=== PATIENT | female | born 1965 | race African-American/Black ===

== ENCOUNTER 2020-04-29 12:34 | Inpatient (IN) | payer MEDICAID, SELFPAY ==
[2020-04-29] VITALS (19 sets, daily range): BP systolic 97–169; BP diastolic 78–114; PULSE 106–111; RESP 16–40; TEMP 34.9–37; O2SAT 100; BMI 40.1; BMI 36.5
--- NOTE | 2020-04-29 12:49 | EKG12_ITS ---
Test Reason : DYSRHYTHMIA Blood Pressure : / mmHG Vent. Rate : 108 BPM Atrial Rate : 108 BPM P-R Int : 132 ms QRS Dur : 102 ms QT Int : 360 ms P-R-T Axes : 057 037 065 degrees QTc Int : 482 ms Sinus tachycardia Nonspecific ST and T wave abnormality Abnormal ECG Confirmed by ABISAI WRAY, MARK ([id number]), editor producer DIAMOND CUENCA ([id number] on 04/30/2020 1:20:20 PM Referred By: MAGDIEL Confirmed By:MARK BARONE MD
--- NOTE | 2020-04-29 12:50 | ED.DCSUM_ITS ---
History of Present Illness Chief Complaint: Nausea/Vomiting Informant: Patient Onset: Days Context: Gradual Onset Narrative: Patient is a poor historian. From what we are able to gather she has had nausea and vomiting for the past 2 or 3 days with shortness of breath. Minimal cough. No fever. She initially denies being diabetic but she does have metformin with her in her medication bag. She tells me she does not check her blood sugars re gularly. Past Medical History - Allergies and Home Meds Allergies/Adverse Reactions: Allergies No Known Allergies Allergy (Verified 04/29/20 12:42) Primary Care Physician: Amor Weir MD [Primary Care Provider] - Past Medical History: - - Based on patient's medications I presume patient has reflux disease, diabetes, depression, neuropathy. Smoking Status: Never smoker Review of Systems General: Denies: Chills, Fever Eyes: Denies: Visual changes - bilaterally Cardiovascular: Denies: Chest pain Respiratory: Reports: Dyspnea. Denies: Cough Gastrointestinal: Reports: Nausea, Vomiting, Diarrhea Musculoskeletal: Denies: Extremity Pain Hematologic: Denies: Easy bruising, Easy bleeding Allergy: Denies: Uticaria Physical Exam Vital Signs/Narrative: Vital Signs Temp Pulse Resp BP Pulse Ox 04/29/20 12:36 97.5 F L 109 H 29 H 151/99 H 100 Inital Vital Signs reviewed: Yes General: Well nourished, Well developed ENT: Dry mucous membranes Cardiovascular: Tachycardia Respiratory: No distress, CTA bilaterally, - - Tachypnea Abdomen: Soft, Nontender Extremities: Nontender Skin: Normal color Neurological: Alert, Oriented x3 Psychological: - - Anxious Diagnostic/Tx/Re-eval 04/29/20 14:10 Chest 1 View (Portable) [RAD] Stat Laboratory Results 04/29/20 04/29/20 04/29/20 12:35 12:35 12:35 WBC 17.7 H RBC 5.26 Hgb 13.9 Hct 45.7 MCV 86.9 MCH 26.4 L MCHC 30.4 L RDW Std Deviation 50.4 H RDW Coeff of Jevon 16.1 H Plt Count 248 MPV 13.7 H Immature Gran % (Auto) 1.400 H Neut % (Auto) 86.4 H Lymph % (Auto) 5.8 L [place] % (Auto) 6.1 Eos % (Auto) 0.1 Baso % (Auto) 0.2 Absolute Neuts (auto) 15.3 H Absolute Lymphs (auto) 1.03 Nucleated RBC % 0 Sodium Cancelled Potassium Cancelled Chloride Cancelled Carbon Dioxide Cancelled Anion Gap Cancelled BUN Cancelled Creatinine Cancelled Estim Creat Clear Calc Cancelled Est GFR (MDRD) Af Amer Cancelled Est GFR (MDRD) Non-Af Cancelled BUN/Creatinine Ratio Cancelled Glucose Cancelled Hemoglobin A1c 12.1 H Calcium Cancelled Total Bilirubin Cancelled Direct Bilirubin Cancelled AST Cancelled ALT Cancelled Alkaline Phosphatase Cancelled Troponin I Cancelled Total Protein Cancelled Albumin Cancelled Globulin Cancelled Urine Color Urine Clarity Urine pH Ur Specific [place] Urine Protein Urine Glucose (UA) Urine Ketones Urine Occult Blood Urine Nitrite Urine Bilirubin Urine Urobilinogen Ur Leukocyte Esterase Urine RBC Urine WBC Ur Squamous Epith Cells Amorphous Sediment Urine Bacteria Fine Granular Casts Urine Mucus Acetone Level COVID-19 (KAUSHAL) POC Glucose 04/29/20 04/29/20 04/29/20 12:47 13:00 13:50 WBC RBC Hgb Hct MCV MCH MCHC RDW Std Deviation RDW Coeff of Jevon Plt Count MPV Immature Gran % (Auto) Neut % (Auto) Lymph % (Auto) [place] % (Auto) Eos % (Auto) Baso % (Auto) Absolute Neuts (auto) Absolute Lymphs (auto) Nucleated RBC % Sodium Potassium Chloride Carbon Dioxide Anion Gap BUN Creatinine Estim Creat Clear Calc Est GFR (MDRD) Af Amer Est GFR (MDRD) Non-Af BUN/Creatinine Ratio Glucose Hemoglobin A1c Calcium Total Bilirubin Direct Bilirubin AST ALT Alkaline Phosphatase Troponin I Total Protein Albumin Globulin Urine Color Urine Clarity Urine pH Ur Specific [place] Urine Protein Urine Glucose (UA) Urine Ketones Urine Occult Blood Urine Nitrite Urine Bilirubin Urine Urobilinogen Ur Leukocyte Esterase Urine RBC Urine WBC Ur Squamous Epith Cells Amorphous Sediment Urine Bacteria Fine Granular Casts Urine Mucus Acetone Level MODERATE H COVID-19 (KAUSHAL) Negative POC Glucose > 500 H* 04/29/20 04/29/20 13:50 14:10 WBC RBC Hgb Hct MCV MCH MCHC RDW Std Deviation RDW Coeff of Jevon Plt Count MPV Immature Gran % (Auto) Neut % (Auto) Lymph % (Auto) [place] % (Auto) Eos % (Auto) Baso % (Auto) Absolute Neuts (auto) Absolute Lymphs (auto) Nucleated RBC % Sodium 126 L Potassium 4.0 Chloride 97 L Carbon Dioxide 5.0 L* Anion Gap 24 H BUN 31 H Creatinine 1.37 H Estim Creat Clear Calc 46.18 Est GFR (MDRD) Af Amer 52 L Est GFR (MDRD) Non-Af 43 L BUN/Creatinine Ratio 22.6 H Glucose 706 H* Hemoglobin A1c Calcium 9.4 Total Bilirubin 0.40 Direct Bilirubin 0.11 AST 15 ALT 23 Alkaline Phosphatase 204 H Troponin I < 0.015 Total Protein 7.4 Albumin 3.3 Globulin 4.1 Urine Color Yellow Urine Clarity Sl. Cloudy Urine pH 5.0 Ur Specific [place] 1.020 Urine Protein 30 H Urine Glucose (UA) 1000 H Urine Ketones 150 H Urine Occult Blood 250 H Urine Nitrite Negative Urine Bilirubin Negative Urine Urobilinogen Normal Ur Leukocyte Esterase Negative Urine RBC 0-5 SEEN Urine WBC 0 SEEN Ur Squamous Epith Cells 0-5 SEEN Amorphous Sediment 1+ Urine Bacteria RARE Fine Granular Casts 0-5 SEEN Urine Mucus RARE Acetone Level COVID-19 (KAUSHAL) POC Glucose - EKG Initial EKG Interpretation: Sinus Tachycardia - Sinus tach at 108. Nonspecific ST change. No acute ischemia. - Medical Decision Making Patient's initial fingerstick blood sugar was greater than 500. 2 IV lines are established. Patient's blood sugars over 700 with a bicarb of 5. Patient is given 2 L of IV fluid and insulin drip was ordered. Patient was discussed with hospitalist and we admitted to the ICU. - Critical Care Time Critical care time (excluding procedures): 30-74 minutes ED Disposition - Plan for ED Patient: Disposition: Acute Care Hospital [facility] Diagnosis: DKA (diabetic ketoacidoses) Referrals: Amor Weir MD [Primary Care Provider] -
[2020-04-29 12:51] LABS: Bedside Glucose > 500 mg/dL (70-110)
[2020-04-29 13:01] LABS: Absolute Lymphocyte Count 1.03 X10^3/uL (0.83-4.51); Absolute Neutrophil Count 15.3 X10^3/uL (2.0-7.7); Basophil# 0.04 X10^3/uL; Basophil% 0.2 % (0-1); Eosinophil# 0.02 X10^3/uL; Eosinophils% 0.1 % (0-5); Hematocrit 45.7 % (37-47); Hemoglobin 13.9 g/dL (12.0-15.0); Lymphocyte # 1.03 X10^3/ul (4.0); Lymphocyte % 5.8 % (19-41); Mean Corp Hgb Conc 30.4 g/dL (32-36); Mean Corpuscular Hgb 26.4 pg (27.0-32.0); Mean Corpuscular Volume 86.9 fL (81-99); Mean Platelet Vol. 13.7 fl (6.2-12.0); Monocyte# 1.09 X10^3/uL; Monocyte% 6.1 % (0-10); NRBC Flagged by Analyzer 0 % (0-5); Neutrophil # 15.32 X10^3/uL (2.7-7.7); Neutrophil % 86.4 % (47-70); Platelet Count 248 K/mm3 (150-450); RBC Distribution Width CV 16.1 % (11.6-14.6); RBC Distribution Width SD 50.4 fl (35.1-43.9); Red Blood Count 5.26 M/mm3 (4.2-5.4); White Blood Count 17.7 K/mm3 (4.4-11.0)
--- NOTE | 2020-04-29 13:18 | NURSING ---
NO OLD EKGS
[2020-04-29] MEDS: 0.9% Normal Saline 1,000 ML 999 ML IV (13:21)
[2020-04-29] MEDS: Ondansetron 4 MG/2 ML Vial IV (13:26)
[2020-04-29 13:27] LABS: Hemoglobin A1c 12.1 % (3.8-5.6)
--- NOTE | 2020-04-29 14:10 | RAD_ITS ---
STUDY: X-RAY CHEST REASON FOR EXAM: Female, 55 years old. sob, nausea and vomiting x 2 days TECHNIQUE: Frontal view of the chest COMPARISON: None. FINDINGS: The lungs are clear and expanded. There is no demonstrated pleural abnormality. Normal size heart. Normal mediastinum and martin. Normal visualized pulmonary arteries. Normal visualized aortic arch and descending thoracic aorta. Normal visualized thoracic spine. Normal visualized ribs, clavicles, and shoulders. There is no demonstrated abnormality of the visualized soft tissue structures of the upper abdomen. RAD/Chest 1 View (Portable) IMPRESSION: Normal x-ray examination of the chest. Electronically Signed: Andrei Mejias, at 15:37 EDT Tel , Service support ,
[2020-04-29 14:15] LABS: White Blood Cells 0 SEEN /hpf (0-5)
[2020-04-29 14:16] LABS: Color, Urine Yellow (Yellow); Glucose, Dipstick 1000 mg/dl (Normal); Leukocyte Esterase-Dipstick Negative /ul (Negative); Nitrite-Dipstick Negative (Negative); Occult Blood-Urine 250 /ul (Negative); Protein-Dipstick 30 mg/dl (Negative); Urine Bilirubin Dipstick Negative (Negative); Urine Clarity Sl. Cloudy (Clear); Urine Urobilinogen Normal (Normal)
[2020-04-29 14:17] LABS: Ketone-Dipstick 150 mg/dl (Negative)
[2020-04-29 14:25] LABS: Amorphous Sediment 1+; Bacteria RARE /hpf (None Seen); Fine Granular Cast- Urine 0-5 SEEN /lpf (0-5); Mucous, Urine RARE /hpf (<or=2+); Red Blood Cells-Urine 0-5 SEEN /hpf (0-5); Squamous Epithelial Cells - UA 0-5 SEEN /hpf (5-10)
[2020-04-29 14:26] LABS: Probe Check PASS; Specimen Processing Control PASS
[2020-04-29 14:33] LABS: AST(SGOT) 15 U/L (15-37); Alanine Aminotransfer ALT/SGPT 23 U/L (13-56); Albumin, Serum 3.3 g/dL (3.2-5.0); Alkaline Phosphatase 204 U/L (45-117); Anion Gap 24 (5-15); BUN 31 mg/dL (7-18); BUN/Creat Ratio 22.6 RATIO (10-20); Bilirubin, Direct 0.11 mg/dL (0.00-0.30); Calcium,Total 9.4 mg/dL (8.5-10.1); Chloride 97 mmol/L (98-107); Creatinine, Serum 1.37 mg/dL (0.55-1.02); EST Glomerular Filtration Rate 43 mL/min (>60); Est Glom Filt Rate - Afr Amer 52 mL/min (>60); Estimated Creatinine Clearance 46.18 ml/min; Globulin 4.1 g/dL (2.2-4.2); Glucose 706 mg/dL (74-106); Protein, Total 7.4 g/dL (6.4-8.2); Sodium Level 126 mmol/L (136-145)
--- NOTE | 2020-04-29 14:55 | NURSING ---
ICU PAINTSIL DKA
[2020-04-29 15:15] LABS: Bedside Glucose > 500 mg/dL (70-110)
--- NOTE | 2020-04-29 15:18 | NURSING ---
ICU 6
--- NOTE | 2020-04-29 15:57 | HP.PCM_ITS ---
<Rafiq Lino - Last Filed: 04/29/20 15:57> Problem List (1) DKA (diabetic ketoacidoses) Status: Acute (2) Depression Status: Chronic History of Present Illness Date of Admission: 04/29/20 Chief Complaint: DKA The patient is a 55 year old F with pmhx of DMt2, who presented to the ER with c/o nausea/vomiting, and shortness of breath. At this time she is confused and unable to provide significant history, so the hx that was obtained from the records and from family. She has not been feeling well for about 4 days. Per family she has been eating fast food. She appears to have DKA with glucose 706 and an A1C of 12, elevated acetones, Gap of 24, and she is tachypneic up to 40 in the ER but denies SOB. Family states she does not drink or use drugs. She is supposed to be on metformin at home. [] Past Medical History Past Medical History (Chronic Problems): Chronic Problems Depression (Chronic) Allergies No Known Allergies Allergy (Verified 04/29/20 12:42) Home Medications: Ambulatory Orders Medication Instructions Recorded Escitalopram Oxalate [Lexapro] 10 mg PO DAILY 04/29/20 Gabapentin 800 mg PO QHS 04/29/20 Metformin HCl [Metformin HCl ER] 500 mg PO DAILY 04/29/20 Montelukast [Singulair] 10 mg PO QHS 04/29/20 Oxybutynin Chloride [Oxybutynin 10 mg PO DAILY 04/29/20 Chloride ER] Promethazine HCl 25 mg PO Q6H PRN PRN 04/29/20 Propranolol HCl [Inderal] 10 mg PO DAILY 04/29/20 Surgical History: - - pt unable to provide Psychiatric History: No pertinent psych hx 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 Lives: With Family Smoking Status: Never smoker Tobacco Use: Non-smoker Alcohol: None Drugs: None - *Family History Maternal History Items: - - unable to provide Paternal History Items: No pertinent history - unable to provide Review of Systems Unable to obtain accurate/complete ROS d/t: Pt confused and unable to provide VTE Information - Inpt Only VTE Present on Admission: No VTE Mechan Device Prophylaxis: None VTE Pharm Prophylaxis ordered?: Yes Patient Problems: Active and Suspected Problems DKA (diabetic ketoacidoses) (Acute) - Physical Exam Vitals/I&O's: Vital Signs Temp Pulse Resp BP Pulse Ox 95.3 F L 108 H 32 H 143/89 H 100 04/29/20 15:00 04/29/20 15:00 04/29/20 15:00 04/29/20 15:00 04/29/20 15:00 Oxygen Delivery Method Room Air Weight: 255 lb 15.307 oz Body Mass Index (BMI) 40.1 Finger Stick Blood Glucose 600 Intake and Output for Last 24 Hours 04/27/20 04/28/20 04/29/20 23:59 23:59 23:59 Intake Total 1000.0 / 1000.0 Balance 1000.0 / 1000.0 General: Alert, Cooperative, Confused HEENT: Atraumatic, PERRLA, EOMI, Normocephalic Neck: Supple, No JVD, Negative Carotid Bruits Lungs: Clear to auscultation, Short of Breath, Tachypneic Cardiovascular: No murmurs, Tachycardic Abdomen: Bowel Sounds Present, Soft, Non Tender Extremities: No edema, Capillary Refill Less than 3 Seconds Skin: No rashes, No breakdown Musculoskeletal: No Tenderness to Palpation of Joints or Extremities Neurological: Cranial nerves II-XII grossly intact Psych/Mental Status: Anxious Laboratory Results 04/29/20 12:35: Sodium Cancelled, Potassium Cancelled, Chloride Cancelled, Carbon Dioxide Cancelled, Anion Gap Cancelled, BUN Cancelled, Creatinine Cancelled, Estim Creat Clear Calc Cancelled, Est GFR (MDRD) Af Amer Cancelled, Est GFR (MDRD) Non-Af Cancelled, BUN/Creatinine Ratio Cancelled, Glucose Cancelled, Calcium Cancelled, Total Bilirubin Cancelled, Direct Bilirubin Cancelled, AST Cancelled, ALT Cancelled, Alkaline Phosphatase Cancelled, Troponin I Cancelled, Total Protein Cancelled, Albumin Cancelled, Globulin Cancelled 04/29/20 12:35: Hemoglobin A1c 12.1 H 04/29/20 12:35: WBC 17.7 H, RBC 5.26, Hgb 13.9, Hct 45.7, MCV 86.9, MCH 26.4 L, MCHC 30.4 L, RDW Std Deviation 50.4 H, RDW Coeff of Jevon 16.1 H, Plt Count 248, MPV 13.7 H, Immature Gran % (Auto) 1.400 H, Neut % (Auto) 86.4 H, Lymph % (Auto) 5.8 L, [place] % (Auto) 6.1, Eos % (Auto) 0.1, Baso % (Auto) 0.2, Absolute Neuts (auto) 15.3 H, Absolute Lymphs (auto) 1.03, Nucleated RBC % 0 04/29/20 12:47: POC Glucose > 500 H* 04/29/20 13:00: COVID-19 (KAUSHAL) Negative 04/29/20 13:50: Acetone Level MODERATE H 04/29/20 13:50: Sodium 126 L, Potassium 4.0, Chloride 97 L, Carbon Dioxide 5.0 L*, Anion Gap 24 H, BUN 31 H, Creatinine 1.37 H, Estim Creat Clear Calc 46.18, Est GFR (MDRD) Af Amer 52 L, Est GFR (MDRD) Non-Af 43 L, BUN/Creatinine Ratio 2 2.6 H, Glucose 706 H*, Calcium 9.4, Total Bilirubin 0.40, Direct Bilirubin 0.11, AST 15, ALT 23, Alkaline Phosphatase 204 H, Troponin I < 0.015, Total Protein 7.4, Albumin 3.3, Globulin 4.1 04/29/20 14:10: Urine Color Yellow, Urine Clarity Sl. Cloudy, Urine pH 5.0, Ur Specific [place] 1.020, Urine Protein 30 H, Urine Glucose (UA) 1000 H, Urine Ketones 150 H, Urine Occult Blood 250 H, Urine Nitrite Negative, Urine Bilirubin Negative, Urine Urobilinogen Normal, Ur Leukocyte Esterase Negative, Urine RBC 0-5 SEEN, Urine WBC 0 SEEN, Ur Squamous Epith Cells 0-5 SEEN, Amorphous Sediment 1+, Urine Bacteria RARE, Fine Granular Casts 0-5 SEEN, Urine Mucus RARE 04/29/20 15:09: POC Glucose > 500 H* Current Medications Sodium Chloride () 1,000 mls @ 999 mls/hr IV .Q1H1M ONE Last Infusion: 04/29/20 15:05 Dose: Infused Documented by: Insulin Human Lispro 100 unit/ (Sodium Chloride) 100 mls @ 11.61 mls/hr IV .Q8H37M [facility]; Protocol Last Admin: 04/29/20 15:10 Dose: 0.1 units/kg/hr, 11.6 mls/hr Documented by: Assessment/Plan All Active Problems DKA (diabetic ketoacidoses) (Acute) 1. DKA - initiate DKA protocol., pt to ICU. Aggressive fluid hydration and electrolyte repletion, insulin drip. A1C 12. Gap 24, CO2 5.0, sodium 126, gluc 706. 2. Leukocytosis - hypothermic, however negative CXR, neg UA, no obvious source of infection. Trend 3. Abnormal renal function - baseline unclear - elevated BUN/Cr, will trend DVT ppx: heparin This patient was seen by Rafiq Lino PA-C under the supervision of Dr. rUiarte. <Latoya Uriarte - Last Filed: 04/29/20 16:25> History of Present Illness The patient is a 55 year old F [] Past Medical History Allergies No Known Allergies Allergy (Verified 04/29/20 12:42) - Physical Exam Vitals/I&O's: Vital Signs Temp Pulse Resp BP Pulse Ox 95.3 F L 108 H 32 H 143/89 H 100 04/29/20 15:00 04/29/20 15:00 04/29/20 15:00 04/29/20 15:00 04/29/20 15:00 Oxygen Delivery Method Room Air Weight: 116.1 kg Body Mass Index (BMI) 40.1 Finger Stick Blood Glucose 600 Intake and Output for Last 24 Hours 04/27/20 04/28/20 04/29/20 23:59 23:59 23:59 Intake Total 1000.0 / 1000.0 Balance 1000.0 / 1000.0 Laboratory Results 04/29/20 12:35: Sodium Cancelled, Potassium Cancelled, Chloride Cancelled, Carbon Dioxide Cancelled, Anion Gap Cancelled, BUN Cancelled, Creatinine Cancelled, Estim Creat Clear Calc Cancelled, Est GFR (MDRD) Af Amer Cancelled, Est GFR (MDRD) Non-Af Cancelled, BUN/Creatinine Ratio Cancelled, Glucose Cancelled, Calcium Cancelled, Total Bilirubin Cancelled, Direct Bilirubin Cancelled, AST Cancelled, ALT Cancelled, Alkaline Phosphatase Cancelled, Troponin I Cancelled, Total Protein Cancelled, Albumin Cancelled, Globulin Ca ncelled 04/29/20 12:35: Hemoglobin A1c 12.1 H 04/29/20 12:35: WBC 17.7 H, RBC 5.26, Hgb 13.9, Hct 45.7, MCV 86.9, MCH 26.4 L, MCHC 30.4 L, RDW Std Deviation 50.4 H, RDW Coeff of Jevon 16.1 H, Plt Count 248, MPV 13.7 H, Immature Gran % (Auto) 1.400 H, Neut % (Auto) 86.4 H, Lymph % (Auto) 5.8 L, [place] % (Auto) 6.1, Eos % (Auto) 0.1, Baso % (Auto) 0.2, Absolute Neuts (auto) 15.3 H, Absolute Lymphs (auto) 1.03, Nucleated RBC % 0 04/29/20 12:47: POC Glucose > 500 H* 04/29/20 13:00: COVID-19 (KAUSHAL) Negative 04/29/20 13:50: Acetone Level MODERATE H 04/29/20 13:50: Sodium 126 L, Potassium 4.0, Chloride 97 L, Carbon Dioxide 5.0 L*, Anion Gap 24 H, BUN 31 H, Creatinine 1.37 H, Estim Creat Clear Calc 46.18, Est GFR (MDRD) Af Amer 52 L, Est GFR (MDRD) Non-Af 43 L, BUN/Creatinine Ratio 22.6 H, Glucose 706 H*, Calcium 9.4, Total Bilirubin 0.40, Direct Bilirubin 0.11, AST 15, ALT 23, Alkaline Phosphatase 204 H, Troponin I < 0.015, Total Protein 7.4, Albumin 3.3, Globulin 4.1 04/29/20 14:10: Urine Color Yellow, Urine Clarity Sl. Cloudy, Urine pH 5.0, Ur Specific [place] 1.020, Urine Protein 30 H, Urine Glucose (UA) 1000 H, Urine Ketones 150 H, Urine Occult Blood 250 H, Urine Nitrite Negative, Urine Bilirubin Negative, Urine Urobilinogen Normal, Ur Leukocyte Esterase Negative, Urine RBC 0-5 SEEN, Urine WBC 0 SEEN, Ur Squamous Epith Cells 0-5 SEEN, Amorphous Sediment 1+, Urine Bacteria RARE, Fine Granular Casts 0-5 SEEN, Urine Mucus RARE 04/29/20 15:09: POC Glucose > 500 H* 04/29/20 15:56: POC Glucose > 500 H* Current Medications Acetaminophen (Tylenol) 650 mg PO Q6H PRN PRN PRN Reason: Pain Score 1-10/Temp > 100.7 F Dextrose (D50w Syringe) 0 gm IV X1 PRN; Protocol PRN Reason: HYPOGLYCEMIA Heparin Sodium (Porcine) (Heparin Na) 5,000 unit SC Q8 CHEKO Sodium Chloride () 1,000 mls @ 999 mls/hr IV .Q1H1M ONE Last Infusion: 04/29/20 15:05 Dose: Infused Documented by: Insulin Human Lispro 100 unit/ (Sodium Chloride) 100 mls @ 11.61 mls/hr IV .Q8H37M CHEKO; Protocol Last Admin: 04/29/20 15:10 Dose: 0.1 units/kg/hr, 11.6 mls/hr Documented by: Sodium Chloride () 1,000 mls @ 999 mls/hr IV .Q1H1M ONE Stop: 04/29/20 17:07 Sodium Chloride () 1,000 mls @ 500 mls/hr IV .Q2H CHEKO Stop: 04/29/20 18:06 Potassium Chloride/Sodium Chloride (Kcl 20meq In 0.45% Ns 1000ml) 1,000 mls @ 125 mls/hr IV .Q8H CHEKO Stop: 04/29/20 19:08 Sodium Chloride () 250 mls @ 15 mls/hr IV .[id number] PRN PRN Reason: Saline Flush Sodium Chloride () 250 mls @ 15 mls/hr IV .[id number] PRN PRN Reason: Additional IVPB Infusion Ondansetron HCl (Zofran) 4 mg IV Q8H PRN PRN PRN Reason: NAUSEA/VOMITING Sodium Chloride () 10 - 40 ml IV UD PRN PRN Reason: SALINE FLUSH Assessment/Plan This patient was seen in conjunction with IRIS Luciano. I have independently interviewed and examined the patient and reviewed pertinent historical, laboratory, and other data. Please refer to IRIS Luciano note for his patient's presentation, findings, and recommendations. I have reviewed and his note and concur with his documentation History was taken from the patient's children and review of medical chart: 55-year-old female past medical history of depression/diabetes, on metformin who comes in with altered mental status. The EMS were called for patient who was having difficulty breathing. When she was seen, she was alert oriented x3 bowel movements after every breath. She appeared weak and tired. They were told that the patient has not been eating much but has been drinking water. She has vomited several times in the last few days. Her vitals for the EMS crew appear to be stable except for tachycardia. Vitals in the ED showed temperature 97.5 F, heart rate 109, blood pressure 151/99, respiratory rate was 29, SPO2 was 100% on room air. Her admitting labs showed WBC count of 17.7, hemoglobin 13.9, platelet count 248, sodium 126, potassium 4.0, bicarbonate 5, chloride 7, BUN 31, creatinine 1.37, HbA1c was 12.1, glucose 706, UA showed moderate acetones, negative nitrite, negative leukocyte esterase, urine glucose was more than 1000, COVID-19 testing was negative Admitting Chest x-ray was negative. Physical Exam: Gen: Looks in some discomfort, confused, not pale, not jaundiced CVS:HS I +II, regular, no murmurs RESP: Diminished at lung bases GI: BS present and normal, soft, nontender, no palpable organs EXT:No edema ASSESSMENT: 1. Acute metabolic encephalopathy 2. Acute DKA 3. Leukocytosis, no signs of sepsis 4. JOSEPH 5. Depression Plan: Admit to ICU, monitor per DKA protocol Monitor BMP every 4h Urine tox screen Inpatient E&M: 13366 Init Hosp L3
[2020-04-29 16:01] LABS: Bedside Glucose > 500 mg/dL (70-110)
[2020-04-29] MEDS: 0.9% Normal Saline 1,000 ML 500 ML IV (16:15)
[2020-04-29 17:05] LABS: Bedside Glucose 450 mg/dL (70-110)
[2020-04-29 17:27] LABS: Amphetamine Urine VISTA NEGATIVE (<1000 ng/mL); Barbiturate Urine VISTA NEGATIVE (< 200 ng/mL); Benzodiazepine Urine VISTA NEGATIVE (< 200 ng/mL); Cocaine Urine VISTA NEGATIVE (< 300 ng/mL); Ecstacy Urine VISTA NEGATIVE (< 500 ng/mL); Methadone Urine VISTA NEGATIVE (< 300 ng/mL); PCP Urine VISTA NEGATIVE (< 25 ng/mL); THC Urine VISTA NEGATIVE (< 50 ng/mL); Vista UDS pH Range 5
[2020-04-29 17:58] LABS: Magnesium 2.5 mg/dL (1.6-2.6)
[2020-04-29 18:01] LABS: Anion Gap 24 (5-15); BUN 27 mg/dL (7-18); BUN/Creat Ratio 26.5 RATIO (10-20); Calcium,Total 9.2 mg/dL (8.5-10.1); Chloride 109 mmol/L (98-107); Creatinine, Serum 1.02 mg/dL (0.55-1.02); EST Glomerular Filtration Rate 60 mL/min (>60); Est Glom Filt Rate - Afr Amer 73 mL/min (>60); Estimated Creatinine Clearance 62.03 ml/min; Glucose 385 mg/dL (74-106); Potassium 3.3 mmol/L (3.5-5.1); Sodium Level 137 mmol/L (136-145)
[2020-04-29 18:21] LABS: Bedside Glucose 359 mg/dL (70-110)
[2020-04-29 18:27] LABS: Osmolality, Serum 317 mOsm/KG (275-295)
[2020-04-29] MEDS: Potassium Chloride 10mEq/100mL 10 MEQ/100 ML IV.SOLN. 100 MEQ IV BOLUS ×4 (19:02→22:55)
[2020-04-29 19:21] LABS: Bedside Glucose 326 mg/dL (70-110)
[2020-04-29 20:31] LABS: Bedside Glucose 307 mg/dL (70-110)
[2020-04-29 20:47] LABS: Salicylate 4.3 mg/dL (2.8-20.0)
[2020-04-29 21:22] LABS: Anion Gap 21 (5-15); BUN 24 mg/dL (7-18); BUN/Creat Ratio 26.7 RATIO (10-20); Calcium,Total 8.9 mg/dL (8.5-10.1); Chloride 110 mmol/L (98-107); EST Glomerular Filtration Rate 70 mL/min (>60); Est Glom Filt Rate - Afr Amer 84 mL/min (>60); Glucose 279 mg/dL (74-106); Sodium Level 136 mmol/L (136-145)
[2020-04-29 21:25] LABS: Acetaminophen (Tylenol) Level < 2.0 ug/mL (10.0-30.0)
[2020-04-29] MEDS: Montelukast 10 MG Tablet PO (21:55)
[2020-04-29] MEDS: Heparin Injection (Vial) 5,000 UNIT/ML VIAL 5000 UNIT SC (21:55)
[2020-04-29 22:06] LABS: Bedside Glucose 271 mg/dL (70-110)
[2020-04-29 23:01] LABS: Bedside Glucose 241 mg/dL (70-110)
[2020-04-30] VITALS (21 sets, daily range): BP systolic 127–181; BP diastolic 75–136; PULSE 77–108; RESP 16–29; TEMP 36.9–37.7; O2SAT 97–100
[2020-04-30 00:16] LABS: Bedside Glucose 232 mg/dL (70-110)
[2020-04-30 01:26] LABS: Bedside Glucose 210 mg/dL (70-110)
[2020-04-30 02:46] LABS: Bedside Glucose 228 mg/dL (70-110)
[2020-04-30 03:32] LABS: ALB/GLOB Ratio 0.7 RATIO (0.9-2.4); AST(SGOT) 30 U/L (15-37); Alanine Aminotransfer ALT/SGPT 27 U/L (13-56); Albumin, Serum 3.1 g/dL (3.2-5.0); Alkaline Phosphatase 189 U/L (45-117); Anion Gap 16 (5-15); BUN 21 mg/dL (7-18); Calcium,Total 9.2 mg/dL (8.5-10.1); Chloride 111 mmol/L (98-107); Creatinine, Serum 1.05 mg/dL (0.55-1.02); EST Glomerular Filtration Rate 58 mL/min (>60); Est Glom Filt Rate - Afr Amer 70 mL/min (>60); Estimated Creatinine Clearance 60.26 ml/min; Globulin 4.3 g/dL (2.2-4.2); Glucose 227 mg/dL (74-106); Magnesium 2.5 mg/dL (1.6-2.6); Phosphorus 0.7 mg/dL (2.5-4.9); Potassium 4.7 mmol/L (3.5-5.1); Protein, Total 7.4 g/dL (6.4-8.2); Sodium Level 135 mmol/L (136-145)
[2020-04-30] MEDS: 0.9% Saline Lock 10 ML Syringe IV ×2 (03:57→14:59)
[2020-04-30 04:06] LABS: Bedside Glucose 243 mg/dL (70-110)
[2020-04-30 05:00] LABS: Absolute Lymphocyte Count 1.02 X10^3/uL (0.83-4.51); Absolute Neutrophil Count 13.1 X10^3/uL (2.0-7.7); Basophil# 0.03 X10^3/uL; Basophil% 0.2 % (0-1); Hematocrit 43.4 % (37-47); Hemoglobin 13.8 g/dL (12.0-15.0); Lymphocyte # 1.02 X10^3/ul (4.0); Lymphocyte % 6.6 % (19-41); Mean Corp Hgb Conc 31.8 g/dL (32-36); Mean Corpuscular Hgb 25.9 pg (27.0-32.0); Mean Corpuscular Volume 81.6 fL (81-99); Mean Platelet Vol. 13.2 fl (6.2-12.0); Monocyte% 6.5 % (0-10); NRBC Flagged by Analyzer 0 % (0-5); Neutrophil # 13.13 X10^3/uL (2.7-7.7); Neutrophil % 84.8 % (47-70); POSITIVE COUNT YES; POSITIVE MORPHOLOGY YES; Platelet Count 204 K/mm3 (150-450); RBC Distribution Width CV 15.5 % (11.6-14.6); RBC Distribution Width SD 45.8 fl (35.1-43.9); Red Blood Count 5.32 M/mm3 (4.2-5.4); White Blood Count 15.5 K/mm3 (4.4-11.0)
[2020-04-30 05:23] LABS: Lactic Acid 2.3 mmol/L (0.4-1.9)
[2020-04-30 05:28] LABS: Differential Comment SCANNED; Differential Indicated SCAN CRITERIA MET
[2020-04-30 05:46] LABS: Bedside Glucose 287 mg/dL (70-110)
[2020-04-30] MEDS: Heparin Injection (Vial) 5,000 UNIT/ML VIAL 5000 UNIT SC ×3 (06:04→21:57)
[2020-04-30 06:06] LABS: Bedside Glucose 234 mg/dL (70-110)
[2020-04-30 07:25] LABS: Bedside Glucose 268 mg/dL (70-110)
[2020-04-30 08:06] LABS: Bedside Glucose 248 mg/dL (70-110)
[2020-04-30 09:27] LABS: Anion Gap 12 (5-15); BUN 18 mg/dL (7-18); BUN/Creat Ratio 19.1 RATIO (10-20); Calcium,Total 8.7 mg/dL (8.5-10.1); Chloride 111 mmol/L (98-107); Creatinine, Serum 0.94 mg/dL (0.55-1.02); EST Glomerular Filtration Rate 66 mL/min (>60); Est Glom Filt Rate - Afr Amer 80 mL/min (>60); Estimated Creatinine Clearance 67.31 ml/min; Glucose 243 mg/dL (74-106); Potassium 3.5 mmol/L (3.5-5.1); Sodium Level 136 mmol/L (136-145)
[2020-04-30 09:30] LABS: Bedside Glucose 226 mg/dL (70-110)
[2020-04-30] MEDS: Escitalopram Oxalate 10 MG Tablet PO (09:47)
[2020-04-30] MEDS: Propranolol 10 MG Tablet PO (09:47)
--- NOTE | 2020-04-30 10:04 | CON.PCM_ITS ---
Reason for Consult Date of Consultation: 04/30/20 Reason for Consultation: Diabetic ketoacidosis History of Present Illness: The patient is a 55-year-old female, with a history as outlined below, who presented to the emergency department on April 29 with complaints of nausea and vomiting. The patient is a relative poor historian. She did report not having been diagnosed with diabetes before, despite having metformin on her outpatient medication list. On presentation to the emergency department, the patient was noted to be afebrile but was tachycardic and tachypneic. Laboratory evaluation revealed an elevated white blood cell count to 17,000. Chemistry profile was notable for a sodium of 126, chloride of 97, bicarbonate of 5.0 and creatinine of 1.37. Glucose was elevated to 706. Hemoglobin A1c was noted to be 12.1. Troponin was negative. Toxicology screen was negative. Moderate serum acetone level was noted. Coronavirus PCR was negative. Plain film chest x-ray revealed no acute cardiopulmonary process. The patient received supplemental IV fluid hydration and was started on a continuous insulin infusion. She was subsequently admitted to the medical intensive care unit for further management of her diabetic ketoacidosis. Past Medical History Past Medical History (Chronic Problems): Chronic Problems Depression (Chronic) Allergies No Known Allergies Allergy (Verified 04/29/20 12:42) Home Medications: Ambulatory Orders Medication Instructions Recorded Escitalopram Oxalate [Lexapro] 10 mg PO DAILY 04/29/20 Gabapentin 800 mg PO QHS 04/29/20 Metformin HCl [Metformin HCl ER] 500 mg PO DAILY 04/29/20 Montelukast [Singulair] 10 mg PO QHS 04/29/20 Oxybutynin Chloride [Oxybutynin 10 mg PO DAILY 04/29/20 Chloride ER] Promethazine HCl 25 mg PO Q6H PRN PRN 04/29/20 Propranolol HCl [Inderal] 10 mg PO DAILY 04/29/20 Surgical History: - - pt unable to provide Psychiatric History: No pertinent psych hx PERINATOLOGY PHYSICIAN History: No pertinent PERINATOLOGY PHYSICIAN history Lives: With Family Smoking Status: Never smoker Tobacco Use: Non-smoker Alcohol: None Drugs: None - *Family History Maternal History Items: - - unable to provide Paternal History Items: No pertinent history - unable to provide Review of Systems Constitutional: Reports: Malaise, Weakness, Fatigue Eyes: Denies: Blurred vision, Double vision HEENT: Denies: Head Aches, Sinus Congestion, Sinus Drainage Cardiovascular: Denies: Chest Pain, Palpitations Respiratory: Denies: Cough, Shortness of breath at rest, Sputum production Gastrointestinal: Reports: Nausea, Vomiting Genitourinary: Denies: Dysuria Musculoskeletal: Denies: Joint Pain, Joint Tenderness Skin: Denies: Rash, Wounds Neurological: Denies: Numbness, Tingling, Focal weakness Psychiatric: Reports: Depression Hematologic/ Lymphatic: Denies: Easy Bruising, Easy Bleeding Patient Problems: Active and Suspected Problems DKA (diabetic ketoacidoses) (Acute) Objective: The patient's most recent lab work, culture data and imaging studies have all been personally reviewed. - Physical Exam Vitals/I&O's: Vital Signs Temp Pulse Resp BP Pulse Ox 99.5 F H 102 H 24 H 178/91 H 100 04/30/20 08:00 04/30/20 08:00 04/30/20 08:00 04/30/20 08:00 04/30/20 08:00 Oxygen Delivery Method Room Air Weight: 234 lb 12.677 oz Body Mass Index (BMI) 36.5 Finger Stick Blood Glucose 226 Intake and Output for Last 24 Hours 04/28/20 04/29/20 04/30/20 23:59 23:59 23:59 Intake Total 2422.36 / 2472.36 2183.24 / 2183.24 Output Total 1599 / 1975 1200 / 1200 Balance 822.36 / 497.36 983.24 / 983.24 General: Alert, Cooperative HEENT: Atraumatic, Normocephalic Oral: No Gingival or Mucosal Lesions/ Ulcerations Neck: Supple, No Nodes, Trachea Midline Lungs: No rhonchi, No wheeze, No rales, Diminished, - - Poor inspiratory effort Cardiovascular: Regular rate, Regular Rhythm Abdomen: Bowel Sounds Present, Soft, Non Tender Extremities: No clubbing, No cyanosis, No edema Skin: No breakdown Lymphatic: No Cervical, Supraclavicular, or Inguinal Adenopathy Neurological: Neuro grossly intact Psych/Mental Status: Flat Affect Labs (Last 48 Hours) 04/29/20 04/29/20 04/29/20 12:35 12:35 12:35 WBC 17.7 H Corrected WBC RBC 5.26 Hgb 13.9 Hct 45.7 MCV 86.9 MCH 26.4 L MCHC 30.4 L RDW Std Deviation 50.4 H RDW Coeff of Jevon 16.1 H Plt Count 248 MPV 13.7 H Immature Gran % (Auto) 1.400 H Neut % (Auto) 86.4 H Lymph % (Auto) 5.8 L [place] % (Auto) 6.1 Eos % (Auto) 0.1 Baso % (Auto) 0.2 Absolute Neuts (auto) 15.3 H Absolute Lymphs (auto) 1.03 Total Counted Neutrophils % (Manual) Band Neutrophils % Lymphocytes % (Manual) Monocytes % (Manual) Eosinophils % (Manual) Basophils % (Manual) Metamyelocytes % Myelocytes % Promyelocytes % Blast Cells % Plasma Cell % (Manual) Other Cells % Nucleated RBC % 0 Nucleated RBCs/100 WBC Differential Comment Diff Path Review Hypersegmented Neuts Atypical Lymphocytes Reactive Lymphocytes Smudge Cells Toxic Granulation Toxic Vacuolation Dohle Bodies Leo Rods Platelet Estimate Plt Morphology Comment RBC Morphology Polychromasia Hypochromasia Poikilocytosis Basophilic Stippling Anisocytosis Microcytosis Macrocytosis Spherocytes Sickle Cells Target Cells Tear Drop Cells Ovalocytes Stomatocytes [place]eral[place] Bodies Alycia Cells Bite Cells Crenated Cell Acanthocytes (Spur) Rouleaux Schistocytes Sodium Cancelled Potassium Cancelled Chloride Cancelled Carbon Dioxide Cancelled Anion Gap Cancelled BUN Cancelled Creatinine Cancelled Estim Creat Clear Calc Cancelled Est GFR (MDRD) Af Amer Cancelled Est GFR (MDRD) Non-Af Cancelled BUN/Creatinine Ratio Cancelled Glucose Cancelled Hemoglobin A1c 12.1 H Serum Osmolality Lactic Acid Calcium Cancelled Phosphorus Magnesium Total Bilirubin Cancelled Direct Bilirubin Cancelled AST Cancelled ALT Cancelled Alkaline Phosphatase Cancelled Troponin I Cancelled Total Protein Cancelled Albumin Cancelled Globulin Cancelled Albumin/Globulin Ratio Urine Color Urine Clarity Urine pH Ur Specific [place] Urine Protein Urine Glucose (UA) Urine Ketones Urine Occult Blood Urine Nitrite Urine Bilirubin Urine Urobilinogen Ur Leukocyte Esterase Urine RBC Urine WBC Ur Squamous Epith Cells Amorphous Sediment Urine Bacteria Fine Granular Casts Urine Mucus Salicylates Urine Opiates Screen Urine Methadone Screen Acetaminophen Ur Barbiturates Screen Ur Phencyclidine Scrn Ur Amphetamines Screen U Methamphetamin-MDMA U Benzodiazepines Scrn Urine Cocaine Screen U Cannabinoids Screen Ur Drug Screen Comment Acetone Level COVID-19 (KAUSHAL) POC Glucose 04/29/20 04/29/20 04/29/20 12:47 13:00 13:50 WBC Corrected WBC RBC Hgb Hct MCV MCH MCHC RDW Std Deviation RDW Coeff of Jevon Plt Count MPV Immature Gran % (Auto) Neut % (Auto) Lymph % (Auto) [place] % (Auto) Eos % (Auto) Baso % (Auto) Absolute Neuts (auto) Absolute Lymphs (auto) Total Counted Neutrophils % (Manual) Band Neutrophils % Lymphocytes % (Manual) Monocytes % (Manual) Eosinophils % (Manual) Basophils % (Manual) Metamyelocytes % Myelocytes % Promyelocytes % Blast Cells % Plasma Cell % (Manual) Other Cells % Nucleated RBC % Nucleated RBCs/100 WBC Differential Comment Diff Path Review Hypersegmented Neuts Atypical Lymphocytes Reactive Lymphocytes Smudge Cells Toxic Granulation Toxic Vacuolation Dohle Bodies Leo Rods Platelet Estimate Plt Morphology Comment RBC Morphology Polychromasia Hypochromasia Poikilocytosis Basophilic Stippling Anisocytosis Microcytosis Macrocytosis Spherocytes Sickle Cells Target Cells Tear Drop Cells Ovalocytes Stomatocytes [place] Bodies Walnut Cells Bite Cells Crenated Cell Acanthocytes (Spur) Rouleaux Schistocytes Sodium Potassium Chloride Carbon Dioxide Anion Gap BUN Creatinine Estim Creat Clear Calc Est GFR (MDRD) Af Amer Est GFR (MDRD) Non-Af BUN/Creatinine Ratio Glucose Hemoglobin A1c Serum Osmolality Lactic Acid Calcium Phosphorus Magnesium Total Bilirubin Direct Bilirubin AST ALT Alkaline Phosphatase Troponin I Total Protein Albumin Globulin Albumin/Globulin Ratio Urine Color Urine Clarity Urine pH Ur Specific [place] Urine Protein Urine Glucose (UA) Urine Ketones Urine Occult Blood Urine Nitrite Urine Bilirubin Urine Urobilinogen Ur Leukocyte Esterase Urine RBC Urine WBC Ur Squamous Epith Cells Amorphous Sediment Urine Bacteria Fine Granular Casts Urine Mucus Salicylates Urine Opiates Screen Urine Methadone Screen Acetaminophen Ur Barbiturates Screen Ur Phencyclidine Scrn Ur Amphetamines Screen U Methamphetamin-MDMA U Benzodiazepines Scrn Urine Cocaine Screen U Cannabinoids Screen Ur Drug Screen Comment Acetone Level MODERATE H COVID-19 (KAUSHAL) Negative POC Glucose > 500 H* 04/29/20 04/29/20 04/29/20 13:50 14:10 14:10 WBC Corrected WBC RBC Hgb Hct MCV MCH MCHC RDW Std Deviation RDW Coeff of Jevon Plt Count MPV Immature Gran % (Auto) Neut % (Auto) Lymph % (Auto) [place] % (Auto) Eos % (Auto) Baso % (Auto) Absolute Neuts (auto) Absolute Lymphs (auto) Total Counted Neutrophils % (Manual) Band Neutrophils % Lymphocytes % (Manual) Monocytes % (Manual) Eosinophils % (Manual) Basophils % (Manual) Metamyelocytes % Myelocytes % Promyelocytes % Blast Cells % Plasma Cell % (Manual) Other Cells % Nucleated RBC % Nucleated RBCs/100 WBC Differential Comment Diff Path Review Hypersegmented Neuts Atypical Lymphocytes Reactive Lymphocytes Smudge Cells Toxic Granulation Toxic Vacuolation Dohle Bodies Leo Rods Platelet Estimate Plt Morphology Comment RBC Morphology Polychromasia Hypochromasia Poikilocytosis Basophilic Stippling Anisocytosis Microcytosis Macrocytosis Spherocytes Sickle Cells Target Cells Tear Drop Cells Ovalocytes Stomatocytes [place] Bodies Alycia Cells Bite Cells Crenated Cell Acanthocytes (Spur) Rouleaux Schistocytes Sodium 126 L Potassium 4.0 Chloride 97 L Carbon Dioxide 5.0 L* Anion Gap 24 H BUN 31 H Creatinine 1.37 H Estim Creat Clear Calc 46.18 Est GFR (MDRD) Af Amer 52 L Est GFR (MDRD) Non-Af 43 L BUN/Creatinine Ratio 22.6 H Glucose 706 H* Hemoglobin A1c Serum Osmolality Lactic Acid Calcium 9.4 Phosphorus Magnesium Total Bilirubin 0.40 Direct Bilirubin 0.11 AST 15 ALT 23 Alkaline Phosphatase 204 H Troponin I < 0.015 Total Protein 7.4 Albumin 3.3 Globulin 4.1 Albumin/Globulin Ratio Urine Color Yellow Urine Clarity Sl. Cloudy Urine pH 5.0 Ur Specific [place] 1.020 Urine Protein 30 H Urine Glucose (UA) 1000 H Urine Ketones 150 H Urine Occult Blood 250 H Urine Nitrite Negative Urine Bilirubin Negative Urine Urobilinogen Normal Ur Leukocyte Esterase Negative Urine RBC 0-5 SEEN Urine WBC 0 SEEN Ur Squamous Epith Cells 0-5 SEEN Amorphous Sediment 1+ Urine Bacteria RARE Fine Granular Casts 0-5 SEEN Urine Mucus RARE Salicylates Urine Opiates Screen NEGATIVE Urine Methadone Screen NEGATIVE Acetaminophen Ur Barbiturates Screen NEGATIVE Ur Phencyclidine Scrn NEGATIVE Ur Amphetamines Screen NEGATIVE U Methamphetamin-MDMA NEGATIVE U Benzodiazepines Scrn NEGATIVE Urine Cocaine Screen NEGATIVE U Cannabinoids Screen NEGATIVE Ur Drug Screen Comment Acetone Level COVID-19 (KAUSHAL) POC Glucose 04/29/20 04/29/20 04/29/20 15:09 15:56 16:54 WBC Corrected WBC RBC Hgb Hct MCV MCH MCHC RDW Std Deviation RDW Coeff of Jevon Plt Count MPV Immature Gran % (Auto) Neut % (Auto) Lymph % (Auto) [place] % (Auto) Eos % (Auto) Baso % (Auto) Absolute Neuts (auto) Absolute Lymphs (auto) Total Counted Neutrophils % (Manual) Band Neutrophils % Lymphocytes % (Manual) Monocytes % (Manual) Eosinophils % (Manual) Basophils % (Manual) Metamyelocytes % Myelocytes % Promyelocytes % Blast Cells % Plasma Cell % (Manual) Other Cells % Nucleated RBC % Nucleated RBCs/100 WBC Differential Comment Diff Path Review Hypersegmented Neuts Atypical Lymphocytes Reactive Lymphocytes Smudge Cells Toxic Granulation Toxic Vacuolation Dohle Bodies Leo Rods Platelet Estimate Plt Morphology Comment RBC Morphology Polychromasia Hypochromasia Poikilocytosis Basophilic Stippling Anisocytosis Microcytosis Macrocytosis Spherocytes Sickle Cells Target Cells Tear Drop Cells Ovalocytes Stomatocytes [place] Bodies Walnut Cells Bite Cells Crenated Cell Acanthocytes (Spur) Rouleaux Schistocytes Sodium Potassium Chloride Carbon Dioxide Anion Gap BUN Creatinine Estim Creat Clear Calc Est GFR (MDRD) Af Amer Est GFR (MDRD) Non-Af BUN/Creatinine Ratio Glucose Hemoglobin A1c Serum Osmolality Lactic Acid Calcium Phosphorus Magnesium Total Bilirubin Direct Bilirubin AST ALT Alkaline Phosphatase Troponin I Total Protein Albumin Globulin Albumin/Globulin Ratio Urine Color Urine Clarity Urine pH Ur Specific [place] Urine Protein Urine Glucose (UA) Urine Ketones Urine Occult Blood Urine Nitrite Urine Bilirubin Urine Urobilinogen Ur Leukocyte Esterase Urine RBC Urine WBC Ur Squamous Epith Cells Amorphous Sediment Urine Bacteria Fine Granular Casts Urine Mucus Salicylates Urine Opiates Screen Urine Methadone Screen Acetaminophen Ur Barbiturates Screen Ur Phencyclidine Scrn Ur Amphetamines Screen U Methamphetamin-MDMA U Benzodiazepines Scrn Urine Cocaine Screen U Cannabinoids Screen Ur Drug Screen Comment Acetone Level COVID-19 (KAUSHAL) POC Glucose > 500 H* > 500 H* 450 H 04/29/20 04/29/20 04/29/20 17:18 17:18 17:18 WBC Corrected WBC RBC Hgb Hct MCV MCH MCHC RDW Std Deviation RDW Coeff of Jevon Plt Count MPV Immature Gran % (Auto) Neut % (Auto) Lymph % (Auto) [place] % (Auto) Eos % (Auto) Baso % (Auto) Absolute Neuts (auto) Absolute Lymphs (auto) Total Counted Neutrophils % (Manual) Band Neutrophils % Lymphocytes % (Manual) Monocytes % (Manual) Eosinophils % (Manual) Basophils % (Manual) Metamyelocytes % Myelocytes % Promyelocytes % Blast Cells % Plasma Cell % (Manual) Other Cells % Nucleated RBC % Nucleated RBCs/100 WBC Differential Comment Diff Path Review Hypersegmented Neuts Atypical Lymphocytes Reactive Lymphocytes Smudge Cells Toxic Granulation Toxic Vacuolation Dohle Bodies Leo Rods Platelet Estimate Plt Morphology Comment RBC Morphology Polychromasia Hypochromasia Poikilocytosis Basophilic Stippling Anisocytosis Microcytosis Macrocytosis Spherocytes Sickle Cells Target Cells Tear Drop Cells Ovalocytes Stomatocytes [place] Bodies Alycia Cells Bite Cells Crenated Cell Acanthocytes (Spur) Rouleaux Schistocytes Sodium 137 Potassium 3.3 L Chloride 109 H Carbon Dioxide 4.0 L* Anion Gap 24 H BUN 27 H Creatinine 1.02 Estim Creat Clear Calc 62.03 Est GFR (MDRD) Af Amer 73 Est GFR (MDRD) Non-Af 60 BUN/Creatinine Ratio 26.5 H Glucose 385 H Hemoglobin A1c Serum Osmolality 317 H Lactic Acid Calcium 9.2 Phosphorus Magnesium 2.5 Total Bilirubin Direct Bilirubin AST ALT Alkaline Phosphatase Troponin I Total Protein Albumin Globulin Albumin/Globulin Ratio Urine Color Urine Clarity Urine pH Ur Specific [place] Urine Protein Urine Glucose (UA) Urine Ketones Urine Occult Blood Urine Nitrite Urine Bilirubin Urine Urobilinogen Ur Leukocyte Esterase Urine RBC Urine WBC Ur Squamous Epith Cells Amorphous Sediment Urine Bacteria Fine Granular Casts Urine Mucus Salicylates Urine Opiates Screen Urine Methadone Screen Acetaminophen Ur Barbiturates Screen Ur Phencyclidine Scrn Ur Amphetamines Screen U Methamphetamin-MDMA U Benzodiazepines Scrn Urine Cocaine Screen U Cannabinoids Screen Ur Drug Screen Comment Acetone Level COVID-19 (KA[facility]AL) POC Glucose 04/29/20 04/29/20 04/29/20 18:10 19:10 20:06 WBC Corrected WBC RBC Hgb Hct MCV MCH MCHC RDW Std Deviation RDW Coeff of Jevon Plt Count MPV Immature Gran % (Auto) Neut % (Auto) Lymph % (Auto) [place] % (Auto) Eos % (Auto) Baso % (Auto) Absolute Neuts (auto) Absolute Lymphs (auto) Total Counted Neutrophils % (Manual) Band Neutrophils % Lymphocytes % (Manual) Monocytes % (Manual) Eosinophils % (Manual) Basophils % (Manual) Metamyelocytes % Myelocytes % Promyelocytes % Blast Cells % Plasma Cell % (Manual) Other Cells % Nucleated RBC % Nucleated RBCs/100 WBC Differential Comment Diff Path Review Hypersegmented Neuts Atypical Lymphocytes Reactive Lymphocytes Smudge Cells Toxic Granulation Toxic Vacuolation Dohle Bodies Leo Rods Platelet Estimate Plt Morphology Comment RBC Morphology Polychromasia Hypochromasia Poikilocytosis Basophilic Stippling Anisocytosis Microcytosis Macrocytosis Spherocytes Sickle Cells Target Cells Tear Drop Cells Ovalocytes Stomatocytes [place] Bodies Alycia Cells Bite Cells Crenated Cell Acanthocytes (Spur) Rouleaux Schistocytes Sodium 136 Potassium 4.0 Chloride 110 H Carbon Dioxide 5.0 L* Anion Gap 21 H BUN 24 H Creatinine 0.90 Estim Creat Clear Calc 70.30 Est GFR (MDRD) Af Amer 84 Est GFR (MDRD) Non-Af 70 BUN/Creatinine Ratio 26.7 H Glucose 279 H Hemoglobin A1c Serum Osmolality Lactic Acid Calcium 8.9 Phosphorus Magnesium Total Bilirubin Direct Bilirubin AST ALT Alkaline Phosphatase Troponin I Total Protein Albumin Globulin Albumin/Globulin Ratio Urine Color Urine Clarity Urine pH Ur Specific [place] Urine Protein Urine Glucose (UA) Urine Ketones Urine Occult Blood Urine Nitrite Urine Bilirubin Urine Urobilinogen Ur Leukocyte Esterase Urine RBC Urine WBC Ur Squamous Epith Cells Amorphous Sediment Urine Bacteria Fine Granular Casts Urine Mucus Salicylates Urine Opiates Screen Urine Methadone Screen Acetaminophen Ur Barbiturates Screen Ur Phencyclidine Scrn Ur Amphetamines Screen U Methamphetamin-MDMA U Benzodiazepines Scrn Urine Cocaine Screen U Cannabinoids Screen Ur Drug Screen Comment Acetone Level COVID-19 (KAUSHAL) POC Glucose 359 H 326 H 04/29/20 04/29/20 04/29/20 20:06 20:06 20:06 WBC Corrected WBC RBC Hgb Hct MCV MCH MCHC RDW Std Deviation RDW Coeff of Jevon Plt Count MPV Immature Gran % (Auto) Neut % (Auto) Lymph % (Auto) [place] % (Auto) Eos % (Auto) Baso % (Auto) Absolute Neuts (auto) Absolute Lymphs (auto) Total Counted Neutrophils % (Manual) Band Neutrophils % Lymphocytes % (Manual) Monocytes % (Manual) Eosinophils % (Manual) Basophils % (Manual) Metamyelocytes % Myelocytes % Promyelocytes % Blast Cells % Plasma Cell % (Manual) Other Cells % Nucleated RBC % Nucleated RBCs/100 WBC Differential Comment Diff Path Review Hypersegmented Neuts Atypical Lymphocytes Reactive Lymphocytes Smudge Cells Toxic Granulation Toxic Vacuolation Dohle Bodies Leo Rods Platelet Estimate Plt Morphology Comment RBC Morphology Polychromasia Hypochromasia Poikilocytosis Basophilic Stippling Anisocytosis Microcytosis Macrocytosis Spherocytes Sickle Cells Target Cells Tear Drop Cells Ovalocytes Stomatocytes [place] Bodies Walnut Cells Bite Cells Crenated Cell Acanthocytes (Spur) Rouleaux Schistocytes Sodium Potassium Chloride Carbon Dioxide Anion Gap BUN Creatinine Estim Creat Clear Calc Est GFR (MDRD) Af Amer Est GFR (MDRD) Non-Af BUN/Creatinine Ratio Glucose Hemoglobin A1c Serum Osmolality Lactic Acid Cancelled Calcium Phosphorus Magnesium Total Bilirubin Direct Bilirubin AST ALT Alkaline Phosphatase Troponin I Total Protein Albumin Globulin Albumin/Globulin Ratio Urine Color Urine Clarity Urine pH Ur Specific [place] Urine Protein Urine Glucose (UA) Urine Ketones Urine Occult Blood Urine Nitrite Urine Bilirubin Urine Urobilinogen Ur Leukocyte Esterase Urine RBC Urine WBC Ur Squamous Epith Cells Amorphous Sediment Urine Bacteria Fine Granular Casts Urine Mucus Salicylates 4.3 Urine Opiates Screen Urine Methadone Screen Acetaminophen < 2.0 L Ur Barbiturates Screen Ur Phencyclidine Scrn Ur Amphetamines Screen U Methamphetamin-MDMA U Benzodiazepines Scrn Urine Cocaine Screen U Cannabinoids Screen Ur Drug Screen Comment Acetone Level COVID-19 (KAUSHAL) POC Glucose 04/29/20 04/29/20 04/29/20 20:20 21:51 22:54 WBC Corrected WBC RBC Hgb Hct MCV MCH MCHC RDW Std Deviation RDW Coeff of Jevon Plt Count MPV Immature Gran % (Auto) Neut % (Auto) Lymph % (Auto) [place] % (Auto) Eos % (Auto) Baso % (Auto) Absolute Neuts (auto) Absolute Lymphs (auto) Total Counted Neutrophils % (Manual) Band Neutrophils % Lymphocytes % (Manual) Monocytes % (Manual) Eosinophils % (Manual) Basophils % (Manual) Metamyelocytes % Myelocytes % Promyelocytes % Blast Cells % Plasma Cell % (Manual) Other Cells % Nucleated RBC % Nucleated RBCs/100 WBC Differential Comment Diff Path Review Hypersegmented Neuts Atypical Lymphocytes Reactive Lymphocytes Smudge Cells Toxic Granulation Toxic Vacuolation Dohle Bodies Leo Rods Platelet Estimate Plt Morphology Comment RBC Morphology Polychromasia Hypochromasia Poikilocytosis Basophilic Stippling Anisocytosis Microcytosis Macrocytosis Spherocytes Sickle Cells Target Cells Tear Drop Cells Ovalocytes Stomatocytes [place] Bodies Alycia Cells Bite Cells Crenated Cell Acanthocytes (Spur) Rouleaux Schistocytes Sodium Potassium Chloride Carbon Dioxide Anion Gap BUN Creatinine Estim Creat Clear Calc Est GFR (MDRD) Af Amer Est GFR (MDRD) Non-Af BUN/Creatinine Ratio Glucose Hemoglobin A1c Serum Osmolality Lactic Acid Calcium Phosphorus Magnesium Total Bilirubin Direct Bilirubin AST ALT Alkaline Phosphatase Troponin I Total Protein Albumin Globulin Albumin/Globulin Ratio Urine Color Urine Clarity Urine pH Ur Specific [place] Urine Protein Urine Glucose (UA) Urine Ketones Urine Occult Blood Urine Nitrite Urine Bilirubin Urine Urobilinogen Ur Leukocyte Esterase Urine RBC Urine WBC Ur Squamous Epith Cells Amorphous Sediment Urine Bacteria Fine Granular Casts Urine Mucus Salicylates Urine Opiates Screen Urine Methadone Screen Acetaminophen Ur Barbiturates Screen Ur Phencyclidine Scrn Ur Amphetamines Screen U Methamphetamin-MDMA U Benzodiazepines Scrn Urine Cocaine Screen U Cannabinoids Screen Ur Drug Screen Comment Acetone Level COVID-19 (KAUSHAL) POC Glucose 307 H 271 H 241 H 04/30/20 04/30/20 04/30/20 00:09 01:17 02:40 WBC Cancelled Corrected WBC Cancelled RBC Cancelled Hgb Cancelled Hct Cancelled MCV Cancelled MCH Cancelled MCHC Cancelled RDW Std Deviation Cancelled RDW Coeff of Jevon Cancelled Plt Count Cancelled MPV Cancelled Immature Gran % (Auto) Cancelled Neut % (Auto) Cancelled Lymph % (Auto) Cancelled [place] % (Auto) Cancelled Eos % (Auto) Cancelled Baso % (Auto) Cancelled Absolute Neuts (auto) Cancelled Absolute Lymphs (auto) Cancelled Total Counted Cancelled Neutrophils % (Manual) Cancelled Band Neutrophils % Cancelled Lymphocytes % (Manual) Cancelled Monocytes % (Manual) Cancelled Eosinophils % (Manual) Cancelled Basophils % (Manual) Cancelled Metamyelocytes % Cancelled Myelocytes % Cancelled Promyelocytes % Cancelled Blast Cells % Cancelled Plasma Cell % (Manual) Cancelled Other Cells % Cancelled Nucleated RBC % Cancelled Nucleated RBCs/100 WBC Cancelled Differential Comment Cancelled Diff Path Review Cancelled Hypersegmented Neuts Cancelled Atypical Lymphocytes Cancelled Reactive Lymphocytes Cancelled Smudge Cells Cancelled Toxic Granulation Cancelled Toxic Vacuolation Cancelled Dohle Bodies Cancelled Leo Rods Cancelled Platelet Estimate Cancelled Plt Morphology Comment Cancelled RBC Morphology Cancelled Polychromasia Cancelled Hypochromasia Cancelled Poikilocytosis Cancelled Basophilic Stippling Cancelled Anisocytosis Cancelled Microcytosis Cancelled Macrocytosis Cancelled Spherocytes Cancelled Sickle Cells Cancelled Target Cells Cancelled Tear Drop Cells Cancelled Ovalocytes Cancelled Stomatocytes Cancelled [place] Bodies Cancelled [place] Cells Cancelled Bite Cells Cancelled Crenated Cell Cancelled Acanthocytes (Spur) Cancelled Rouleaux Cancelled Schistocytes Cancelled Sodium Potassium Chloride Carbon Dioxide Anion Gap BUN Creatinine Estim Creat Clear Calc Est GFR (MDRD) Af Amer Est GFR (MDRD) Non-Af BUN/Creatinine Ratio Glucose Hemoglobin A1c Serum Osmolality Lactic Acid Calcium Phosphorus Magnesium Total Bilirubin Direct Bilirubin AST ALT Alkaline Phosphatase Troponin I Total Protein Albumin Globulin Albumin/Globulin Ratio Urine Color Urine Clarity Urine pH Ur Specific [place] Urine Protein Urine Glucose (UA) Urine Ketones Urine Occult Blood Urine Nitrite Urine Bilirubin Urine Urobilinogen Ur Leukocyte Esterase Urine RBC Urine WBC Ur Squamous Epith Cells Amorphous Sediment Urine Bacteria Fine Granular Casts Urine Mucus Salicylates Urine Opiates Screen Urine Methadone Screen Acetaminophen Ur Barbiturates Screen Ur Phencyclidine Scrn Ur Amphetamines Screen U Methamphetamin-MDMA U Benzodiazepines Scrn Urine Cocaine Screen U Cannabinoids Screen Ur Drug Screen Comment Acetone Level COVID-19 (KA[facility]AL) POC Glucose 232 H 210 H 04/30/20 04/30/20 04/30/20 02:40 02:40 02:43 WBC Corrected WBC RBC Hgb Hct MCV MCH MCHC RDW Std Deviation RDW Coeff of Jevon Plt Count MPV Immature Gran % (Auto) Neut % (Auto) Lymph % (Auto) [place] % (Auto) Eos % (Auto) Baso % (Auto) Absolute Neuts (auto) Absolute Lymphs (auto) Total Counted Neutrophils % (Manual) Band Neutrophils % Lymphocytes % (Manual) Monocytes % (Manual) Eosinophils % (Manual) Basophils % (Manual) Metamyelocytes % Myelocytes % Promyelocytes % Blast Cells % Plasma Cell % (Manual) Other Cells % Nucleated RBC % Nucleated RBCs/100 WBC Differential Comment Diff Path Review Hypersegmented Neuts Atypical Lymphocytes Reactive Lymphocytes Smudge Cells Toxic Granulation Toxic Vacuolation Dohle Bodies Leo Rods Platelet Estimate Plt Morphology Comment RBC Morphology Polychromasia Hypochromasia Poikilocytosis Basophilic Stippling Anisocytosis Microcytosis Macrocytosis Spherocytes Sickle Cells Target Cells Tear Drop Cells Ovalocytes Stomatocytes Perales-Wathena Bodies Walnut Cells Bite Cells Crenated Cell Acanthocytes (Spur) Rouleaux Schistocytes Sodium 135 L Cancelled Potassium 4.7 Cancelled Chloride 111 H Cancelled Carbon Dioxide 8.0 L* Cancelled Anion Gap 16 H Cancelled BUN 21 H Cancelled Creatinine 1.05 H Cancelled Estim Creat Clear Calc 60.26 Cancelled Est GFR (MDRD) Af Amer 70 Cancelled Est GFR (MDRD) Non-Af 58 L Cancelled BUN/Creatinine Ratio 20.0 Cancelled Glucose 227 H Cancelled Hemoglobin A1c Serum Osmolality Lactic Acid Calcium 9.2 Cancelled Phosphorus 0.7 L* Magnesium 2.5 Total Bilirubin 0.40 Direct Bilirubin AST 30 ALT 27 Alkaline Phosphatase 189 H Troponin I Total Protein 7.4 Albumin 3.1 L Globulin 4.3 H Albumin/Globulin Ratio 0.7 L Urine Color Urine Clarity Urine pH Ur Specific [place] Urine Protein Urine Glucose (UA) Urine Ketones Urine Occult Blood Urine Nitrite Urine Bilirubin Urine Urobilinogen Ur Leukocyte Esterase Urine RBC Urine WBC Ur Squamous Epith Cells Amorphous Sediment Urine Bacteria Fine Granular Casts Urine Mucus Salicylates Urine Opiates Screen Urine Methadone Screen Acetaminophen Ur Barbiturates Screen Ur Phencyclidine Scrn Ur Amphetamines Screen U Methamphetamin-MDMA U Benzodiazepines Scrn Urine Cocaine Screen U Cannabinoids Screen Ur Drug Screen Comment Acetone Level COVID-19 ([facility]) POC Glucose 228 H 04/30/20 04/30/20 04/30/20 03:56 04:48 04:48 WBC 15.5 H Corrected WBC RBC 5.32 Hgb 13.8 Hct 43.4 MCV 81.6 D MCH 25.9 L MCHC 31.8 L RDW Std Deviation 45.8 H RDW Coeff of Jevon 15.5 H Plt Count 204 MPV 13.2 H Immature Gran % (Auto) 1.900 H Neut % (Auto) 84.8 H Lymph % (Auto) 6.6 L Crockett % (Auto) 6.5 Eos % (Auto) 0.0 Baso % (Auto) 0.2 Absolute Neuts (auto) 13.1 H Absolute Lymphs (auto) 1.02 Total Counted Neutrophils % (Manual) Band Neutrophils % Lymphocytes % (Manual) Monocytes % (Manual) Eosinophils % (Manual) Basophils % (Manual) Metamyelocytes % Myelocytes % Promyelocytes % Blast Cells % Plasma Cell % (Manual) Other Cells % Nucleated RBC % 0 Nucleated RBCs/100 WBC Differential Comment SCANNED Diff Path Review Hypersegmented Neuts Atypical Lymphocytes Reactive Lymphocytes Smudge Cells Toxic Granulation Toxic Vacuolation Dohle Bodies Leo Rods Platelet Estimate Plt Morphology Comment RBC Morphology Polychromasia Hypochromasia Poikilocytosis Basophilic Stippling Anisocytosis Microcytosis Macrocytosis Spherocytes Sickle Cells Target Cells Tear Drop Cells Ovalocytes Stomatocytes Perales-Wathena Bodies Walnut Cells Bite Cells Crenated Cell Acanthocytes (Spur) Rouleaux Schistocytes Sodium Potassium Chloride Carbon Dioxide Anion Gap BUN Creatinine Estim Creat Clear Calc Est GFR (MDRD) Af Amer Est GFR (MDRD) Non-Af BUN/Creatinine Ratio Glucose Hemoglobin A1c Serum Osmolality Lactic Acid 2.3 H* Calcium Phosphorus Magnesium Total Bilirubin Direct Bilirubin AST ALT Alkaline Phosphatase Troponin I Total Protein Albumin Globulin Albumin/Globulin Ratio Urine Color Urine Clarity Urine pH Ur Specific [place] Urine Protein Urine Glucose (UA) Urine Ketones Urine Occult Blood Urine Nitrite Urine Bilirubin Urine Urobilinogen Ur Leukocyte Esterase Urine RBC Urine WBC Ur Squamous Epith Cells Amorphous Sediment Urine Bacteria Fine Granular Casts Urine Mucus Salicylates Urine Opiates Screen Urine Methadone Screen Acetaminophen Ur Barbiturates Screen Ur Phencyclidine Scrn Ur Amphetamines Screen U Methamphetamin-MDMA U Benzodiazepines Scrn Urine Cocaine Screen U Cannabinoids Screen Ur Drug Screen Comment Acetone Level COVID-19 (KA[facility]AL) POC Glucose 243 H 04/30/20 04/30/20 04/30/20 05:10 06:00 07:00 WBC Corrected WBC RBC Hgb Hct MCV MCH MCHC RDW Std Deviation RDW Coeff of Jevon Plt Count MPV Immature Gran % (Auto) Neut % (Auto) Lymph % (Auto) [place] % (Auto) Eos % (Auto) Baso % (Auto) Absolute Neuts (auto) Absolute Lymphs (auto) Total Counted Neutrophils % (Manual) Band Neutrophils % Lymphocytes % (Manual) Monocytes % (Manual) Eosinophils % (Manual) Basophils % (Manual) Metamyelocytes % Myelocytes % Promyelocytes % Blast Cells % Plasma Cell % (Manual) Other Cells % Nucleated RBC % Nucleated RBCs/100 WBC Differential Comment Diff Path Review Hypersegmented Neuts Atypical Lymphocytes Reactive Lymphocytes Smudge Cells Toxic Granulation Toxic Vacuolation Dohle Bodies Leo Rods Platelet Estimate Plt Morphology Comment RBC Morphology Polychromasia Hypochromasia Poikilocytosis Basophilic Stippling Anisocytosis Microcytosis Macrocytosis Spherocytes Sickle Cells Target Cells Tear Drop Cells Ovalocytes Stomatocytes Perales-[place] Bodies Alycia Cells Bite Cells Crenated Cell Acanthocytes (Spur) Rouleaux Schistocytes Sodium Potassium Chloride Carbon Dioxide Anion Gap BUN Creatinine Estim Creat Clear Calc Est GFR (MDRD) Af Amer Est GFR (MDRD) Non-Af BUN/Creatinine Ratio Glucose Hemoglobin A1c Serum Osmolality Lactic Acid Calcium Phosphorus Magnesium Total Bilirubin Direct Bilirubin AST ALT Alkaline Phosphatase Troponin I Total Protein Albumin Globulin Albumin/Globulin Ratio Urine Color Urine Clarity Urine pH Ur Specific [place] Urine Protein Urine Glucose (UA) Urine Ketones Urine Occult Blood Urine Nitrite Urine Bilirubin Urine Urobilinogen Ur Leukocyte Esterase Urine RBC Urine WBC Ur Squamous Epith Cells Amorphous Sediment Urine Bacteria Fine Granular Casts Urine Mucus Salicylates Urine Opiates Screen Urine Methadone Screen Acetaminophen Ur Barbiturates Screen Ur Phencyclidine Scrn Ur Amphetamines Screen U Methamphetamin-MDMA U Benzodiazepines Scrn Urine Cocaine Screen U Cannabinoids Screen Ur Drug Screen Comment Acetone Level COVID-19 ([facility]AL) POC Glucose 287 H 234 H 268 H 04/30/20 04/30/20 04/30/20 07:58 09:04 09:25 WBC Corrected WBC RBC Hgb Hct MCV MCH MCHC RDW Std Deviation RDW Coeff of Jevon Plt Count MPV Immature Gran % (Auto) Neut % (Auto) Lymph % (Auto) [place] % (Auto) Eos % (Auto) Baso % (Auto) Absolute Neuts (auto) Absolute Lymphs (auto) Total Counted Neutrophils % (Manual) Band Neutrophils % Lymphocytes % (Manual) Monocytes % (Manual) Eosinophils % (Manual) Basophils % (Manual) Metamyelocytes % Myelocytes % Promyelocytes % Blast Cells % Plasma Cell % (Manual) Other Cells % Nucleated RBC % Nucleated RBCs/100 WBC Differential Comment Diff Path Review Hypersegmented Neuts Atypical Lymphocytes Reactive Lymphocytes Smudge Cells Toxic Granulation Toxic Vacuolation Dohle Bodies Leo Rods Platelet Estimate Plt Morphology Comment RBC Morphology Polychromasia Hypochromasia Poikilocytosis Basophilic Stippling Anisocytosis Microcytosis Macrocytosis Spherocytes Sickle Cells Target Cells Tear Drop Cells Ovalocytes Stomatocytes Perales-Wathen[place] Bodies Alycia Cells Bite Cells Crenated Cell Acanthocytes (Spur) Rouleaux Schistocytes Sodium 136 Potassium 3.5 Chloride 111 H Carbon Dioxide 13.0 L Anion Gap 12 BUN 18 Creatinine 0.94 Estim Creat Clear Calc 67.31 Est GFR (MDRD) Af Amer 80 Est GFR (MDRD) Non-Af 66 BUN/Creatinine Ratio 19.1 Glucose 243 H Hemoglobin A1c Serum Osmolality Lactic Acid Calcium 8.7 Phosphorus Magnesium Total Bilirubin Direct Bilirubin AST ALT Alkaline Phosphatase Troponin I Total Protein Albumin Globulin Albumin/Globulin Ratio Urine Color Urine Clarity Urine pH Ur Specific [place] Urine Protein Urine Glucose (UA) Urine Ketones Urine Occult Blood Urine Nitrite Urine Bilirubin Urine Urobilinogen Ur Leukocyte Esterase Urine RBC Urine WBC Ur Squamous Epith Cells Amorphous Sediment Urine Bacteria Fine Granular Casts Urine Mucus Salicylates Urine Opiates Screen Urine Methadone Screen Acetaminophen Ur Barbiturates Screen Ur Phencyclidine Scrn Ur Amphetamines Screen U Methamphetamin-MDMA U Benzodiazepines Scrn Urine Cocaine Screen U Cannabinoids Screen Ur Drug Screen Comment Acetone Level COVID-19 (KA[facility]AL) POC Glucose 248 H 226 H Clinical Impression(s) from Imaging Studies Chest X-Ray 04/29/20 14:10 IMPRESSION: Normal x-ray examination of the chest. Electronically Signed: Hodaluis m Randell, at 15:37 EDT Tel , Service support , Current Medications Acetaminophen (Tylenol) 650 mg PO Q6H PRN PRN PRN Reason: Pain Score 1-10/Temp > 100.7 F Dextrose (D50w Syringe) 0 gm IV X1 PRN; Protocol PRN Reason: HYPOGLYCEMIA Escitalopram Oxalate (Lexapro) 10 mg PO DAILY [facility] Last Admin: 04/30/20 09:47 Dose: 10 mg Documented by: Heparin Sodium (Porcine) (Heparin Na) 5,000 unit SC Q8 [facility] Last Admin: 04/30/20 06:04 Dose: 5,000 unit Documented by: Sodium Chloride () 1,000 mls @ 999 mls/hr IV .Q1H1M ONE Last Infusion: 04/29/20 15:05 Dose: Infused Documented by: Insulin Human Lispro 100 unit/ (Sodium Chloride) 100 mls @ 11.61 mls/hr IV .Q8H37M CHEKO; Protocol Last Titration: 04/30/20 09:27 Dose: 0.06 units/kg/hr, 6.6 mls/hr Documented by: Sodium Chloride () 250 mls @ 15 mls/hr IV .[id number] PRN PRN Reason: Saline Flush Sodium Chloride () 250 mls @ 15 mls/hr IV .[id number] PRN PRN Reason: Additional IVPB Infusion Potassium Chloride/Dextrose/Sod Cl (Kcl 20meq In D5.45ns 1000ml) 1,000 mls @ 150 mls/hr IV .Q6H40M [facility] Last Admin: 04/30/20 08:00 Dose: 150 mls/hr Documented by: Montelukast Sodium (Singulair) 10 mg PO QHS [facility] Last Admin: 04/29/20 21:55 Dose: 10 mg Documented by: Ondansetron HCl (Zofran) 4 mg IV Q8H PRN PRN PRN Reason: NAUSEA/VOMITING Propranolol HCl (Inderal) 10 mg PO DAILY [facility] Last Admin: 04/30/20 09:47 Dose: 10 mg Documented by: Sodium Chloride () 10 - 40 ml IV UD PRN PRN Reason: SALINE FLUSH Last Admin: 04/30/20 03:57 Dose: 20 ml Documented by: Assessment/Plan Active and Suspected Problems DKA (diabetic ketoacidoses) (Acute) RECOMMENDATIONS: 1. Continue management per DKA protocol with supplemental IV fluid hydration and continuous insulin infusion. 2. Once anion gap has been closed x2, basal insulin and sliding scale coverage can be initiated. 3. Patient to remain n.p.o. for now until anion gap is closed. 4. Diabetic education to be provided. 5. Aggressive electrolyte repletion as indicated. IMPRESSIONS: 1. Diabetic ketoacidosis Patient appears to have poorly controlled diabetes mellitus with a hemoglobin A1c greater than 12. Continue management per protocol with supplemental IV fluid hydration and continuous insulin infusion, until anion gap has been closed x2. Following this, the patient can be started on basal insulin and sliding scale coverage. She will require intensive diabetic education and close outpatient follow-up. 2. Hypokalemia Aggressive electrolyte repletion as indicated. Continue to monitor with serial BMP. 3. Depression Complicates care, management, recovery and prognosis. Continue home medications as indicated. This note was generated with [employer] dictation software. It may contain incorrect words, spelling, and punctuation that were not noted in checking the note before signing. Inpatient E&M: [id number] Init Hosp L3
[2020-04-30 10:36] LABS: Bedside Glucose 236 mg/dL (70-110)
[2020-04-30 11:26] LABS: Bedside Glucose 199 mg/dL (70-110)
--- NOTE | 2020-04-30 12:23 | CASEMGMT ---
RN CM Assessment Note Intro role of CM to patient in room. Pt is still lethargic and unable to participate in assessment. Call to Daughter Ju who states her mother is normally independent, able to care for self. Daughter has a younger sister, Maria Luisa who is 17 and lives with her patient. Daughter Ju states she is checking on her sister for any needs while home alone. Noted in chart patient is not compliant with her diet. Diagnosis: DKA PCP: [facility]. Pt's doctor Amor Weir retired. She can see another doctor in practice on discharge.ATtempted call to office, they are not open currently. Insurance: Revl Preferred Pharmacy: [facility] Prescription Benefit: yes LNOK: Daughter Ju Gibson, Son Alexis Gibson Living Arrangements: Lives independently with her 17 year old daughter. No prior care needs Tranportation: family can drive DME: BG monitoring equipment. No other DME Patient DC Goals: Home DC Plan: anticipate home on discharge. Online Tutor will follow up with patient prior to dc. Mario CALVIN RN ACM
[2020-04-30 12:35] LABS: Bedside Glucose 177 mg/dL (70-110)
[2020-04-30 13:35] LABS: Bedside Glucose 113 mg/dL (70-110)
[2020-04-30 14:04] LABS: Anion Gap 7 (5-15); BUN 16 mg/dL (7-18); BUN/Creat Ratio 16.5 RATIO (10-20); Calcium,Total 8.6 mg/dL (8.5-10.1); Chloride 113 mmol/L (98-107); Creatinine, Serum 0.97 mg/dL (0.55-1.02); EST Glomerular Filtration Rate 64 mL/min (>60); Est Glom Filt Rate - Afr Amer 77 mL/min (>60); Estimated Creatinine Clearance 65.23 ml/min; Glucose 104 mg/dL (74-106); Potassium 3.3 mmol/L (3.5-5.1); Sodium Level 137 mmol/L (136-145)
[2020-04-30 14:36] LABS: Bedside Glucose 139 mg/dL (70-110)
[2020-04-30] MEDS: Insulin Lispro 100 UNIT/ML INSULN.PEN SC ×2 (16:15→22:06)
[2020-04-30 16:46] LABS: Bedside Glucose 254 mg/dL (70-110)
[2020-04-30] MEDS: Ondansetron 4 MG/2 ML Vial IV (16:59)
--- NOTE | 2020-04-30 17:43 | PN_ITS ---
Patient Problems: Active and Suspected Problems DKA (diabetic ketoacidoses) (Acute) Subjective: Patient was seen and examined today, she appears alert but the time of my examination, she was having emesis. I checked with her pharmacy concerning her outpatient medications, she had not been filling her gabapentin and Remeron-last refill was in February 2020 and it was for 1 months medication. She sees Dr. Manzo at [facility] in [place], I have elected to stop her propranolol her Singulair and her oxybutynin for now she is also on metformin ER 500 mg 1 daily- she will not be on this medication presently either. Patient gets Lexapro from Dr. Villalta. Patient's blood sugars seem to be under control at this time after her insulin drip has been stopped, I am reluctant to place her on basilar insulin due to the fact that she is vomiting. - Physical Exam Vitals/I&O's: Vital Signs Temp Pulse Resp BP Pulse Ox 98.8 F 88 16 154/87 H 100 04/30/20 16:21 04/30/20 16:21 04/30/20 16:21 04/30/20 16:21 04/30/20 16:21 Oxygen Delivery Method Room Air Weight: 106.5 kg Body Mass Index (BMI) 36.5 Finger Stick Blood Glucose 139 Intake and Output for Last 24 Hours 04/28/20 04/29/20 04/30/20 23:59 23:59 23:59 Intake Total 2422.36 / 2472.36 3431.33 / 3431.33 Output Total 1599 1400 / 1400 Balance 822.36 / 497.36 2031.33 / 203.33 General: Alert, Oriented x3, Cooperative, No apparent distress, Well developed HEENT: Atraumatic, PERRLA, EOMI, Normocephalic Oral: Moist Mucosa Neck: Supple, No JVD, Trachea Midline, Thyroid Normal Size and Texture Lungs: Clear to auscultation, Normal air movement Cardiovascular: Regular rate, No murmurs Abdomen: Bowel Sounds Present, Soft, Non Tender Extremities: No clubbing, No cyanosis, No edema, Capillary Refill Less than 3 Seconds Skin: No rashes, No breakdown Musculoskeletal: No Tenderness to Palpation of Joints or Extremities Neurological: Cranial nerves II-XII grossly intact, Neuro grossly intact, Sensory exam intact to light touch and pain, Coordination normal Psych/Mental Status: Appropriate, Flat Affect Laboratory Results 04/29/20 17:18: Magnesium 2.5 04/29/20 17:18: Serum Osmolality 317 H 04/29/20 17:18: Sodium 137, Potassium 3.3 L, Chloride 109 H, Carbon Dioxide 4.0 L*, Anion Gap 24 H, BUN 27 H, Creatinine 1.02, Estim Creat Clear Calc 62.03, Est GFR (MDRD) Af Amer 73, Est GFR (MDRD) Non-Af 60, BUN/Creatinine Ratio 26.5 H, Glucose 385 H, Calcium 9.2 04/29/20 18:10: POC Glucose 359 H 04/29/20 19:10: POC Glucose 326 H 04/29/20 20:06: Sodium 136, Potassium 4.0, Chloride 110 H, Carbon Dioxide 5.0 L* , Anion Gap 21 H, BUN 24 H, Creatinine 0.90, Estim Creat Clear Calc 70.30, Est GFR (MDRD) Af Amer 84, Est GFR (MDRD) Non-Af 70, BUN/Creatinine Ratio 26.7 H, Glucose 279 H, Calcium 8.9 04/29/20 20:06: Acetaminophen < 2.0 L 04/29/20 20:06: Salicylates 4.3 04/29/20 20:06: Lactic Acid Cancelled 04/29/20 20:20: POC Glucose 307 H 04/29/20 21:51: POC Glucose 271 H 04/29/20 22:54: POC Glucose 241 H 04/30/20 00:09: POC Glucose 232 H 04/30/20 01:17: POC Glucose 210 H 04/30/20 02:40: WBC Cancelled, Corrected WBC Cancelled, RBC Cancelled, Hgb Cancelled, Hct Cancelled, MCV Cancelled, MCH Cancelled, MCHC Cancelled, RDW Std Deviation Cancelled, RDW Coeff of Jevon Cancelled, Plt Count Cancelled, MPV Can celled, Immature Gran % (Auto) Cancelled, Neut % (Auto) Cancelled, Lymph % (Auto) Cancelled, [place]oard % (Auto) Cancelled, Eos % (Auto) Cancelled, Baso % (Auto) Cancelled, Absolute Neuts (auto) Cancelled, Absolute Lymphs (auto) Cancelled, Total Counted Cancelled, Neutrophils % (Manual) Cancelled, Band Neutrophils % Cancelled, Lymphocytes % (Manual) Cancelled, Monocytes % (Manual) Cancelled, Eosinophils % (Manual) Cancelled, Basophils % (Manual) Cancelled, Metamyelocytes % Cancelled, Myelocytes % Cancelled, Promyelocytes % Cancelled, Blast Cells % Cancelled, Plasma Cell % (Manual) Cancelled, Other Cells % Cancelled, Nucleated RBC % Cancelled, Nucleated RBCs/100 WBC Cancelled, Differential Comment Cancelled, Diff Path Review Cancelled, Hypersegmented Neuts Cancelled, Atypical Lymphocytes Cancelled, Reactive Lymphocytes Cancelled, Smudge Cells Cancelled, Toxic Granulation Cancelled, Toxic Vacuolation Cancelled, Dohle Bodies Cancelled, Leo Rods Cancelled, Platelet Estimate Cancelled, Plt Morphology Comment Cancelled, RBC Morphology Cancelled, Polychromasia Cancelled, Hypochromasia Cancelled, Poikilocytosis Cancelled, Basophilic Stippling Cancelled, Anisocytosis Cancelled, Microcytosis Cancelled, Macrocytosis Cancelled, Spherocytes Cancelled, Sickle Cells Cancelled, Target Cells Cancelled, Tear Drop Cells Cancelled, Ovalocytes Cancelled, Stomatocytes Cancelled, Perales-Tracy[place] Bodies Cancelled, Alycia Cells Cancelled, Bite Cells Cancelled, Crenated Cell Cancelled, Acanthocytes (Spur) Cancelled, Rouleaux Cancelled, Schistocytes Cancelled 04/30/20 02:40: Sodium 135 L, Potassium 4.7, Chloride 111 H, Carbon Dioxide 8.0 L*, Anion Gap 16 H, BUN 21 H, Creatinine 1.05 H, Estim Creat Clear Calc 60.26, Est GFR (MDRD) Af Amer 70, Est GFR (MDRD) Non-Af 58 L, BUN/Creatinine Ratio 20.0, Glucose 227 H, Calcium 9.2, Phosphorus 0.7 L*, Magnesium 2.5, Total Bilirubin 0.40, AST 30, ALT 27, Alkaline Phosphatase 189 H, Total Protein 7.4, Albumin 3.1 L, Globulin 4.3 H, Albumin/Globulin Ratio 0.7 L 04/30/20 02:40: Sodium Cancelled, Potassium Cancelled, Chloride Cancelled, Car bon Dioxide Cancelled, Anion Gap Cancelled, BUN Cancelled, Creatinine Cancelled, Estim Creat Clear Calc Cancelled, Est GFR (MDRD) Af Amer Cancelled, Est GFR (MDRD) Non-Af Cancelled, BUN/Creatinine Ratio Cancelled, Glucose Cancelled, Calcium Cancelled 04/30/20 02:43: POC Glucose 228 H 04/30/20 03:56: POC Glucose 243 H 04/30/20 04:48: Lactic Acid 2.3 H* 04/30/20 04:48: WBC 15.5 H, RBC 5.32, Hgb 13.8, Hct 43.4, MCV 81.6 D, MCH 25.9 L, MCHC 31.8 L, RDW Std Deviation 45.8 H, RDW Coeff of Jevon 15.5 H, Plt Count 204, MPV 13.2 H, Immature Gran % (Auto) 1.900 H, Neut % (Auto) 84.8 H, Lymph % (Auto) 6.6 L, [place] % (Auto) 6.5, Eos % (Auto) 0.0, Baso % (Auto) 0.2, Absolute Neuts (auto) 13.1 H, Absolute Lymphs (auto) 1.02, Nucleated RBC % 0, Differential Comment SCANNED 04/30/20 05:10: POC Glucose 287 H 04/30/20 06:00: POC Glucose 234 H 04/30/20 07:00: POC Glucose 268 H 04/30/20 07:58: POC Glucose 248 H 04/30/20 09:04: Sodium 136, Potassium 3.5, Chloride 111 H, Carbon Dioxide 13.0 L , Anion Gap 12, BUN 18, Creatinine 0.94, Estim Creat Clear Calc 67.31, Est GFR (MDRD) Af Amer 80, Est GFR (MDRD) Non-Af 66, BUN/Creatinine Ratio 19.1, Glucose 243 H, Calcium 8.7 04/30/20 09:25: POC Glucose 226 H 04/30/20 10:29: POC Glucose 236 H 04/30/20 11:23: POC Glucose 199 H 04/30/20 12:31: POC Glucose 177 H 04/30/20 13:27: POC Glucose 113 H 04/30/20 13:28: Sodium 137, Potassium 3.3 L, Chloride 113 H, Carbon Dioxide 17.0 L, Anion Gap 7, BUN 16, Creatinine 0.97, Estim Creat Clear Calc 65.23, Est GFR (MDRD) Af Amer 77, Est GFR (MDRD) Non-Af 64, BUN/Creatinine Ratio 16.5, Glucose 104, Calcium 8.6 04/30/20 14:30: POC Glucose 139 H 04/30/20 16:12: POC Glucose 254 H Current Medications Acetaminophen (Tylenol) 650 mg PO Q6H PRN PRN PRN Reason: Pain Score 1-10/Temp > 100.7 F Escitalopram Oxalate (Lexapro) 10 mg PO DAILY [facility] Last Admin: 04/30/20 09:47 Dose: 10 mg Documented by: Heparin Sodium (Porcine) (Heparin Na) 5,000 unit SC Q8 [facility] Last Admin: 04/30/20 14:59 Dose: 5,000 unit Documented by: Sodium Chloride () 1,000 mls @ 999 mls/hr IV .Q1H1M ONE Last Infusion: 04/29/20 15:05 Dose: Infused Documented by: Sodium Chloride () 250 mls @ 15 mls/hr IV .[id number] PRN PRN Reason: Saline Flush Sodium Chloride () 250 mls @ 15 mls/hr IV .[id number] PRN PRN Reason: Additional IVPB Infusion Potassium Chloride/Dextrose/Sod Cl (Kcl 20meq In D5.45ns 1000ml) 1,000 mls @ 150 mls/hr IV .Q6H40M [facility] Last Admin: 04/30/20 14:58 Dose: 150 mls/hr Documented by: Insulin Human Lispro (Humalog Kwikpen (Bkc)) 0 unit SC ACHS [facility]; Protocol Last Admin: 04/30/20 16:15 Dose: 4 u Documented by: Ondansetron HCl (Zofran) 4 mg IV Q8H PRN PRN PRN Reason: NAUSEA/VOMITING Last Admin: 04/30/20 16:59 Dose: 4 mg Documented by: Sodium Chloride () 10 - 40 ml IV UD PRN PRN Reason: SALINE FLUSH Last Admin: 04/30/20 14:59 Dose: 20 ml Documented by: Medical Necessity - Tobacco Use Smoking Status: Never smoker Tobacco Use: Non-smoker Assessment/Plan All Active Problems DKA (diabetic ketoacidoses) (Acute) #1 diabetic ketoacidosis-again patient's blood sugars are under better control at this time but I do not feel safe placing the patient on basal insulin at this time, I have raised up her sliding scale insulin to high dosage and will continue to monitor blood sugars. #2 major depression-by history-patient is currently getting Lexapro 10 mg daily #3 leukocytosis-probably secondary to DKA #4 hypokalemia-labs will be rechecked tomorrow, patient is on IV fluid containing potassium at this time #5 hypophosphatemia-phosphorus will be rechecked tomorrow #6 noncompliance with medical regimen-it appears that the patient is not refilling her medications in a timely manner #7 metabolic encephalopathy secondary to #1-this appears to be clearing at this time, patient was able to give me the name of her physician this afternoon. Patient's Inderal, oxybutynin, Singulair, Remeron, and metformin will be held at this time-I am not sure why the patient is taking such a small dose of propranolol, I talked briefly with the patient's daughter but she is unfamiliar with the patient's entire medical history. Inpatient E&M: 16617 Subs Hosp L2
[2020-04-30 23:21] LABS: Bedside Glucose 458 mg/dL (70-110)
[2020-04-30] MEDS: Insulin Lispro 100 UNIT/ML INSULN.PEN 8 UNIT SC (23:40)
[2020-05-01 02:11] LABS: Bedside Glucose 349 mg/dL (70-110)
[2020-05-01] MEDS: Ondansetron 4 MG/2 ML Vial IV (02:12)
[2020-05-01 03:00] VITALS: BP 124/86; PULSE 105; RESP 18; TEMP 36.6; O2SAT 100
[2020-05-01 04:00] VITALS: PULSE 105
[2020-05-01] MEDS: Heparin Injection (Vial) 5,000 UNIT/ML VIAL 5000 UNIT SC ×3 (05:33→21:39)
[2020-05-01] MEDS: Insulin Lispro 100 UNIT/ML INSULN.PEN SC ×4 (06:23→21:36)
[2020-05-01] MEDS: Insulin Lispro 100 UNIT/ML INSULN.PEN 8 UNIT SC ×4 (06:29→21:36)
[2020-05-01 06:35] LABS: Bedside Glucose 408 mg/dL (70-110)
[2020-05-01 06:40] LABS: Absolute Lymphocyte Count 1.25 X10^3/uL (0.83-4.51); Basophil# 0.01 X10^3/uL; Basophil% 0.1 % (0-1); Eosinophil# 0.02 X10^3/uL; Eosinophils% 0.2 % (0-5); Hematocrit 40.3 % (37-47); Hemoglobin 13.9 g/dL (12.0-15.0); Lymphocyte # 1.25 X10^3/ul (4.0); Lymphocyte % 10.9 % (19-41); Mean Corp Hgb Conc 34.5 g/dL (32-36); Mean Corpuscular Hgb 26.6 pg (27.0-32.0); Mean Corpuscular Volume 77.2 fL (81-99); Mean Platelet Vol. 12.2 fl (6.2-12.0); Monocyte# 1.16 X10^3/uL; Monocyte% 10.1 % (0-10); NRBC Flagged by Analyzer 0 % (0-5); Neutrophil # 9.03 X10^3/uL (2.7-7.7); Neutrophil % 78.3 % (47-70); Platelet Count 210 K/mm3 (150-450); RBC Distribution Width CV 15.2 % (11.6-14.6); RBC Distribution Width SD 41.8 fl (35.1-43.9); Red Blood Count 5.22 M/mm3 (4.2-5.4); White Blood Count 11.5 K/mm3 (4.4-11.0)
[2020-05-01 07:21] LABS: Bedside Glucose 466 mg/dL (70-110)
[2020-05-01 07:21] LABS: Bedside Glucose 466 mg/dL (70-110)
[2020-05-01 07:28] LABS: ALB/GLOB Ratio 0.8 RATIO (0.9-2.4); AST(SGOT) 18 U/L (15-37); Alanine Aminotransfer ALT/SGPT 25 U/L (13-56); Alkaline Phosphatase 178 U/L (45-117); Anion Gap 13 (5-15); BUN 16 mg/dL (7-18); BUN/Creat Ratio 17.9 RATIO (10-20); Calcium,Total 8.5 mg/dL (8.5-10.1); Chloride 105 mmol/L (98-107); Cholesterol 143 mg/dL (200); EST Glomerular Filtration Rate 70 mL/min (>60); Est Glom Filt Rate - Afr Amer 85 mL/min (>60); Glucose 401 mg/dL (74-106); High Density Lipoprotein 45 mg/dL; Potassium 3.5 mmol/L (3.5-5.1); Sodium Level 131 mmol/L (136-145); Triglycerides 181 mg/dL; Very Low Density Lipoprotein 36 mg/dL (5-40)
[2020-05-01 09:02] VITALS: BP 142/84; PULSE 107; RESP 18; TEMP 36.8; O2SAT 98
[2020-05-01] MEDS: metFORMIN HCl 500 MG Tablet PO ×2 (12:05→17:27)
[2020-05-01 12:16] LABS: Bedside Glucose 370 mg/dL (70-110)
[2020-05-01 15:53] VITALS: BP 151/96; PULSE 95; RESP 16; TEMP 36.8; O2SAT 95
[2020-05-01 17:40] LABS: Bedside Glucose 376 mg/dL (70-110)
--- NOTE | 2020-05-01 18:34 | PN_ITS ---
Patient Problems: Active and Suspected Problems DKA (diabetic ketoacidoses) (Acute) Subjective: Patient was seen and examined today, we lost IV access today and I do not believe the patient needs administration of fluids. Patient's blood sugars have trended higher today and I have increased her basal insulin dose. I asked the patient if she was comfortable with giving herself insulin shots and she stated she does not believe she will be able to give her self shots, I encouraged her to work with nursing to see if there is any way that she could administer her own shots. I have decided to place the patient on metformin for now, it may be possible to release her home on 1 shot of long-acting insulin per day along with metformin. I do not know how compliant the patient will be checking her blood sugars-she states to me today that she is not checking her blood sugars at home. Objective: General: Alert, Oriented x3, Cooperative, No apparent distress, Well developed, patient has flat affect HEENT: Atraumatic, PERRLA, EOMI, Normocephalic Oral: Moist Mucosa Neck: Supple, No JVD, Trachea Midline, Thyroid Normal Size and Texture Lungs: Clear to auscultation, Normal air movement Cardiovascular: Regular rate, No murmurs Abdomen: Bowel Sounds Present, Soft, Non Tender Extremities: No clubbing, No cyanosis, No edema, Capillary Refill Less than 3 Seconds Skin: No rashes, No breakdown Musculoskeletal: No Tenderness to Palpation of Joints or Extremities Neurological: Cranial nerves II-XII grossly intact, Neuro grossly intact, Sensory exam intact to light touch and pain, Coordination normal Psych/Mental Status: Appropriate, Flat Affect - Physical Exam Vitals/I&O's: Vital Signs Temp Pulse Resp BP Pulse Ox 98.3 F 95 16 151/96 H 95 05/01/20 15:53 05/01/20 15:53 05/01/20 15:53 05/01/20 15:53 05/01/20 15:53 Oxygen Delivery Method Room Air Weight: 106.7 kg Body Mass Index (BMI) 36.5 Finger Stick Blood Glucose 139 Intake and Output for Last 24 Hours 04/29/20 04/30/20 05/01/20 23:59 23:59 23:59 Intake Total 2422.36 / 2472.36 4781.33 / 4781.33 2940 / 2940 Output Total 1599 / 3049 475 / 475 Balance 822.36 / 497.36 1731.33 / 1731.33 2465 / 2465 Laboratory Results 04/30/20 21:54: POC Glucose 466 H* 04/30/20 21:56: POC Glucose 466 H* 04/30/20 23:16: POC Glucose 458 H* 05/01/20 02:03: POC Glucose 349 H 05/01/20 06:15: WBC 11.5 H, RBC 5.22, Hgb 13.9, Hct 40.3, MCV 77.2 L D, MCH 26.6 L, MCHC 34.5 D, RDW Std Deviation 41.8, RDW Coeff of Jevon 15.2 H, Plt Count 210, MPV 12.2 H, Immature Gran % (Auto) 0.400, Neut % (Auto) 78.3 H, Lymph % (Auto) 10.9 L, [place] % (Auto) 10.1 H, Eos % (Auto) 0.2, Baso % (Auto) 0.1, Absolute Neuts (auto) 9.0 H, Absolute Lymphs (auto) 1.25, Nucleated RBC % 0 05/01/20 06:15: Sodium 131 L, Potassium 3.5, Chloride 105, Carbon Dioxide 13.0 L , Anion Gap 13, BUN 16, Creatinine 0.90, Estim Creat Clear Calc 70.30, Est GFR (MDRD) Af Amer 85, Est GFR (MDRD) Non-Af 70, BUN/Creatinine Ratio 17.9, Glucose 401 H, Calcium 8.5, Total Bilirubin 0.50, AST 18, ALT 25, Alkaline Phosphatase 178 H, Total Protein 7.0, Albumin 3.0 L, Globulin 4.0, Albumin/Globulin Ratio 0.8 L, Triglycerides 181, Cholesterol 143, LDL Cholesterol 62, VLDL Cholesterol 36, HDL Cholesterol 45 05/01/20 06:22: POC Glucose 408 H 05/01/20 11:57: POC Glucose 370 H 05/01/20 17:23: POC Glucose 376 H Current Medications Acetaminophen (Tylenol) 650 mg PO Q6H PRN PRN PRN Reason: Pain Score 1-10/Temp > 100.7 F Escitalopram Oxalate (Lexapro) 10 mg PO DAILY [facility] Last Admin: 05/01/20 09:04 Dose: Not Given Documented by: Heparin Sodium (Porcine) (Heparin Na) 5,000 unit SC Q8 [facility] Last Admin: 05/01/20 15:56 Dose: 5,000 unit Documented by: Sodium Chloride () 1,000 mls @ 999 mls/hr IV .Q1H1M ONE Last Infusion: 04/29/20 15:05 Dose: Infused Documented by: Sodium Chloride () 250 mls @ 15 mls/hr IV .[id number] PRN PRN Reason: Saline Flush Sodium Chloride () 250 mls @ 15 mls/hr IV .[id number] PRN PRN Reason: Additional IVPB Infusion Insulin Glargine (Lantus (Bk)) 35 units SC 1100,2200 [facility] Insulin Human Lispro (Humalog Kwikpen ([facility])) 0 unit SC ACHS [facility]; Protocol Last Admin: 05/01/20 17:26 Dose: 14 u Documented by: Insulin Human Lispro (Humalog Kwikpen ([facility])) 8 [facility] Last Admin: 05/01/20 17:27 Dose: 8 u Documented by: Metformin HCl (Glucophage) 500 mg PO BIDCM [facility] Last Admin: 05/01/20 17:27 Dose: 500 mg Documented by: Ondansetron HCl (Zofran) 4 mg IV Q6H PRN PRN PRN Reason: NAUSEA/VOMITING Last Admin: 05/01/20 02:12 Dose: 4 mg Documented by: Medical Necessity - Tobacco Use Smoking Status: Never smoker Tobacco Use: Non-smoker Assessment/Plan All Active Problems DKA (diabetic ketoacidoses) (Acute) #1 diabetic ketoacidosis-again patient's blood sugars are still high, again I increased the patient's basal insulin today. Again, metformin was added to patient's medications. Nursing will have to work with the patient concerning administration of her own insulin. #2 major depression-by history-patient is currently getting Lexapro 10 mg daily #3 leukocytosis-probably secondary to DKA #4 hypokalemia-resolved at this time #5 hypophosphatemia-phosphorus will be rechecked tomorrow #6 noncompliance with medical regimen-it appears that the patient is not refilling her medications in a timely manner #7 metabolic encephalopathy secondary to #1-this appears to be cleared at this time Inpatient E&M: 53767 Subs Hosp L2
[2020-05-01 21:00] VITALS: BP 139/91; PULSE 102; RESP 18; TEMP 36.7; O2SAT 96
[2020-05-01 21:24] LABS: Phosphorus 0.6 mg/dL (2.5-4.9)
[2020-05-01 21:46] LABS: Bedside Glucose 288 mg/dL (70-110)
[2020-05-01] MEDS: Na Biphos/Potassium Phosphate PACKET 1 PACKET PO (22:16)
[2020-05-02 03:00] VITALS: BP 167/87; PULSE 88; RESP 16; TEMP 36.6; O2SAT 100
[2020-05-02] MEDS: Insulin Lispro 100 UNIT/ML INSULN.PEN 8 UNIT SC ×2 (06:22→12:10)
[2020-05-02] MEDS: Insulin Lispro 100 UNIT/ML INSULN.PEN SC ×4 (06:22→22:23)
[2020-05-02] MEDS: Heparin Injection (Vial) 5,000 UNIT/ML VIAL 5000 UNIT SC ×3 (06:23→22:16)
[2020-05-02] MEDS: Na Biphos/Potassium Phosphate PACKET 1 PACKET PO ×3 (06:29→18:10)
[2020-05-02 06:36] LABS: Bedside Glucose 196 mg/dL (70-110)
[2020-05-02] MEDS: metFORMIN HCl 1,000 MG Tablet 1000 MG PO ×2 (09:15→17:11)
[2020-05-02] MEDS: Escitalopram Oxalate 20 MG Tablet PO (09:16)
[2020-05-02 09:20] VITALS: BP 118/81; PULSE 110; RESP 18; TEMP 36.8; O2SAT 98
[2020-05-02] MEDS: Mag Hydrox/Al Hydrox/Simeth 30 ML UDC PO ×2 (09:24→14:58)
[2020-05-02 12:21] LABS: Bedside Glucose 311 mg/dL (70-110)
--- NOTE | 2020-05-02 14:23 | CASEMGMT ---
PETE JENKINS in to discuss discharge planning with patient. RN ALICE recommending [facility] at discharge for shelter and therapy. Patient is agreeable to [facility] and list of in-network agencies provided. Patient would like [facility]. Patient has daughters who are will to assist with care. PETE JENKINS sent referral to Critical access hospital and awaiting response.
[2020-05-02 15:09] VITALS: BP 118/88; PULSE 100; RESP 18; TEMP 36.8; O2SAT 100
[2020-05-02 15:34] LABS: Phosphorus 0.6 mg/dL (2.5-4.9)
[2020-05-02 17:15] LABS: Bedside Glucose 223 mg/dL (70-110)
[2020-05-02] MEDS: Pantoprazole Sodium 40 MG Tablet PO (18:09)
--- NOTE | 2020-05-02 18:15 | PCM.PROGNOTE ---
Patient Problems: Active and Suspected Problems DKA (diabetic ketoacidoses) (Acute) Subjective: Patient was seen and examined today, I talked with her daughter last night and again today by phone. Patient's mental status is much improved today, her phosphorus is still very low and I ordered additional Neutra-Phos today for the patient orally. Nursing tells me that they do not believe the patient is able to give herself insulin but will attempt to train the patient to do that. I talked to the daughter about this and I feel one daughter that lives with her may be able to administer the insulin or the daughter that does not live with her may be able to come over and give her insulin if I limited it to once a day. Patient does not complain of any fatigue today but she is in bed when I examined her, he does complain of some dyspepsia and I have placed her on Protonix in addition to Mylanta 2. - Physical Exam Vitals/I&O's: Vital Signs Temp Pulse Resp BP Pulse Ox 98.3 F 100 18 118/88 H 100 05/02/20 15:09 05/02/20 15:09 05/02/20 15:09 05/02/20 15:09 05/02/20 15:09 Oxygen Delivery Method Room Air Weight: 105 kg Body Mass Index (BMI) 36.5 Finger Stick Blood Glucose 139 Intake and Output for Last 24 Hours 04/30/20 05/01/20 05/02/20 23:59 23:59 23:59 Intake Total 4781.33 / 4781.33 2940 / 3340 1999 Output Total 3050 / 3050 475 / 475 Balance 1731.33 / 1731.33 2465 / 2865 1999 General: Alert, Oriented x3, Cooperative, No apparent distress, Well developed HEENT: Atraumatic, PERRLA, EOMI, Normocephalic Oral: Moist Mucosa Neck: Supple, No JVD, Trachea Midline, Thyroid Normal Size and Texture Lungs: Clear to auscultation, Normal air movement, No rhonchi, No wheeze, No rales Cardiovascular: Regular rate, Regular Rhythm, Normal S1, Normal S2, No murmurs Abdomen: Bowel Sounds Present, Soft, Non Tender, Non-Distended Extremities: No clubbing, No cyanosis, No edema, Capillary Refill Less than 3 Seconds Skin: No rashes, No breakdown Musculoskeletal: No Tenderness to Palpation of Joints or Extremities Neurological: Cranial nerves II-XII grossly intact, Neuro grossly intact, Sensory exam intact to light touch and pain, Coordination normal Psych/Mental Status: Normal Affect, Appropriate, Alert and oriented to time, place, person, mood and affect Laboratory Results 05/01/20 06:15: Phosphorus 0.6 L* 05/01/20 21:34: POC Glucose 288 H 05/02/20 06:16: POC Glucose 196 H 05/02/20 12:07: POC Glucose 311 H 05/02/20 14:40: Phosphorus 0.6 L* 05/02/20 17:09: POC Glucose 223 H Current Medications Acetaminophen (Tylenol) 650 mg PO Q6H PRN PRN PRN Reason: Pain Score 1-10/Temp > 100.7 F Al Hydroxide/Mg Hydroxide (Mylanta Ii) 30 ml PO Q4H PRN PRN PRN Reason: DYSPEPSIA Last Admin: 05/02/20 14:58 Dose: 30 ml Documented by: Escitalopram Oxalate (Lexapro) 20 mg PO DAILY [facility] Last Admin: 05/02/20 09:16 Dose: 20 mg Documented by: Heparin Sodium (Porcine) (Heparin Na) 5,000 unit SC Q8 [facility] Last Admin: 05/02/20 14:58 Dose: 5,000 unit Documented by: Sodium Chloride () 1,000 mls @ 999 mls/hr IV .Q1H1M ONE Last Infusion: 04/29/20 15:05 Dose: Infused Documented by: Sodium Chloride () 250 mls @ 15 mls/hr IV .[id number] PRN PRN Reason: Saline Flush Sodium Chloride () 250 mls @ 15 mls/hr IV .[id number] PRN PRN Reason: Additional IVPB Infusion Insulin Glargine (Lantus (Bk)) 45 units SC 1100,2200 [facility] Insulin Human Lispro (Humalog Kwikpen ([facility])) 0 unit SC ACHS [facility]; Protocol Last Admin: 05/02/20 17:10 Dose: 6 u Documented by: Metformin HCl (Glucophage) 1,000 mg PO BIDCM [facility] Last Admin: 05/02/20 17:11 Dose: 1,000 mg Documented by: Ondansetron HCl (Zofran) 4 mg IV Q6H PRN PRN PRN Reason: NAUSEA/VOMITING Last Admin: 05/01/20 02:12 Dose: 4 mg Documented by: Pantoprazole Sodium (Protonix) 40 mg PO DAILY [facility] Last Admin: 05/02/20 18:09 Dose: 40 mg Documented by: Potassium Phos/Sodium Phos (Neutra-Phos Packet) 2 packet PO BIDCM [facility] Medical Necessity - Tobacco Use Smoking Status: Never smoker Tobacco Use: Non-smoker Assessment/Plan All Active Problems DKA (diabetic ketoacidoses) (Acute) #1 diabetic ketoacidosis-again patient's blood sugars are still high, again I increased the patient's basal insulin today. In addition she is now on maximal dose metformin, I have stopped her programmed Humalog because I am concerned when she goes home she is not going to be able to give her self 3-4 shots of Humalog per day. #2 major depression-by history-patient is currently getting Lexapro 20 mg daily #3 leukocytosis-probably secondary to DKA #4 hypokalemia-resolved at this time #5 hypophosphatemia-phosphorus will be rechecked tomorrow, additional K-Phos was given today #6 noncompliance with medical regimen-it appears that the patient is not refilling her medications in a timely manner #7 metabolic encephalopathy secondary to #1-this appears to be cleared at this time In[facility] E[facility]M: [id number]
[2020-05-02 20:50] VITALS: BP 132/75; PULSE 102; RESP 16; TEMP 37; O2SAT 97
[2020-05-02] MEDS: Na Biphos/Potassium Phosphate PACKET 2 PACKET PO (22:15)
[2020-05-02 22:30] LABS: Bedside Glucose 152 mg/dL (70-110)
[2020-05-03 02:33] VITALS: BP 126/67; PULSE 94; RESP 18; TEMP 36.9; O2SAT 99
[2020-05-03] MEDS: Insulin Lispro 100 UNIT/ML INSULN.PEN SC ×4 (06:55→22:09)
[2020-05-03 06:56] LABS: Bedside Glucose 171 mg/dL (70-110)
[2020-05-03 07:34] LABS: Phosphorus 0.6 mg/dL (2.5-4.9)
[2020-05-03] MEDS: metFORMIN HCl 1,000 MG Tablet 1000 MG PO ×2 (08:10→16:53)
[2020-05-03] MEDS: Na Biphos/Potassium Phosphate PACKET 2 PACKET PO ×2 (08:10→16:53)
[2020-05-03 08:12] VITALS: BP 123/73; PULSE 81; RESP 18; TEMP 36.9; O2SAT 99
[2020-05-03] MEDS: Pantoprazole Sodium 40 MG Tablet PO (08:45)
[2020-05-03] MEDS: Heparin Injection (Vial) 5,000 UNIT/ML VIAL 5000 UNIT SC ×2 (10:52→22:10)
[2020-05-03] MEDS: Escitalopram Oxalate 20 MG Tablet PO (10:53)
--- NOTE | 2020-05-03 11:35 | PCM.CONS.R ---
Problem List (1) Hypophosphatemia Status: Acute Consultation - Renal 05/03/20 PCP/ Referring MD: Requesting physician: [] Primary care physician: Dr. Amor Weir MD Reason for Consultation:: hypophosphatemia - History of Present Illness History of Present Illness: 55-year-old female patient was admitted to the hospital about 4 days ago with diabetic ketoacidosis. Nephrology being consulted for hypophosphatemia. She presented blood sugars more than 500 and anion gap acidosis. She was on an insulin drip and is now on insulin subcu. Phosphate has been consistently low and today at 0.6. This is after repletion with oral phosphate. Currently denies any complaints. - Allergies Allergies: Allergies No Known Allergies Allergy (Verified 04/29/20 12:42) - Current Medications Current Medications: Current Medications Acetaminophen (Tylenol) 650 mg PO Q6H PRN PRN PRN Reason: Pain Score 1-10/Temp > 100.7 F Al Hydroxide/Mg Hydroxide (Mylanta Ii) 30 ml PO Q4H PRN PRN PRN Reason: DYSPEPSIA Last Admin: 05/02/20 14:58 Dose: 30 ml Documented by: Escitalopram Oxalate (Lexapro) 20 mg PO DAILY [facility] Last Admin: 05/03/20 10:53 Dose: 20 mg Documented by: Heparin Sodium (Porcine) (Heparin Na) 5,000 unit SC Q12 [facility] Last Admin: 05/03/20 10:52 Dose: 5,000 unit Documented by: Sodium Chloride () 1,000 mls @ 999 mls/hr IV .Q1H1M ONE Last Infusion: 04/29/20 15:05 Dose: Infused Documented by: Sodium Chloride () 250 mls @ 15 mls/hr IV .[id number] PRN PRN Reason: Saline Flush Sodium Chloride () 250 mls @ 15 mls/hr IV .[id number] PRN PRN Reason: Additional IVPB Infusion Potassium Phosphate 40 mm/ (Sodium Chloride) 513.3333 mls @ 62.5 mls/hr IV X1 ONE Stop: 05/03/20 18:12 Last Admin: 05/03/20 10:52 Dose: 62.5 mls/hr Documented by: Insulin Glargine (Lantus ([facility])) 45 units SC 1100,2200 [facility] Last Admin: 05/02/20 22:22 Dose: 45 units Documented by: Insulin Human Lispro (Humalog Kwikpen ([facility])) 0 unit SC ACHS [facility]; Protocol Last Admin: 05/03/20 06:55 Dose: 3 u Documented by: Metformin HCl (Glucophage) 1,000 mg PO BIDCM [facility] Last Admin: 05/03/20 08:10 Dose: 1,000 mg Documented by: Ondansetron HCl (Zofran) 4 mg IV Q6H PRN PRN PRN Reason: NAUSEA/VOMITING Last Admin: 05/01/20 02:12 Dose: 4 mg Documented by: Pantoprazole Sodium (Protonix) 40 mg PO DAILY [facility] Last Admin: 05/03/20 08:45 Dose: 40 mg Documented by: Potassium Phos/Sodium [facility] Last Admin: 05/03/20 08:10 Dose: 2 packet Documented by: - Past Medical History Past Medical History (Chronic Problems): Chronic Problems Depression (Chronic) - Past Surgical History Surgical History: - - pt unable to provide - Social History Smoking Status: Never smoker Alcohol: None Drugs: None - Family History Maternal History Items: - - unable to provide Paternal History Items: No pertinent history - unable to provide Review of Systems Constitutional: Denies: Chills, Fever, Weight Change HEENT: Denies: Head Aches, Sinus Congestion, Sinus Drainage Cardiovascular: Denies: Chest Pain, Palpitations Respiratory: Denies: Cough, Shortness of breath at rest, Sputum production Gastrointestinal: Denies: Abdominal Pain, Nausea, Vomiting Genitourinary: Denies: Dysuria Musculoskeletal: Denies: Joint Pain, Joint Tenderness Skin: Denies: Rash, Wounds Neurological: Denies: Numbness, Tingling, Focal weakness Psychiatric: Denies: Anxiety, Depression, Homicidal Ideations, Suicidal Ideations Hematologic/ Lymphatic: Denies: Easy Bruising, Easy Bleeding Patient Problems: Active and Suspected Problems DKA (diabetic ketoacidoses) (Acute) Hypophosphatemia (Acute) - Physical Exam Vitals/I&O's: Vital Signs Temp Pulse Resp BP Pulse Ox 98.4 F 81 18 123/73 H 99 05/03/20 08:12 05/03/20 08:12 05/03/20 08:12 05/03/20 08:12 05/03/20 08:12 Oxygen Delivery Method Room Air Weight: 105.1 kg Body Mass Index (BMI) 36.5 Finger Stick Blood Glucose 139 Intake and Output for Last 24 Hours 05/01/20 05/02/20 05/03/20 23:59 23:59 23:59 Intake Total 2940 / 3340 1999 / 2500 600 / 600 Output Total 475 / 475 Balance 2465 / 2865 1999 / 2500 600 / 600 General: Alert, Oriented x3, Cooperative HEENT: Atraumatic, PERRLA, EOMI, Normocephalic Neck: Supple, No JVD, Negative Carotid Bruits Lungs: Clear to auscultation, Normal air movement Cardiovascular: Regular rate, No murmurs Abdomen: Bowel Sounds Present, Soft, Non Tender Extremities: No edema, Capillary Refill Less than 3 Seconds Skin: No rashes, No breakdown Musculoskeletal: No Tenderness to Palpation of Joints or Extremities Neurological: Cranial nerves II-XII grossly intact Psych/Mental Status: Normal Affect, Appropriate Laboratory Results 05/02/20 12:07: POC Glucose 311 H 05/02/20 14:40: Phosphorus 0.6 L* 05/02/20 17:09: POC Glucose 223 H 05/02/20 22:21: POC Glucose 152 H 05/03/20 06:53: POC Glucose 171 H 05/03/20 06:58: Phosphorus 0.6 L* Current Medications Acetaminophen (Tylenol) 650 mg PO Q6H PRN PRN PRN Reason: Pain Score 1-10/Temp > 100.7 F Al Hydroxide/Mg Hydroxide (Mylanta Ii) 30 ml PO Q4H PRN PRN PRN Reason: DYSPEPSIA Last Admin: 05/02/20 14:58 Dose: 30 ml Documented by: Escitalopram Oxalate (Lexapro) 20 mg PO DAILY [facility] Last Admin: 05/03/20 10:53 Dose: 20 mg Documented by: Heparin Sodium (Porcine) (Heparin Na) 5,000 unit SC Q12 [facility] Last Admin: 05/03/20 10:52 Dose: 5,000 unit Documented by: Sodium Chloride () 1,000 mls @ 999 mls/hr IV .Q1H1M ONE Last Infusion: 04/29/20 15:05 Dose: Infused Documented by: Sodium Chloride () 250 mls @ 15 mls/hr IV .[id number] PRN PRN Reason: Saline Flush Sodium Chloride () 250 mls @ 15 mls/hr IV .[id number] PRN PRN Reason: Additional IVPB Infusion Potassium Phosphate 40 mm/ (Sodium Chloride) 513.3333 mls @ 62.5 mls/hr IV X1 ONE Stop: 05/03/20 18:12 Last Admin: 05/03/20 10:52 Dose: 62.5 mls/hr Documented by: Insulin Glargine (Lantus ([facility])) 45 units SC 1100,2200 [facility] Last Admin: 05/02/20 22:22 Dose: 45 units Documented by: Insulin Human Lispro (Humalog Kwikpen ([facility])) 0 unit SC ACHS [facility]; Protocol Last Admin: 05/03/20 06:55 Dose: 3 u Documented by: Metformin HCl (Glucophage) 1,000 mg PO BIDCM [facility] Last Admin: 05/03/20 08:10 Dose: 1,000 mg Documented by: Ondansetron HCl (Zofran) 4 mg IV Q6H PRN PRN PRN Reason: NAUSEA/VOMITING Last Admin: 05/01/20 02:12 Dose: 4 mg Documented by: Pantoprazole Sodium (Protonix) 40 mg PO DAILY [facility] Last Admin: 05/03/20 08:45 Dose: 40 mg Documented by: Potassium Phos/Sodium Phos (Neutra-Phos Packet) 2 packet PO BIDCM [facility] Last Admin: 05/03/20 08:10 Dose: 2 packet Documented by: Assessment/Plan All Active Problems DKA (diabetic ketoacidoses) (Acute) Hypophosphatemia (Acute) HypoPhosphatemia. Reviewed her old records from [facility] [employer] system. I do not see any prior phosphate levels. Serum calcium levels are acceptable. I will check a vitamin D, PTH level. She has received IV phosphate today. There is no history of exposure to chemotherapy, autoimmune conditions in the past. Diabetic ketoacidosis. Currently on insulin drip.
[2020-05-03 12:01] LABS: Bedside Glucose 340 mg/dL (70-110)
[2020-05-03 13:06] LABS: Anion Gap 3 (5-15); BUN 11 mg/dL (7-18); BUN/Creat Ratio 14.2 RATIO (10-20); Calcium,Total 8.7 mg/dL (8.5-10.1); Chloride 104 mmol/L (98-107); Creatinine, Serum 0.78 mg/dL (0.55-1.02); EST Glomerular Filtration Rate 83 mL/min (>60); Est Glom Filt Rate - Afr Amer 100 mL/min (>60); Estimated Creatinine Clearance 81.11 ml/min; Glucose 291 mg/dL (74-106); Potassium 3.1 mmol/L (3.5-5.1); Sodium Level 135 mmol/L (136-145); Vitamin D,25 Hydroxy 17.2 ng/mL
[2020-05-03 13:13] LABS: PTHIN 27.2 pg/mL (18.4-80.1)
--- NOTE | 2020-05-03 14:05 | CASEMGMT ---
PETE JENKINS received call from [facility] that they are able to accept the patient. PETE JENKINS updated the patient regarding acceptance by [facility].
[2020-05-03 16:51] VITALS: BP 125/65; PULSE 85; RESP 18; TEMP 36.9; O2SAT 99
[2020-05-03 17:00] LABS: Bedside Glucose 279 mg/dL (70-110)
--- NOTE | 2020-05-03 17:09 | PCM.PROGNOTE ---
Patient Problems: Active and Suspected Problems DKA (diabetic ketoacidoses) (Acute) Hypophosphatemia (Acute) Subjective: Patient was seen and examined today, her phosphorus level was low again this morning and I decided to place her on IV phosphate supplementation, I also had nephrology see the patient today and they are following her for monitoring of the phosphorus level. Patient is alert today and appears to understand her medical plan, her sugars are still not under complete control, I bumped up her basal insulin slightly again, I am worried that she might require regular insulin and it does not appear that she is able to give herself her own insulin which would cause a hardship for the family. Also it would risk that she could go hypoglycemic at home and quite possibly no one would be there. Objective: General: Alert, Oriented x3, Cooperative, No apparent distress, Well developed HEENT: Atraumatic, PERRLA, EOMI, Normocephalic Oral: Moist Mucosa Neck: Supple, No JVD, Trachea Midline, Thyroid Normal Size and Texture Lungs: Clear to auscultation, Normal air movement, No rhonchi, No wheeze, No rales Cardiovascular: Regular rate, Regular Rhythm, Normal S1, Normal S2, No murmurs Abdomen: Bowel Sounds Present, Soft, Non Tender, Non-Distended Extremities: No clubbing, No cyanosis, No edema, Capillary Refill Less than 3 Seconds Skin: No rashes, No breakdown Musculoskeletal: No Tenderness to Palpation of Joints or Extremities Neurological: Cranial nerves II-XII grossly intact, Neuro grossly intact, Sensory exam intact to light touch and pain, Coordination normal Psych/Mental Status: Normal Affect, Appropriate, Alert and oriented to time, place, person, mood and affect - Physical Exam Vitals/I&O's: Vital Signs Temp Pulse Resp BP Pulse Ox 98.5 F 85 18 125/65 H 99 05/03/20 16:51 05/03/20 16:51 05/03/20 16:51 05/03/20 16:51 05/03/20 16:51 Oxygen Delivery Method Room Air Weight: 105.1 kg Body Mass Index (BMI) 36.5 Finger Stick Blood Glucose 139 Intake and Output for Last 24 Hours 05/01/20 05/02/20 05/03/20 23:59 23:59 23:59 Intake Total 2940 / 3340 2000 / 2500 1450 / 1450 Output Total 475 / 475 Balance 2465 / 2865 1999 1450 / 1450 Laboratory Results 05/02/20 17:09: POC Glucose 223 H 05/02/20 22:21: POC Glucose 152 H 05/03/20 06:53: POC Glucose 171 H 05/03/20 06:58: Phosphorus 0.6 L* 05/03/20 11:57: POC Glucose 340 H 05/03/20 12:20: Sodium 135 L, Potassium 3.1 L, Chloride 104, Carbon Dioxide 28.0, Anion Gap 3 L, BUN 11, Creatinine 0.78, Estim Creat Clear Calc 81.11, Est GFR (MDRD) Af Amer 100, Est GFR (MDRD) Non-Af 83, BUN/Creatinine Ratio 14.2, Glucose 291 H, Calcium 8.7 05/03/20 12:20: Vitamin D 25-Hydroxy 17.2 05/03/20 12:20: PTH Intact 27.2 05/03/20 12:20: Vit D 1,25-Dihydroxy Pending 05/03/20 16:49: POC Glucose 279 H Current Medications Acetaminophen (Tylenol) 650 mg PO Q6H PRN PRN PRN Reason: Pain Score 1-10/Temp > 100.7 F Escitalopram Oxalate (Lexapro) 20 mg PO DAILY [facility] Last Admin: 05/03/20 10:53 Dose: 20 mg Documented by: Heparin Sodium (Porcine) (Heparin Na) 5,000 unit SC Q12 [facility] Last Admin: 05/03/20 10:52 Dose: 5,000 unit Documented by: Sodium Chloride () 1,000 mls @ 999 mls/hr IV .Q1H1M ONE Last Infusion: 04/29/20 15:05 Dose: Infused Documented by: Sodium Chloride () 250 mls @ 15 mls/hr IV .[id number] PRN PRN Reason: Saline Flush Sodium Chloride () 250 mls @ 15 mls/hr IV .[id number] PRN PRN Reason: Additional IVPB Infusion Potassium Phosphate 40 mm/ (Sodium Chloride) 513.3333 mls @ 62.5 mls/hr IV X1 ONE Stop: 05/03/20 18:12 Last Admin: 05/03/20 10:52 Dose: 62.5 mls/hr Documented by: Insulin Glargine (Lantus ([facility])) 50 units SC 1100,2200 [facility] Insulin Human Lispro (Humalog Kwikpen (Bk)) 0 unit SC ACHS [facility]; Protocol Last Admin: 05/03/20 16:52 Dose: 9 u Documented by: Metformin HCl (Glucophage) 1,000 mg PO BIDCM [facility] Last Admin: 05/03/20 16:53 Dose: 1,000 mg Documented by: Ondansetron HCl (Zofran) 4 mg IV Q6H PRN PRN PRN Reason: NAUSEA/VOMITING Last Admin: 05/01/20 02:12 Dose: 4 mg Documented by: Pantoprazole Sodium (Protonix) 40 mg PO DAILY [facility] Last Admin: 05/03/20 08:45 Dose: 40 mg Documented by: Potassium Phos/Sodium Phos (Neutra-Phos Packet) 2 packet PO BIDCM [facility] Last Admin: 05/03/20 16:53 Dose: 2 packet Documented by: Medical Necessity - Tobacco Use Smoking Status: Never smoker Tobacco Use: Non-smoker Assessment/Plan All Active Problems DKA (diabetic ketoacidoses) (Acute) Hypophosphatemia (Acute) #1 diabetic ketoacidosis-again patient's blood sugars are still high, again I increased the patient's basal insulin today. #2 major depression-by history-patient is currently getting Lexapro 20 mg daily #3 leukocytosis-probably secondary to DKA #4 hypokalemia-resolved at this time #5 hypophosphatemia-phosphorus will be rechecked tomorrow, additional IV potassium phosphate was given to her today #6 noncompliance with medical regimen-it appears that the patient is not refilling her medications in a timely manner #7 metabolic encephalopathy secondary to #1-this appears to be cleared at this time Inpatient E&M: [id number] Subs Hosp L2
[2020-05-03 18:58] LABS: Urine Chloride 108 mmol/L (Not Establ.); Urine Sodium 19 mmol/L (Not Establ.)
[2020-05-03 21:59] VITALS: BP 117/65; PULSE 89; RESP 16; TEMP 36.7; O2SAT 97
[2020-05-03 22:31] LABS: Bedside Glucose 205 mg/dL (70-110)
[2020-05-04 03:20] VITALS: BP 117/68; PULSE 89; RESP 16; TEMP 36.4; O2SAT 98
[2020-05-04 06:45] LABS: Bedside Glucose 66 mg/dL (70-110)
[2020-05-04 07:10] LABS: Bedside Glucose 88 mg/dL (70-110)
[2020-05-04 07:41] LABS: Albumin, Serum 2.6 g/dL (3.2-5.0); BUN 11 mg/dL (7-18); BUN/Creat Ratio 17.2 RATIO (10-20); Calcium,Total 8.2 mg/dL (8.5-10.1); Chloride 104 mmol/L (98-107); Creatinine, Serum 0.64 mg/dL (0.55-1.02); EST Glomerular Filtration Rate 103 mL/min (>60); Est Glom Filt Rate - Afr Amer 125 mL/min (>60); Estimated Creatinine Clearance 98.86 ml/min; Glucose 80 mg/dL (74-106); Phosphorus 2.3 mg/dL (2.5-4.9); Potassium 2.6 mmol/L (3.5-5.1); Sodium Level 138 mmol/L (136-145)
[2020-05-04] MEDS: metFORMIN HCl 1,000 MG Tablet 1000 MG PO ×2 (08:33→16:18)
[2020-05-04] MEDS: Na Biphos/Potassium Phosphate PACKET 2 PACKET PO ×2 (08:33→16:19)
[2020-05-04] MEDS: Pantoprazole Sodium 40 MG Tablet PO (08:34)
[2020-05-04] MEDS: Escitalopram Oxalate 20 MG Tablet PO (08:34)
[2020-05-04] MEDS: 0.9% Saline Lock 10 ML Syringe IV (08:34)
[2020-05-04] MEDS: Heparin Injection (Vial) 5,000 UNIT/ML VIAL 5000 UNIT SC ×2 (09:01→22:24)
[2020-05-04 09:20] VITALS: BP 134/79; PULSE 88; RESP 18; TEMP 36.9; O2SAT 100
[2020-05-04] MEDS: Insulin Lispro 100 UNIT/ML INSULN.PEN SC ×2 (12:25→16:18)
--- NOTE | 2020-05-04 12:33 | PCM.PN.REN ---
Patient Problems: Active and Suspected Problems DKA (diabetic ketoacidoses) (Acute) Hypophosphatemia (Acute) Subjective: no new complaints - Physical Exam Vitals/I&O's: Vital Signs Temp Pulse Resp BP Pulse Ox 98.4 F 88 18 134/79 H 100 05/04/20 09:20 05/04/20 09:20 05/04/20 09:20 05/04/20 09:20 05/04/20 09:20 Oxygen Delivery Method Room Air Weight: 106.3 kg Body Mass Index (BMI) 36.5 Finger Stick Blood Glucose 139 Intake and Output for Last 24 Hours 05/02/20 05/03/20 05/04/20 23:59 23:59 23:59 Intake Total 1999 2663.3333 / 3013.3333 847 / 847 Balance 1999 2663.3333 / 3013.3333 847 / 847 General: Alert, Oriented x3, Cooperative HEENT: Atraumatic, PERRLA, EOMI, Normocephalic Neck: Supple, No JVD, Negative Carotid Bruits Lungs: Clear to auscultation, Normal air movement Cardiovascular: Regular rate, No murmurs Abdomen: Bowel Sounds Present, Soft, Non Tender Extremities: No edema, Capillary Refill Less than 3 Seconds Skin: No rashes, No breakdown Musculoskeletal: No Tenderness to Palpation of Joints or Extremities Neurological: Cranial nerves II-XII grossly intact Psych/Mental Status: Normal Affect, Appropriate Laboratory Results 05/03/20 12:20: Sodium 135 L, Potassium 3.1 L, Chloride 104, Carbon Dioxide 28.0, Anion Gap 3 L, BUN 11, Creatinine 0.78, Estim Creat Clear Calc 81.11, Est GFR (MDRD) Af Amer 100, Est GFR (MDRD) Non-Af 83, BUN/Creatinine Ratio 14.2, Glucose 291 H, Calcium 8.7 05/03/20 12:20: Vitamin D 25-Hydroxy 17.2 05/03/20 12:20: PTH Intact 27.2 05/03/20 16:49: POC Glucose 279 H 05/03/20 18:22: Ur Random Sodium 19, Urine Potassium 24.0, Urine Chloride 108 05/03/20 22:07: POC Glucose 205 H 05/04/20 06:41: POC Glucose 66 L 05/04/20 07:01: Sodium 138, Potassium 2.6 L*, Chloride 104, Carbon Dioxide 30.0, BUN 11, Creatinine 0.64, Estim Creat Clear Calc 98.86, Est GFR (MDRD) Af Amer 125, Est GFR (MDRD) Non-Af 103, BUN/Creatinine Ratio 17.2, Glucose 80, Calcium 8.2 L, Phosphorus 2.3 L, Albumin 2.6 L 05/04/20 07:01: Total Protein (PEP) Pending, IgG Pending, IgA Pending, IgM Pending, Albumin (BOYD) Pending, Albumin/Globulin (BOYD) Pending, [id number]-[id number] BOYD Pending, Nwkyk-0-Dgyowpjan BOYD Pending, Beta-Globulins (BOYD) Pending, Gamma Globulins (BOYD) Pending, BOYD M-Toby Pending 05/04/20 07:03: POC Glucose 88 Current Medications Acetaminophen (Tylenol) 650 mg PO Q6H PRN PRN PRN Reason: Pain Score 1-10/Temp > 100.7 F Escitalopram Oxalate (Lexapro) 20 mg PO DAILY [facility] Last Admin: 05/04/20 08:34 Dose: 20 mg Documented by: Heparin Sodium (Porcine) (Heparin Na) 5,000 unit SC Q12 [facility] Last Admin: 05/04/20 09:01 Dose: 5,000 unit Documented by: Sodium Chloride () 1,000 mls @ 999 mls/hr IV .Q1H1M ONE Last Infusion: 04/29/20 15:05 Dose: Infused Documented by: Sodium Chloride () 250 mls @ 15 mls/hr IV .[id number] PRN PRN Reason: Saline Flush Sodium Chloride () 250 mls @ 15 mls/hr IV .[id number] PRN PRN Reason: Additional IVPB Infusion Insulin Glargine (Lantus (Bkc)) 50 units SC 1100,2200 [facility] Last Admin: 05/04/20 12:26 Dose: 50 u Documented by: Insulin Human Lispro (Humalog Kwikpen (Bkc)) 0 unit SC ACHS [facility]; Protocol Last Admin: 05/04/20 12:25 Dose: 3 u Documented by: Metformin HCl (Glucophage) 1,000 mg PO BIDCM [facility] Last Admin: 05/04/20 08:33 Dose: 1,000 mg Documented by: Ondansetron HCl (Zofran) 4 mg IV Q6H PRN PRN PRN Reason: NAUSEA/VOMITING Last Admin: 05/01/20 02:12 Dose: 4 mg Documented by: Pantoprazole Sodium (Protonix) 40 mg PO DAILY [facility] Last Admin: 05/04/20 08:34 Dose: 40 mg Documented by: Potassium Phos/Sodium Phos (Neutra-Phos Packet) 2 packet PO BIDCM [facility] Last Admin: 05/04/20 08:33 Dose: 2 packet Documented by: Medical Necessity - Tobacco Use Smoking Status: Never smoker Tobacco Use: Non-smoker Assessment/Plan All Active Problems DKA (diabetic ketoacidoses) (Acute) Hypophosphatemia (Acute) HypoPhosphatemia. Reviewed her old records from [facility] [employer] system. I do not see any prior phosphate levels. Serum calcium levels are acceptable. Vitamin D is low start supplements. PTH is ok. SPEP pending and can follow up as outpatient. levels are better Diabetic ketoacidosis. resolved hypokalemia. repleted this am plan add Vit D and continue neutraphos at the time of dc will arrange follow up after dc
[2020-05-04 12:55] LABS: Bedside Glucose 161 mg/dL (70-110)
[2020-05-04 15:20] VITALS: BP 115/66; PULSE 95; RESP 18; TEMP 37.2; O2SAT 95
--- NOTE | 2020-05-04 16:22 | PN_ITS ---
Patient Problems: Active and Suspected Problems DKA (diabetic ketoacidoses) (Acute) Hypophosphatemia (Acute) Subjective: Patient was seen and examined today, her phosphorus was much better but her potassium was low. Patient had potassium and phosphorus supplementation today. She complains of fatigue but otherwise has no complaints today. Objective: General: Alert, Oriented x3, Cooperative, No apparent distress, Well developed HEENT: Atraumatic, PERRLA, EOMI, Normocephalic Oral: Moist Mucosa Neck: Supple, No JVD, Trachea Midline, Thyroid Normal Size and Texture Lungs: Clear to auscultation, Normal air movement, No rhonchi, No wheeze, No rales Cardiovascular: Regular rate, Regular Rhythm, Normal S1, Normal S2, No murmurs Abdomen: Bowel Sounds Present, Soft, Non Tender, Non-Distended Extremities: No clubbing, No cyanosis, No edema, Capillary Refill Less than 3 Seconds Skin: No rashes, No breakdown Musculoskeletal: No Tenderness to Palpation of Joints or Extremities Neurological: Cranial nerves II-XII grossly intact, Neuro grossly intact, Se nsory exam intact to light touch and pain, Coordination normal Psych/Mental Status: Normal Affect, Appropriate, Alert and oriented to time, place, person, mood and affect - Physical Exam Vitals/I&O's: Vital Signs Temp Pulse Resp BP Pulse Ox 98.9 F 95 18 115/66 95 05/04/20 15:20 05/04/20 15:20 05/04/20 15:20 05/04/20 15:20 05/04/20 15:20 Oxygen Delivery Method Room Air Weight: 106.3 kg Body Mass Index (BMI) 36.5 Finger Stick Blood Glucose 139 Intake and Output for Last 24 Hours 05/02/20 05/03/20 05/04/20 23:59 23:59 23:59 Intake Total 1999 2663.3333 / 3013.3333 847 / 847 Balance 1999 2663.3333 / 3013.3333 847 / 847 Laboratory Results 05/03/20 16:49: POC Glucose 279 H 05/03/20 18:22: Ur Random Sodium 19, Urine Potassium 24.0, Urine Chloride 108 05/03/20 22:07: POC Glucose 205 H 05/04/20 06:41: POC Glucose 66 L 05/04/20 07:01: Sodium 138, Potassium 2.6 L*, Chloride 104, Carbon Dioxide 30.0, BUN 11, Creatinine 0.64, Estim Creat Clear Calc 98.86, Est GFR (MDRD) Af Amer 125, Est GFR (MDRD) Non-Af 103, BUN/Creatinine Ratio 17.2, Glucose 80, Calcium 8.2 L, Phosphorus 2.3 L, Albumin 2.6 L 05/04/20 07:01: Total Protein (PEP) Pending, IgG Pending, IgA Pending, IgM Pending, Albumin (BOYD) Pending, Albumin/Globulin (BOYD) Pending, Ugapk-2-Lffvjoovr BOYD Pending, Yqqve-2-Tsiicghps BOYD Pending, Beta-Globulins (BOYD) Pending, Gamma Globulins (BOYD) Pending, BOYD M-Toby Pending 05/04/20 07:03: POC Glucose 88 05/04/20 12:24: POC Glucose 161 H Current Medications Acetaminophen (Tylenol) 650 mg PO Q6H PRN PRN PRN Reason: Pain Score 1-10/Temp > 100.7 F Ergocalciferol (Vitamin D) 50,000 unit PO Fr@1000 [facility] Escitalopram Oxalate (Lexapro) 20 mg PO DAILY [facility] Last Admin: 05/04/20 08:34 Dose: 20 mg Documented by: Heparin Sodium (Porcine) (Heparin Na) 5,000 unit SC Q12 [facility] Last Admin: 05/04/20 09:01 Dose: 5,000 unit Documented by: Sodium Chloride () 1,000 mls @ 999 mls/hr IV .Q1H1M ONE Last Infusion: 04/29/20 15:05 Dose: Infused Documented by: Sodium Chloride () 250 mls @ 15 mls/hr IV .[id number] PRN PRN Reason: Saline Flush Sodium Chloride () 250 mls @ 15 mls/hr IV .[id number] PRN PRN Reason: Additional IVPB Infusion Insulin Glargine (Lantus (Bk)) 50 units SC 1100,2200 [facility] Last Admin: 05/04/20 12:26 Dose: 50 u Documented by: Insulin Human Lispro (Humalog Kwikpen (Bk)) 0 unit SC ACHS [facility]; Protocol Last Admin: 05/04/20 16:18 Dose: 3 u Documented by: Metformin HCl (Glucophage) 1,000 mg PO BIDCM [facility] Last Admin: 05/04/20 16:18 Dose: 1,000 mg Documented by: Ondansetron HCl (Zofran) 4 mg IV Q6H PRN PRN PRN Reason: NAUSEA/VOMITING Last Admin: 05/01/20 02:12 Dose: 4 mg Documented by: Pantoprazole Sodium (Protonix) 40 mg PO DAILY [facility] Last Admin: 05/04/20 08:34 Dose: 40 mg Documented by: Potassium Phos/Sodium Phos (Neutra-Phos Packet) 2 packet PO BIDCM [facility] Last Admin: 05/04/20 16:19 Dose: 2 packet Documented by: Medical Necessity - Tobacco Use Smoking Status: Never smoker Tobacco Use: Non-smoker Assessment/Plan All Active Problems DKA (diabetic ketoacidoses) (Acute) Hypophosphatemia (Acute) #1 diabetic ketoacidosis-again patient's blood sugars are improved, family will have to be instructed on giving the patient insulin because I do not believe she is able to administer her own insulin. #2 major depression-by history-patient is currently getting Lexapro 20 mg daily #3 leukocytosis-probably secondary to DKA #4 hypokalemia-patient was given potassium today #5 hypophosphatemia-phosphorus will be rechecked tomorrow, additional IV potassium phosphate was given to her today #6 noncompliance with medical regimen-it appears that the patient is not refilling her medications in a timely manner #7 metabolic encephalopathy secondary to #1-this appears to be cleared at this time Inpatient E&M: [id number] [facility] Hosp L2
[2020-05-04 16:35] LABS: Bedside Glucose 164 mg/dL (70-110)
[2020-05-04 22:17] VITALS: BP 111/52; PULSE 63; RESP 16; TEMP 36.7; O2SAT 98
[2020-05-04 22:31] LABS: Bedside Glucose 119 mg/dL (70-110)
[2020-05-05 00:41] LABS: Bedside Glucose 169 mg/dL (70-110)
[2020-05-05 03:18] VITALS: BP 137/72; PULSE 93; RESP 18; TEMP 36.7; O2SAT 95
[2020-05-05 03:21] LABS: Bedside Glucose 57 mg/dL (70-110)
[2020-05-05 03:46] LABS: Bedside Glucose 94 mg/dL (70-110)
[2020-05-05 06:31] LABS: Bedside Glucose 95 mg/dL (70-110)
[2020-05-05 07:48] LABS: Albumin, Serum 2.5 g/dL (3.2-5.0); BUN 7 mg/dL (7-18); BUN/Creat Ratio 12.7 RATIO (10-20); Calcium,Total 8.4 mg/dL (8.5-10.1); Chloride 103 mmol/L (98-107); Creatinine, Serum 0.55 mg/dL (0.55-1.02); EST Glomerular Filtration Rate 122 mL/min (>60); Est Glom Filt Rate - Afr Amer 148 mL/min (>60); Estimated Creatinine Clearance 115.03 ml/min; Glucose 96 mg/dL (74-106); Phosphorus 3.1 mg/dL (2.5-4.9); Potassium 2.9 mmol/L (3.5-5.1); Sodium Level 140 mmol/L (136-145)
[2020-05-05 09:40] VITALS: BP 132/74; PULSE 107; RESP 18; TEMP 36.8; O2SAT 96
[2020-05-05] MEDS: metFORMIN HCl 1,000 MG Tablet 1000 MG PO ×2 (09:42→16:53)
[2020-05-05] MEDS: Pantoprazole Sodium 40 MG Tablet PO (09:42)
[2020-05-05] MEDS: Na Biphos/Potassium Phosphate PACKET 2 PACKET PO (09:43)
[2020-05-05] MEDS: Escitalopram Oxalate 20 MG Tablet PO (09:43)
[2020-05-05] MEDS: Heparin Injection (Vial) 5,000 UNIT/ML VIAL 5000 UNIT SC ×2 (09:48→21:06)
[2020-05-05 12:06] LABS: Bedside Glucose 190 mg/dL (70-110)
[2020-05-05] MEDS: Insulin Lispro 100 UNIT/ML INSULN.PEN SC ×3 (12:30→21:14)
--- NOTE | 2020-05-05 13:36 | PN_ITS ---
Patient Problems: Active and Suspected Problems DKA (diabetic ketoacidoses) (Acute) Hypophosphatemia (Acute) Subjective: Patient was seen and examined today, I talked with her daughters who are in the room today about checking her sugars at home and administering insulin, they both believe they can do this. Patient's potassium was low this morning, I will recheck it tomorrow I talked briefly with nephrology about her care, nephrology feels the patient needs to be on daily potassium supplementation. - Physical Exam Vitals/I&O's: Vital Signs Temp Pulse Resp BP Pulse Ox 98.3 F 107 H 18 132/74 H 96 05/05/20 09:40 05/05/20 09:40 05/05/20 09:40 05/05/20 09:40 05/05/20 09:40 Oxygen Delivery Method Room Air Weight: 106.3 kg Body Mass Index (BMI) 36.5 Finger Stick Blood Glucose 139 Intake and Output for Last 24 Hours 05/03/20 05/04/20 05/05/20 23:59 23:59 23:59 Intake Total 2663.3333 / 3013.3333 847 / 1387 900 / 900 Balance 2663.3333 / 3013.3333 847 / 1387 900 / 900 General: Alert, Oriented x3, Cooperative, No apparent distress, Well developed, Well nourished HEENT: Atraumatic, PERRLA, EOMI, Normocephalic Oral: Moist Mucosa Neck: Supple, Trachea Midline, Thyroid Normal Size and Texture Lungs: Clear to auscultation, Normal air movement, No rhonchi, No wheeze, No rales Cardiovascular: Regular rate, Regular Rhythm, Normal S1, Normal S2, No murmurs, PMI Normal, No rub noted Abdomen: Bowel Sounds Present, Soft, Non Tender, Non-Distended Extremities: No clubbing, No cyanosis, No edema, Capillary Refill Less than 3 Seconds Skin: No rashes, No breakdown Musculoskeletal: No Tenderness to Palpation of Joints or Extremities Neurological: Cranial nerves II-XII grossly intact, Neuro grossly intact, Sensory exam intact to light touch and pain Psych/Mental Status: Normal Affect, Appropriate, Alert and oriented to time, place, person, mood and affect Laboratory Results 05/04/20 16:16: POC Glucose 164 H 05/04/20 22:19: POC Glucose 119 H 05/05/20 00:35: POC Glucose 169 H 05/05/20 03:13: POC Glucose 57 L 05/05/20 03:37: POC Glucose 94 05/05/20 06:27: POC Glucose 95 05/05/20 07:15: Sodium 140, Potassium 2.9 L, Chloride 103, Carbon Dioxide 34.0 H , BUN 7, Creatinine 0.55, Estim Creat Clear Calc 115.03, Est GFR (MDRD) Af Amer 148, Est GFR (MDRD) Non-Af 122, BUN/Creatinine Ratio 12.7, Glucose 96, Calcium 8.4 L, Phosphorus 3.1, Albumin 2.5 L 05/05/20 12:00: POC Glucose 190 H Current Medications Acetaminophen (Tylenol) 650 mg PO Q6H PRN PRN PRN Reason: Pain Score 1-10/Temp > 100.7 F Ergocalciferol (Vitamin D) 50,000 unit PO Fr@1000 [facility] Escitalopram Oxalate (Lexapro) 20 mg PO DAILY [facility] Last Admin: 05/05/20 09:43 Dose: 20 mg Documented by: Heparin Sodium (Porcine) (Heparin Na) 5,000 unit SC Q12 [facility] Last Admin: 05/05/20 09:48 Dose: 5,000 unit Documented by: Sodium Chloride () 1,000 mls @ 999 mls/hr IV .Q1H1M ONE Last Infusion: 04/29/20 15:05 Dose: Infused Documented by: Sodium Chloride () 250 mls @ 15 mls/hr IV .[id number] PRN PRN Reason: Saline Flush Sodium Chloride () 250 mls @ 15 mls/hr IV .[id number] PRN PRN Reason: Additional IVPB Infusion Insulin Glargine (Lantus (Bk)) 75 units SC BREAKFAST [facility] Last Admin: 05/05/20 12:26 Dose: 75 units Documented by: Insulin Human Lispro (Humalog Kwikpen (Bk)) 0 unit SC ACHS [facility]; Protocol Last Admin: 05/05/20 12:30 Dose: 3 u Documented by: Metformin HCl (Glucophage) 1,000 mg PO BIDCM [facility] Last Admin: 05/05/20 09:42 Dose: 1,000 mg Documented by: Ondansetron HCl (Zofran) 4 mg IV Q6H PRN PRN PRN Reason: NAUSEA/VOMITING Last Admin: 05/01/20 02:12 Dose: 4 mg Documented by: Pantoprazole Sodium (Protonix) 40 mg PO DAILY [facility] Last Admin: 05/05/20 09:42 Dose: 40 mg Documented by: Potassium Phos/Sodium Phos (Neutra-Phos Packet) 2 packet PO BIDCM [facility] Last Admin: 05/05/20 09:43 Dose: 2 packet Documented by: Medical Necessity - Tobacco Use Smoking Status: Never smoker Tobacco Use: Non-smoker Assessment/Plan All Active Problems DKA (diabetic ketoacidoses) (Acute) Hypophosphatemia (Acute) #1 diabetic ketoacidosis-again patient's blood sugars are improved, again I do not believe the patient is capable at this time of giving her on insulin and checking her own blood sugars, family members will have to provide this for her. It is possible with time she may be able to give her some of her own insulin. #2 major depression-by history-patient is currently getting Lexapro 20 mg daily #3 leukocytosis-probably secondary to DKA #4 hypokalemia-patient was given potassium today, I will place the patient on 40 mEq of potassium twice a day. #5 hypophosphatemia-corrected at this time, patient is continuing to get potassium phosphate, I will stop it #6 noncompliance with medical regimen-it appears that the patient is not refilling her medications in a timely manner #7 metabolic encephalopathy secondary to #1-this appears to be cleared at this time Inpatient E&M: [id number] [facility] Hosp L2
[2020-05-05 15:51] VITALS: BP 137/83; PULSE 95; RESP 18; TEMP 37; O2SAT 100
[2020-05-05 17:00] LABS: Bedside Glucose 173 mg/dL (70-110)
[2020-05-05 21:00] VITALS: BP 122/74; PULSE 99; RESP 16; TEMP 36.8; O2SAT 97
--- NOTE | 2020-05-05 22:37 | NURSING ---
Patient participated in dispensing own insulin tonight.
[2020-05-06 01:41] LABS: Bedside Glucose 200 mg/dL (70-110)
[2020-05-06 02:55] VITALS: BP 138/83; PULSE 95; RESP 18; TEMP 37.1; O2SAT 100
[2020-05-06 02:56] LABS: Bedside Glucose 154 mg/dL (70-110)
[2020-05-06 07:05] LABS: Bedside Glucose 120 mg/dL (70-110)
[2020-05-06 07:06] LABS: Albumin, Serum 2.4 g/dL (3.2-5.0); BUN 8 mg/dL (7-18); BUN/Creat Ratio 14.3 RATIO (10-20); Calcium,Total 8.4 mg/dL (8.5-10.1); Chloride 102 mmol/L (98-107); Creatinine, Serum 0.56 mg/dL (0.55-1.02); EST Glomerular Filtration Rate 120 mL/min (>60); Est Glom Filt Rate - Afr Amer 145 mL/min (>60); Estimated Creatinine Clearance 112.98 ml/min; Glucose 120 mg/dL (74-106); Potassium 3.9 mmol/L (3.5-5.1); Sodium Level 139 mmol/L (136-145)
--- NOTE | 2020-05-06 09:51 | NURSING ---
This nurse was told in report that daughters would be coming in today to get educated on inuslin teaching, how to give. Ju, patients one daughter called and spoke to this nurse at 0900 this morning and stated that she could not come in this morning b/c she had children. Her sister is only 17 and is not even awake yet. Ju asking when she needed to come in for teaching and if she could just look it up on the internet how to do it. Ju asked if pt would only be getting insulin once a day. Education given to the daughter. This nurse will print out instructions so Ju has written instructions. Ju is aware that Dr. Astorga is planning on discharging pt and will come up for teaching then.
[2020-05-06] MEDS: Pantoprazole Sodium 40 MG Tablet PO (10:21)
[2020-05-06] MEDS: metFORMIN HCl 1,000 MG Tablet 1000 MG PO ×2 (10:22→17:52)
[2020-05-06] MEDS: Escitalopram Oxalate 20 MG Tablet PO (10:22)
[2020-05-06] MEDS: Heparin Injection (Vial) 5,000 UNIT/ML VIAL 5000 UNIT SC (10:23)
[2020-05-06 10:30] VITALS: BP 125/81; PULSE 95; RESP 18; TEMP 36.9; O2SAT 98
--- NOTE | 2020-05-06 11:06 | DCINST_ITS ---
- Discharge Diagnoses Current Active Problems: Current Active and Chronic Problems DKA (diabetic ketoacidoses) (Acute) Depression (Chronic) Hypophosphatemia (Acute) You will use the following diet at home:: Calorie/Carbohydrate Controlled (specify 1200, 1400, etc) - 1800 [place] Your food should be the consistency of: Regular Your liquids should be the consistency of: Regular/Thin Discharge Activity: Return to Normal Activity Weight Bearing Status: Full weight bearing Allergies/Adverse Reactions: Allergies No Known Allergies Allergy (Verified 04/29/20 12:42) Medications to take at Discharge Escitalopram Oxalate [Lexapro] 20 mg PO DAILY #30 tab 05/06/20 Insulin Glargine [Lantus SoloStar Pen] 80 units SUBCUT BREAKFAST #5 pen 05/06/20 Lancets [Accu-Chek] 1 ea MC UD #1 box 05/06/20 Pantoprazole Sodium [Protonix] 40 mg PO DAILY #30 tab 05/06/20 Pen Needle, Diabetic [Pen Box Elder] 1 ea MC BID #1 box 05/06/20 Potassium Chloride [K-Dur] 40 meq PO BIDCM #120 tab 05/06/20 metFORMIN HCl [Glucophage] 1,000 mg PO BIDCM #60 tab 05/06/20 The following prescriptions were given: Lancets [Accu-Chek] 1 ea MC UD #1 box Prescription Printed metFORMIN HCl [Glucophage] 1,000 mg PO BIDCM #60 tab Transmission Status: Pending to [facility] Potassium Chloride [K-Dur] 40 meq PO BIDCM #120 tab Transmission Status: Pending to [facility] Insulin Glargine [Lantus SoloStar Pen] 80 units SUBCUT BREAKFAST #5 pen Transmission Status: Pending to [facility] Escitalopram Oxalate [Lexapro] 20 mg PO DAILY #30 tab Transmission Status: Pending to [facility] Pen Needle, Diabetic [Pen Box Elder] 1 ea MC BID #1 box Prescription Printed Pantoprazole Sodium [Protonix] 40 mg PO DAILY #30 tab Transmission Status: Pending to [facility] Orders to be completed after discharge: Glucometer Location: None Selected Primary Care Physician: Amor Weir MD [Primary Care Provider] - Test Results: Test results from this visit will be discussed in further detail at your follow- up appointment, if applicable. Please Follow Up With: Freddie Manzo MD When: IN 1-2 WEEKS, CALL FOR APPOINTMENT
[2020-05-06 12:05] LABS: Bedside Glucose 196 mg/dL (70-110)
[2020-05-06] MEDS: Insulin Lispro 100 UNIT/ML INSULN.PEN SC ×2 (12:19→17:52)
--- NOTE | 2020-05-06 14:53 | DS.PCM_ITS ---
Discharge Date and Diagnosis - Problem List Patient Problems: Active and Suspected Problems DKA (diabetic ketoacidoses) (Acute) Hypophosphatemia (Acute) Date of Admission: 04/29/20 Date of Discharge: 05/06/20 - Primary Discharge Diagnosis Acute Problems: Active Problems #1 diabetic ketoacidosis secondary to uncontrolled type 2 diabetes #2 major depression-chronic #3 leukocytosis- secondary to DKA #4 hypokalemia #5 hypophosphatemia #6 noncompliance with medical regimen #7 metabolic encephalopathy secondary to #1 - Secondary Discharge Diagnosis Chronic Problems: Chronic Problems Depression (Chronic) Hospital Course and Treatment Operations: None Procedures: None Summary of Care Provided: The patient is a 55 year old F emergency room at [facility] with a chief complaint of nausea and vomiting for 2 to 3 days. Patient denied being diabetic but her list of meds included metformin. Patient denied checking her blood sugars on a regular basis. Labs obtained revealed her white count to be 17.7, her sodium was 126, bicarb was 5, creatinine was 1.37, glucose was 706, her anion gap was elevated at 24. She had moderate acetone in her urine, UA was unremarkable. Patient was admitted to ICU for diabetic ketoacidosis and placed on insulin drip and given IV fluids. Her blood sugars stabilized and she was moved to [place] [id number] but had persistent problems with electrolytes including hypokalemia and hypophosphatemia, she was seen in consultation by nephrology. It became apparent that the patient was not taking her home medications as directed and so most of her home medications were stopped. It became evident that the patient was unable to administer her own insulin or check her own blood sugars-it was unknown whether the patient was simply depressed or was unable to comprehend due to a lack of education how to give the insulin and check her sugars. Her daughters were asked to come to the hospital to help her with insulin administration and to learn how to give insulin and check blood sugars, the daughters did not show up in a timely fashion to get instruction from nursing. On 05/06/2020, patient was seen and examined: On examination she appeared her stated age, she does not appear to be in any distress. Vital signs as documented. Skin warm and dry and without overt rashes. Neck without JVD, thyroid appears normal, trachea is midline, neck is supple. Lungs clear, normal air movement was noted. Heart exam notable for regular rhythm, normal sounds and absence of murmurs, rubs or gallops. Abdomen unremarkable and without evidence of organomegaly, masses, or abdominal aortic enlargement, bowel sounds are present in all 4 quadrants, no abdominal tenderness was noted. Extremities nonedematous, no cyanosis was noted, no clubbing was noted. Neuro: Cranial nerves II through XII are grossly intact, no focal motor deficits were noted, sensation to light touch and pinprick is intact, motor exam 5/5 throughout. Psych: Patient is alert and oriented x3, he has a flat affect On 05/06/2020, patient was discharged home in stable condition, prognosis remained guarded due to the patient's lack of understanding her disease process. Patient Problems: Active and Suspected Problems DKA (diabetic ketoacidoses) (Acute) Hypophosphatemia (Acute) - Physical Exam Vitals/I&O's: Vital Signs Temp Pulse Resp BP Pulse Ox 98.4 F 95 18 125/81 H 98 05/06/20 10:30 05/06/20 10:30 05/06/20 10:30 05/06/20 10:30 05/06/20 10:30 Oxygen Delivery Method Room Air Weight: 108.4 kg Body Mass Index (BMI) 36.5 Finger Stick Blood Glucose 139 Intake and Output for Last 24 Hours 05/04/20 05/05/20 05/06/20 23:59 23:59 23:59 Intake Total 847 / 1387 900 / 900 500 / 500 Balance 847 / 1387 900 / 900 500 / 500 Laboratory Results 05/05/20 16:52: POC Glucose 173 H 05/05/20 21:13: POC Glucose 200 H 05/06/20 02:47: POC Glucose 154 H 05/06/20 05:20: Sodium 139, Potassium 3.9, Chloride 102, Carbon Dioxide 33.0 H, BUN 8, Creatinine 0.56, Estim Creat Clear Calc 112.98, Est GFR (MDRD) Af Amer 145, Est GFR (MDRD) Non-Af 120, BUN/Creatinine Ratio 14.3, Glucose 120 H, Calcium 8.4 L, Phosphorus 3.0, Albumin 2.4 L 05/06/20 06:55: POC Glucose 120 H 05/06/20 11:59: POC Glucose 196 H Current Medications Acetaminophen (Tylenol) 650 mg PO Q6H PRN PRN PRN Reason: Pain Score 1-10/Temp > 100.7 F Ergocalciferol (Vitamin D) 50,000 unit PO Fr@1000 [facility] Escitalopram Oxalate (Lexapro) 20 mg PO DAILY [facility] Last Admin: 05/06/20 10:22 Dose: 20 mg Documented by: Heparin Sodium (Porcine) (Heparin Na) 5,000 unit SC Q12 [facility] Last Admin: 05/06/20 10:23 Dose: 5,000 unit Documented by: Sodium Chloride () 1,000 mls @ 999 mls/hr IV .Q1H1M ONE Last Infusion: 04/29/20 15:05 Dose: Infused Documented by: Sodium Chloride () 250 mls @ 15 mls/hr IV .[id number] PRN PRN Reason: Saline Flush Sodium Chloride () 250 mls @ 15 mls/hr IV .[id number] PRN PRN Reason: Additional IVPB Infusion Insulin Glargine (Lantus (Bkc)) 80 units SC BREAKFAST [facility] Last Admin: 05/06/20 10:20 Dose: 80 units Documented by: Insulin Human Lispro (Humalog Kwikpen (Bkc)) 0 unit SC ACHS [facility]; Protocol Last Admin: 05/06/20 12:19 Dose: 3 u Documented by: Metformin [facility] (Glucophage) [facility] Last Admin: 05/06/20 10:22 Dose: 1,000 mg Documented by: Ondansetron HCl (Zofran) 4 mg IV Q6H PRN PRN PRN Reason: NAUSEA/VOMITING Last Admin: 05/01/20 02:12 Dose: 4 mg Documented by: Pantoprazole Sodium (Protonix) 40 mg PO DAILY [facility] Last Admin: 05/06/20 10:21 Dose: 40 mg Documented by: Potassium Chloride (K-Dur) 40 meq PO BIDCM [facility] Last Admin: 05/06/20 10:26 Dose: 40 meq Documented by: Discharge Activity: Return to Normal Activity Weight Bearing Status: Full weight bearing Home Medications: Medications to take at Discharge Escitalopram Oxalate [Lexapro] 20 mg PO DAILY #30 tab 05/06/20 Insulin Glargine [Lantus SoloStar Pen] 80 units SUBCUT BREAKFAST #5 pen 05/06/20 Lancets [Accu-Chek] 1 ea MC UD #1 box 05/06/20 Pantoprazole Sodium [Protonix] 40 mg PO DAILY #30 tab 05/06/20 Pen Needle, Diabetic [Pen [place]] 1 ea MC BID #1 box 05/06/20 Potassium Chloride [K-Dur] 40 meq PO BIDCM #120 tab 05/06/20 metFORMIN HCl [Glucophage] 1,000 mg PO BIDCM #60 tab 05/06/20 Following Prescriptions Were Given to Patient: Lancets [Accu-Chek] 1 ea MC UD #1 box Prescription Printed metFORMIN HCl [Glucophage] 1,000 mg PO BIDCM #60 tab Transmission Status: Received by [facility] Potassium Chloride [K-Dur] 40 meq PO BIDCM #120 tab Transmission Status: Received by [facility] Insulin Glargine [Lantus SoloStar Pen] 80 units SUBCUT BREAKFAST #5 pen Transmission Status: Received by [facility] Escitalopram Oxalate [Lexapro] 20 mg PO DAILY #30 tab Transmission Status: Received by [facility] Pen Needle, Diabetic [Pen [place]] 1 ea MC BID #1 box Prescription Printed Pantoprazole Sodium [Protonix] 40 mg PO DAILY #30 tab Transmission Status: Received by [facility] Other Amb Orders: Glucometer Location: None Selected Primary Care Physician: Amor Weir MD [Primary Care Provider] - Please Follow Up With: Freddie Manzo MD When: IN 1-2 WEEKS, CALL FOR APPOINTMENT Disposition: Home Minutes spent on discharge:: 32 Patient Condition:: Stable Medical Necessity - Tobacco Use Smoking Status: Never smoker Tobacco Use: Non-smoker Meaningful Use Info Meaningful Use Diagnoses (Choose all that apply): None applicable Inpatient E&M: [id number] [facility]
--- NOTE | 2020-05-06 16:39 | PCM.PN.REN ---
Patient Problems: Active and Suspected Problems DKA (diabetic ketoacidoses) (Acute) Hypophosphatemia (Acute) Subjective: no new events - Physical Exam Vitals/I&O's: Vital Signs Temp Pulse Resp BP Pulse Ox 98.4 F 95 18 125/81 H 98 05/06/20 10:30 05/06/20 10:30 05/06/20 10:30 05/06/20 10:30 05/06/20 10:30 Oxygen Delivery Method Room Air Weight: 108.4 kg Body Mass Index (BMI) 36.5 Finger Stick Blood Glucose 139 Intake and Output for Last 24 Hours 05/04/20 05/05/20 05/06/20 23:59 23:59 23:59 Intake Total 847 / 1387 900 / 900 500 / 500 Balance 847 / 1387 900 / 900 500 / 500 General: Alert, Oriented x3, Cooperative HEENT: Atraumatic, PERRLA, EOMI, Normocephalic Neck: Supple, No JVD, Negative Carotid Bruits Lungs: Clear to auscultation, Normal air movement Cardiovascular: Regular rate, No murmurs Abdomen: Bowel Sounds Present, Soft, Non Tender Extremities: No edema, Capillary Refill Less than 3 Seconds Skin: No rashes, No breakdown Musculoskeletal: No Tenderness to Palpation of Joints or Extremities Neurological: Cranial nerves II-XII grossly intact Psych/Mental Status: Normal Affect, Appropriate Laboratory Results 05/05/20 16:52: POC Glucose 173 H 05/05/20 21:13: POC Glucose 200 H 05/06/20 02:47: POC Glucose 154 H 05/06/20 05:20: Sodium 139, Potassium 3.9, Chloride 102, Carbon Dioxide 33.0 H, BUN 8, Creatinine 0.56, Estim Creat Clear Calc 112.98, Est GFR (MDRD) Af Amer 145, Est GFR (MDRD) Non-Af 120, BUN/Creatinine Ratio 14.3, Glucose 120 H, Calcium 8.4 L, Phosphorus 3.0, Albumin 2.4 L 05/06/20 06:55: POC Glucose 120 H 05/06/20 11:59: POC Glucose 196 H Current Medications Acetaminophen (Tylenol) 650 mg PO Q6H PRN PRN PRN Reason: Pain Score 1-10/Temp > 100.7 F Ergocalciferol (Vitamin D) 50,000 unit PO Fr@1000 [facility] Escitalopram Oxalate (Lexapro) 20 mg PO DAILY [facility] Last Admin: 05/06/20 10:22 Dose: 20 mg Documented by: Heparin Sodium (Porcine) (Heparin Na) 5,000 unit SC Q12 [facility] Last Admin: 05/06/20 10:23 Dose: 5,000 unit Documented by: Sodium Chloride () 1,000 mls @ 999 mls/hr IV .Q1H1M ONE Last Infusion: 04/29/20 15:05 Dose: Infused Documented by: Sodium Chloride () 250 mls @ 15 mls/hr IV .[id number] PRN PRN Reason: Saline Flush Sodium Chloride () 250 mls @ 15 mls/hr IV .[id number] PRN PRN Reason: Additional IVPB Infusion Insulin Glargine (Lantus ([facility])) 80 units SC BREAKFAST [facility] Last Admin: 05/06/20 10:20 Dose: 80 units Documented by: Insulin Human Lispro (Humalog Kwikpen ([facility])) 0 unit SC ACHS [facility]; Protocol Last Admin: 05/06/20 12:19 Dose: 3 u Documented by: Metformin HCl (Glucophage) 1,000 mg PO BIDCM [facility] Last Admin: 05/06/20 10:22 Dose: 1,000 mg Documented by: Ondansetron HCl (Zofran) 4 mg IV Q6H PRN PRN PRN Reason: NAUSEA/VOMITING Last Admin: 05/01/20 02:12 Dose: 4 mg Documented by: Pantoprazole Sodium (Protonix) 40 mg PO DAILY [facility] Last Admin: 05/06/20 10:21 Dose: 40 mg Documented by: Potassium Chloride (K-Dur) 40 meq PO BIDCM [facility] Last Admin: 05/06/20 10:26 Dose: 40 meq Documented by: Medical Necessity - Tobacco Use Smoking Status: Never smoker Tobacco Use: Non-smoker Assessment/Plan All Active Problems DKA (diabetic ketoacidoses) (Acute) Hypophosphatemia (Acute) HypoPhosphatemia. Reviewed her old records from [facility] [employer] system. I do not see any prior phosphate levels. Serum calcium levels are acceptable. Vitamin D is low start supplements. PTH is ok. SPEP pending and can follow up as outpatient. levels are better Diabetic ketoacidosis. resolved hypokalemia. repleted
[2020-05-06 17:17] VITALS: BP 142/89; PULSE 100; RESP 18; TEMP 37; O2SAT 100
[2020-05-06 18:06] LABS: Bedside Glucose 181 mg/dL (70-110)
[2020-05-07 16:08] LABS: Albumin 2.9 g/dL (2.9-4.4); Alpha-1-Globulins 0.2 g/dL (0.0-0.4); Alpha-2-Globulins 0.9 g/dL (0.4-1.0); Gamma Globulin 0.8 g/dL (0.4-1.8); Immunoglobulin A 238 mg/dL (87-352); Immunoglobulin G 847 mg/dL (586-1602); Immunoglobulin M 81 mg/dL (26-217); PROEL- TOTAL PROTEIN 5.8 g/dL (6.0-8.5)
[2020-05-07 17:35] LABS: Vitamin D 1,25-Dihydroxy 36.4 pg/mL (19.9-79.3)
== END 2020-05-06 18:11 | disposition home health service (06) | DRG 420 ==
LOC: ED 14:58 → ICU 15:21 → MS3 04-30 15:43
PROVIDERS: Internal Medicine Nephrology; Admitting Provider Internal Medicine; Emergency Provider Emergency Medicine; PCP Family Medicine; Visit Provider Internal Medicine
DX: E11.10 Type 2 diabetes mellitus with ketoacidosis without coma (principal); N17.9 Acute kidney failure, unspecified; E87.6 Hypokalemia; E83.39 Other disorders of phosphorus metabolism; E11.40 Type 2 diabetes mellitus with diabetic neuropathy, unspecified; Z91.14 Patient's other noncompliance with medication regimen; F32.9 Major depressive disorder, single episode, unspecified; Z79.4 Long term (current) use of insulin; Z79.899 Other long term (current) drug therapy
CPT/HCPCS: 36415; 71045; 80048; 80053; 80061; 80069; 80076; 80307; 80329; 81001; 82009; 82306; 82436; 82652; 82784; 82962; 83036; 83605; 83735; 83930; 83970; 84100; 84133; 84165; 84300; 84484; 85025; 86334; 87635; 93005; 94799; 97110; 97116; 97162; 97166; 97530; 97802; 97803; 99285; J7030; J7040; J7050; A4216; G0480; J2405; U0003

== ENCOUNTER → 2020-06-18 10:14 | Outpatient (CLI) | payer MEDICAID, SELFPAY ==
[2020-04-29 16:01] VITALS: BMI 36.5
[2020-06-18 11:49] LABS: Anion Gap 7 (5-15); BUN 16 mg/dL (7-18); BUN/Creat Ratio 24.3 RATIO (10-20); Calcium,Total 8.6 mg/dL (8.5-10.1); Chloride 107 mmol/L (98-107); Creatinine, Serum 0.66 mg/dL (0.55-1.02); EST Glomerular Filtration Rate 100 mL/min (>60); Est Glom Filt Rate - Afr Amer 121 mL/min (>60); Glucose 54 mg/dL (74-106); Potassium 4.4 mmol/L (3.5-5.1); Sodium Level 140 mmol/L (136-145)
== END ==
PROVIDERS: PCP Family Medicine; Referring Provider Family Medicine; Visit Provider Family Medicine
DX: E87.6 Hypokalemia (principal)
CPT/HCPCS: 36415; 80048

== ENCOUNTER 2020-07-12 18:42 | Emergency (ER) | payer MEDICAID, SELFPAY ==
[2020-04-29 16:01] VITALS: BMI 36.5
[2020-07-12 18:43] VITALS: BP 159/98; PULSE 105; RESP 17; TEMP 36.2; O2SAT 100; BMI 36.2
--- NOTE | 2020-07-12 19:11 | ED.VIS.GEN ---
History of Present Illness Chief Complaint: Diarrhea Informant: Patient Narrative: 55-year-old female with past medical history of diabetes and depression presents with concern for diarrhea. States that she was admitted to hospital approximately 2 months ago hydration. States that she feels that she is not recovered fully from that admission. Has had persistent diarrhea. Primary care has been trying to wean her off of her diabetic medication thinking this is the issue. Does not admit to significant abdominal pain. States that she will have multiple episodes per day. Denies any hematochezia or melena. Denies any chest pain or shortness of breath. Denies any fever chills. Denies any urinary symptoms. Past Medical History - Allergies and Home Meds Allergies/Adverse Reactions: Allergies No Known Allergies Allergy (Verified 07/12/20 18:43) Primary Care Physician: Freddie Manzo MD [Primary Care Provider] - Past Medical History: - - DMII, Depression Surgical History: - - pt unable to provide Lives: With Family Smoking Status: Never smoker Alcohol: None Drugs: None - Family History Maternal Family History: Reports: - - unable to provide Paternal Family History: Reports: No pertinent history - unable to provide Review of Systems General: Denies: Chills, Fever, Sweats Eyes: Denies: Visual changes - bilaterally, Diplopia ENT: Denies: Rhinorrhea, Sore throat Cardiovascular: Denies: Chest pain, Palpitations Respiratory: Denies: Dyspnea, Cough, Dyspnea on exertion Gastrointestinal: Reports: Diarrhea. Denies: Abdominal pain, Nausea, Vomiting, Melena, Hematochezia Genitourinary: Denies: Dysuria, Hematuria, Frequency Musculoskeletal: Denies: Back pain, Extremity Pain Skin: Denies: Rash, Wounds Neurological: Denies: Headache, Weakness, Numbness Physical Exam Vital Signs/Narrative: Vital Signs Temp Pulse Resp BP Pulse Ox 07/12/20 18:43 97.1 F L 105 H 17 159/98 H 100 Inital Vital Signs reviewed: Yes General: Well nourished, Well developed, No Acute Distress Head: Normocephalic, Atraumatic Eyes: Perrl, EOMI ENT: Moist mucous membranes, No rhinorrhea Neck: Supple, Nontender Cardiovascular: Regular rate, Regular rhythm, No murmurs Respiratory: No distress, CTA bilaterally, Chest nontender Abdomen: Soft, Nontender, Nondistended, Normal bowel sounds Back: Nontender, Normal Inspection Extremities: Nontender, No edema Skin: Normal color, No rash Neurological: Alert, Oriented x3, Cranial nerves II-XII grossly intact, Normal Strength, Normal Sensation Psychological: Normal affect, Normal Mood Diagnostic/Tx/Re-eval Laboratory Data 07/12/20 07/12/20 07/12/20 19:24 19:32 19:32 WBC 10.1 RBC 4.42 Hgb 11.5 L Hct 38.3 MCV 86.7 MCH 26.0 L MCHC 30.0 L RDW Std Deviation 47.3 H RDW Coeff of Jevon 14.7 H Plt Count 320 MPV 11.1 Immature Gran % (Auto) 0.300 Neut % (Auto) 68.1 Lymph % (Auto) 25.2 [place] % (Auto) 5.0 Eos % (Auto) 1.1 Baso % (Auto) 0.3 Absolute Neuts (auto) 6.9 Absolute Lymphs (auto) 2.55 Nucleated RBC % 0 Sodium 141 Potassium 3.9 Chloride 107 Carbon Dioxide 28.0 Anion Gap 6 BUN 21 H Creatinine 0.75 Estim Creat Clear Calc 90.66 Est GFR (MDRD) Af Amer 104 Est GFR (MDRD) Non-Af 86 BUN/Creatinine Ratio 28.0 H Glucose 83 Calcium 8.8 Total Bilirubin 0.20 AST 15 ALT 23 Alkaline Phosphatase 120 H Total Protein 7.4 Albumin 3.3 Globulin 4.1 Albumin/Globulin Ratio 0.8 L Urine Color Yellow Urine Clarity Sl. Cloudy Urine pH 6.0 Ur Specific Edwards 1.025 Urine Protein 30 H Urine Glucose (UA) Normal Urine Ketones 5 H Urine Occult Blood 10 H Urine Nitrite Negative Urine Bilirubin Negative Urine Urobilinogen 1 H Ur Leukocyte Esterase 500 H Urine RBC 0-5 SEEN Urine WBC 10-25 SEEN Ur Squamous Epith Cells 0-5 SEEN Calcium Oxalate Crystal 1+ Amorphous Sediment 1+ URATE Urine Bacteria 0 SEEN Urine Mucus 2+ - Medical Decision Making Appears well nontoxic. Benign abdominal exam. Lab work shows no significant abnormalities. Patient was given 1 L of normal saline. Patient stated that she was having some urinary frequency. Urine concerning for possible UTI. Will be treated with Keflex. Patient will be placed on Imodium. Advised on continued p.o. hydration. Asked to follow-up with primary care. Discharged home in stable condition. ED Disposition - Plan for ED Patient: Disposition: Home or Assisted Living Instructions: Treating Diarrhea, Understanding Urinary Tract Infections (UTIs) Prescriptions: Loperamide [Imodium] 2 mg PO Q4H PRN PRN #20 cap PRN Reason: Diarrhea Prescription Printed Cephalexin [Keflex] 500 mg PO Q12 #14 cap Prescription Printed Referrals: Freddie Manzo MD [Primary Care Provider] - 2 Days
[2020-07-12] MEDS: 0.9% Normal Saline 1,000 ML 1000 ML IV (19:31)
[2020-07-12 19:45] LABS: Bacteria 0 SEEN /hpf (None Seen)
[2020-07-12 19:48] LABS: Absolute Lymphocyte Count 2.55 X10^3/uL (0.83-4.51); Absolute Neutrophil Count 6.9 X10^3/uL (2.0-7.7); Basophil# 0.03 X10^3/uL; Basophil% 0.3 % (0-1); Eosinophil# 0.11 X10^3/uL; Eosinophils% 1.1 % (0-5); Hematocrit 38.3 % (37-47); Hemoglobin 11.5 g/dL (12.0-15.0); Lymphocyte # 2.55 X10^3/ul (4.0); Lymphocyte % 25.2 % (19-41); Mean Corpuscular Volume 86.7 fL (81-99); Mean Platelet Vol. 11.1 fl (6.2-12.0); Monocyte# 0.51 X10^3/uL; NRBC Flagged by Analyzer 0 % (0-5); Neutrophil # 6.89 X10^3/uL (2.7-7.7); Neutrophil % 68.1 % (47-70); Platelet Count 320 K/mm3 (150-450); RBC Distribution Width CV 14.7 % (11.6-14.6); RBC Distribution Width SD 47.3 fl (35.1-43.9); Red Blood Count 4.42 M/mm3 (4.2-5.4); White Blood Count 10.1 K/mm3 (4.4-11.0)
[2020-07-12 20:01] LABS: Color, Urine Yellow (Yellow); Glucose, Dipstick Normal (Normal); Ketone-Dipstick 5 mg/dl (Negative); Leukocyte Esterase-Dipstick 500 /ul (Negative); Nitrite-Dipstick Negative (Negative); Occult Blood-Urine 10 /ul (Negative); Protein-Dipstick 30 mg/dl (Negative); Specific Gravity, Urine 1.025 (1.002-1.030); Urine Bilirubin Dipstick Negative (Negative); Urine Clarity Sl. Cloudy (Clear); Urine Urobilinogen 1 mg/dl (Normal)
[2020-07-12 20:07] LABS: ALB/GLOB Ratio 0.8 RATIO (0.9-2.4); AST(SGOT) 15 U/L (15-37); Alanine Aminotransfer ALT/SGPT 23 U/L (13-56); Albumin, Serum 3.3 g/dL (3.2-5.0); Alkaline Phosphatase 120 U/L (45-117); Anion Gap 6 (5-15); BUN 21 mg/dL (7-18); Calcium,Total 8.8 mg/dL (8.5-10.1); Chloride 107 mmol/L (98-107); Creatinine, Serum 0.75 mg/dL (0.55-1.02); EST Glomerular Filtration Rate 86 mL/min (>60); Est Glom Filt Rate - Afr Amer 104 mL/min (>60); Estimated Creatinine Clearance 90.66 ml/min; Globulin 4.1 g/dL (2.2-4.2); Glucose 83 mg/dL (74-106); Potassium 3.9 mmol/L (3.5-5.1); Protein, Total 7.4 g/dL (6.4-8.2); Sodium Level 141 mmol/L (136-145)
[2020-07-12 20:19] LABS: Mucous, Urine 2+ /hpf (<or=2+); Red Blood Cells-Urine 0-5 SEEN /hpf (0-5); Squamous Epithelial Cells - UA 0-5 SEEN /hpf (5-10); White Blood Cells 10-25 SEEN /hpf (0-5)
[2020-07-12 20:20] LABS: Amorphous Sediment 1+ URATE; Calcium Oxalate Crystals Ur 1+ /hpf (<or=2+)
[2020-07-12] MEDS: Cephalexin 250 MG Capsule 500 MG PO (21:14)
[2020-07-12 21:48] VITALS: BP 149/92; PULSE 76; RESP 14; O2SAT 100
== END 2020-07-12 21:48 | disposition home or self-care (01) ==
PROVIDERS: Emergency Provider Emergency Medicine; PCP Family Medicine
DX: R19.7 Diarrhea, unspecified (principal); E11.9 Type 2 diabetes mellitus without complications; F32.9 Major depressive disorder, single episode, unspecified; Z79.4 Long term (current) use of insulin; Z79.899 Other long term (current) drug therapy
CPT/HCPCS: 80053; 81001; 85025; 96360; 96361; 99283; J7030; A4216

== ENCOUNTER 2020-07-29 18:04 | Emergency (ER) | payer MEDICAID, SELFPAY ==
[2020-07-24 08:42] VITALS: BMI 36.4
[2020-07-29 18:04] VITALS: BP 150/93; PULSE 83; RESP 16; TEMP 35.5; O2SAT 99; BMI 35.1
[2020-07-29 18:50] VITALS: BP 150/98; PULSE 87; RESP 16; TEMP 36.8; O2SAT 98
--- NOTE | 2020-07-29 19:10 | RAD_ITS ---
STUDY: X-RAY - UNILATERAL RIBS ( RIGHT ) WITH CHEST REASON FOR EXAM: Female, 55 years old. posterior back pain, rib pain TECHNIQUE - RIBS: 4 view(s) of the ribs. TECHNIQUE - CHEST: Single frontal view of the chest. COMPARISON: 04/29/2020 FINDINGS - RIBS: Normal visualized ribs without a demonstrated fracture. FINDINGS - CHEST: The lungs are clear and expanded. There is no demonstrated pleural abnormality. Normal size heart. Normal mediastinum and martin. Normal visualized pulmonary arteries. Normal visualized aortic arch and descending thoracic aorta. Normal visualized thoracic spine. Normal visualized ribs, clavicles, and shoulders. There is no demonstrated abnormality of the visualized soft tissue structures of the upper abdomen. RAD/Ribs Uni Min 3V w/PA Chest IMPRESSION: RIBS: Normal x-ray examination of the ribs. CHEST: Normal x-ray examination of the chest. Electronically Signed: Kobi Atkinson MD at 20:11 EDT , Service support ,
--- NOTE | 2020-07-29 19:10 | ED.DCSUM_ITS ---
History of Present Illness Chief Complaint: Nausea/Vomiting/Diarrhea Informant: Patient Narrative: 55-year-old female presenting with right upper shoulder pain. She states that she had this pain when she was previously hospitalized and it has not improved. She states that she tried to call her primary doctor for follow-up but he could not get her in the office over the last 3 months due to the COVID-19 pandemic. Patient states that at that point she was a new onset diabetic in DKA when she was hospitalized. She was on Metformin however this was giving her chronic diarrhea so she was changed to insulin. She states that her blood sugars have been anywhere from 80-120 at home. She had some episodes of nausea, vomiting, diarrhea earlier this week. These have resolved for the last 2 days. Patient states that she was able to eat a sandwich and drink fluids earlier. She then had vegetables. She states that she is only here for the shoulder pain which she has had for months. - Past Medical History (1) Depression Status: Chronic (2) Diabetes Status: Chronic Past Medical History - Allergies and Home Meds Allergies/Adverse Reactions: Allergies No Known Allergies Allergy (Verified 07/24/20 08:44) Primary Care Physician: Freddie Manzo MD [Primary Care Provider] - Prior records reviewed: Yes Past Medical History: - - Reviewed in problem list Surgical History: noncontributory, - - pt unable to provide Lives: Alone Smoking Status: Never smoker Alcohol: None - Family History Maternal Family History: Family History (Last Reviewed 07/24/20 @ 09:[address] Marlon Roth MD) Other Diabetes Family History: Reports: - - unable to provide Paternal Family History: Family History (Last Reviewed 07/24/20 @ 09:[address] Marlon Roth MD) Other Diabetes Family History: Reports: No pertinent history - unable to provide Review of Systems General: Denies: Chills, Fever, Sweats Eyes: Denies: Visual changes - bilaterally, Diplopia ENT: Denies: Rhinorrhea, Sore throat Cardiovascular: Denies: Chest pain, Palpitations Respiratory: Denies: Dyspnea, Cough, Dyspnea on exertion Gastrointestinal: Reports: Nausea, Vomiting, Diarrhea Genitourinary: Denies: Dysuria, Hematuria, Frequency Musculoskeletal: Reports: - - Right upper rib pain posteriorly Skin: Denies: Rash, Abscess Neurological: Denies: Headache, Weakness Physical Exam Vital Signs/Narrative: Vital Signs Temp Pulse Resp BP Pulse Ox 07/29/20 18:50 98.2 F 87 16 150/98 H 98 07/29/20 18:04 95.9 F L 83 16 150/93 H 99 Inital Vital Signs reviewed: Yes General: Obese, No Acute Distress Head: Normocephalic, Atraumatic Eyes: Perrl, EOMI. Negative for: Scleral icterus ENT: Moist mucous membranes, No rhinorrhea Cardiovascular: Regular rate, Regular rhythm Respiratory: No distress, CTA bilaterally, - - Tenderness to palpation right posterior ribs. There is no ecchymosis, deformity, crepitance. Symmetric breath sounds and chest wall rise. Abdomen: Soft, Nontender, Nondistended Diagnostic/Tx/Re-eval Clinical Impression(s) from Imaging Studies Ribs w/Chest X-Ray 07/29/20 19:10 IMPRESSION: RIBS: Normal x-ray examination of the ribs. CHEST: Normal x-ray examination of the chest. Electronically Signed: Kobi Atkinson MD at 20:11 EDT , Service support , Laboratory Data 07/29/20 07/29/20 19:30 19:30 WBC 9.8 RBC 4.55 Hgb 11.6 L Hct 38.7 MCV 85.1 MCH 25.5 L MCHC 30.0 L RDW Std Deviation 45.6 H RDW Coeff of Jevon 14.6 Plt Count 308 MPV 10.8 Immature Gran % (Auto) 0.300 Neut % (Auto) 67.3 Lymph % (Auto) 26.2 [place] % (Auto) 4.4 Eos % (Auto) 1.5 Baso % (Auto) 0.3 Absolute Neuts (auto) 6.6 Absolute Lymphs (auto) 2.57 Nucleated RBC % 0 Sodium 139 Potassium 3.9 Chloride 106 Carbon Dioxide 27.0 Anion Gap 6 BUN 10 Creatinine 0.75 Estim Creat Clear Calc 90.66 Est GFR (MDRD) Af Amer 103 Est GFR (MDRD) Non-Af 85 BUN/Creatinine Ratio 13.3 Glucose 102 Calcium 8.8 - Medical Decision Making 5-year-old female presenting with right posterior rib pain. She states this has been ongoing for months. She does state that she try to get into her PCP but could not. On exam she is tender over the right posterior ribs. I did get a rib series which was negative. Patient also had concern that she might be dehydrated from her nausea and vomiting episodes earlier this week however her lab work is normal. She has no hyperglycemia. She has no anion gap. She has no leukocytosis. All findings were discussed with the patient. I discussed with her that I would send her home with some Flexeril for the muscle spasm. She is to follow-up with her PCP outpatient. Impression: 1. Thoracic strain ED Disposition - Plan for ED Patient: Disposition: Home or Assisted Living Instructions: Muscle Spasm, ED Diet for Vomiting or Diarrhea Adult Prescriptions: Cyclobenzaprine HCl 10 mg PO Q8H PRN PRN #20 tab PRN Reason: pain Transmission Status: Received by [facility] Ondansetron [Zofran Odt] 4 mg PO Q8H PRN PRN #10 tab PRN Reason: Nausea Transmission Status: Received by [facility] Referrals: Freddie Manzo MD [Primary Care Provider] -
--- NOTE | 2020-07-29 19:17 | ED.RN ---
per dr arredondo,p is not septic.
[2020-07-29 19:43] LABS: Absolute Lymphocyte Count 2.57 X10^3/uL (0.83-4.51); Absolute Neutrophil Count 6.6 X10^3/uL (2.0-7.7); Basophil# 0.03 X10^3/uL; Basophil% 0.3 % (0-1); Eosinophil# 0.15 X10^3/uL; Eosinophils% 1.5 % (0-5); Hematocrit 38.7 % (37-47); Hemoglobin 11.6 g/dL (12.0-15.0); Lymphocyte # 2.57 X10^3/ul (4.0); Lymphocyte % 26.2 % (19-41); Mean Corpuscular Hgb 25.5 pg (27.0-32.0); Mean Corpuscular Volume 85.1 fL (81-99); Mean Platelet Vol. 10.8 fl (6.2-12.0); Monocyte# 0.43 X10^3/uL; Monocyte% 4.4 % (0-10); NRBC Flagged by Analyzer 0 % (0-5); Neutrophil # 6.61 X10^3/uL (2.7-7.7); Neutrophil % 67.3 % (47-70); Platelet Count 308 K/mm3 (150-450); RBC Distribution Width CV 14.6 % (11.6-14.6); RBC Distribution Width SD 45.6 fl (35.1-43.9); Red Blood Count 4.55 M/mm3 (4.2-5.4); White Blood Count 9.8 K/mm3 (4.4-11.0)
[2020-07-29 19:57] LABS: Anion Gap 6 (5-15); BUN 10 mg/dL (7-18); BUN/Creat Ratio 13.3 RATIO (10-20); Calcium,Total 8.8 mg/dL (8.5-10.1); Chloride 106 mmol/L (98-107); Creatinine, Serum 0.75 mg/dL (0.55-1.02); EST Glomerular Filtration Rate 85 mL/min (>60); Est Glom Filt Rate - Afr Amer 103 mL/min (>60); Estimated Creatinine Clearance 90.66 ml/min; Glucose 102 mg/dL (74-106); Potassium 3.9 mmol/L (3.5-5.1); Sodium Level 139 mmol/L (136-145)
[2020-07-29] MEDS: Orphenadrine 100 MG Tablet PO (20:49)
[2020-07-29 20:55] VITALS: BP 146/80; PULSE 78; RESP 18; O2SAT 97
== END 2020-07-29 20:55 | disposition home or self-care (01) ==
PROVIDERS: Emergency Provider Student in an Organized Health Care Education/Training Program; PCP Family Medicine
DX: S29.012A Strain of muscle and tendon of back wall of thorax, initial encounter (principal); X58.XXXA Exposure to other specified factors, initial encounter; Y93.9 Activity, unspecified; Y92.9 Unspecified place or not applicable; Y99.9 Unspecified external cause status; R07.81 Pleurodynia; F32.9 Major depressive disorder, single episode, unspecified; E66.9 Obesity, unspecified; Z79.4 Long term (current) use of insulin; Z79.899 Other long term (current) drug therapy
CPT/HCPCS: 71101; 80048; 85025; 99281; J7030; A4216

== ENCOUNTER → 2020-08-13 13:34 | Outpatient (CLI) | payer MEDICAID, SELFPAY ==
[2020-07-29 18:04] VITALS: BMI 35.1
[2020-08-13 15:34] LABS: Anion Gap 6 (5-15); BUN 15 mg/dL (7-18); BUN/Creat Ratio 16.6 RATIO (10-20); Chloride 106 mmol/L (98-107); EST Glomerular Filtration Rate 69 mL/min (>60); Est Glom Filt Rate - Afr Amer 84 mL/min (>60); Glucose 107 mg/dL (74-106); Phosphorus 3.3 mg/dL (2.5-4.9); Potassium 3.6 mmol/L (3.5-5.1); Sodium Level 139 mmol/L (136-145)
== END ==
PROVIDERS: PCP Family Medicine; Referring Provider Internal Medicine; Visit Provider Internal Medicine
DX: E87.6 Hypokalemia (principal); E83.39 Other disorders of phosphorus metabolism
CPT/HCPCS: 36415; 80048; 84100

== ENCOUNTER → 2020-08-27 07:31 | Outpatient (CLI) | payer MEDICAID, SELFPAY ==
[2020-07-24 08:42] VITALS: BMI 36.4
[2020-07-29 18:04] VITALS: BMI 35.1
--- NOTE | 2020-08-27 09:43 | NEURO_ITS ---
NCS and/or EMG Patient Report Ordering Doctor: Freddie Manzo DATE OF SERVICE: 08/27/20 Indication: Patient reports tingling, pain, itching in both lower extremities. She also reports gait imbalance and occasional buckling of her right leg. This is in the setting of chronic low back pain. Findings: Nerve conduction studies were performed in the right lower, left lower and to a limited extent left upper extremities. The left radial sensory response recording over the extensor snuff box showed a normal amplitude, latency and conduction velocity. The right peroneal motor study recording the extensor digitorum brevis showed a markedly reduced amplitude, normal distal latency and normal conduction velocity. No conduction block or focal slowing was present across the fibular neck. The right tibial motor study recording the abductor hallucis brevis showed a markedly reduced amplitude, normal distal latency and mildly slowed conduction velocity. Sensory examination in the right lower extremity was technically challenging due to patient discomfort, incomplete muscle relaxation and the presence of lotion on the patient's skin. Right sural sensory response showed an essentially absent response. Right superficial peroneal sensory response showed an essentially absent response. The left peroneal motor study recording the extensor digitorum brevis showed a normal amplitude, normal distal latency and normal conduction velocity. No conduction block or focal slowing was present across the fibular neck. The left tibial motor study recording the abductor hallucis brevis showed a normal amplitude, normal distal latency and normal conduction velocity. Sensory examination in the left lower extremity was technically challenging due to patient discomfort, incomplete muscle relaxation and the presence of lotion on the patient's skin. Left sural sensory response was absent. Left superficial peroneal sensory response was absent. Needle EMG of the right and right lower extremity muscles was performed. No denervation was present in any muscle, however, examination of distal muscles was poorly tolerated. Motor units in distal muscles were slightly large amplitude, long duration and polyphasic. Proximal muscles (vastus medialis, tensor fascia latae) demonstrated normal motor unit morphology, activation and recruitment patterns. Impression: This is an abnormal, but limited study. There is electrophysiologic evidence most consistent with a length dependent, axonal, sensorimotor peripheral po lyneuropathy. There was no definitive electrophysiologic evidence of a superimposed lumbar radiculopathy. Clinical and/or radiographic correlation is recommended. Ugo Downing D.O.
== END ==
PROVIDERS: PCP Family Medicine; Referring Provider Family Medicine; Visit Provider Family Medicine
DX: R20.0 Anesthesia of skin (principal); R20.2 Paresthesia of skin; M79.604 Pain in right leg; M79.605 Pain in left leg
CPT/HCPCS: 95885; 95886; 95911

== ENCOUNTER → 2020-10-25 08:51 | Outpatient (CLI) | payer MEDICAID, SELFPAY ==
[2020-10-25 08:25] VITALS: BMI 37.3
[2020-11-04 07:18] LABS: Aldosterone, Serum 6.8 ng/dL (0.0-30.0)
== END ==
PROVIDERS: PCP Family Medicine; Referring Provider Internal Medicine Endocrinology, Diabetes & Metabolism; Visit Provider Internal Medicine Endocrinology, Diabetes & Metabolism
DX: E87.6 Hypokalemia (principal); I10 Essential (primary) hypertension
CPT/HCPCS: 36415; 82088

== ENCOUNTER → 2020-11-07 15:21 | Outpatient (CLI) | payer MEDICAID, SELFPAY ==
[2020-10-25 08:25] VITALS: BMI 37.3
[2020-11-07 16:48] LABS: Albumin, Serum 3.2 g/dL (3.2-5.0); BUN 13 mg/dL (7-18); BUN/Creat Ratio 20.2 RATIO (10-20); Calcium,Total 8.6 mg/dL (8.5-10.1); Chloride 106 mmol/L (98-107); Creatinine, Serum 0.64 mg/dL (0.55-1.02); EST Glomerular Filtration Rate 103 mL/min (>60); Est Glom Filt Rate - Afr Amer 124 mL/min (>60); Glucose 77 mg/dL (74-106); Phosphorus 3.4 mg/dL (2.5-4.9); Potassium 3.5 mmol/L (3.5-5.1); Sodium Level 139 mmol/L (136-145)
[2020-11-07 17:02] LABS: Protein:Creat Ratio 117 mg/g CRE (0-200)
== END ==
PROVIDERS: PCP Family Medicine; Referring Provider Internal Medicine Nephrology; Visit Provider Internal Medicine Nephrology
DX: E87.6 Hypokalemia (principal); E83.39 Other disorders of phosphorus metabolism
CPT/HCPCS: 36415; 80069; 82570; 84156

== ENCOUNTER → 2021-02-11 15:28 | Outpatient (CLI) | payer MEDICAID, SELFPAY ==
[2020-10-25 08:25] VITALS: BMI 37.3
[2021-02-11 17:32] LABS: Albumin, Serum 3.4 g/dL (3.2-5.0); BUN 16 mg/dL (7-18); BUN/Creat Ratio 18.7 RATIO (10-20); Calcium,Total 8.7 mg/dL (8.5-10.1); Chloride 104 mmol/L (98-107); Creatinine, Serum 0.86 mg/dL (0.55-1.02); EST Glomerular Filtration Rate 73 mL/min (>60); Est Glom Filt Rate - Afr Amer 89 mL/min (>60); Glucose 154 mg/dL (74-106); Phosphorus 3.2 mg/dL (2.5-4.9); Protein, Urine (Random) 16.1 mg/dL (<11.9); Protein:Creat Ratio 91 mg/g CRE (0-200); Sodium Level 136 mmol/L (136-145)
== END ==
PROVIDERS: PCP Family Medicine; Visit Provider Internal Medicine Nephrology
DX: E83.39 Other disorders of phosphorus metabolism (principal); E87.6 Hypokalemia
CPT/HCPCS: 36415; 80069; 82570; 84156

== ENCOUNTER 2021-10-09 07:27 | Inpatient (IN) | payer MEDICAID, SELFPAY ==
[2021-10-09] VITALS (24 sets, daily range): BP systolic 137–172; BP diastolic 60–108; PULSE 103–125; RESP 22–37; TEMP 35.7–36.4; O2SAT 91–100; BMI 38.2; BMI 34.4
--- NOTE | 2021-10-09 07:34 | EKG12_ITS ---
Test Reason : Blood Pressure : / mmHG Vent. Rate : 104 BPM Atrial Rate : 104 BPM P-R Int : 128 ms QRS Dur : 108 ms QT Int : 370 ms P-R-T Axes : 067 037 068 degrees QTc Int : 486 ms Sinus tachycardia Otherwise normal ECG Confirmed by ABISAI WRAY, MARK ([id number]), editorial project manager RON MAHAN ([id number]) on 10/11/2021 9:59:35 AM Referred By: YARA Confirmed By:MARK BARONE MD
--- NOTE | 2021-10-09 07:40 | EX.ED.DYSGE1 ---
HPI History of Present Illness Chief Complaint: Weakness Detail of Chief Complaint: Generalized weakness and not feeling well since yesterday Informant: patient Narrative Narrative: Patient presents to the emergency department stating she not been feeling well since yesterday. Patient is a diabetic on Metformin. Patient states that she feels somewhat short of breath and has been vomiting since yesterday. She does not take insulin for her diabetes but takes Metformin. She denies recent illness otherwise. She has had the Covid vaccine. Patient denies chest pain. She denies abdominal pain. She denies dysuria. Per EMS her blood sugar just read high on glucometer. [facility] similar symptoms: [facility] Medical History (Updated 10/09/21 @ 08:[address] Madonna Gtz DO) GERD (gastroesophageal reflux disease) Tachycardia Type 2 diabetes mellitus Home Medications escitalopram oxalate 20 mg PO DAILY #30 tab 05/06/20 [Rx Last Taken Unknown] lancets #1 box 05/06/20 [Rx Last Taken Unknown] pantoprazole 40 mg PO DAILY #30 tab 05/06/20 [Rx Last Taken Unknown] pen needle, diabetic #1 box 05/06/20 [Rx Last Taken Unknown] potassium chloride 40 meq PO BIDCM #120 tab 05/06/20 [Rx Last Taken Unknown] loperamide 2 mg PO Q4H PRN PRN #20 cap 07/12/20 [Rx Last Taken Unknown] oxybutynin chloride 10 mg tablet,extended release 24 hr 10 mg PO DAILY 07/24/20 [History Last Taken Unknown] cyclobenzaprine 10 mg PO Q8H PRN PRN #20 tab 07/29/20 [Rx Last Taken Unknown] ondansetron 4 mg PO Q8H PRN PRN #10 tab 07/29/20 [Rx Last Taken Unknown] glimepiride 2 mg tablet 2 mg PO DAILY #60 tab 10/25/20 [Rx Last Taken Unknown] metformin 1,000 mg tablet 1,000 mg PO DAILY #90 tab 07/25/21 [Rx Last Taken Unknown] Allergy/AdvReac Type Severity Reaction Status Date / Time No Known Allergies Allergy Verified 10/09/21 07:34 Family History Other Diabetes Social History (Updated 10/25/20 @ 09:[address] Marlon Roth MD) Smoking Status: Never smoker alcohol intake: never substance use type: does not use ROS ROS ED Constitutional Constitutional ED: Reports systems reviewed and no addt'l complaints, except as documented; Denies body ache(s), change in weight or chills Eyes Eyes: Denies acute decrease in peripheral vision, change in vision, double vision or loss of vision ENT ENT ED: Reports none; Denies ear pain, lip swelling, loss taste/smell, neck pain, otalgia or sore throat Cardiovascular Cardiovascular: Reports none; Denies abdominal pain, chest pain with activity, leg edema, lightheadedness, palpitations, rapid heart rate or syncope Respiratory/Chest Respiratory/Chest: Reports none and dyspnea; Denies change in mental status, dry cough, hemoptysis, shortness of breath at rest or shortness of breath with exertion Gastrointestinal Gastrointestinal: Reports none, nausea and vomiting; Denies abdominal pain, change in stool character, diarrhea, hematemesis, hematochezia, melena or rectal bleeding Genitourinary Genitourinary ED: Reports none; Denies abdominal discomfort, anuria, dysuria, genital pain or polyuria Musculoskeletal Musculoskeletal: Reports none; Denies arthralgias, back pain, difficulty walking, extremity pain, muscle weakness or myalgias Integumentary Reports none; Denies abscess or rash Neurologic Neurologic: Reports none; Denies abnormal gait, confusion, focal weakness, frequent falls, headache(s), loss of vision, numbness, paresthesias, radicular pain, vertigo or weakness Psychiatric Psychiatric: Reports systems reviewed and no addt'l complaints, except as documented and none; Denies behavioral changes, confusion, difficulty concentrating, hallucinations, suicidal ideation, tactile hallucinations or visual hallucinations Endocrine Endocrinology: Denies none, cold intolerance, excessive sweating, fatigue or heat intolerance Hematologic/Lymphatic Hematologic/Lymphatic: Reports none; Denies anemia, easy bleeding or easy bruising Allergic/Immunologic Allergic/Immunologic ED: Denies as per HPI, none, lip swelling, mouth swelling, throat swelling, tongue swelling or hives EXAM Physical Exam Const Vital Signs: 10/09/21 07:31 10/09/21 07:53 10/09/21 08:04 Temperature 97.5 F L Temperature Source Oral Pulse Rate 106 H 104 H Respiratory Rate 35 H 30 H Respiratory Effort Labored Respiratory Pattern Kussmaul Blood Pressure 154/99 H 145/67 H Blood Pressure Mean 117 93 Pulse Ox 93 92 Oxygen Delivery Method Room Air Room Air Oxygen Flow Rate (L/min) 10/09/21 08:44 Temperature Temperature Source Pulse Rate 105 H Respiratory Rate 33 H Respiratory Effort Respiratory Pattern Blood Pressure 156/96 H Blood Pressure Mean 116 Pulse Ox 100 Oxygen Delivery Method Nasal Cannula Oxygen Flow Rate (L/min) 2 Positive well nourished and well developed General Appearance ED: well developed and NAD HEENT Reports TM's clear and moist mucous membranes normocephalic and atraumatic; Negative for trauma or tenderness Tympanic Membrane ED: Yes TM's clear Eyes PERRL and EOMs intact bilaterally General Eye ED: Negative for pale conjunctiva or scleral icterus Neck no lymphadenopathy, supple and no JVD General: Negative for tenderness Chest Wall inspection of chest normal and palpation of chest normal Chest: Negative for tenderness Resp normal respiratory effort and clear to auscultation bilaterally Resp Narrative: Patient tachypneic Effort and Inspection: Negative for respiratory distress or pain with movement Auscultation: Negative for rhonchi, wheezes or diminished lung sounds Cardio regular rate, regular rhythm, S1 normal heart sound, S2 normal heart sound and no murmurs Rate: tachycardic Peripheral Pulses: pulses 2+ throughout GI normal to inspection, nondistended, normoactive bowel sounds, soft to palpation, non-tender, non-distended and no masses Back/Spine no CVA tenderness and no thoracic nor lumbar tenderness Extremity normal to inspection General Extremety ED: Negative for edema General Extremity: Negative for edema Neuro oriented x3, CN's II-XII intact bilaterally, no sensory deficits noted and gait normal Sensorium / Orientation: awake, alert, oriented to person, oriented to place and oriented to time Motor Exam: strength 5/5 throughout and strength abnormal Psych mental status grossly normal Skin no rashes or lesions noted and no wounds MDM MDM MDM Narrative Medical decision making narrative: IV line established on arrival. Patient was ordered a liter of same fluid bolus and started on an insulin drip. Patient was ordered a second liter of fluid. ABG showed a pH of 6.9. Case will be discussed with hospitalist evaluate patient for admission for DKA. Patient also positive for COVID-19. Lab Data Attestation: I reviewed the patient's lab results. Labs: Laboratory Results - last 24 hr 10/09/21 10/09/21 10/09/21 07:45 07:45 07:45 WBC 18.1 H RBC 5.45 H Hgb 13.6 Hct 47.0 MCV 86.2 MCH 25.0 L MCHC 28.9 L RDW Std Deviation 50.9 H RDW Coeff of Jevon 16.2 H Plt Count 286 MPV 13.0 H Immature Gran % (Auto) 1.200 H Neut % (Auto) 66.0 Lymph % (Auto) 10.1 L Victoria % (Auto) 4.9 Eos % (Auto) 17.5 H Baso % (Auto) 0.3 Absolute Neuts (auto) 12.0 H Absolute Lymphs (auto) 1.83 Nucleated RBC % 0 Sodium 127 L Potassium 5.2 H Chloride 99 Carbon Dioxide 2.0 L* Anion Gap 26 H BUN 27 H Creatinine 1.31 H Estim Creat Clear Calc 47.74 Est GFR (MDRD) Af Amer 54 L Est GFR (MDRD) Non-Af 45 L BUN/Creatinine Ratio 20.6 H Glucose 706 H* Lactic Acid Calcium 9.1 Total Bilirubin 0.40 AST 14 L ALT 25 Alkaline Phosphatase 213 H Troponin I High Sens 5 Total Protein 7.9 Albumin 3.2 Globulin 4.7 H Albumin/Globulin Ratio 0.7 L Urine Color Urine Clarity Urine pH Ur Specific [place] Urine Protein Urine Glucose (UA) Urine Ketones Urine Occult Blood Urine Nitrite Urine Bilirubin Urine Urobilinogen Ur Leukocyte Esterase Urine RBC Urine WBC Ur Squamous Epith Cells Urine Bacteria Urine Mucus Acetone Level LARGE H 10/09/21 10/09/21 07:45 08:10 WBC RBC Hgb Hct MCV MCH MCHC RDW Std Deviation RDW Coeff of Jevon Plt Count MPV Immature Gran % (Auto) Neut % (Auto) Lymph % (Auto) Victoria % (Auto) Eos % (Auto) Baso % (Auto) Absolute Neuts (auto) Absolute Lymphs (auto) Nucleated RBC % Sodium Potassium Chloride Carbon Dioxide Anion Gap BUN Creatinine Estim Creat Clear Calc Est GFR (MDRD) Af Amer Est GFR (MDRD) Non-Af BUN/Creatinine Ratio Glucose Lactic Acid 1.4 Calcium Total Bilirubin AST ALT Alkaline Phosphatase Troponin I High Sens Total Protein Albumin Globulin Albumin/Globulin Ratio Urine Color Yellow Urine Clarity Clear Urine pH 5.0 Ur Specific [place] 1.025 Urine Protein 30 H Urine Glucose (UA) 1000 H Urine Ketones 150 A* Urine Occult Blood 150 H Urine Nitrite Negative Urine Bilirubin Negative Urine Urobilinogen Normal Ur Leukocyte Esterase Negative Urine RBC 0-5 SEEN Urine WBC 0-5 SEEN Ur Squamous Epith Cells 0 SEEN Urine Bacteria 1+ Urine Mucus 0 SEEN Acetone Level ABG Data ABG results: ABG 10/09/21 08:17 Specimen Type ART Sample Site R Brach pH 6.98 L* Bicarbonate Actual 2.4 L Total CO2 < 5 Base Excess -29 L O2 Saturation 96 ABG pCO2 10.4 L* ABG pO2 123 H O2 Delivery Device Room Air Crit Call To/Read Back Yes Radiography Chest X-Ray - ED: 1 View Diagnostic Testin view chest x-ray obtained interpreted by myself as questionable small infiltrate right lower lobe. Official report from radiology pending. EKG Initial EKG: Comments: Sinus rhythm with a rate of 104 bpm with no acute ST segment changes Critical Care Time Critical Care Time: Yes Critical care time (excluding procedures): 30-74 minutes, Discussing w/Patient &/or Family/Biological Lab Technician, Discussing w/Consultants, Arranging Admission or Transfer, Performing Direct Patient Care at Bedside and - (30 minutes) Discharge Plan Triage Chief Complaint: Weakness ED Provider: Madonna Gtz Dx/Rx/DC Orders Clinical Impression: COVID-19, DKA (diabetic ketoacidoses) Prescriptions: No Action oxybutynin chloride 10 mg tablet extended release 24hr 10 mg PO DAILY RF: 0 glimepiride 2 mg tablet 2 mg PO DAILY Qty: 60 RF: 5 potassium chloride 20 MEQ tablet 40 meq PO BIDCM Qty: 120 RF: 0 pantoprazole 40 MG tablet 40 mg PO DAILY Qty: 30 RF: 0 escitalopram oxalate 20 MG tablet 20 mg PO DAILY Qty: 30 RF: 0 (DME) pen needle, diabetic 1 EACH needle 1 ea MC BID Qty: 1 RF: 0 (DME) lancets 1 EACH misc 1 ea MC UD Qty: 1 RF: 0 loperamide 2 MG capsule 2 mg PO Q4H PRN PRN (Reason: Diarrhea) Qty: 20 RF: 0 cyclobenzaprine 10 MG tablet 10 mg PO Q8H PRN PRN (Reason: pain) Qty: 20 RF: 0 ondansetron 4 MG tablet 4 mg PO Q8H PRN PRN (Reason: Nausea) Qty: 10 RF: 0 metformin 1,000 mg tablet 1,000 mg PO DAILY Qty: 90 RF: 0 Primary Care Provider: Freddie Manzo Referrals: Freddie Manzo MD [Primary Care Provider] - Disposition Disposition: Acute Care [facility]
[2021-10-09] MEDS: 0.9% Normal Saline 1,000 ML 1000 ML IV (07:45)
[2021-10-09 08:03] LABS: Hemoglobin 13.6 g/dL (12.0-15.0); Mean Corp Hgb Conc 28.9 g/dL (32-36); Mean Corpuscular Volume 86.2 fL (81-99); POSITIVE DIFFERENTIAL YES; POSITIVE MORPHOLOGY YES; Platelet Count 286 K/mm3 (150-450); RBC Distribution Width CV 16.2 % (11.6-14.6); RBC Distribution Width SD 50.9 fl (35.1-43.9); Red Blood Count 5.45 M/mm3 (4.2-5.4); White Blood Count 18.1 K/mm3 (4.4-11.0)
[2021-10-09 08:16] LABS: Mucous, Urine 0 SEEN /hpf (<or=2+); Squamous Epithelial Cells - UA 0 SEEN /hpf (5-10)
[2021-10-09 08:19] LABS: Color, Urine Yellow (Yellow); Glucose, Dipstick 1000 mg/dl (Normal); Leukocyte Esterase-Dipstick Negative /ul (Negative); Nitrite-Dipstick Negative (Negative); Occult Blood-Urine 150 /ul (Negative); Protein-Dipstick 30 mg/dl (Negative); Specific Gravity, Urine 1.025 (1.002-1.030); Urine Bilirubin Dipstick Negative (Negative); Urine Clarity Clear (Clear); Urine Urobilinogen Normal (Normal)
--- NOTE | 2021-10-09 08:20 | CPS ---
Critical blood gas results called to Dr. Gtz.
[2021-10-09 08:21] LABS: Ketone-Dipstick 150 mg/dl (Negative)
[2021-10-09 08:22] LABS: Lactic Acid 1.4 mmol/L (0.4-1.9)
[2021-10-09 08:31] LABS: Red Blood Cells-Urine 0-5 SEEN /hpf (0-5); White Blood Cells 0-5 SEEN /hpf (0-5)
[2021-10-09 08:32] LABS: Bacteria 1+ /hpf (None Seen)
--- NOTE | 2021-10-09 08:33 | RAD_ITS ---
STUDY: X-RAY CHEST REASON FOR EXAM: Female, 56 years old. Dyspnea TECHNIQUE: Single AP portable view of the chest. COMPARISON: Comparison is made with prior study dated 07/29/2020. FINDINGS: EKG electrodes are seen. The lungs are clear and expanded. There is no demonstrated pleural abnormality. Normal size heart. Normal mediastinum and martin. Normal visualized pulmonary arteries. Normal visualized aortic arch and descending thoracic aorta. Mild dextroscoliosis. Normal visualized ribs, clavicles, and shoulders. There is no demonstrated abnormality of the visualized soft tissue structures of the upper abdomen. RAD/Chest 1 View (Portable) IMPRESSION: No acute abnormalities. Electronically Signed: Rosendo Zelaya MD at 8:51 EST , Service support ,
[2021-10-09 08:35] LABS: Base Excess -29 mmol/L (-2 to +2); Bicarbonate 2.4 mmol/L (22-26); Blood Gas Specimen Type ART; O2 Delivery Device Room Air; PO2 123 mmHG (75-100); SITE R Brach; SO2 96 % (95-99); Total Carbon Dioxide < 5 mmol/L; pCO2 10.4 mmHg (35-45); pH 6.98 (7.35-7.45)
[2021-10-09 08:43] LABS: ALB/GLOB Ratio 0.7 RATIO (0.9-2.4); AST(SGOT) 14 U/L (15-37); Alanine Aminotransfer ALT/SGPT 25 U/L (13-56); Albumin, Serum 3.2 g/dL (3.2-5.0); Alkaline Phosphatase 213 U/L (45-117); Anion Gap 26 (5-15); BUN 27 mg/dL (7-18); BUN/Creat Ratio 20.6 RATIO (10-20); Calcium,Total 9.1 mg/dL (8.5-10.1); Chloride 99 mmol/L (98-107); Creatinine, Serum 1.31 mg/dL (0.55-1.02); EST Glomerular Filtration Rate 45 mL/min (>60); Est Glom Filt Rate - Afr Amer 54 mL/min (>60); Estimated Creatinine Clearance 47.74 ml/min; Globulin 4.7 g/dL (2.2-4.2); Glucose 706 mg/dL (74-106); Potassium 5.2 mmol/L (3.5-5.1); Protein, Total 7.9 g/dL (6.4-8.2); Sodium Level 127 mmol/L (136-145); Troponin-I HS 5 pg/mL (3.0-54.0)
[2021-10-09] MEDS: 0.9% Normal Saline 1,000 ML 999 ML IV (08:44)
--- NOTE | 2021-10-09 08:53 | NURSING ---
HOSPITALIST FOR DR LIVINGSTON
--- NOTE | 2021-10-09 08:58 | HP.PCM.HOS_ITS ---
HPI - General General Date of Admission: 10/09/21 Date of Service: 10/09/21 Chief Complaint: Nausea and vomiting - 2-3 days HPI Narrative LUIS MANUEL AMADOR, is a 56 F who presents with the above ongoing for 2-3 days. The EMS was called for patient with slurred speech and altered mental status. She was also found to be breathing rapidly. Blood glucose was 393. Patient was also tachycardic. Blood pressure was elevated. Heart rate elevated. Patient initially was saturating well on room air but due to SPO2 92% requiring 2 L of oxygen. Ad mitting chest x-ray did not show any acute cardiopulmonary abnormality. Patient's admitting blood work was indicative of acute DKA. Her bicarbonate was 2. Creatinine is 1.31. Previous creatinine was normal Her HbA1c is 12.6 PFSH Medical History GERD (gastroesophageal reflux disease) Tachycardia Type 2 diabetes mellitus Home Medications escitalopram oxalate 20 mg PO DAILY #30 tab 05/06/20 [Rx Last Taken Unknown] lancets #1 box 05/06/20 [Rx Last Taken Unknown] pantoprazole 40 mg PO DAILY #30 tab 05/06/20 [Rx Last Taken Unknown] pen needle, diabetic #1 box 05/06/20 [Rx Last Taken Unknown] potassium chloride 40 meq PO BIDCM #120 tab 05/06/20 [Rx Last Taken Unknown] loperamide 2 mg PO Q4H PRN PRN #20 cap 07/12/20 [Rx Last Taken Unknown] oxybutynin chloride 10 mg tablet,extended release 24 hr 10 mg PO DAILY 07/24/20 [History Last Taken Unknown] cyclobenzaprine 10 mg PO Q8H PRN PRN #20 tab 07/29/20 [Rx Last Taken Unknown] ondansetron 4 mg PO Q8H PRN PRN #10 tab 07/29/20 [Rx Last Taken Unknown] glimepiride 2 mg tablet 2 mg PO DAILY #60 tab 10/25/20 [Rx Last Taken Unknown] metformin 1,000 mg tablet 1,000 mg PO DAILY #90 tab 07/25/21 [Rx Last Taken Unknown] Allergy/AdvReac Type Severity Reaction Status Date / Time No Known Allergies Allergy Verified 10/09/21 07:34 Family History Other Diabetes no significant family history no surgical history Social History Smoking Status: Never smoker alcohol intake: never substance use type: does not use ROS Review of Systems ROS Unobtainable: due to encephalopathy Vital Signs Vital Signs Vital Signs: 10/09/21 07:31 10/09/21 07:53 10/09/21 08:04 Temperature 97.5 F L Temperature Source Oral Pulse Rate 106 H 104 H Respiratory Rate 35 H 30 H Respiratory Effort Labored Respiratory Pattern Kussmaul Blood Pressure 154/99 H 145/67 H Blood Pressure Mean 117 93 Pulse Ox 93 92 Oxygen Delivery Method Room Air Room Air Oxygen Flow Rate (L/min) 10/09/21 08:44 Temperature Temperature Source Pulse Rate 105 H Respiratory Rate 33 H Respiratory Effort Respiratory Pattern Blood Pressure 156/96 H Blood Pressure Mean 116 Pulse Ox 100 Oxygen Delivery Method Nasal Cannula Oxygen Flow Rate (L/min) 2 Weight Weight: 110.7 kg Body Mass Index (BMI) 38.2 Results Lab / Micro Data Result Diagrams: 10/09/21 07:45 10/09/21 09:15 Labs: Laboratory Results - last 24 hr 10/09/21 07:45: WBC 18.1 H, RBC 5.45 H, Hgb 13.6, Hct 47.0, MCV 86.2, MCH 25.0 L , MCHC 28.9 L, RDW Std Deviation 50.9 H, RDW Coeff of Jevon 16.2 H, Plt Count 286, MPV 13.0 H, Immature Gran % (Auto) 1.200 H, Neut % (Auto) 66.0, Lymph % (Auto) 10.1 L, Real % (Auto) 4.9, Eos % (Auto) 17.5 H, Baso % (Auto) 0.3, Absolute Neuts (auto) 12.0 H, Absolute Lymphs (auto) 1.83, Nucleated RBC % 0 10/09/21 07:45: Sodium 127 L, Potassium 5.2 H, Chloride 99, Carbon Dioxide 2.0 L*, Anion Gap 26 H, BUN 27 H, Creatinine 1.31 H, Estim Creat Clear Calc 47.74, Est GFR (MDRD) Af Amer 54 L, Est GFR (MDRD) Non-Af 45 L, BUN/Creatinine Ratio 20.6 H, Glucose 706 H*, Calcium 9.1, Total Bilirubin 0.40, AST 14 L, ALT 25, Alk debra Phosphatase 213 H, Troponin I High Sens 5, Total Protein 7.9, Albumin 3.2, Globulin 4.7 H, Albumin/Globulin Ratio 0.7 L 10/09/21 07:45: Acetone Level LARGE H 10/09/21 07:45: Lactic Acid 1.4 10/09/21 08:10: Urine Color Yellow, Urine Clarity Clear, Urine pH 5.0, Ur Specific [place] 1.025, Urine Protein 30 H, Urine Glucose (UA) 1000 H, Urine Ketones 150 A*, Urine Occult Blood 150 H, Urine Nitrite Negative, Urine Bilirubin Negative, Urine Urobilinogen Normal, Ur Leukocyte Esterase Negative, Urine RBC 0-5 SEEN, Urine WBC 0-5 SEEN, Ur Squamous Epith Cells 0 SEEN, Urine Bacteria 1+, Urine Mucus 0 SEEN Micro: Microbiology 10/09/21 07:55 Nasal Secretion SARS-CoV-2 Antigen (Rapid) - Final SARS-CoV-2 (COVID 19) ABG Data ABG results: ABG 10/09/21 08:17 Specimen Type ART Sample Site R Brach pH 6.98 L* Bicarbonate Actual 2.4 L Total CO2 < 5 Base Excess -29 L O2 Saturation 96 ABG pCO2 10.4 L* ABG pO2 123 H O2 Delivery Device Room Air Crit Call To/Read Back Yes Radiology Impression Chest X-Ray 10/09/21 08:33 IMPRESSION: No acute abnormalities. Electronically Signed: Rosendo Zelaya MD at 8:51 EST , Service support , Assessment & Plan Assessment/Plan (1) COVID-19: (2) DKA (diabetic ketoacidoses): QUALIFIERS: Diabetes mellitus complication detail: without coma Diabetes mellitus type: type 2 Qualified Code(s): E11.10 - Type 2 diabetes mellitus with ketoacidosis without coma (3) JOSEPH (acute kidney injury): (4) Hypertension: QUALIFIERS: Hypertension type: unspecified Qualified Code(s): I10 - Essential (primary) hypertension PLAN: 1. Acute DKA in a known type II DM likely secondary to Acute COVID-19 infection Patient's presentation is severe with severe acidosis, bicarb is 2, pH is 6.98 Patient started on insulin drip, will continue same Admit to ICU, customer account specialist consult, follow up on DKA protocol We will hold home glimepiride and Metformin 2. Acute COVID-19 infection with hypoxia Admitting chest x-ray showed no acute infiltrate Patient dipped her oxygen sats into the low 90s; improved on 2 L of oxygen Check urine legionella and streptococcal antigen as well as sputum Will start IV dexamethasone 3. JOSEPH, likely prerenal secondary to #1 Admitting creatinine is 1.31, baseline creatinine is 0.7 Continue on IV fluids, repeat BMP 4. Leukocytosis, likely reactive, will trend 5. Hyponatremia, likely pseudohyponatremia from #1 Trend BMP 6. Hypertension, blood pressures uncontrolled Monitor with hydralazine as needed 7. DVT PPx- Lovenox SC Charges/Coding Visit Charges Inpatient E&M: 63853 Init Hosp L3
--- NOTE | 2021-10-09 09:02 | NURSING ---
ICU [facility] DKA, COVID 19
[2021-10-09 09:07] LABS: Differential Indicated MANUAL DIFF
[2021-10-09 09:11] LABS: Eosinophil 10 % (0-5); Lymphocyte 13 % (19-41); Monocyte 4 % (0-10); Myelocyte 2 % (0-0); Neutrophil-Band 2 % (0-5); Neutrophil-Segmented 69 % (47-70); Total Cells Counted 100 (MANUAL DIFF)
[2021-10-09 09:14] LABS: Platelet Estimate ADEQUATE (ADEQ); Red Cell Morphology NORM C+C NORMAL (NORM C&C)
[2021-10-09 09:15] LABS: Absolute Neutrophil Count 12.9 X10^3/uL (2.0-7.7); Scan Smear per Review Criteria MANUAL DIFF
--- NOTE | 2021-10-09 09:18 | NURSING ---
CV ICU 203
[2021-10-09 09:26] LABS: Magnesium 2.4 mg/dL (1.6-2.6)
--- NOTE | 2021-10-09 09:27 | ED.RN ---
glucometer reading >600. padmaja walker aware, repeat serum glucose ordered. insulin drip maintained. awaiting serum results.
[2021-10-09 10:05] LABS: Bedside Glucose > 500 mg/dL (70-110)
[2021-10-09 10:05] LABS: Bedside Glucose > 500 mg/dL (70-110)
[2021-10-09 10:08] LABS: Glucose 589 mg/dL (74-106)
[2021-10-09] MEDS: 0.9% Normal Saline 1,000 ML 150 ML IV ×2 (10:28→18:11)
--- NOTE | 2021-10-09 11:02 | ED.RN ---
pt ripped out jugular vein iv. pt insulin paused. dr. giang informed at bedside to place new iv. pt educated not to rip out iv.
[2021-10-09 11:45] LABS: Bedside Glucose > 500 mg/dL (70-110)
[2021-10-09 11:55] LABS: Bedside Glucose > 500 mg/dL (70-110)
[2021-10-09 12:14] LABS: Hemoglobin A1c 12.6 % (3.8-5.6)
[2021-10-09] MEDS: 0.9% Normal Saline 1,000 ML 250 ML IV (12:26)
[2021-10-09 13:00] LABS: Anion Gap 21 (5-15); BUN 25 mg/dL (7-18); BUN/Creat Ratio 20.8 RATIO (10-20); Calcium,Total 8.4 mg/dL (8.5-10.1); Chloride 109 mmol/L (98-107); EST Glomerular Filtration Rate 50 mL/min (>60); Est Glom Filt Rate - Afr Amer 60 mL/min (>60); Estimated Creatinine Clearance 56.01 ml/min; Glucose 400 mg/dL (74-106); Potassium 4.8 mmol/L (3.5-5.1); Sodium Level 134 mmol/L (136-145)
[2021-10-09 13:36] LABS: Bedside Glucose 426 mg/dL (70-110)
[2021-10-09] MEDS: dexAMETHasone 10 MG/ML Vial 6 MG IV (14:28)
[2021-10-09] MEDS: hydrALAZINE 20 MG/ML Vial 5 MG IV (14:29)
[2021-10-09 14:40] LABS: Bedside Glucose 391 mg/dL (70-110)
[2021-10-09 14:40] LABS: Bedside Glucose 444 mg/dL (70-110)
[2021-10-09 15:00] LABS: Bedside Glucose > 500 mg/dL (70-110)
[2021-10-09 15:41] LABS: Bedside Glucose 312 mg/dL (70-110)
[2021-10-09 16:20] LABS: Bedside Glucose 324 mg/dL (70-110)
[2021-10-09] MEDS: 0.9% Normal Saline 1,000 ML 75 ML IV (16:40)
[2021-10-09 16:47] LABS: Anion Gap 17 (5-15); BUN 26 mg/dL (7-18); BUN/Creat Ratio 25.5 RATIO (10-20); Calcium,Total 8.3 mg/dL (8.5-10.1); Chloride 113 mmol/L (98-107); Creatinine, Serum 1.02 mg/dL (0.55-1.02); EST Glomerular Filtration Rate 60 mL/min (>60); Est Glom Filt Rate - Afr Amer 72 mL/min (>60); Estimated Creatinine Clearance 65.89 ml/min; Glucose 312 mg/dL (74-106); Potassium 4.6 mmol/L (3.5-5.1); Sodium Level 136 mmol/L (136-145)
--- NOTE | 2021-10-09 17:23 | EX.PCM.CONCC ---
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 Increase IV fluids to 150 cc/h for now 2. Proceed with DKA protocol 3. Agree with IV dexamethasone (10/19/2021) 4. Wean oxygen as tolerated. Obtain sputum sample if available 5. Potential initiation of antihypertensive tomorrow IMPRESSIONS: 1. Acute DKA secondary to COVID-19 infection Patient reports she has been compliant with home medications. These will need to be held given her acute kidney injury. Patient is appropriately on an insulin drip. Would increase IV fluids. Transition to D5 half-normal saline per protocol. Continue to monitor BMPs. Patient will likely need to be trained on insulin therapy in the short-term. Patient's report of nausea and vomiting likely secondary to DKA. Unclear when patient started to have issues with COVID-19 as patient is surprised by the diagnosis. 2. Acute hypoxic respiratory insufficiency secondary to COVID-19 Patient with no previous pulmonary history, but requiring 2 L nasal cannula to maintain saturations. Obtaining a sputum culture would be appropriate to evaluate for secondary infection. Admitting chest x-ray was not very impressive. Likely okay to hold on any CTA of the chest for now. Tachycardia likely secondary to problem #1. If patient is able to go to room air, no further imaging would be indicated from my perspective. Patient is vaccinated per her report and this should help her prognosis. 3. Acute kidney injury Clinical suspicion for prerenal etiology. Admitting creatinine was 1.3, but baseline is 0.7. Patient may have an element of infection in the urine per the UA, but does not appear to have any post obstructive issues. Leukocytosis may be secondary to hemoconcentration. 4. Obesity/poor historian/uncontrolled hypertension Complicates care, management, recovery and prognosis. Will likely not tolerate p.o. medications right now during acute DKA. Potentially initiate antihypertensives tomorrow once patient is volume resuscitated. HPI Consult Data Date of Consult: 10/09/21 HPI Narrative HPI Narrative: LUIS MANUEL AMADOR is a 56 F, with past medical history listed below, who presents to [facility] on 10/09/2021 secondary to generalized weakness, nausea and vomiting for over 24 hours. Patient reportedly had felt increased shortness of breath and vomited yesterday. Patient does not take insulin for diabetes, but is on Metformin. Patient states that she has had no chest pain, cough or sinus congestion. Patient has had some sore throat. Patient does report that she took the COVID vaccine, but was not boosted. Patient had not reported any dysuria, but did note polyuria. On EMS arrival, patient was noted to have a reading of high on glucometer. On arrival to the ER, patient was afebrile, but tachycardic at 106 bpm. Patient was hypertensive and saturating well on room air. Patient's lab work-up showed a white blood cell count of 18.1, hemoglobin of 13.6, potassium of 5.2, bicarb of 2 and a creatinine of 1.3. Patient's glucose was elevated at 706 and alkaline phosphatase was 213. Lactate was within normal limits and a UA did show significant glucosuria with protein. ABG showed significant metabolic acidosis with partial respiratory compensation. Chest x-ray showed a possible right lower lobe infiltrate. The patient was initiated on insulin drip. Patient subsequently found to have COVID-19 and was admitted to the intensive care unit for further evaluation. Since being admitted to the intensive care unit, patient does report some improvement in nausea. Patient is reporting a sore throat and dry mouth. Patient is unclear on where she contracted COVID-19. Patient does not use insulin at baseline. Patient denies any history of respiratory complaints such as asthma. Patient does not use inhalers or supplemental oxygen at baseline. Patient does not report previous episodes of DKA. Patient states she has been compliant with her baseline medications. Review of systems otherwise negative from a constitutional, HEENT, respiratory, cardiovascular, GI, genitourinary, musculoskeletal, skin, neurologic, psychiatric and hematologic system unless stated above. [facility] Medical History GERD (gastroesophageal reflux disease) Tachycardia Type 2 diabetes mellitus Home Medications escitalopram oxalate 20 mg PO DAILY #30 tab 05/06/20 [Rx Last Taken Unknown] lancets #1 box 05/06/20 [Rx Last Taken Unknown] pantoprazole 40 mg PO DAILY #30 tab 05/06/20 [Rx Last Taken Unknown] pen needle, diabetic #1 box 05/06/20 [Rx Last Taken Unknown] potassium chloride 40 meq PO BIDCM #120 tab 05/06/20 [Rx Last Taken Unknown] loperamide 2 mg PO Q4H PRN PRN #20 cap 07/12/20 [Rx Last Taken Unknown] oxybutynin chloride 10 mg tablet,extended release 24 hr 10 mg PO DAILY 07/24/20 [History Last Taken Unknown] cyclobenzaprine 10 mg PO Q8H PRN PRN #20 tab 07/29/20 [Rx Last Taken Unknown] ondansetron 4 mg PO Q8H PRN PRN #10 tab 07/29/20 [Rx Last Taken Unknown] glimepiride 2 mg tablet 2 mg PO DAILY #60 tab 10/25/20 [Rx Last Taken Unknown] metformin 1,000 mg tablet 1,000 mg PO DAILY #90 tab 07/25/21 [Rx Last Taken Unknown] Allergy/AdvReac Type Severity Reaction Status Date / Time No Known Allergies Allergy Verified 10/09/21 07:34 Family History Other Diabetes Family History no significant family his Surgical History no surgical history Social History Smoking Status: Never smoker alcohol intake: never substance use type: does not use ROS ROS Narrative See HPI Physical Exam Const alert and oriented x3 General Appearance: cooperative and in distress Positive for mild HEENT normocephalic and head/scalp atraumatic HEENT Narrative: Dry mucous membranes Eyes PERRL Sclera: sclera abnormal Positive for bilateral Details: scleral injection Neck full ROM and no lymphadenopathy Chest inspection of chest normal Chest: symmetrical chest wall rise; Negative for crepitus Resp no use of accessory muscles Resp Narrative: 2 L nasal cannula in place Effort and Inspection: tachypneic Auscultation: clear to auscultation bilaterally; Negative for rales, rhonchi or wheezes Cardio regular rhythm, S1 normal heart sound, S2 normal heart sound, no murmurs, no rub and no gallops Rate: tachycardic GI normal to inspection, nondistended, normoactive bowel sounds Extremity no clubbing, cyanosis or edema Extremity Narrative: 2 cm swelling noted on the dorsal aspect of the left foot. Not painful to palpation Skin Skin Narrative: Dry skin noted Neuro oriented x3 and CN's II-XII intact bilaterally Psych cooperative Medical Records Data Medical Nutrition Assessment Dietitian: Malnutrition Criteria Met Start: 10/09/21 14:51 Freq: Status: Active Protocol: Document 10/09/21 14:51 AG (Rec: 10/09/21 14:51 AG [id number]) Nutrition Malnutrition Evidence of Malnutrition Exists Yes Malnutrition (severe): Acute Illness/Injury Evidenced By Suboptimal Energy Intake ( Severe),Weight Loss (Severe) Clinical Problem Acute Disease or Injury Related Malnutrition Etiology severe, acute malnutrition r/t acute illness, nausea, emesis Signs/Symptoms as evidenced unintentional wt loss of 6.5#/2.7% <1 week, estimated PO intake meeting < 50% of estimated energy needs ~1 week 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 Lab / Micro Data Result Diagrams: 10/09/21 07:45 10/09/21 16:05 Labs: Laboratory Results - last 24 hr 10/09/21 07:29: POC Glucose > 500 H* 10/09/21 07:45: WBC 18.1 H, RBC 5.45 H, Hgb 13.6, Hct 47.0, MCV 86.2, MCH 25.0 L, MCHC 28.9 L, RDW Std Deviation 50.9 H, RDW Coeff of Jevon 16.2 H, Plt Count 286, MPV 13.0 H, Immature Gran % (Auto) CLASSICS PROFESSOR, Neut % (Auto) CLASSICS PROFESSOR, Lymph % (Auto) CLASSICS PROFESSOR, Mckean % (Auto) CLASSICS PROFESSOR, Eos % (Auto) CLASSICS PROFESSOR, Baso % (Auto) CLASSICS PROFESSOR, Absolute Neuts (auto) 12.9 H, Absolute Lymphs (auto) 2.40, Total Counted 100, Neutrophils % (Manual) 69, Band Neutrophils % 2, Lymphocytes % (Manual) 13 L, Monocytes % (Manual) 4, Eosinophils % (Manual) 10 H, Myelocytes % 2 H, Nucleated RBC % CLASSICS PROFESSOR, Diff Path Review May foll, Platelet Estimate ADEQUATE, RBC Morphology NORM C+C 10/09/21 07:45: Sodium 127 L, Potassium 5.2 H, Chloride 99, Carbon Dioxide 2.0 L*, Anion Gap 26 H, BUN 27 H, Creatinine 1.31 H, Estim Creat Clear Calc 47.74, Est GFR (MDRD) Af Amer 54 L, Est GFR (MDRD) Non-Af 45 L, BUN/Creatinine Ratio 20.6 H, Glucose 706 H*, Calcium 9.1, Total Bilirubin 0.40, AST 14 L, ALT 25, Alkaline Phosphatase 213 H, Troponin I High Sens 5, Total Protein 7.9, Albumin 3.2, Globulin 4.7 H, Albumin/Globulin Ratio 0.7 L 10/09/21 07:45: Acetone Level LARGE H 10/09/21 07:45: Lactic Acid 1.4 10/09/21 07:45: Magnesium 2.4 10/09/21 07:45: Hemoglobin A1c 12.6 H 10/09/21 08:10: Urine Color Yellow, Urine Clarity Clear, Urine pH 5.0, Ur Specific [place] 1.025, Urine Protein 30 H, Urine Glucose (UA) 1000 H, Urine Ketones 150 A*, Urine Occult Blood 150 H, Urine Nitrite Negative, Urine Bilirubin Negative, Urine Urobilinogen Normal, Ur Leukocyte Esterase Negative, Urine RBC 0-5 SEEN, Urine WBC 0-5 SEEN, Ur Squamous Epith Cells 0 SEEN, Urine Bacteria 1+, Urine Mucus 0 SEEN 10/09/21 08:20: POC Glucose > 500 H* 10/09/21 09:15: Glucose 589 H* 10/09/21 09:16: POC Glucose > 500 H* 10/09/21 10:30: POC Glucose > 500 H* 10/09/21 11:06: POC Glucose > 500 H* 10/09/21 12:02: POC Glucose 426 H 10/09/21 12:15: Sodium 134 L, Potassium 4.8, Chloride 109 H, Carbon Dioxide 4.0 L*, Anion Gap 21 H, BUN 25 H, Creatinine 1.20 H, Estim Creat Clear Calc 56.01, Est GFR (MDRD) Af Amer 60, Est GFR (MDRD) Non-Af 50 L, BUN/Creatinine Ratio 20.8 H, Glucose 400 H, Calcium 8.4 L 10/09/21 13:32: POC Glucose 444 H 10/09/21 14:25: POC Glucose 391 H 10/09/21 15:29: POC Glucose 312 H 10/09/21 16:05: Sodium 136, Potassium 4.6, Chloride 113 H, Carbon Dioxide 6.0 L*, Anion Gap 17 H, BUN 26 H, Creatinine 1.02, Estim Creat Clear Calc 65.89, Est GFR (MDRD) Af Amer 72, Est GFR (MDRD) Non-Af 60, BUN/Creatinine Ratio 25.5 H, Glucose 312 H, Calcium 8.3 L 10/09/21 16:09: POC Glucose 324 H Micro: Microbiology 10/09/21 07:55 Nasal Secretion SARS-CoV-2 Antigen (Rapid) - Final SARS-CoV-2 (COVID 19) ABG Data ABG results: ABG 10/09/21 08:17 Specimen Type ART Sample Site R Brach pH 6.98 L* Bicarbonate Actual 2.4 L Total CO2 < 5 Base Excess -29 L O2 Saturation 96 ABG pCO2 10.4 L* ABG pO2 123 H O2 Delivery Device Room Air Crit Call To/Read Back Yes Radiology Impression Chest X-Ray 10/09/21 08:33 IMPRESSION: No acute abnormalities. Electronically Signed: Rosendo Zelaya MD at 8:51 EST , Service support , Charges/Coding Visit Charges Inpatient E&M: 66745 Init Hosp L3
[2021-10-09 18:40] LABS: Bedside Glucose 303 mg/dL (70-110)
[2021-10-09 18:40] LABS: Bedside Glucose 291 mg/dL (70-110)
--- NOTE | 2021-10-09 18:40 | RAD_ITS ---
STUDY: X-RAY - LEFT FOOT CLINICAL: Female, 56 years old. pain in left foot TECHNIQUE: 3 view(s) of the foot. COMPARISON: None. FINDINGS: Normal talus, calcaneus, and tarsal bones. Normal visualized subtalar, talonavicular, calcaneocuboid, tarsal and tarsometatarsal articulations. Normal metatarsi. There is moderate degenerative arthrosis of the metatarsophalangeal joint of the hallux with a hallux valgus deformity. Normal tibial and fibular sesamoid bones. Normal interphalangeal joint of the great toe. Normal phalanges of the great toe. Normal second through fifth metatarsophalangeal joints. Normal interphalangeal joints and phalanges of the lesser toes. Mild soft tissue swelling is present over the dorsum of the foot. Mild cortical spurring is seen at the second TMT articulation. There is no demonstrated fracture. RAD/Foot min 3 Views IMPRESSION: 1. Mild soft tissue swelling is present over the dorsum of the foot. Mild cortical spurring is seen at the second TMT articulation 2. Moderate hallux valgus deformity. Electronically Signed: Jb Jacob MD at 20:30 EST , Service support ,
[2021-10-09 19:36] LABS: Bedside Glucose 326 mg/dL (70-110)
[2021-10-09] MEDS: Enoxaparin 30 MG/0.3 ML Syringe SC (20:10)
[2021-10-09 20:30] LABS: Bedside Glucose 248 mg/dL (70-110)
[2021-10-09] MEDS: Dext 5%-0.45% NS 1,000 ML 150 ML IV (21:08)
[2021-10-09 21:10] LABS: Anion Gap 16 (5-15); BUN 24 mg/dL (7-18); BUN/Creat Ratio 21.8 RATIO (10-20); Calcium,Total 8.9 mg/dL (8.5-10.1); Chloride 112 mmol/L (98-107); EST Glomerular Filtration Rate 55 mL/min (>60); Est Glom Filt Rate - Afr Amer 66 mL/min (>60); Glucose 252 mg/dL (74-106); Potassium 5.5 mmol/L (3.5-5.1); Sodium Level 134 mmol/L (136-145)
[2021-10-09 21:21] LABS: Bedside Glucose 266 mg/dL (70-110)
[2021-10-09 22:15] LABS: Bedside Glucose 281 mg/dL (70-110)
[2021-10-09 23:30] LABS: Bedside Glucose 315 mg/dL (70-110)
[2021-10-10] VITALS (29 sets, daily range): BP systolic 123–191; BP diastolic 69–119; PULSE 101–129; RESP 18–36; TEMP 36–37.3; O2SAT 97–100
[2021-10-10 00:25] LABS: Bedside Glucose 304 mg/dL (70-110)
[2021-10-10 00:53] LABS: Anion Gap 14 (5-15); BUN 23 mg/dL (7-18); Calcium,Total 8.7 mg/dL (8.5-10.1); Chloride 112 mmol/L (98-107); Creatinine, Serum 1.15 mg/dL (0.55-1.02); EST Glomerular Filtration Rate 52 mL/min (>60); Est Glom Filt Rate - Afr Amer 63 mL/min (>60); Estimated Creatinine Clearance 58.44 ml/min; Glucose 335 mg/dL (74-106); Potassium 4.3 mmol/L (3.5-5.1); Sodium Level 135 mmol/L (136-145)
[2021-10-10] MEDS: hydrALAZINE 20 MG/ML Vial 5 MG IV ×4 (01:16→21:33)
[2021-10-10] MEDS: 0.9% Saline Lock 10 ML Syringe IV ×3 (01:17→21:29)
[2021-10-10 01:26] LABS: Bedside Glucose 314 mg/dL (70-110)
--- NOTE | 2021-10-10 01:41 | PCM.PN.BLA ---
Progress Note Nurse reports gram-positive bacteremia from aerobic bottle. Also review of records showing the patient has leukocytosis. Cannot rule out contaminants. However with patient being in the ICU, on DKA protocol and with leukocytosis will start vancomycin pharmacy to dose as we await final cultures.
[2021-10-10 02:36] LABS: Bedside Glucose 300 mg/dL (70-110)
[2021-10-10] MEDS: Dext 5%-0.45% NS 1,000 ML 150 ML IV (03:26)
--- NOTE | 2021-10-10 03:34 | PCM.RX.CS ---
Consult Pharmacy has been consulted to manage selected antiobiotic: Vancomycin Type of Consult: New start Suspected Infection: Bacteremia Prior Doses of Antibiotics Received/Current Regimen: Medications Vancomycin HCl (Vancomycin) 1,000 mg in 200 mls @ 200 mls/hr IV Q12H CHEKO Vancomycin HCl 2,000 mg/ (Sodium Chloride) 540 mls @ 250 mls/hr IV X1 ONE Stop: 10/10/21 04:09 Last Admin: 10/10/21 03:15 Dose: 250 mls/hr Documented by: Labs: Sodium 135 mmol/L (136-145) L 10/10/21 00:22 Potassium 4.3 mmol/L (3.5-5.1) 10/10/21 00:22 Chloride 112 mmol/L (98-107) H 10/10/21 00:22 Carbon Dioxide 9.0 mmol/L (21.0-32.0) L* 10/10/21 00:22 Anion Gap 14 (5-15) 10/10/21 00:22 BUN 23 mg/dL (7-18) H 10/10/21 00:22 Creatinine 1.15 mg/dL (0.55-1.02) H 10/10/21 00:22 Est GFR (MDRD) Af Amer 63 mL/min (>60) 10/10/21 00:22 Est GFR (MDRD) Non-Af 52 mL/min (>60) L 10/10/21 00:22 BUN/Creatinine Ratio 20.0 RATIO (10-20) 10/10/21 00:22 Glucose 335 mg/dL (74-106) H 10/10/21 00:22 Microbiology: Microbiology 10/09/21 07:45 Blood Culture (Wb) - Femoral Artery Blood Culture - Preliminary 10/09/21 07:55 Nasal Secretion SARS-CoV-2 Antigen (Rapid) - Final SARS-CoV-2 (COVID 19) Weight used for dosin.9 kg Estimated Creatinine Clearance: 58.4 Goal Trough: 15-20 mcg/mL Pharmacy Plan for Drug Dosing: Pharmacy Service will continue to monitor and adjust dosing as required. Follow-Up Labs: Trough Vancomycin Labs to be done on [date and time ordered]: 10/11/21 @1430
[2021-10-10 03:36] LABS: Bedside Glucose 294 mg/dL (70-110)
[2021-10-10 04:08] LABS: Hematocrit 42.9 % (37-47); Hemoglobin 13.5 g/dL (12.0-15.0); Mean Corp Hgb Conc 31.5 g/dL (32-36); Mean Corpuscular Hgb 24.8 pg (27.0-32.0); Mean Corpuscular Volume 78.9 fL (81-99); Mean Platelet Vol. 11.7 fl (6.2-12.0); POSITIVE DIFFERENTIAL YES; POSITIVE MORPHOLOGY YES; Platelet Count 204 K/mm3 (150-450); RBC Distribution Width SD 45.7 fl (35.1-43.9); Red Blood Count 5.44 M/mm3 (4.2-5.4); White Blood Count 17.6 K/mm3 (4.4-11.0)
[2021-10-10 04:28] LABS: Anion Gap 12 (5-15); BUN 23 mg/dL (7-18); BUN/Creat Ratio 19.8 RATIO (10-20); Calcium,Total 8.4 mg/dL (8.5-10.1); Chloride 111 mmol/L (98-107); Creatinine, Serum 1.16 mg/dL (0.55-1.02); EST Glomerular Filtration Rate 52 mL/min (>60); Est Glom Filt Rate - Afr Amer 62 mL/min (>60); Estimated Creatinine Clearance 57.94 ml/min; Glucose 293 mg/dL (74-106); Potassium 3.8 mmol/L (3.5-5.1); Sodium Level 135 mmol/L (136-145)
[2021-10-10 04:35] LABS: Differential Indicated MANUAL DIFF
[2021-10-10 04:39] LABS: Lymphocyte 5 % (19-41); Metamyelocyte 1 % (0-1); Monocyte 2 % (0-10); Neutrophil-Band 5 % (0-5); Neutrophil-Segmented 87 % (47-70); Total Cells Counted 100 (MANUAL DIFF)
[2021-10-10 04:40] LABS: Absolute Lymphocyte Count 0.88 X10^3/uL (0.83-4.51); Absolute Neutrophil Count 16.3 X10^3/uL (2.0-7.7); Lymphocyte # 0.88 X10^3/ul (0.83-4.51); Neutrophil # 16.34 X10^3/uL (2.7-7.7)
[2021-10-10 04:42] LABS: Platelet Estimate ADEQUATE (ADEQ); Red Cell Morphology NORM C+C NORMAL (NORM C&C)
[2021-10-10 05:35] LABS: Bedside Glucose 253 mg/dL (70-110)
[2021-10-10 06:10] LABS: Bedside Glucose 252 mg/dL (70-110)
--- NOTE | 2021-10-10 08:23 | PN.HOSP_ITS ---
Subjective Subjective Follow-up on acute DKA/acute hypoxic respiratory failure/acute COVID-19 pneumonia: Patient was seen and examined. She is more awake, still looks very tired. She admits to some nausea this morning. Denies any dizziness. Objective Data Objective Data Vital Signs: Vital Signs Temp Pulse Resp BP Pulse Ox 97.7 F L 115 H 29 H 186/104 H 99 10/10/21 05:00 10/10/21 07:07 10/10/21 07:00 10/10/21 07:00 10/10/21 07:00 Oxygen Flow Rate (L/min) 2 Oxygen Delivery Method Nasal Cannula Weight: 105.3 kg Body Mass Index (BMI) 34.4 Intake & Output: Intake and Output for Last 24 Hours 10/08/21 10/09/21 10/10/21 23:59 23:59 23:59 Intake Total 3911.77 / 3915.69 1522.42 / 1522.42 Output Total 3250 / 3250 900 / 900 Balance 661.77 / 665.69 622.42 / 622.42 Medical Nutrition Assessment Dietitian: Malnutrition Criteria Met Start: 10/09/21 14:51 Freq: Status: Active Protocol: Document 10/09/21 14:51 AG (Rec: 10/09/21 14:51 AG [id number]) Nutrition Malnutrition Evidence of Malnutrition Exists Yes Malnutrition (severe): Acute Illness/Injury Evidenced By Suboptimal Energy Intake ( Severe),Weight Loss (Severe) Clinical Problem Acute Disease or Injury Related Malnutrition Etiology severe, acute malnutrition r/t acute illness, nausea, emesis Signs/Symptoms as evidenced unintentional wt loss of 6.5#/2.7% <1 week, estimated PO intake meeting < 50% of estimated energy needs ~1 week 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 Lab / Micro Data Result Diagrams: 10/10/21 04:00 10/10/21 09:35 Labs: Laboratory Results - last 24 hr 10/09/21 07:29: POC Glucose > 500 H* 10/09/21 07:45: Immature Gran % (Auto) SUPERINTENDENT TRACK, Neut % (Auto) SUPERINTENDENT TRACK, Lymph % (Auto) SUPERINTENDENT TRACK, Harper % (Auto) SUPERINTENDENT TRACK, Eos % (Auto) SUPERINTENDENT TRACK, Baso % (Auto) SUPERINTENDENT TRACK, Absolute Neuts (auto) 12.9 H, Absolute Lymphs (auto) 2.40, Total Counted 100, Neutrophils % (Manual) 69, Band Neutrophils % 2, Lymphocytes % (Manual) 13 L, Monocytes % (Manual) 4, Eosinophils % (Manual) 10 H, Myelocytes % 2 H, Nucleated RBC % SUPERINTENDENT TRACK, Diff Path Review May foll, Platelet Estimate ADEQUATE, RBC Morphology NORM C+C 10/09/21 07:45: Sodium 127 L, Potassium 5.2 H, Chloride 99, Carbon Dioxide 2.0 L*, Anion Gap 26 H, BUN 27 H, Creatinine 1.31 H, Estim Creat Clear Calc 47.74, Est GFR (MDRD) Af Amer 54 L, Est GFR (MDRD) Non-Af 45 L, BUN/Creatinine Ratio 20.6 H, Glucose 706 H*, Calcium 9.1, Total Bilirubin 0.40, AST 14 L, ALT 25, Alkaline Phosphatase 213 H, Troponin I High Sens 5, Total Protein 7.9, Albumin 3.2, Globulin 4.7 H, Albumin/Globulin Ratio 0.7 L 10/09/21 07:45: Magnesium 2.4 10/09/21 07:45: Hemoglobin A1c 12.6 H 10/09/21 08:10: Urine RBC 0-5 SEEN, Urine WBC 0-5 SEEN, Ur Squamous Epith Cells 0 SEEN, Urine Bacteria 1+, Urine Mucus 0 SEEN 10/09/21 08:20: POC Glucose > 500 H* 10/09/21 09:15: Glucose 589 H* 10/09/21 09:16: POC Glucose > 500 H* 10/09/21 10:30: POC Glucose > 500 H* 10/09/21 11:06: POC Glucose > 500 H* 10/09/21 12:02: POC Glucose 426 H 10/09/21 12:15: Sodium 134 L, Potassium 4.8, Chloride 109 H, Carbon Dioxide 4.0 L*, Anion Gap 21 H, BUN 25 H, Creatinine 1.20 H, Estim Creat Clear Calc 56.01, Est GFR (MDRD) Af Amer 60, Est GFR (MDRD) Non-Af 50 L, BUN/Creatinine Ratio 20.8 H, Glucose 400 H, Calcium 8.4 L 10/09/21 13:32: POC Glucose 444 H 10/09/21 14:25: POC Glucose 391 H 10/09/21 15:29: POC Glucose 312 H 10/09/21 16:05: Sodium 136, Potassium 4.6, Chloride 113 H, Carbon Dioxide 6.0 L* , Anion Gap 17 H, BUN 26 H, Creatinine 1.02, Estim Creat Clear Calc 65.89, Est GFR (MDRD) Af Amer 72, Est GFR (MDRD) Non-Af 60, BUN/Creatinine Ratio 25.5 H, Glucose 312 H, Calcium 8.3 L 10/09/21 16:09: POC Glucose 324 H 10/09/21 17:17: POC Glucose 303 H 10/09/21 18:06: POC Glucose 291 H 10/09/21 19:05: POC Glucose 326 H 10/09/21 19:56: POC Glucose 248 H 10/09/21 20:25: Sodium 134 L, Potassium 5.5 H, Chloride 112 H, Carbon Dioxide 6.0 L*, Anion Gap 16 H, BUN 24 H, Creatinine 1.10 H, Estim Creat Clear Calc 61.10, Est GFR (MDRD) Af Amer 66, Est GFR (MDRD) Non-Af 55 L, BUN/Creatinine Ratio 21.8 H, Glucose 252 H, Calcium 8.9 10/09/21 21:03: POC Glucose 266 H 10/09/21 22:05: POC Glucose 281 H 10/09/21 23:17: POC Glucose 315 H 10/10/21 00:11: POC Glucose 304 H 10/10/21 00:22: Sodium 135 L, Potassium 4.3, Chloride 112 H, Carbon Dioxide 9.0 L*, Anion Gap 14, BUN 23 H, Creatinine 1.15 H, Estim Creat Clear Calc 58.44, Est GFR (MDRD) Af Amer 63, Est GFR (MDRD) Non-Af 52 L, BUN/Creatinine Ratio 20.0, Glucose 335 H, Calcium 8.7 10/10/21 01:13: POC Glucose 314 H 10/10/21 02:14: POC Glucose 300 H 10/10/21 03:13: POC Glucose 294 H 10/10/21 04:00: Sodium 135 L, Potassium 3.8, Chloride 111 H, Carbon Dioxide 12.0 L, Anion Gap 12, BUN 23 H, Creatinine 1.16 H, Estim Creat Clear Calc 57.94, Est GFR (MDRD) Af Amer 62, Est GFR (MDRD) Non-Af 52 L, BUN/Creatinine Ratio 19.8, Glucose 293 H, Calcium 8.4 L 10/10/21 04:00: WBC 17.6 H, RBC 5.44 H, Hgb 13.5, Hct 42.9, MCV 78.9 L D, MCH 24.8 L, MCHC 31.5 L D, RDW Std Deviation 45.7 H, RDW Coeff of Jevon 16.0 H, Plt Count 204, MPV 11.7, Neut % (Auto) Not Reportable, Absolute Neuts (auto) 16.3 H, Absolute Lymphs (auto) 0.88, Total Counted 100, Neutrophils % (Manual) 87 H, Band Neutrophils % 5, Lymphocytes % (Manual) 5 L, Monocytes % (Manual) 2, Metamyelocytes % 1, Diff Path Review February, Platelet Estimate ADEQUATE, RBC Morphology NORM C+C 10/10/21 05:27: POC Glucose 253 H 10/10/21 06:03: POC Glucose 252 H Micro: Microbiology 10/09/21 07:45 Blood Culture (Wb) - Femoral Artery Blood Culture - Preliminary 10/09/21 07:55 Nasal Secretion SARS-CoV-2 Antigen (Rapid) - Final SARS-CoV-2 (COVID 19) ABG Data ABG results: ABG 10/09/21 08:17 Specimen Type ART Sample Site R Brach pH 6.98 L* Bicarbonate Actual 2.4 L Total CO2 < 5 Base Excess -29 L O2 Saturation 96 ABG pCO2 10.4 L* ABG pO2 123 H O2 Delivery Device Room Air Crit Call To/Read Back Yes Radiography Diagnostic Testing: Radiology Impression Chest X-Ray 10/09/21 08:33 IMPRESSION: No acute abnormalities. Electronically Signed: Rosendo Zelaya MD at 8:51 EST , Service support , Foot X-Ray 10/09/21 18:40 IMPRESSION: 1. Mild soft tissue swelling is present over the dorsum of the foot. Mild cortical spurring is seen at the second TMT articulation 2. Moderate hallux valgus deformity. Electronically Signed: Jb Jacob MD at 20:30 EST , Service support , Physical Exam Narrative Physical exam: General: Alert, Oriented x3, appears very lethargic, cooperative, appears very frail, on 2 L of oxygen HEENT: Atraumatic Oral: Dry oral mucosa Neck: Supple Lungs: Diminished to auscultation Cardiovascular: HS I+II, regular, no murmurs Abdomen: Bowel Sounds Present, Soft, Non Tender Extremities: No edema Assessment & Plan Assessment/Plan (1) COVID-19: (2) DKA (diabetic ketoacidoses): QUALIFIERS: Diabetes mellitus type: type 2 Diabetes mellitus complication detail: without coma Qualified Code(s): E11.10 - Type 2 diabetes mellitus with ketoacidosis without coma (3) JOSEPH (acute kidney injury): (4) Hypertension: QUALIFIERS: Hypertension type: unspecified Qualified Code(s): I10 - Essential (primary) hypertension PLAN: 1. Acute DKA in a known type II DM likely secondary to Acute COVID- 19 infection DKA appears to have resolved today; anion gap is closed Patient's presentation was severe with severe acidosis, bicarb is 2, pH is 6.98 Will switch from insulin drip to Lantus 30 units daily with 5 units premeal insulin Continue with insulin sliding scale Continue to hold home glimepiride and Metformin 2. Acute COVID-19 infection with hypoxia, continues to be on 2 L of oxygen Admitting chest x-ray showed no acute infiltrate Urine legionella and streptococcal antigen and sputum cultures are pending Will start IV dexamethasone 3. JOSEPH, likely prerenal secondary to #1, improving Admitting creatinine is 1.31, baseline creatinine is 0.7 Creatinine today is 1.07 Continue on IV fluids, repeat BMP 4. Leukocytosis, likely reactive, will trend 5. Hyponatremia, likely pseudohyponatremia from #1, improved Trend BMP 6. Hypertension, blood pressures uncontrolled Start on amlodipine 10 mg daily, continue with hydralazine as needed 7. DVT PPx- Lovenox SC Charges/Coding Visit Charges Inpatient E&M: 60797 [facility] Hosp L3
--- NOTE | 2021-10-10 08:37 | PCM.PN.INT ---
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 Initiate p.o. diet once bicarb greater than 16 2. Proceed with DKA protocol 3. Agree with IV dexamethasone (10/19/2021) 4. Wean oxygen as tolerated. Obtain sputum sample if available 5. Potential initiation of antihypertensive once able to take p.o. IMPRESSIONS: 1. Acute DKA secondary to COVID-19 infection Patient reports she has been compliant with home medications. These will need to be held given her acute kidney injury. Patient is appropriately on an insulin drip. Transition to D5 half-normal saline per protocol. Continue to monitor BMPs. Patient will likely need to be trained on insulin therapy in the short-term. Patient's report of nausea and vomiting likely secondary to DKA. Unclear when patient started to have issues with COVID-19 as patient is surprised by the diagnosis. 2. Acute hypoxic respiratory insufficiency secondary to COVID-19 Patient with no previous pulmonary history, but requiring 2 L nasal cannula to maintain saturations. Obtaining a sputum culture would be appropriate to evaluate for secondary infection. Admitting chest x-ray was not very impressive. Likely okay to hold on any CTA of the chest for now. Tachycardia likely secondary to problem #1. If patient is able to go to room air, no further imaging would be indicated from my perspective. Patient is vaccinated per her report and this should help her prognosis. 3. Acute kidney injury Clinical suspicion for prerenal etiology. Admitting creatinine was 1.3, but baseline is 0.7. Patient may have an element of infection in the urine per the UA, but does not appear to have any post obstructive issues. Leukocytosis may be secondary to hemoconcentration. 4. Obesity/poor historian/uncontrolled hypertension Complicates care, management, recovery and prognosis. Will likely not tolerate p.o. medications right now during acute DKA. Potentially initiate antihypertensives later today once patient is taking p.o. Subjective Subjective Patient did okay overnight. Patient has remained relatively stable from a respiratory standpoint. Patient has remained on the DKA protocol. Patient continues to report a dry mouth and sore throat. No nausea has been reported. Objective Data Objective Data Vital Signs: Vital Signs Temp Pulse Resp BP Pulse Ox 36.5 C L 115 H 29 H 186/104 H 99 10/10/21 05:00 10/10/21 07:07 10/10/21 07:00 10/10/21 07:00 10/10/21 07:00 Oxygen Flow Rate (L/min) 2 Oxygen Delivery Method Nasal Cannula Weight: 105.3 kg Body Mass Index (BMI) 34.4 Intake & Output: Intake and Output for Last 24 Hours 10/08/21 10/09/21 10/10/21 23:59 23:59 23:59 Intake Total 3911.77 / 3915.69 1522.42 / 1522.42 Output Total 3250 / 3250 900 / 900 Balance 661.77 / 665.69 622.42 / 622.42 Medical Nutrition Assessment Dietitian: Malnutrition Criteria Met Start: 10/09/21 14:51 Freq: Status: Active Protocol: Document 10/09/21 14:51 AG (Rec: 10/09/21 14:51 AG [id number]) Nutrition Malnutrition Evidence of Malnutrition Exists Yes Malnutrition (severe): Acute Illness/Injury Evidenced By Suboptimal Energy Intake ( Severe),Weight Loss (Severe) Clinical Problem Acute Disease or Injury Related Malnutrition Etiology severe, acute malnutrition r/t acute illness, nausea, emesis Signs/Symptoms as evidenced unintentional wt loss of 6.5#/2.7% <1 week, estimated PO intake meeting < 50% of estimated energy needs ~1 week 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 Lab / Micro Data Result Diagrams: 10/10/21 04:00 10/10/21 04:00 Labs: Laboratory Results - last 24 hr 10/09/21 07:29: POC Glucose > 500 H* 10/09/21 07:45: Immature Gran % (Auto) HOT ROOM ATTENDANT, Neut % (Auto) HOT ROOM ATTENDANT, Lymph % (Auto) HOT ROOM ATTENDANT, [place] % (Auto) HOT ROOM ATTENDANT, Eos % (Auto) HOT ROOM ATTENDANT, Baso % (Auto) HOT ROOM ATTENDANT, Absolute Neuts (auto) 12.9 H, Absolute Lymphs (auto) 2.40, Total Counted 100, Neutrophils % (Manual) 69, Band Neutrophils % 2, Lymphocytes % (Manual) 13 L, Monocytes % (Manual) 4, Eosinophils % (Manual) 10 H, Myelocytes % 2 H, Nucleated RBC % HOT ROOM ATTENDANT, Diff Path Review February, Platelet Estimate ADEQUATE, RBC Morphology NORM C+C 10/09/21 07:45: Sodium 127 L, Potassium 5.2 H, Chloride 99, Carbon Dioxide 2.0 L*, Anion Gap 26 H, BUN 27 H, Creatinine 1.31 H, Estim Creat Clear Calc 47.74, Est GFR (MDRD) Af Amer 54 L, Est GFR (MDRD) Non-Af 45 L, BUN/Creatinine Ratio 20.6 H, Glucose 706 H*, Calcium 9.1, Total Bilirubin 0.40, AST 14 L, ALT 25, Alkaline Phosphatase 213 H, Troponin I High Sens 5, Total Protein 7.9, Albumin 3.2, Globulin 4.7 H, Albumin/Globulin Ratio 0.7 L 10/09/21 07:45: Magnesium 2.4 10/09/21 07:45: Hemoglobin A1c 12.6 H 10/09/21 08:20: POC Glucose > 500 H* 10/09/21 09:15: Glucose 589 H* 10/09/21 09:16: POC Glucose > 500 H* 10/09/21 10:30: POC Glucose > 500 H* 10/09/21 11:06: POC Glucose > 500 H* 10/09/21 12:02: POC Glucose 426 H 10/09/21 12:15: Sodium 134 L, Potassium 4.8, Chloride 109 H, Carbon Dioxide 4.0 L*, Anion Gap 21 H, BUN 25 H, Creatinine 1.20 H, Estim Creat Clear Calc 56.01, Est GFR (MDRD) Af Amer 60, Est GFR (MDRD) Non-Af 50 L, BUN/Creatinine Ratio 20.8 H, Glucose 400 H, Calcium 8.4 L 10/09/21 13:32: POC Glucose 444 H 10/09/21 14:25: POC Glucose 391 H 10/09/21 15:29: POC Glucose 312 H 10/09/21 16:05: Sodium 136, Potassium 4.6, Chloride 113 H, Carbon Dioxide 6.0 L*, Anion Gap 17 H, BUN 26 H, Creatinine 1.02, Estim Creat Clear Calc 65.89, Est GFR (MDRD) Af Amer 72, Est GFR (MDRD) Non-Af 60, BUN/Creatinine Ratio 25.5 H, Glucose 312 H, Calcium 8.3 L 10/09/21 16:09: POC Glucose 324 H 10/09/21 17:17: POC Glucose 303 H 10/09/21 18:06: POC Glucose 291 H 10/09/21 19:05: POC Glucose 326 H 10/09/21 19:56: POC Glucose 248 H 10/09/21 20:25: Sodium 134 L, Potassium 5.5 H, Chloride 112 H, Carbon Dioxide 6.0 L*, Anion Gap 16 H, BUN 24 H, Creatinine 1.10 H, Estim Creat Clear Calc 61.10, Est GFR (MDRD) Af Amer 66, Est GFR (MDRD) Non-Af 55 L, BUN/Creatinine Ratio 21.8 H, Glucose 252 H, Calcium 8.9 10/09/21 21:03: POC Glucose 266 H 10/09/21 22:05: POC Glucose 281 H 10/09/21 23:17: POC Glucose 315 H 10/10/21 00:11: POC Glucose 304 H 10/10/21 00:22: Sodium 135 L, Potassium 4.3, Chloride 112 H, Carbon Dioxide 9.0 L*, Anion Gap 14, BUN 23 H, Creatinine 1.15 H, Estim Creat Clear Calc 58.44, Est GFR (MDRD) Af Amer 63, Est GFR (MDRD) Non-Af 52 L, BUN/Creatinine Ratio 20.0, Glucose 335 H, Calcium 8.7 10/10/21 01:13: POC Glucose 314 H 10/10/21 02:14: POC Glucose 300 H 10/10/21 03:13: POC Glucose 294 H 10/10/21 04:00: Sodium 135 L, Potassium 3.8, Chloride 111 H, Carbon Dioxide 12.0 L, Anion Gap 12, BUN 23 H, Creatinine 1.16 H, Estim Creat Clear Calc 57.94, Est GFR (MDRD) Af Amer 62, Est GFR (MDRD) Non-Af 52 L, BUN/Creatinine Ratio 19.8, Glucose 293 H, Calcium 8.4 L 10/10/21 04:00: WBC 17.6 H, RBC 5.44 H, Hgb 13.5, Hct 42.9, MCV 78.9 L D, MCH 24.8 L, MCHC 31.5 L D, RDW Std Deviation 45.7 H, RDW Coeff of Jevon 16.0 H, Plt Count 204, MPV 11.7, Neut % (Auto) Not Reportable, Absolute Neuts (auto) 16.3 H, Absolute Lymphs (auto) 0.88, Total Counted 100, Neutrophils % (Manual) 87 H, Band Neutrophils % 5, Lymphocytes % (Manual) 5 L, Monocytes % (Manual) 2, Metamyelocytes % 1, Diff Path Review February, Platelet Estimate ADEQUATE, RBC Morphology NORM C+C 10/10/21 05:27: POC Glucose 253 H 10/10/21 06:03: POC Glucose 252 H Micro: Microbiology 10/09/21 07:45 Blood Culture (Wb) - Femoral Artery Blood Culture - Preliminary 10/09/21 07:55 Nasal Secretion SARS-CoV-2 Antigen (Rapid) - Final SARS-CoV-2 (COVID 19) Radiography Diagnostic Testing: Radiology Impression Chest X-Ray 10/09/21 08:33 IMPRESSION: No acute abnormalities. Electronically Signed: Rosendo Zelaya MD at 8:51 EST , Service support , Foot X-Ray 10/09/21 18:40 IMPRESSION: 1. Mild soft tissue swelling is present over the dorsum of the foot. Mild cortical spurring is seen at the second TMT articulation 2. Moderate hallux valgus deformity. Electronically Signed: Jb Jacob MD at 20:30 EST , Service support , Physical Exam Const alert and oriented x3 General Appearance: cooperative and in distress Positive for mild HEENT normocephalic and head/scalp atraumatic HEENT Narrative: Dry mucous membranes Eyes PERRL Sclera: sclera abnormal Positive for bilateral Details: scleral injection Neck full ROM and no lymphadenopathy Chest inspection of chest normal Chest: symmetrical chest wall rise; Negative for crepitus Resp no use of accessory muscles Resp Narrative: 2 L nasal cannula in place Effort and Inspection: tachypneic Auscultation: clear to auscultation bilaterally; Negative for rales, rhonchi or wheezes Cardio regular rhythm, S1 normal heart sound, S2 normal heart sound, no murmurs, no rub and no gallops Rate: tachycardic GI normal to inspection, nondistended, normoactive bowel sounds Extremity no clubbing, cyanosis or edema Extremity Narrative: 2 cm swelling noted on the dorsal aspect of the left foot. Not painful to palpation Skin Skin Narrative: Dry skin noted Neuro oriented x3 and CN's II-XII intact bilaterally Psych cooperative Charges/Coding Visit Charges Inpatient E&M: 20936 Subs Hosp L3
[2021-10-10] MEDS: Enoxaparin 30 MG/0.3 ML Syringe SC ×2 (08:55→21:28)
[2021-10-10] MEDS: Insulin Lispro 100 UNIT/ML INSULN.PEN SC ×6 (08:56→21:28)
[2021-10-10] MEDS: amLODIPine 10 MG Tablet PO (08:57)
[2021-10-10] MEDS: dexAMETHasone 10 MG/ML Vial 6 MG IV (08:58)
[2021-10-10 09:30] LABS: Bedside Glucose 257 mg/dL (70-110)
[2021-10-10 09:58] LABS: Anion Gap 10 (5-15); BUN 20 mg/dL (7-18); BUN/Creat Ratio 18.7 RATIO (10-20); Calcium,Total 8.7 mg/dL (8.5-10.1); Chloride 113 mmol/L (98-107); Creatinine, Serum 1.07 mg/dL (0.55-1.02); EST Glomerular Filtration Rate 57 mL/min (>60); Est Glom Filt Rate - Afr Amer 69 mL/min (>60); Estimated Creatinine Clearance 62.81 ml/min; Glucose 283 mg/dL (74-106); Potassium 3.4 mmol/L (3.5-5.1); Sodium Level 134 mmol/L (136-145)
[2021-10-10 10:11] LABS: Bedside Glucose 292 mg/dL (70-110)
--- NOTE | 2021-10-10 12:20 | CASEMGMT ---
RN CM called patient in room for initial transition planning/care coordination assessment. RN CM introduced self and role at [facility]. Patient is alert and oriented. Patient willing to participate in assessment and is able to answer all questions appropriately. Care providers, pharmacy, and demographics verified. Patient wishes to discharge home, will monitor for HHC pending progress with therapy. Patient states she has no further needs or concerns at this time. CM to follow for discharge planning needs that may arise. PCP: Jovany Specialists: [facility] retail Preferred Pharmacy: [facility]; [facility] Insurance: Per [employer] Prescription Benefit: yes Living Will/HPOA: none LNOK: Daughter, son Living Arrangements: Patient lives with daughter in a duplex. Patient states she was independent and able to ambulate stairs prior to hospitalization. Transportation: self DME/HHC: Patient states she has shower chair, walker, grab bars at home. Patient states she needs glucometer at discharge. Patient has had [facility]. Disposition Plan: Patient to discharge home with family support and follow-up plans in place. Will monitor for HHC pending progress with therapy. Carmela CALVIN, RN, CM
[2021-10-10] MEDS: Potassium Chloride 10mEq/100mL 10 MEQ/100 ML IV.SOLN. 100 MEQ IV BOLUS ×2 (12:21→15:07)
[2021-10-10] MEDS: Potassium Chloride Oral Tablet 20 MEQ 40 MEQ PO (12:21)
[2021-10-10] MEDS: Ondansetron 4 MG/2 ML Vial IV ×2 (12:21→21:29)
[2021-10-10] MEDS: Acetaminophen 325 MG Tablet 650 MG PO ×2 (12:28→21:29)
[2021-10-10 14:16] LABS: Bedside Glucose 306 mg/dL (70-110)
[2021-10-10] MEDS: Vancomycin IV 1,000 MG/200 ML BAG 200 MG IV (16:33)
[2021-10-10 16:45] LABS: Bedside Glucose 409 mg/dL (70-110)
--- NOTE | 2021-10-10 17:56 | NURSING ---
report called to ms 3
--- NOTE | 2021-10-10 23:02 | PCM.PN.BLA ---
Progress Note Patient with tachycardia with heart rates 120. Also with hypertension with systolic blood pressure of more than 160. Stop hydralazine. Put on telemetry. Start labetalol.
[2021-10-11] VITALS (15 sets, daily range): BP systolic 104–162; BP diastolic 61–95; PULSE 92–125; RESP 16–20; TEMP 36.8–37.2; O2SAT 95–100
[2021-10-11] MEDS: Labetalol (Prefilled) 20 MG/4 ML 10 MG IV (00:04)
[2021-10-11] MEDS: 0.9% Saline Lock 10 ML Syringe IV ×4 (00:05→22:52)
[2021-10-11 02:21] LABS: Bedside Glucose 352 mg/dL (70-110)
[2021-10-11] MEDS: Vancomycin IV 1,000 MG/200 ML BAG 200 MG IV ×2 (02:39→15:01)
[2021-10-11 07:05] LABS: Absolute Lymphocyte Count 0.99 X10^3/uL (0.83-4.51); Absolute Neutrophil Count 7.8 X10^3/uL (2.0-7.7); Basophil# 0.02 X10^3/uL; Basophil% 0.2 % (0-1); Eosinophil# 0.01 X10^3/uL; Eosinophils% 0.1 % (0-5); Hemoglobin 12.7 g/dL (12.0-15.0); Lymphocyte # 0.99 X10^3/ul (0.83-4.51); Lymphocyte % 10.2 % (19-41); Mean Corp Hgb Conc 32.6 g/dL (32-36); Mean Corpuscular Hgb 24.6 pg (27.0-32.0); Mean Corpuscular Volume 75.4 fL (81-99); Monocyte# 0.82 X10^3/uL; Monocyte% 8.4 % (0-10); NRBC Flagged by Analyzer 0 % (0-5); Neutrophil # 7.84 X10^3/uL (2.7-7.7); Neutrophil % 80.8 % (47-70); POSITIVE COUNT YES; Platelet Count 132 K/mm3 (150-450); RBC Distribution Width CV 15.9 % (11.6-14.6); RBC Distribution Width SD 43.5 fl (35.1-43.9); Red Blood Count 5.17 M/mm3 (4.2-5.4); White Blood Count 9.7 K/mm3 (4.4-11.0)
[2021-10-11 07:20] LABS: Differential Indicated SCAN CRITERIA MET
[2021-10-11] MEDS: Insulin Lispro 100 UNIT/ML INSULN.PEN SC ×6 (08:01→22:46)
[2021-10-11 08:07] LABS: ALB/GLOB Ratio 0.6 RATIO (0.9-2.4); AST(SGOT) 23 U/L (15-37); Alanine Aminotransfer ALT/SGPT 24 U/L (13-56); Albumin, Serum 2.6 g/dL (3.2-5.0); Alkaline Phosphatase 157 U/L (45-117); Anion Gap 14 (5-15); BUN 17 mg/dL (7-18); BUN/Creat Ratio 19.4 RATIO (10-20); Calcium,Total 9.5 mg/dL (8.5-10.1); Chloride 108 mmol/L (98-107); Creatinine, Serum 0.88 mg/dL (0.55-1.02); EST Glomerular Filtration Rate 71 mL/min (>60); Est Glom Filt Rate - Afr Amer 86 mL/min (>60); Estimated Creatinine Clearance 76.38 ml/min; Globulin 4.2 g/dL (2.2-4.2); Glucose 301 mg/dL (74-106); Magnesium 2.1 mg/dL (1.6-2.6); Potassium 3.4 mmol/L (3.5-5.1); Protein, Total 6.8 g/dL (6.4-8.2); Sodium Level 135 mmol/L (136-145)
[2021-10-11 08:16] LABS: Bedside Glucose 330 mg/dL (70-110)
[2021-10-11] MEDS: amLODIPine 10 MG Tablet PO (09:13)
[2021-10-11] MEDS: Potassium Chloride Oral Tablet 20 MEQ 40 MEQ PO (09:13)
[2021-10-11] MEDS: Enoxaparin 30 MG/0.3 ML Syringe SC ×2 (09:14→22:47)
[2021-10-11 09:51] LABS: Pathologist Review Reviewed
[2021-10-11 09:58] LABS: Pathologist Review Reviewed
--- NOTE | 2021-10-11 11:14 | PCM.PN.INT ---
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 Consider discontinuation of Decadron if remains on room air 2. Walking oximetry prior to discharge 3. Likely okay to discontinue vancomycin from my perspective 4. Consider initiation of p.o. antihypertensives 5. Hemodynamically stable on room air. Will sign off from a critical care perspective IMPRESSIONS: 1. Acute DKA secondary to COVID-19 infection Patient reports she has been compliant with home medications. These will need to be held given her acute kidney injury. Patient has been weaned off of her drip and is tolerating well. Patient should be using subcutaneous insulin in the interim, especially given steroids and an acute infection. 2. Acute hypoxic respiratory insufficiency secondary to COVID-19 Patient currently on room air. Unclear if Decadron risk versus benefit ratio dictates continuation for 10 days if patient remains on room air. Patient has an increased risk profile with her concurrent diabetes mellitus. Patient should have a walking oximetry prior to discharge. The patient requires supplemental oxygen at discharge, she can follow-up in our office from a pulmonary perspective for discontinuation. 3. Acute kidney injury Resolved. Clinical suspicion for prerenal etiology. Admitting creatinine was 1.3, but baseline is 0.7. Patient may have an element of infection in the urine per the UA, but does not appear to have any post obstructive issues. Leukocytosis may be secondary to hemoconcentration. 4. Obesity/poor historian/uncontrolled hypertension Complicates care, management, recovery and prognosis. Consider initiation of p.o. antihypertensives prior to discharge Subjective Subjective Patient did okay overnight. Patient states her nausea is completely resolved, but she is having more nasal stuffiness and headache. Patient has been tolerating room air well. Objective Data Objective Data Vital Signs: Vital Signs Temp Pulse Resp BP Pulse Ox 37.1 C 109 H 18 126/88 H 98 10/11/21 05:32 10/11/21 05:35 10/11/21 05:32 10/11/21 05:32 10/11/21 05:32 Oxygen Flow Rate (L/min) 2 Oxygen Delivery Method Room Air Weight: 104.4 kg Body Mass Index (BMI) 34.4 Intake & Output: Intake and Output for Last 24 Hours 10/09/21 10/10/21 10/11/21 23:59 23:59 23:59 Intake Total 3911.77 / 3915.69 3937.49 / 3937.49 205.25 / 205.25 Output Total 3250 / 3250 2850 / 3650 1250 / 1250 Balance 661.77 / 665.69 1087.49 / 287.49 -1044.75 / -1044.75 Medical Nutrition Assessment Dietitian: Malnutrition Criteria Met Start: 10/09/21 14:51 Freq: Status: Active Protocol: Document 10/10/21 10:49 AG (Rec: 10/10/21 10:49 [id number]) Nutrition Malnutrition Evidence of Malnutrition Exists Yes Malnutrition (severe): Acute Illness/Injury Evidenced By Suboptimal Energy Intake ( Severe),Weight Loss (Severe) Clinical Problem Acute Disease or Injury Related Malnutrition Etiology severe, acute malnutrition r/t acute illness, nausea, emesis Signs/Symptoms as evidenced unintentional wt loss of 3.8kg/3.5% <1 week, estimated PO intake meeting < 50% of estimated energy needs ~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 Problem Recommendation Dietitian Recommendations/Changes continue 1800 calorie controlled, consistent CHO diet; will add 4oz glucerna ONS w/ meals for additional calories/protein if consumed Lab / Micro Data Result Diagrams: 10/11/21 06:15 10/11/21 06:15 Labs: Laboratory Results - last 24 hr 10/09/21 07:45: Diff Path Review Reviewed 10/10/21 04:00: Diff Path Review Reviewed 10/10/21 12:20: POC Glucose 306 H 10/10/21 16:34: POC Glucose 409 H 10/10/21 21:24: POC Glucose 352 H 10/11/21 06:15: WBC 9.7, RBC 5.17, Hgb 12.7, Hct 39.0, MCV 75.4 L, MCH 24.6 L, MCHC 32.6, RDW Std Deviation 43.5, RDW Coeff of Jevon 15.9 H, Plt Count 132 L, Immature Gran % (Auto) 0.300, Neut % (Auto) 80.8 H, Lymph % (Auto) 10.2 L, [place] % (Auto) 8.4, Eos % (Auto) 0.1, Baso % (Auto) 0.2, Absolute Neuts (auto) 7.8 H, Absolute Lymphs (auto) 0.99, Nucleated RBC % 0 10/11/21 06:15: Sodium 135 L, Potassium 3.4 L, Chloride 108 H, Carbon Dioxide 13.0 L, Anion Gap 14, BUN 17, Creatinine 0.88, Estim Creat Clear Calc 76.38, Est GFR (MDRD) Af Amer 86, Est GFR (MDRD) Non-Af 71, BUN/Creatinine Ratio 19.4, Glucose 301 H, Calcium 9.5, Magnesium 2.1, Total Bilirubin 0.50, AST 23, ALT 24, Alkaline Phosphatase 157 H, Total Protein 6.8, Albumin 2.6 L, Globulin 4.2, Albumin/Globulin Ratio 0.6 L 10/11/21 08:00: POC Glucose 330 H Micro: Microbiology 10/09/21 07:45 Blood Culture (Wb) - Femoral Artery Bacteria Detection (PCR) - Final Coag Negative Staph 10/09/21 07:45 Blood Culture (Wb) - Femoral Artery Blood Culture - Preliminary Coag Negative Staph Gram positive organism 10/09/21 09:15 Blood Culture (Wb) - Anticubital Left Blood Culture - Preliminary No growth in 48 hours. 10/10/21 15:00 Urine Catheter - Grossman Legionella Antigen - Final 10/10/21 15:00 Urine Catheter - Grossman Streptococcus pneumoniae Antigen (M - Final 10/09/21 07:55 Nasal Secretion SARS-CoV-2 Antigen (Rapid) - Final SARS-CoV-2 (COVID 19) Physical Exam Const alert, oriented x3 and no apparent distress General Appearance: cooperative HEENT normocephalic and head/scalp atraumatic HEENT Narrative: Dry mucous membranes Eyes PERRL Sclera: sclera abnormal Positive for bilateral Details: scleral injection Neck full ROM and no lymphadenopathy Chest inspection of chest normal Chest: symmetrical chest wall rise; Negative for crepitus Resp no use of accessory muscles Auscultation: clear to auscultation bilaterally; Negative for rales, rhonchi or wheezes Cardio regular rhythm, S1 normal heart sound, S2 normal heart sound, no murmurs, no rub and no gallops Rate: tachycardic GI normal to inspection, nondistended, normoactive bowel sounds Extremity no clubbing, cyanosis or edema Extremity Narrative: 2 cm swelling noted on the dorsal aspect of the left foot. Not painful to palpation Skin Skin Narrative: Dry skin noted Neuro oriented x3 and CN's II-XII intact bilaterally Psych cooperative Charges/Coding Visit Charges Inpatient E&M: 31442 Subs Hosp L2
[2021-10-11] MEDS: dexAMETHasone 10 MG/ML Vial 6 MG IV (11:25)
--- NOTE | 2021-10-11 11:26 | NURSING ---
[facility] 470 - CORTEXT TO DR PRICE MAKING HER AWRE
[2021-10-11 11:30] LABS: Bedside Glucose 470 mg/dL (70-110)
--- NOTE | 2021-10-11 11:55 | PN.HOSP_ITS ---
Subjective Subjective Follow-up on acute DKA/acute hypoxic respiratory failure/acute COVID-19 pneumonia: Patient was seen and examined. She looks much improved. Interactive and answering questions. She admits to having elevated blood sugars since Thanksgiving because she was drinking most of pop. Objective Data Objective Data Vital Signs: Vital Signs Temp Pulse Resp BP Pulse Ox 98.8 F 109 H 18 126/88 H 98 10/11/21 05:32 10/11/21 05:35 10/11/21 05:32 10/11/21 05:32 10/11/21 05:32 Oxygen Flow Rate (L/min) 2 Oxygen Delivery Method Room Air Weight: 104.4 kg Body Mass Index (BMI) 34.4 Intake & Output: Intake and Output for Last 24 Hours 10/09/21 10/10/21 10/11/21 23:59 23:59 23:59 Intake Total 3911.77 / 3915.69 3937.49 / 3937.49 205.25 / 205.25 Output Total 3250 / 3250 2850 / 3650 1850 / 1850 Balance 661.77 / 665.69 1087.49 / 287.49 -1644.75 / -1644.75 Medical Nutrition Assessment Dietitian: Malnutrition Criteria Met Start: 10/09/21 14:51 Freq: Status: Active Protocol: Document 10/10/21 10:49 AG (Rec: 10/10/21 10:49 AG [id number]) Nutrition Malnutrition Evidence of Malnutrition Exists Yes Malnutrition (severe): Acute Illness/Injury Evidenced By Suboptimal Energy Intake ( Severe),Weight Loss (Severe) Clinical Problem Acute Disease or Injury Related Malnutrition Etiology severe, acute malnutrition r/t acute illness, nausea, emesis Signs/Symptoms as evidenced unintentional wt loss of 3.8kg/3.5% <1 week, estimated PO intake meeting < 50% of estimated energy needs ~1 week VP [employer]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 Problem Recommendation Dietitian Recommendations/Changes continue 1800 calorie controlled, consistent CHO diet; will add 4oz glucerna ONS w/ meals for additional calories/protein if consumed Lab / Micro Data Result Diagrams: 10/11/21 06:15 10/11/21 06:15 Labs: Laboratory Results - last 24 hr 10/09/21 07:45: Diff Path Review Reviewed 10/10/21 04:00: Diff Path Review Reviewed 10/10/21 12:20: POC Glucose 306 H 10/10/21 16:34: POC Glucose 409 H 10/10/21 21:24: POC Glucose 352 H 10/11/21 06:15: WBC 9.7, RBC 5.17, Hgb 12.7, Hct 39.0, MCV 75.4 L, MCH 24.6 L, MCHC 32.6, RDW Std Deviation 43.5, RDW Coeff of Jevon 15.9 H, Plt Count 132 L, Immature Gran % (Auto) 0.300, Neut % (Auto) 80.8 H, Lymph % (Auto) 10.2 L, [place] % (Auto) 8.4, Eos % (Auto) 0.1, Baso % (Auto) 0.2, Absolute Neuts (auto) 7.8 H, Absolute Lymphs (auto) 0.99, Nucleated RBC % 0 10/11/21 06:15: Sodium 135 L, Potassium 3.4 L, Chloride 108 H, Carbon Dioxide 13.0 L, Anion Gap 14, BUN 17, Creatinine 0.88, Estim Creat Clear Calc 76.38, Est GFR (MDRD) Af Amer 86, Est GFR (MDRD) Non-Af 71, BUN/Creatinine Ratio 19.4, Glucose 301 H, Calcium 9.5, Magnesium 2.1, Total Bilirubin 0.50, AST 23, ALT 24, Alkaline Phosphatase 157 H, Total Protein 6.8, Albumin 2.6 L, Globulin 4.2, Albumin/Globulin Ratio 0.6 L 10/11/21 08:00: POC Glucose 330 H 10/11/21 11:08: POC Glucose 470 H* Micro: Microbiology 10/09/21 07:45 Blood Culture (Wb) - Femoral Artery Bacteria Detection (PCR) - Final Coag Negative Staph 10/09/21 07:45 Blood Culture (Wb) - Femoral Artery Blood Culture - Preliminary Coag Negative Staph Gram positive organism 10/09/21 09:15 Blood Culture (Wb) - Anticubital Left Blood Culture - Preliminary No growth in 48 hours. 10/10/21 15:00 Urine Catheter - Grossman Legionella Antigen - Final 10/10/21 15:00 Urine Catheter - Grossman Streptococcus pneumoniae Antigen (M - Final 10/09/21 07:55 Nasal Secretion SARS-CoV-2 Antigen (Rapid) - Final SARS-CoV-2 (COVID 19) Physical Exam Narrative Physical exam: General: Alert, Oriented x3, appears very lethargic, cooperative, appears very frail, on 2 L of oxygen HEENT: Atraumatic Oral: Dry oral mucosa Neck: Supple Lungs: Diminished to auscultation Cardiovascular: HS I+II, regular, no murmurs Abdomen: Bowel Sounds Present, Soft, Non Tender Extremities: No edema Assessment & Plan Assessment/Plan (1) COVID-19: (2) DKA (diabetic ketoacidoses): QUALIFIERS: Diabetes mellitus type: type 2 Diabetes mellitus complication detail: without coma Qualified Code(s): E11.10 - Type 2 diabetes mellitus with ketoacidosis without coma (3) JOSEPH (acute kidney injury): (4) Hypertension: QUALIFIERS: Hypertension type: unspecified Qualified Code(s): I10 - Essential (primary) hypertension PLAN: 1. Acute DKA in a known type II DM likely secondary to Acute COVID- 19 infection, resolved Blood sugars remain uncontrolled. HbA1c is 12.6 Lantus increased to 60 units daily, Premeal insulin 15 units 3 times daily, continue with insulin sliding scale Continue to hold home glimepiride and Metformin 2. Acute COVID-19 infection with hypoxia, remains on room air Admitting chest x-ray showed no acute infiltrate Urine legionella and streptococcal antigen and sputum cultures are negative Continue on oral dexamethasone for now 3. JOSEPH, likely prerenal secondary to #1, resolved Admitting creatinine is 1.31, baseline creatinine is 0.7 Creatinine today is 0.88 Off IV fluids, repeat BMP in a.m. 4. Hypokalemia, replaced 5. Bacteremia, seen in 1 source, repeat blood cultures subsequently have been negative Patient was on vancomycin, will discontinue vancomycin for now, repeat blood cultures 6. Leukocytosis, likely reactive, will trend 7. Hyponatremia, likely pseudohyponatremia from #1, resolving Trend BMP 8. Hypertension, blood pressures better controlled now, continue amlodipine and hydralazine as needed 9. DVT PPx- Lovenox SC Charges/Coding Visit Charges Inpatient E&M: 90306 Subs Hosp L3
[2021-10-11 14:38] LABS: Vancomycin, Trough Level 11.8 ug/mL (5.0-15.0)
--- NOTE | 2021-10-11 16:00 | PCM.RX.CS ---
Consult Pharmacy has been consulted to manage selected antiobiotic: Vancomycin Type of Consult: Follow-up Prior Doses of Antibiotics Received/Current Regimen: currently on vanc 1000mg IV q12h Labs: Sodium 135 mmol/L (136-145) L 10/11/21 06:15 Potassium 3.4 mmol/L (3.5-5.1) L 10/11/21 06:15 Chloride 108 mmol/L (98-107) H 10/11/21 06:15 Carbon Dioxide 13.0 mmol/L (21.0-32.0) L 10/11/21 06:15 Anion Gap 14 (5-15) 10/11/21 06:15 BUN 17 mg/dL (7-18) 10/11/21 06:15 Creatinine 0.88 mg/dL (0.55-1.02) 10/11/21 06:15 Est GFR (MDRD) Af Amer 86 mL/min (>60) 10/11/21 06:15 Est GFR (MDRD) Non-Af 71 mL/min (>60) 10/11/21 06:15 BUN/Creatinine Ratio 19.4 RATIO (10-20) 10/11/21 06:15 Glucose 301 mg/dL (74-106) H 10/11/21 06:15 Vancomycin Trough 11.8 ug/mL (5.0-15.0) 10/11/21 13:45 Microbiology: Microbiology 10/09/21 07:45 Blood Culture (Wb) - Femoral Artery Bacteria Detection (PCR) - Final Coag Negative Staph 10/09/21 07:45 Blood Culture (Wb) - Femoral Artery Blood Culture - Preliminary Coag Negative Staph Gram positive organism 10/09/21 09:15 Blood Culture (Wb) - Anticubital Left Blood Culture - Preliminary No growth in 48 hours. 10/10/21 15:00 Urine Catheter - Grossman Legionella Antigen - Final 10/10/21 15:00 Urine Catheter - Grossman Streptococcus pneumoniae Antigen (M - Final 10/09/21 07:55 Nasal Secretion SARS-CoV-2 Antigen (Rapid) - Final SARS-CoV-2 (COVID 19) Weight used for dosin.4 kg Estimated Creatinine Clearance: 94ml/min Goal Trough: 15-20 mcg/mL Pharmacy Plan for Drug Dosing: The vanc trough drawn at 13:45 today (approx 11 hrs after the previous dose) came back as 11.8, which is below goal, although only a few doses have been given at this point. Nevertheless, will increase dose slightly to 1250mg IV q12h. Will start at midnight tonight, a few hours earlier, since the next 1000g dose was already hung. Will recheck a trough before the 4th new dose. The patient's CrCl of 94 ml/min was calculated using an adjustd body weight of 81.5kg. Pharmacy Service will continue to monitor and adjust dosing as required. Follow-Up Labs: Trough Vancomycin Labs to be done on [date and time ordered]: 10/13/21 11:30
[2021-10-11 16:26] LABS: Bedside Glucose 458 mg/dL (70-110)
[2021-10-11] MEDS: Insulin Lispro 100 UNIT/ML INSULN.PEN 15 UNIT SC (16:27)
[2021-10-11] MEDS: Acetaminophen 325 MG Tablet 650 MG PO (22:47)
[2021-10-11 23:10] LABS: Bedside Glucose 330 mg/dL (70-110)
[2021-10-12] VITALS (11 sets, daily range): BP systolic 126–148; BP diastolic 84–104; PULSE 104–118; RESP 18–20; TEMP 36.3–37.1; O2SAT 96–100
[2021-10-12] MEDS: Insulin Lispro 100 UNIT/ML INSULN.PEN 15 UNIT SC ×3 (08:39→17:20)
[2021-10-12] MEDS: Insulin Lispro 100 UNIT/ML INSULN.PEN SC ×4 (08:40→21:32)
[2021-10-12 09:04] LABS: ALB/GLOB Ratio 0.6 RATIO (0.9-2.4); AST(SGOT) 16 U/L (15-37); Alanine Aminotransfer ALT/SGPT 21 U/L (13-56); Albumin, Serum 2.7 g/dL (3.2-5.0); Alkaline Phosphatase 157 U/L (45-117); Anion Gap 11 (5-15); BUN 24 mg/dL (7-18); BUN/Creat Ratio 30.8 RATIO (10-20); Calcium,Total 9.4 mg/dL (8.5-10.1); Chloride 106 mmol/L (98-107); Creatinine, Serum 0.78 mg/dL (0.55-1.02); EST Glomerular Filtration Rate 82 mL/min (>60); Est Glom Filt Rate - Afr Amer 99 mL/min (>60); Estimated Creatinine Clearance 86.17 ml/min; Globulin 4.3 g/dL (2.2-4.2); Glucose 247 mg/dL (74-106); Potassium 3.7 mmol/L (3.5-5.1); Sodium Level 136 mmol/L (136-145)
[2021-10-12 09:36] LABS: Absolute Lymphocyte Count 1.74 X10^3/uL (0.83-4.51); Absolute Neutrophil Count 6.3 X10^3/uL (2.0-7.7); Basophil# 0.03 X10^3/uL; Basophil% 0.3 % (0-1); Eosinophil# 0.04 X10^3/uL; Eosinophils% 0.4 % (0-5); Hemoglobin 13.2 g/dL (12.0-15.0); Lymphocyte # 1.74 X10^3/ul (0.83-4.51); Lymphocyte % 19.1 % (19-41); Mean Corp Hgb Conc 33.8 g/dL (32-36); Mean Corpuscular Hgb 25.3 pg (27.0-32.0); Mean Corpuscular Volume 74.7 fL (81-99); NRBC Flagged by Analyzer 0 % (0-5); Neutrophil # 6.29 X10^3/uL (2.7-7.7); Platelet Count 158 K/mm3 (150-450); RBC Distribution Width CV 16.1 % (11.6-14.6); RBC Distribution Width SD 43.2 fl (35.1-43.9); Red Blood Count 5.22 M/mm3 (4.2-5.4); White Blood Count 9.1 K/mm3 (4.4-11.0)
[2021-10-12 09:36] LABS: Bedside Glucose 346 mg/dL (70-110)
[2021-10-12] MEDS: dexAMETHasone 10 MG/ML Vial 6 MG IV (11:09)
[2021-10-12] MEDS: Potassium Chloride Oral Tablet 20 MEQ 40 MEQ PO (11:10)
[2021-10-12] MEDS: Enoxaparin 30 MG/0.3 ML Syringe SC ×2 (11:10→21:31)
[2021-10-12] MEDS: 0.9% Saline Lock 10 ML Syringe IV ×2 (11:10→21:32)
[2021-10-12] MEDS: Escitalopram Oxalate 20 MG Tablet PO (11:10)
[2021-10-12] MEDS: amLODIPine 10 MG Tablet PO (11:10)
[2021-10-12 11:45] LABS: Bedside Glucose 292 mg/dL (70-110)
[2021-10-12 16:20] LABS: Bedside Glucose 257 mg/dL (70-110)
[2021-10-12 18:00] LABS: Thyroid Stim Hormone (TSH) 0.54 uIU/mL (0.358-3.74)
[2021-10-12] MEDS: Mag Hydrox/Al Hydrox/Simeth 30 ML UDC PO (18:42)
--- NOTE | 2021-10-12 20:19 | PCM.PN.HOSP ---
Subjective Subjective Follow-up on acute DKA/acute hypoxic respiratory failure/acute COVID-19 pneumonia: Patient was seen and examined. Patient complained of heartburns. She feels improved. Patient remains a 2 person assist with walker. Objective Data Objective Data Vital Signs: Vital Signs Temp Pulse Resp BP Pulse Ox 97.9 F 105 H 18 131/86 H 97 10/12/21 15:46 10/12/21 16:41 10/12/21 15:46 10/12/21 15:46 10/12/21 15:46 Oxygen Flow Rate (L/min) 97 Oxygen Delivery Method Room Air Weight: 104.009 kg Body Mass Index (BMI) 34.4 Intake & Output: Intake and Output for Last 24 Hours 10/10/21 10/11/21 10/12/21 23:59 23:59 23:59 Intake Total 3937.49 / 3937.49 1545.25 / 1545.25 1060 / 1060 Output Total 2850 / 3650 1850 / 1850 Balance 1087.49 / 287.49 -304.75 / -304.75 1060 / 1060 Medical Nutrition Assessment Dietitian: Malnutrition Criteria Met Start: 10/09/21 14:51 Freq: Status: Active Protocol: Document 10/10/21 10:49 AG (Rec: 10/10/21 10:49 AG [id number]) Nutrition Malnutrition Evidence of Malnutrition Exists Yes Malnutrition (severe): Acute Illness/Injury Evidenced By Suboptimal Energy Intake ( Severe),Weight Loss (Severe) Clinical Problem Acute Disease or Injury Related Malnutrition Etiology severe, acute malnutrition r/t acute illness, nausea, emesis Signs/Symptoms as evidenced unintentional wt loss of 3.8kg/3.5% <1 week, estimated PO intake meeting < 50% of estimated energy needs ~1 week 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 Problem Recommendation Dietitian Recommendations/Changes continue 1800 calorie controlled, consistent CHO diet; will add 4oz glucerna ONS w/ meals for additional calories/protein if consumed Lab / Micro Data Result Diagrams: 10/12/21 07:45 10/12/21 07:45 Labs: Laboratory Results - last 24 hr 10/11/21 22:45: POC Glucose 330 H 10/12/21 07:45: Sodium 136, Potassium 3.7, Chloride 106, Carbon Dioxide 19.0 L, Anion Gap 11, BUN 24 H, Creatinine 0.78, Estim Creat Clear Calc 86.17, Est GFR (MDRD) Af Amer 99, Est GFR (MDRD) Non-Af 82, BUN/Creatinine Ratio 30.8 H, Glucose 247 H, Calcium 9.4, Total Bilirubin 0.60, AST 16, ALT 21, Alkaline Phosphatase 157 H, Total Protein 7.0, Albumin 2.7 L, Globulin 4.3 H, Albumin/Globulin Ratio 0.6 L 10/12/21 07:45: WBC 9.1, RBC 5.22, Hgb 13.2, Hct 39.0, MCV 74.7 L, MCH 25.3 L, MCHC 33.8, RDW Std Deviation 43.2, RDW Coeff of Jevno 16.1 H, Plt Count 158, MPV 12.0, Immature Gran % (Auto) 0.200, Neut % (Auto) 69.0, Lymph % (Auto) 19.1, [place] % (Auto) 11.0 H, Eos % (Auto) 0.4, Baso % (Auto) 0.3, Absolute Neuts (auto) 6.3, Absolute Lymphs (auto) 1.74, Nucleated RBC % 0 10/12/21 07:45: TSH 0.54 10/12/21 08:37: POC Glucose 346 H 10/12/21 11:35: POC Glucose 292 H 10/12/21 16:07: POC Glucose 257 H Micro: Microbiology 10/09/21 07:45 Blood Culture (Wb) - Femoral Artery Bacteria Detection (PCR) - Final Coag Negative Staph 10/09/21 07:45 Blood Culture (Wb) - Femoral Artery Blood Culture - Preliminary Coag Negative Staph Coag Negative Staph#2 10/09/21 09:15 Blood Culture (Wb) - Anticubital Left Blood Culture - Preliminary No growth in 48 hours. 10/10/21 15:00 Urine Catheter - Grossman Legionella Antigen - Final 10/10/21 15:00 Urine Catheter - Grossman Streptococcus pneumoniae Antigen (M - Final 10/09/21 07:55 Nasal Secretion SARS-CoV-2 Antigen (Rapid) - Final SARS-CoV-2 (COVID 19) Physical Exam Narrative Physical exam: General: Alert, Oriented x3, appears very lethargic, cooperative, appears very frail, off oxygen HEENT: Atraumatic Oral: Dry oral mucosa Neck: Supple Lungs: Diminished to auscultation Cardiovascular: HS I+II, regular, no murmurs Abdomen: Bowel Sounds Present, Soft, Non Tender Extremities: No edema Assessment & Plan Assessment/Plan (1) COVID-19: (2) DKA (diabetic ketoacidoses): QUALIFIERS: Diabetes mellitus complication detail: without coma Diabetes mellitus type: type 2 Qualified Code(s): E11.10 - Type 2 diabetes mellitus with ketoacidosis without coma (3) JOSEPH (acute kidney injury): (4) Hypertension: QUALIFIERS: Hypertension type: unspecified Qualified Code(s): I10 - Essential (primary) hypertension PLAN: 1. Acute DKA in a known type II DM likely secondary to Acute COVID-19 infection, resolved Blood sugars remain uncontrolled. HbA1c is 12.6 Continue on Lantus 70 units daily, Premeal insulin 15 units 3 times daily, continue with insulin sliding scale Continue to hold home glimepiride and Metformin 2. Acute COVID-19 infection with hypoxia, remains on room air Admitting chest x-ray showed no acute infiltrate Urine legionella and streptococcal antigen and sputum cultures are negative Continue on oral dexamethasone for now 3. JOSEPH, likely prerenal secondary to #1, resolved Admitting creatinine is 1.31, baseline creatinine is 0.7 Creatinine today is 0.78 Repeat BMP in a.m. 4. Hypokalemia, replaced 5. Bacteremia, seen in 1 source, repeat blood cultures subsequently have been negative Patient was on vancomycin, will discontinue vancomycin for now, repeat blood cultures 6. Leukocytosis, likely reactive, will trend 7. Hyponatremia, likely pseudohyponatremia from #1, resolving Trend BMP 8. Hypertension, blood pressures better controlled now, continue amlodipine and hydralazine as needed 9. Severe protein-calorie malnutrition, digital service engineer consulted, on supplements 10. DVT PPx- Lovenox SC Charges/Coding Visit Charges Inpatient E&M: 34785 Subs Hosp L2
[2021-10-12] MEDS: Acetaminophen 325 MG Tablet 650 MG PO (21:31)
[2021-10-13] VITALS (13 sets, daily range): BP systolic 124–130; BP diastolic 77–81; PULSE 100–123; RESP 16–18; TEMP 36.6–37.6; O2SAT 96–100
[2021-10-13 02:26] LABS: Bedside Glucose 299 mg/dL (70-110)
[2021-10-13 07:30] LABS: ALB/GLOB Ratio 0.6 RATIO (0.9-2.4); AST(SGOT) 17 U/L (15-37); Alanine Aminotransfer ALT/SGPT 23 U/L (13-56); Albumin, Serum 2.7 g/dL (3.2-5.0); Alkaline Phosphatase 148 U/L (45-117); Anion Gap 8 (5-15); BUN 23 mg/dL (7-18); BUN/Creat Ratio 31.9 RATIO (10-20); Calcium,Total 8.8 mg/dL (8.5-10.1); Chloride 104 mmol/L (98-107); Creatinine, Serum 0.72 mg/dL (0.55-1.02); EST Glomerular Filtration Rate 89 mL/min (>60); Est Glom Filt Rate - Afr Amer 108 mL/min (>60); Estimated Creatinine Clearance 93.35 ml/min; Globulin 4.2 g/dL (2.2-4.2); Glucose 199 mg/dL (74-106); Potassium 3.6 mmol/L (3.5-5.1); Protein, Total 6.9 g/dL (6.4-8.2); Sodium Level 136 mmol/L (136-145)
[2021-10-13] MEDS: Insulin Lispro 100 UNIT/ML INSULN.PEN 15 UNIT SC ×3 (08:46→17:10)
[2021-10-13] MEDS: Insulin Lispro 100 UNIT/ML INSULN.PEN SC ×4 (08:47→22:10)
[2021-10-13 08:55] LABS: Bedside Glucose 272 mg/dL (70-110)
[2021-10-13] MEDS: 0.9% Saline Lock 10 ML Syringe IV ×3 (11:18→22:28)
[2021-10-13] MEDS: dexAMETHasone 10 MG/ML Vial 6 MG IV (11:55)
[2021-10-13 11:59] LABS: Vancomycin, Trough Level 2.4 ug/mL (5.0-15.0)
[2021-10-13] MEDS: Enoxaparin 30 MG/0.3 ML Syringe SC ×2 (12:00→22:09)
[2021-10-13] MEDS: amLODIPine 10 MG Tablet PO (12:01)
[2021-10-13] MEDS: Potassium Chloride Oral Tablet 20 MEQ 40 MEQ PO (12:01)
[2021-10-13] MEDS: Escitalopram Oxalate 20 MG Tablet PO (12:01)
[2021-10-13 13:05] LABS: Bedside Glucose 303 mg/dL (70-110)
--- NOTE | 2021-10-13 13:50 | PN.HOSP_ITS ---
Subjective Subjective Follow-up on acute DKA/acute hypoxic respiratory failure/acute COVID-19 pneumonia: Patient was seen and examined. She generally still feels weak. Blood sugars are waxing and waning. Patient is still tachycardic with exertion. Objective Data Objective Data Vital Signs: Vital Signs Temp Pulse Resp BP Pulse Ox 98 F 100 18 125/80 H 100 10/13/21 10:00 10/13/21 10:00 10/13/21 10:00 10/13/21 10:00 10/13/21 10:00 Oxygen Flow Rate (L/min) 97 Oxygen Delivery Method Room Air Weight: 103.4 kg Body Mass Index (BMI) 34.4 Intake & Output: Intake and Output for Last 24 Hours 10/11/21 10/12/21 10/13/21 23:59 23:59 23:59 Intake Total 1545.25 / 1545.25 1060 / 1060 710 / 710 Output Total 1850 / 1850 Balance -304.75 / -304.75 1060 / 1060 710 / 710 Medical Nutrition Assessment Dietitian: Malnutrition Criteria Met Start: 10/09/21 14:51 Freq: Status: Active Protocol: Document 10/13/21 12:53 AG (Rec: 10/13/21 12:53 AG [id number]) Nutrition Malnutrition Evidence of Malnutrition Exists Yes Malnutrition (severe): Acute Illness/Injury Evidenced By Suboptimal Energy Intake ( Severe),Weight Loss (Severe) Clinical Problem Acute Disease or Injury Related Malnutrition Etiology severe, acute malnutrition r/t acute illness, nausea, emesis Signs/Symptoms as evidenced unintentional wt loss of 12#/5% x1 week, estimated PO intake meeting < 50% of estimated energy needs ~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 Recommendation Dietitian Recommendations/Changes continue 1800 calorie controlled, consistent CHO diet w/ 4oz glucerna ONS w/ meals for additional calories/ protein if consumed Lab / Micro Data Result Diagrams: 10/12/21 07:45 10/13/21 06:20 Labs: Laboratory Results - last 24 hr 10/12/21 07:45: TSH 0.54 10/12/21 16:07: POC Glucose 257 H 10/12/21 21:24: POC Glucose 299 H 10/13/21 06:20: Sodium 136, Potassium 3.6, Chloride 104, Carbon Dioxide 24.0, Anion Gap 8, BUN 23 H, Creatinine 0.72, Estim Creat Clear Calc 93.35, Est GFR (MDRD) Af Amer 108, Est GFR (MDRD) Non-Af 89, BUN/Creatinine Ratio 31.9 H, Glucose 199 H, Calcium 8.8, Total Bilirubin 0.60, AST 17, ALT 23, Alkaline Phosphatase 148 H, Total Protein 6.9, Albumin 2.7 L, Globulin 4.2, [place] min/Globulin Ratio 0.6 L 10/13/21 08:45: POC Glucose 272 H 10/13/21 11:21: Vancomycin Trough 2.4 L 10/13/21 12:55: POC Glucose 303 H Micro: Microbiology 10/09/21 07:45 Blood Culture (Wb) - Femoral Artery Bacteria Detection (PCR) - Final Coag Negative Staph 10/09/21 07:45 Blood Culture (Wb) - Femoral Artery Blood Culture - Final Coag Negative Staph Coag Negative Staph#2 10/11/21 14:45 Blood Culture (Wb) - Venous Blood Culture - Preliminary No growth in 48 hours. 10/11/21 13:45 Blood Culture (Wb) - Anticubital Left Blood Culture - Preliminary No growth in 48 hours. 10/09/21 09:15 Blood Culture (Wb) - Anticubital Left Blood Culture - Preliminary No growth in 48 hours. 10/10/21 15:00 Urine Catheter - Grossman Legionella Antigen - Final 10/10/21 15:00 Urine Catheter - Grossman Streptococcus pneumoniae Antigen (M - Final 10/09/21 07:55 Nasal Secretion SARS-CoV-2 Antigen (Rapid) - Final SARS-CoV-2 (COVID 19) Physical Exam Narrative General: Alert, Oriented x3, appears very lethargic, cooperative, appears very frail, off oxygen HEENT: Atraumatic Oral: Dry oral mucosa Neck: Supple Lungs: Diminished to auscultation Cardiovascular: HS I+II, regular, no murmurs Abdomen: Bowel Sounds Present, Soft, Non Tender Extremities: No edema Assessment & Plan Assessment/Plan (1) COVID-19: (2) DKA (diabetic ketoacidoses): QUALIFIERS: Diabetes mellitus type: type 2 Diabetes mellitus complication detail: without coma Qualified Code(s): E11.10 - Type 2 diabetes mellitus with ketoacidosis without coma (3) JOSEPH (acute kidney injury): (4) Hypertension: QUALIFIERS: Hypertension type: unspecified Qualified Code(s): I10 - Essential (primary) hypertension PLAN: 1. Acute DKA in a known type II DM likely secondary to Acute COVID- 19 infection, resolved Blood sugars slightly elevated; HbA1c is 12.6 Continue on Lantus 80 units daily, Premeal insulin 15 units 3 times daily, continue with insulin sliding scale Continue to hold glimepiride and Metformin 2. Acute COVID-19 infection with hypoxia, remains on room air Admitting chest x-ray showed no acute infiltrate Urine legionella and streptococcal antigen and sputum cultures are negative Discontinue dexamethasone today 3. JOSEPH, likely prerenal secondary to #1, resolved Admitting creatinine is 1.31, baseline creatinine is 0.7 Creatinine today is 0.78 Repeat BMP in a.m. 4. Hypokalemia, replaced 5. Bacteremia, seen in 1 source, repeat blood cultures subsequently have been negative No fever seen in this hospital stay Patient was on vancomycin, will discontinue vancomycin for now, repeat blood cultures 6. Leukocytosis, likely reactive, will trend 7. Hyponatremia, likely pseudohyponatremia from #1, resolving Trend BMP 8. Hypertension, blood pressures better controlled now, continue amlodipine and hydralazine as needed 9. Severe protein-calorie malnutrition, administrative officer consulted, on supplements 10. DVT PPx- Lovenox SC Charges/Coding Visit Charges Inpatient E&M: 12011 Subs Hosp L2
[2021-10-13 17:51] LABS: Bedside Glucose 388 mg/dL (70-110)
[2021-10-13] MEDS: Ondansetron 4 MG/2 ML Vial IV (22:27)
[2021-10-14] VITALS (11 sets, daily range): BP systolic 119–127; BP diastolic 69–86; PULSE 98–104; RESP 16–19; TEMP 36.6–36.8; O2SAT 92–98
[2021-10-14 00:56] LABS: Bedside Glucose 348 mg/dL (70-110)
[2021-10-14 06:57] LABS: Absolute Lymphocyte Count 1.87 X10^3/uL (0.83-4.51); Absolute Neutrophil Count 5.7 X10^3/uL (2.0-7.7); Basophil# 0.07 X10^3/uL; Basophil% 0.8 % (0-1); Eosinophil# 0.18 X10^3/uL; Eosinophils% 1.9 % (0-5); Hematocrit 37.1 % (37-47); Hemoglobin 12.3 g/dL (12.0-15.0); Lymphocyte # 1.87 X10^3/ul (0.83-4.51); Lymphocyte % 20.2 % (19-41); Mean Corp Hgb Conc 33.2 g/dL (32-36); Mean Corpuscular Hgb 25.5 pg (27.0-32.0); Mean Corpuscular Volume 76.8 fL (81-99); Mean Platelet Vol. 12.5 fl (6.2-12.0); Monocyte# 1.14 X10^3/uL; Monocyte% 12.3 % (0-10); NRBC Flagged by Analyzer 0 % (0-5); Neutrophil # 5.73 X10^3/uL (2.7-7.7); Neutrophil % 61.7 % (47-70); Platelet Count 179 K/mm3 (150-450); RBC Distribution Width CV 15.9 % (11.6-14.6); RBC Distribution Width SD 44.1 fl (35.1-43.9); Red Blood Count 4.83 M/mm3 (4.2-5.4); White Blood Count 9.3 K/mm3 (4.4-11.0)
[2021-10-14 07:17] LABS: ALB/GLOB Ratio 0.6 RATIO (0.9-2.4); AST(SGOT) 19 U/L (15-37); Alanine Aminotransfer ALT/SGPT 26 U/L (13-56); Albumin, Serum 2.5 g/dL (3.2-5.0); Alkaline Phosphatase 153 U/L (45-117); Anion Gap 8 (5-15); BUN 23 mg/dL (7-18); BUN/Creat Ratio 29.2 RATIO (10-20); Calcium,Total 8.6 mg/dL (8.5-10.1); Chloride 103 mmol/L (98-107); Creatinine, Serum 0.79 mg/dL (0.55-1.02); EST Glomerular Filtration Rate 81 mL/min (>60); Est Glom Filt Rate - Afr Amer 97 mL/min (>60); Estimated Creatinine Clearance 85.08 ml/min; Globulin 4.3 g/dL (2.2-4.2); Glucose 173 mg/dL (74-106); Potassium 3.5 mmol/L (3.5-5.1); Protein, Total 6.8 g/dL (6.4-8.2); Sodium Level 136 mmol/L (136-145)
[2021-10-14] MEDS: Insulin Lispro 100 UNIT/ML INSULN.PEN 15 UNIT SC ×3 (08:43→17:06)
[2021-10-14] MEDS: Insulin Lispro 100 UNIT/ML INSULN.PEN SC ×3 (08:50→17:06)
[2021-10-14] MEDS: Potassium Chloride Oral Tablet 20 MEQ 40 MEQ PO (10:37)
[2021-10-14] MEDS: 0.9% Saline Lock 10 ML Syringe IV (10:37)
[2021-10-14] MEDS: Escitalopram Oxalate 20 MG Tablet PO (10:37)
[2021-10-14] MEDS: amLODIPine 10 MG Tablet PO (10:37)
[2021-10-14] MEDS: Enoxaparin 30 MG/0.3 ML Syringe SC (11:01)
--- NOTE | 2021-10-14 11:12 | CASEMGMT ---
RN CM in to pt room. Pt sitting up in bed on RA. Provided pt with a rx for BGM. Pt states she is aware of how to use this. Discussed HHC with pt for SN and PT. Pt states right now she does not want anyone in her home as she does not want to give them COVID. Made her aware that healthcare providers would wear proper PPE. Pt still denies the need for this. She is aware to notify her physician if she should change her mind or once she is out of isolation. Pt states she had been having therapy at [facility] and may like to resume. She denies further needs at this time.
[2021-10-14 11:40] LABS: Bedside Glucose 166 mg/dL (70-110)
[2021-10-14 11:40] LABS: Bedside Glucose 410 mg/dL (70-110)
[2021-10-14 11:45] LABS: Bedside Glucose 382 mg/dL (70-110)
--- NOTE | 2021-10-14 14:44 | DS.PCM_ITS ---
Providers Date of Admission: 10/09/21 Primary Care Physician: Dr. Freddie Manzo MD Consultations 10/09/21 12:06 Consult: Denture Packer / Pulmonary Medicine Routine Consulting Provider: Pulmonary Medicine ara Qi Reason for Consult: DKA/COVID EMERGENT Consult: No MD Notified: Yes Date Notified: 10/09/21 Time Notified: 13:37 Method of Notification: Verbal Reason For Visit: DKA Diagnosis Discharge Diagnosis (1) COVID-19: Status: Acute Code(s): U07.1 - COVID-19 (2) DKA (diabetic ketoacidoses): Status: Acute Code(s): E11.10 - Type 2 diabetes mellitus with ketoacidosis without coma Qualifiers: Diabetes mellitus type: type 2 Diabetes mellitus complication detail: without coma Qualified Code(s): E11.10 - Type 2 diabetes mellitus with ketoacidosis without coma (3) JOSEPH (acute kidney injury): Status: Acute Code(s): N17.9 - Acute kidney failure, unspecified (4) Hypertension: Status: Chronic Code(s): I10 - Essential (primary) hypertension Qualifiers: Hypertension type: unspecified Qualified Code(s): I10 - Essential (primary) hypertension Medications at Discharge Home Medications escitalopram oxalate 20 mg PO DAILY #30 tab 05/06/20 lancets #1 box 05/06/20 pantoprazole 40 mg PO DAILY #30 tab 05/06/20 pen needle, diabetic #1 box 05/06/20 potassium chloride 40 meq PO BIDCM #120 tab 05/06/20 loperamide 2 mg PO Q4H PRN PRN #20 cap 07/12/20 oxybutynin chloride 10 mg tablet,extended release 24 hr 10 mg PO DAILY 07/24/20 cyclobenzaprine 10 mg PO Q8H PRN PRN #20 tab 07/29/20 ondansetron 4 mg PO Q8H PRN PRN #10 tab 07/29/20 glimepiride 2 mg tablet 2 mg PO DAILY #60 tab 10/25/20 metformin 1,000 mg tablet 1,000 mg PO DAILY #90 tab 07/25/21 amlodipine 10 mg PO DAILY #30 tab 10/14/21 insulin glargine 80 unit SUBCUT DAILY #15 ml 10/14/21 insulin lispro [Humalog KwikPen Insulin] 15 unit SUBCUT TIDCM #5 ml 10/14/21 Hospital Course Operations None Procedures None Summary of Care Provided Minutes Spent on Discharge: 40 Hospital Course: Patient is a 56-year-old female who was admitted through the ED on 10/09/2021 with a complaint of nausea and vomiting for 2 to 3 days prior to admission. EMS was called as she was also found to have slurred speech and altered mental status and she was also breathing very fast. She was also tachycardic and her blood sugar was 393. Chest x-ray showed no acute cardiopulmonary pathology and on admission she was found to have DKA with her bi carb being 2. A1c was 12.6. pH was 6.98. COVID test done was also positive. Patient was admitted and managed for acute DKA in the known type 2 diabetic and acute COVID-19 infection with acute hypoxic respiratory insufficiency. She was started on insulin drip and admitted to the ICU. She was started on IV Decadron as well. Her gap subsequently closed and she was transitioned to subcu insulin. Patient admitted to increased pop intake and that his sugars have been high since . Her Lantus was increased to 60 units daily. She was continued on her home glimepiride and metformin. Urine for Legionella and strep antigens were negative. She had one bottle of blood grow coagulase negative staph; repeat blood cultures were negative so antibiotics were discontinued. She remained stable and was discharged home on 10/14/2021; she is to follow up with her PCP in 1-2 weeks, and to remain in self isolation till 10/26/2021 to complete a 20 day course of isolation since symptoms started. Patient seen and examined prior to discharge. She felt well and had no complaints. Review systems otherwise negative. Labs and vitals reviewed. Home medication reviewed and reconciled. She had a walking pulse ox which showed that she did not qualify for home oxygen. Physical Exam Const alert, oriented x3 and no apparent distress General Appearance: cooperative and comfortable Orientation / Consciousness: awake Exam Limitations: no limitations HEENT normocephalic, head/scalp atraumatic, hearing grossly normal bilaterally and moist oral mucous membranes Eyes PERRL and EOMs intact bilaterally Neck no lymphadenopathy, supple and no JVD Resp normal respiratory effort, no retractions, no use of accessory muscles and clear to auscultation bilaterally Cardio regular rate, regular rhythm, S1 normal heart sound, S2 normal heart sound and no murmurs GI normal to inspection, nondistended, normoactive bowel sounds, soft to palpation, non-tender and non-distended Extremity normal to inspection, full ROM and no clubbing, cyanosis or edema Skin no rashes or lesions noted Neuro oriented x3, CN's II-XII intact bilaterally and moves all extremities Sensorium / Orientation: awake and alert Psych affect normal Medical Records Data Medical Nutrition Assessment Dietitian: Malnutrition Criteria Met Start: 10/09/21 14:51 Freq: Status: Active Protocol: Document 10/13/21 12:53 AG (Rec: 10/13/21 12:53 [id number]) Nutrition Malnutrition Evidence of Malnutrition Exists Yes Malnutrition (severe): Acute Illness/Injury Evidenced By Suboptimal Energy Intake ( Severe),Weight Loss (Severe) Clinical Problem Acute Disease or Injury Related Malnutrition Etiology severe, acute malnutrition r/t acute illness, nausea, emesis Signs/Symptoms as evidenced unintentional wt loss of 12#/5% x1 week, estimated PO intake meeting < 50% of estimated energy needs ~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 Recommendation Dietitian Recommendations/Changes continue 1800 calorie controlled, consistent CHO diet w/ 4oz glucerna ONS w/ meals for additional calories/ protein if consumed Weight / BMI Weight Weight: 230 lb Body Mass Index (BMI) 34.4 ABG / Lab / Microbiology Data Result Diagrams: 10/14/21 06:20 10/14/21 06:20 Laboratory: Laboratory Results - last 24 hr 10/13/21 17:09: POC Glucose 388 H 10/13/21 22:07: POC Glucose 348 H 10/14/21 06:20: WBC 9.3, RBC 4.83, Hgb 12.3, Hct 37.1, MCV 76.8 L, MCH 25.5 L, MCHC 33.2, RDW Std Deviation 44.1 H, RDW Coeff of Jevon 15.9 H, Plt Count 179, MPV 12.5 H, Immature Gran % (Auto) 3.100 H, Neut % (Auto) 61.7, Lymph % (Auto) 20.2, [place] % (Auto) 12.3 H, Eos % (Auto) 1.9, Baso % (Auto) 0.8, Absolute Neuts (auto) 5.7, Absolute Lymphs (auto) 1.87, Nucleated RBC % 0 10/14/21 06:20: Sodium 136, Potassium 3.5, Chloride 103, Carbon Dioxide 25.0, Anion Gap 8, BUN 23 H, Creatinine 0.79, Estim Creat Clear Calc 85.08, Est GFR (MDRD) Af Amer 97, Est GFR (MDRD) Non-Af 81, BUN/Creatinine Ratio 29.2 H, Glucose 173 H, Calcium 8.6, Total Bilirubin 0.40, AST 19, ALT 26, Alkaline Phosphatase 153 H, Total Protein 6.8, Albumin 2.5 L, Globulin 4.3 H, Albumin/Globulin Ratio 0.6 L 10/14/21 07:59: POC Glucose 166 H 10/14/21 11:35: POC Glucose 410 H 10/14/21 11:41: POC Glucose 382 H Microbiology: Microbiology 10/09/21 09:15 Blood Culture (Wb) - Anticubital Left Blood Culture - Final No growth in 5 days. 10/09/21 07:45 Blood Culture (Wb) - Femoral Artery Bacteria Detection (PCR) - Final Coag Negative Staph 10/09/21 07:45 Blood Culture (Wb) - Femoral Artery Blood Culture - Final Coag Negative Staph Coag Negative Staph#2 10/11/21 14:45 Blood Culture (Wb) - Venous Blood Culture - Preliminary No growth in 48 hours. 10/11/21 13:45 Blood Culture (Wb) - Anticubital Left Blood Culture - Preliminary No growth in 48 hours. 10/10/21 15:00 Urine Catheter - Grossman Legionella Antigen - Final 10/10/21 15:00 Urine Catheter - Grossman Streptococcus pneumoniae Antigen (M - Final 10/09/21 07:55 Nasal Secretion SARS-CoV-2 Antigen (Rapid) - Final SARS-CoV-2 (COVID 19) D/C Instructions Discharge Diet: 1800 Calorie Control Diet Weight Bearing Status: Weight bearing as tolerated Call your doctor if you observe: Fever of 101 or Higher, Shortness of breath, Dizziness, Swelling in the ankles and Increased palpitations (irregular heartbeat) Meaningful Use Info Meaningful Use Diagnoses (Choose all that apply): None applicable Discharge Plan Admission Admit Date/Time: 10/09/21 08:53 Primary Reason for Your Visit: DKA, COVID 19 infection Attending Provider: Caroline Wolff Primary Care Provider: Freddie Manzo Consulting Providers: Sergio Brown ; Robby Colvin ; Ruth Hahn MILLED RUBBER TENDER Instructions Patient Instructions: Coronavirus Disease 2019 (COVID-19): Overview, Coronavirus Disease 2019 (COVID-19): Caring for Yourself or Others, Ketoacidosis Ch Additional Instructions / Restrictions: remain in self isolation till 10/26/2021 to complete 20 day course of self isolation Discharge Orders/Prescriptions Prescriptions: New amlodipine 10 mg Tablet 10 mg PO DAILY Qty: 30 RF: 1 insulin lispro [Humalog KwikPen Insulin] 100 unit/mL Insulin Pen 15 unit subcut TIDCM Qty: 5 RF: 1 insulin glargine 100 unit/mL (3 mL) insulin pen 80 unit subcut DAILY Qty: 15 RF: 1 Continued oxybutynin chloride 10 mg tablet extended release 24hr 10 mg PO DAILY RF: 0 glimepiride 2 mg tablet 2 mg PO DAILY Qty: 60 RF: 5 potassium chloride 20 MEQ tablet 40 meq PO BIDCM Qty: 120 RF: 0 pantoprazole 40 MG tablet 40 mg PO DAILY Qty: 30 RF: 0 escitalopram oxalate 20 MG tablet 20 mg PO DAILY Qty: 30 RF: 0 (DME) pen needle, diabetic 1 EACH needle 1 ea MC BID Qty: 1 RF: 0 (DME) lancets 1 EACH misc 1 ea MC UD Qty: 1 RF: 0 loperamide 2 MG capsule 2 mg PO Q4H PRN PRN (Reason: Diarrhea) Qty: 20 RF: 0 cyclobenzaprine 10 MG tablet 10 mg PO Q8H PRN PRN (Reason: pain) Qty: 20 RF: 0 ondansetron 4 MG tablet 4 mg PO Q8H PRN PRN (Reason: Nausea) Qty: 10 RF: 0 metformin 1,000 mg tablet 1,000 mg PO DAILY Qty: 90 RF: 0 Referrals / Follow Up: Freddie Manzo MD [Primary Care Provider] - Within 2 Weeks Marlon Roth MD [STAFF PHYSICIAN] - Within 2 Weeks Disposition Disposition (needs filled in before D/C Order can be placed): Home, Self Care Charges/Coding Visit Charges Inpatient E&M: 98499 Disch Hosp
[2021-10-14 16:06] LABS: Bedside Glucose 289 mg/dL (70-110)
--- NOTE | 2021-11-07 14:49 | CASEMGMT ---
Voicemail message received from patient requesting home health aide assistance from her daughter who was recently hired as a private duty CLERK CHECKER. This RN CM returned pt's call and discussed pt's needs. Pt states she remains feeling weak and feels she isn't even 75% back to her baseline. Described options to patient including self-pay private duty CLERK CHECKER services or if she was in need of skilled services such as SN or PT/OT. Discussed difference between home health PT and outpt PT services and HH homebound requirements. Pt states she did see a provider at her PCP's office last week. Encouraged pt to contact her PCP's office to discuss home health vs outpt PT services. Pt states she is also interested in reapplying for waiver services and was familiar with [facility]. Pt states she will contact her PCP's office and [facility] for assistance. Mee Petersen RN CM
== END 2021-10-14 18:02 | disposition home or self-care (01) | DRG 137 ==
LOC: ED 08:53 → ICU 09:35 → MS3 10-10 18:55
PROVIDERS: Hospitalist; Admitting Provider Internal Medicine; Emergency Provider Emergency Medicine; PCP Family Medicine; Visit Provider Student in an Organized Health Care Education/Training Program
DX: U07.1 COVID-19 (principal); J12.82 Pneumonia due to coronavirus disease 2019; E11.10 Type 2 diabetes mellitus with ketoacidosis without coma; E43 Unspecified severe protein-calorie malnutrition; N17.9 Acute kidney failure, unspecified; E87.1 Hypo-osmolality and hyponatremia; E87.6 Hypokalemia; E87.4 Mixed disorder of acid-base balance; I10 Essential (primary) hypertension; K21.9 Gastro-esophageal reflux disease without esophagitis; E66.9 Obesity, unspecified; Z23 Encounter for immunization; Z79.899 Other long term (current) drug therapy; Z79.84 Long term (current) use of oral hypoglycemic drugs; Z68.34 Body mass index [BMI] 34.0-34.9, adult
CPT/HCPCS: 36415; 36600; 51702; 71045; 73630; 80048; 80053; 80202; 81001; 82009; 82803; 82947; 82962; 83036; 83605; 83735; 84443; 84484; 85025; 87040; 87077; 87149; 87426; 87449; 93005; 94667; 94668; 94762; 97110; 97116; 97162; 97166; 97530; 97535; 97802; 97803; 99285; J7030; J7040; J7050; 90686; A4216; J2405; J7799

== ENCOUNTER 2021-10-27 11:47 | Emergency (ER) | payer MEDICAID, SELFPAY ==
[2021-10-27 11:48] VITALS: BP 145/80; PULSE 124; RESP 16; TEMP 36.3; BMI 34.7
[2021-10-27 12:10] LABS: Bedside Glucose 151 mg/dL (70-110)
--- NOTE | 2021-10-27 12:16 | EDS_ITS ---
HPI History of Present Illness Chief Complaint: Abn Labs Informant: patient Narrative Narrative: Patient presents secondary to low blood sugar. She states that this morning she checked her blood sugar and it was low at 51. She was due to take her long-term Lantus dose at 8 AM but her insulin pen would not work. She ate a scoop of ice cream and Jell-O. She rechecked her blood sugar it was reading 31. After multiple phone calls to local pharmacies and the clinic she was told to just come to the emergency room. On arrival to the emergency room her blood sugar was reportedly 151. She is also on short-term insulin that she takes at 10 AM, 3 PM, and 7 PM. She has not taken this today. [facility] Medical History (Updated 10/27/21 @ 13:[address] Tiffany Luna MD) COVID-19 Diabetes GERD (gastroesophageal reflux disease) Hypertension Tachycardia Type 2 diabetes mellitus Home Medications escitalopram oxalate 20 mg PO DAILY #30 tab 05/06/20 [Rx Last Taken Unknown] lancets #1 box 05/06/20 [Rx Last Taken Unknown] pantoprazole 40 mg PO DAILY #30 tab 05/06/20 [Rx Last Taken Unknown] pen needle, diabetic #1 box 05/06/20 [Rx Last Taken Unknown] potassium chloride 40 meq PO BIDCM #120 tab 05/06/20 [Rx Last Taken Unknown] loperamide 2 mg PO Q4H PRN PRN #20 cap 07/12/20 [Rx Last Taken Unknown] oxybutynin chloride 10 mg tablet,extended release 24 hr 10 mg PO DAILY 07/24/20 [History Last Taken Unknown] cyclobenzaprine 10 mg PO Q8H PRN PRN #20 tab 07/29/20 [Rx Last Taken Unknown] ondansetron 4 mg PO Q8H PRN PRN #10 tab 07/29/20 [Rx Last Taken Unknown] glimepiride 2 mg tablet 2 mg PO DAILY #60 tab 10/25/20 [Rx Last Taken Unknown] metformin 1,000 mg tablet 1,000 mg PO DAILY #90 tab 07/25/21 [Rx Last Taken Unknown] amlodipine 10 mg PO DAILY #30 tab 10/14/21 [Rx Last Taken Unknown] insulin glargine 80 unit SUBCUT DAILY #15 ml 10/14/21 [Rx Last Taken Unknown] insulin lispro [Humalog KwikPen Insulin] 15 unit SUBCUT TIDCM #5 ml 10/14/21 [Rx Last Taken Unknown] insulin glargine-yfgn 80 unit SUBCUT DAILY #15 ml 10/27/21 [Rx Last Taken Unknown] Allergy/AdvReac Type Severity Reaction Status Date / Time No Known Allergies Allergy Verified 10/27/21 11:50 Family History Other Diabetes Social History Smoking Status: Never smoker alcohol intake: never substance use type: does not use ROS ROS ED Constitutional Constitutional ED: Denies chills or fever(s) Eyes Eyes: Denies change in vision ENT ENT ED: Denies sore throat Cardiovascular Cardiovascular: Denies chest pain Respiratory/Chest Respiratory/Chest: Denies cough or dyspnea Gastrointestinal Gastrointestinal: Denies abdominal pain, diarrhea, nausea or vomiting Genitourinary Genitourinary ED: Denies dysuria Musculoskeletal Musculoskeletal: Denies back pain Integumentary Denies rash Neurologic Neurologic: Denies headache(s) or weakness Allergic/Immunologic Allergic/Immunologic ED: Denies urticaria EXAM Physical Exam Const Vital Signs: 10/27/21 11:48 10/27/21 12:07 Temperature 97.3 F L Temperature Source Temporal Pulse Rate 124 H Respiratory Rate 16 Respiratory Effort Normal Non-Labored Blood Pressure 145/80 H Blood Pressure Mean 101 Positive well nourished and well developed General Appearance ED: well developed HEENT Reports moist mucous membranes Eyes PERRL and EOMs intact bilaterally Neck supple Chest Wall inspection of chest normal and palpation of chest normal Resp normal respiratory effort Cardio Rate: tachycardic GI non-tender Auscultation: hypoactive bowel sounds Palpation: soft Extremity normal to inspection Neuro oriented x3 Sensorium / Orientation: alert Psych mental status grossly normal Skin no rashes or lesions noted MDM MDM MDM Narrative Medical decision making narrative: BMP obtained. Blood sugar on arrival was 151. Lab Data Labs: Laboratory Results - last 24 hr 10/27/21 10/27/21 12:02 12:28 Sodium 139 Potassium 3.7 Chloride 104 Carbon Dioxide 28.0 Anion Gap 7 BUN 13 Creatinine 0.76 Estim Creat Clear Calc 88.44 Est GFR (MDRD) Af Amer 103 Est GFR (MDRD) Non-Af 85 BUN/Creatinine Ratio 17.2 Glucose 131 H Calcium 8.7 POC Glucose 151 H Treatment and Re-Evaluation Comments:: BMP unremarkable with a blood sugar of 131. Patient will be given a new prescription for her Lantus pens. Discharge Plan Triage Chief Complaint: Abn Labs ED Provider: Tiffany Luna Dx/Rx/DC Orders Clinical Impression: Hypoglycemia Instructions: Hypoglycemia (Low Blood Sugar) Prescriptions: New insulin glargine-yfgn 100 unit/mL (3 mL) insulin pen 80 unit subcut DAILY Qty: 15 RF: 0 No Action oxybutynin chloride 10 mg tablet extended release 24hr 10 mg PO DAILY RF: 0 glimepiride 2 mg tablet 2 mg PO DAILY Qty: 60 RF: 5 potassium chloride 20 MEQ tablet 40 meq PO BIDCM Qty: 120 RF: 0 pantoprazole 40 MG tablet 40 mg PO DAILY Qty: 30 RF: 0 escitalopram oxalate 20 MG tablet 20 mg PO DAILY Qty: 30 RF: 0 (DME) pen needle, diabetic 1 EACH needle 1 ea MC BID Qty: 1 RF: 0 (DME) lancets 1 EACH misc 1 ea MC UD Qty: 1 RF: 0 loperamide 2 MG capsule 2 mg PO Q4H PRN PRN (Reason: Diarrhea) Qty: 20 RF: 0 cyclobenzaprine 10 MG tablet 10 mg PO Q8H PRN PRN (Reason: pain) Qty: 20 RF: 0 ondansetron 4 MG tablet 4 mg PO Q8H PRN PRN (Reason: Nausea) Qty: 10 RF: 0 amlodipine 10 mg Tablet 10 mg PO DAILY Qty: 30 RF: 1 insulin lispro [Humalog KwikPen Insulin] 100 unit/mL Insulin Pen 15 unit subcut TIDCM Qty: 5 RF: 1 insulin glargine 100 unit/mL (3 mL) insulin pen 80 unit subcut DAILY Qty: 15 RF: 1 metformin 1,000 mg tablet 1,000 mg PO DAILY Qty: 90 RF: 0 Primary Care Provider: Freddie Manzo Referrals: Freddie Manzo MD [Primary Care Provider] - 1-2 Weeks Disposition Disposition: Home, Self Care
[2021-10-27 12:46] LABS: Anion Gap 7 (5-15); BUN 13 mg/dL (7-18); BUN/Creat Ratio 17.2 RATIO (10-20); Calcium,Total 8.7 mg/dL (8.5-10.1); Chloride 104 mmol/L (98-107); Creatinine, Serum 0.76 mg/dL (0.55-1.02); EST Glomerular Filtration Rate 85 mL/min (>60); Est Glom Filt Rate - Afr Amer 103 mL/min (>60); Estimated Creatinine Clearance 88.44 ml/min; Glucose 131 mg/dL (74-106); Potassium 3.7 mmol/L (3.5-5.1); Sodium Level 139 mmol/L (136-145)
[2021-10-27 13:39] VITALS: RESP 18
== END 2021-10-27 13:39 | disposition home or self-care (01) ==
PROVIDERS: Emergency Provider Emergency Medicine; PCP Family Medicine; Visit Provider Emergency Medicine
DX: E11.649 Type 2 diabetes mellitus with hypoglycemia without coma (principal); Z79.4 Long term (current) use of insulin
CPT/HCPCS: 80048; 82962; 99283; A4216

== ENCOUNTER 2023-10-08 17:09 | Emergency (ER) | payer MEDICAID, SELFPAY ==
[2023-10-08 17:10] VITALS: BP 117/89; PULSE 76; RESP 18; TEMP 36.1; O2SAT 99; BMI 34.2
--- NOTE | 2023-10-08 18:02 | EDS_ITS ---
HPI History of Present Illness Chief Complaint: Dental Informant: patient Narrative Narrative: Patient complains of some left-sided facial pain. She states she broke off part of a tooth about 5 or 6 days ago. Now the last day she has got some redness and slight swelling of her left cheek. She has diabetes but states is well-controlled. She has no nausea vomiting fevers chills or trouble swallowing. [facility] Medical History (Updated 10/08/23 @ 18:[address] Dom Burciaga MD) COVID-19 Diabetes GERD (gastroesophageal reflux disease) Hypertension Tachycardia Type 2 diabetes mellitus Home Medications escitalopram oxalate 20 mg tablet 20 mg PO DAILY #30 tabs 05/06/20 [Rx Last Taken Unknown] lancets ##1 05/06/20 [Rx Last Taken Unknown] pantoprazole 40 mg tablet,delayed release 40 mg PO DAILY #30 tabs 05/06/20 [Rx Last Taken Unknown] pen needle, diabetic 32 gauge x 5/32 ##1 05/06/20 [Rx Last Taken Unknown] potassium chloride 20 mEq tablet,extended release(part/cryst) 40 meq (2 x 20 mEq) PO BIDCM #120 tabs 05/06/20 [Rx Last Taken Unknown] loperamide 2 mg capsule 2 mg PO Q4H PRN PRN Diarrhea #20 caps 07/12/20 [Rx Last Taken Unknown] oxybutynin chloride 10 mg tablet,extended release 24 hr 10 mg PO DAILY 07/24/20 [History Last Taken Unknown] cyclobenzaprine 10 mg tablet 10 mg PO Q8H PRN PRN pain #20 tabs 07/29/20 [Rx Last Taken Unknown] ondansetron 4 mg disintegrating tablet 4 mg PO Q8H PRN PRN Nausea #10 tabs 07/29/20 [Rx Last Taken Unknown] glimepiride 2 mg tablet 2 mg PO DAILY #60 tabs 10/25/20 [Rx Last Taken Unknown] metformin 1,000 mg tablet 1,000 mg PO DAILY #90 tabs 07/25/21 [Rx Last Taken Unknown] amlodipine 10 mg tablet 10 mg PO DAILY #30 tabs 10/14/21 [Rx Last Taken Unknown] insulin glargine 100 unit/mL (3 mL) subcutaneous pen 80 unit (0.8 mL) subcut DAILY #15 mL 10/14/21 [Rx Last Taken Unknown] insulin lispro 100 unit/mL subcutaneous pen (Humalog KwikPen (U-100) Insulin) 15 unit (0.15 mL) subcut TIDCM #5 mL 10/14/21 [Rx Last Taken Unknown] insulin glargine-yfgn 100 unit/mL (3 mL) subcutaneous pen 80 unit (0.8 mL) subcut DAILY #15 mL 10/27/21 [Rx Last Taken Unknown] penicillin V potassium 500 mg tablet 500 mg PO 4X/DAY #40 tabs 10/08/23 [Rx Last Taken Unknown] Allergy/AdvReac Type Severity Reaction Status Date / Time No Known Allergies Allergy Verified 10/08/23 17:10 Family History Other Diabetes Social History household members: children Smoking Status: Never smoker alcohol intake: never substance use type: does not use ROS ROS ED Constitutional Constitutional ED: Denies chills, fever(s) or subjective Eyes Eyes: Denies change in vision ENT ENT ED: Reports other Details: See history of present illness Cardiovascular Cardiovascular: Denies chest pain Respiratory/Chest Respiratory/Chest: Denies cough Gastrointestinal Gastrointestinal: Denies nausea or vomiting Musculoskeletal Musculoskeletal: Denies neck pain Integumentary Denies rash Hematologic/Lymphatic Hematologic/Lymphatic: Denies easy bleeding or easy bruising Allergic/Immunologic Allergic/Immunologic ED: Denies urticaria EXAM Physical Exam Narrative Exam Narrative: General: Patient sitting in bed no acute distress carries on normal conversation. HEENT: There is some slight swelling of her left cheek. No sinus tenderness though. Ear looks normal. Oropharynx does show some poor dentition with broken teeth. There is some tenderness both on the upper and lower jaw. But I think it is her upper premolar on the left that is causing the problem. No drainable abscess. Voice is normal. Floor of the mouth is normal. No sign of Regis's. She has excellent opening and closing without difficulty. Neck shows no lymphadenopathy. Heart is regular. Lungs are clear bilaterally and saturations are normal 99% on room air. Const Vital Signs: 10/08/23 17:10 Temperature 96.9 F L Temperature Source Temporal Pulse Rate 76 Respiratory Rate 18 Blood Pressure 117/89 H Blood Pressure Mean 98 Pulse Ox 99 Oxygen Delivery Method Room Air MDM MDM MDM Narrative Medical decision making narrative: Patient will be treated with antibiotics. Encouraged follow-up with dental provider. She will be given a resource sheet for options. Return if she has further swelling, pain, fevers, trouble swallowing breathing or other concerns Discharge Plan Triage Chief Complaint: Dental ED Provider: Dom Burciaga Dx/Rx/DC Orders Clinical Impression: Dental infection, Fracture of tooth Instructions: ED Dental Abscess Prescriptions: New penicillin V potassium 500 mg tablet 500 mg PO 4X/DAY Qty: 40 0RF No Action oxybutynin chloride 10 mg tablet extended release 24hr 10 mg PO DAILY glimepiride 2 mg tablet 2 mg PO DAILY Qty: 60 5RF potassium chloride 20 MEQ tablet 40 meq PO BIDCM Qty: 120 0RF pantoprazole 40 MG tablet 40 mg PO DAILY Qty: 30 0RF escitalopram oxalate 20 MG tablet 20 mg PO DAILY Qty: 30 0RF (DME) pen needle, diabetic 1 EACH needle 1 ea MC BID Qty: 1 0RF (DME) lancets 1 EACH misc 1 ea MC UD Qty: 1 0RF Rx Instructions: USE B,I,D AND PRN TO CHECK BLOOD SUGAR loperamide 2 MG capsule 2 mg PO Q4H PRN PRN (Reason: Diarrhea) Qty: 20 0RF cyclobenzaprine 10 MG tablet 10 mg PO Q8H PRN PRN (Reason: pain) Qty: 20 0RF ondansetron 4 MG tablet 4 mg PO Q8H PRN PRN (Reason: Nausea) Qty: 10 0RF amlodipine 10 mg Tablet 10 mg PO DAILY Qty: 30 1RF insulin lispro [Humalog KwikPen Insulin] 100 unit/mL Insulin Pen 15 unit subcut TIDCM Qty: 5 1RF insulin glargine 100 unit/mL (3 mL) insulin pen 80 unit subcut DAILY Qty: 15 1RF insulin glargine-yfgn 100 unit/mL (3 mL) insulin pen 80 unit subcut DAILY Qty: 15 0RF metformin 1,000 mg tablet 1,000 mg PO DAILY Qty: 90 0RF Primary Care Provider: Freddie Manzo Referrals: Freddie Manzo MD [Primary Care Provider] - Activity Restrictions/Additional Instructions: See dentist to soon as possible. You can follow-up with your dentist or see res ource sheet that is provided. Disposition Disposition: Home, Self Care
== END 2023-10-08 18:12 | disposition home or self-care (01) ==
PROVIDERS: Emergency Provider Emergency Medicine; PCP Family Medicine; Visit Provider Emergency Medicine
DX: K04.7 Periapical abscess without sinus (principal); E11.9 Type 2 diabetes mellitus without complications; Z79.4 Long term (current) use of insulin; S02.5XXA Fracture of tooth (traumatic), initial encounter for closed fracture; I10 Essential (primary) hypertension; Z79.84 Long term (current) use of oral hypoglycemic drugs; Z79.899 Other long term (current) drug therapy
CPT/HCPCS: 99282

== ENCOUNTER 2023-12-13 09:15 | Emergency (ER) | payer MEDICAID, SELFPAY ==
[2023-12-13 09:16] VITALS: BP 132/89; PULSE 89; RESP 16; TEMP 36.2; O2SAT 97; BMI 34.9
--- OUTSIDE RECORDS SUMMARY | 2023-12-13 09:43 | XMS RPT_ITS | CCD ---
Author Name Unknown Address [address] [facility] [address] [place] [address] Organization [facility] Care Team Providers Care Cereal Chemist Name Role Phone Freddie Luis MD Primary Care Provider [phone] TOBY FREDDIE A Primary Care Unavailable MICHAEL THORNTON Attending Unavailable FLOYD, VANDANA Referring Unavailable JU VINES Attending Unavailable TOBY, FREDDIE A Primary Care Unavailable BARRIENTOS, VANDANA Referring Unavailable TOBY, FREDDIE A Primary Care Unavailable HIWOT BARRIENTOSE Attending Unavailable TOBY, FREDDIE A Primary Care Unavailable BERNIE HORTA Attending Unavailable LISHA BRANDON Referring Unavailable LISHA BRANDON Attending Unavailable TOBY, FREDDIE A Primary Care Unavailable TOBY, FREDDIE A Primary Care Unavailable FLOYD, VANDANA Referring Unavailable MICHAEL THORNTON Attending Unavailable TOBY, FREDDIE A Primary Care Unavailable FLOYD VANDANA Referring Unavailable MICHAEL THORNTON Attending Unavailable FLOYD, VANDANA Referring Unavailable TOBY, FREDDIE A Primary Care Unavailable MICHAEL THORNTON Attending Unavailable FLOYD, VANDANA Referring Unavailable TOBY, FREDDIE A Primary Care Unavailable JAYLAN TEMPLETON Referring Unavailable JAYLAN TEMPLETON Attending Unavailable TOBY, FREDDIE A Primary Care Unavailable TOBY, FREDDIE A Primary Care Unavailable TOBY, FREDDIE A Referring Unavailable TOBY, FREDDIE A Primary Care Unavailable BARRIENTOS, VANDANA Referring Unavailable BARRIENTOS, VANDANA Referring Unavailable TOBY, FREDDIE A Primary Care Unavailable TOBY, FREDDIE A Primary Care Unavailable TED TAO Attending Unavailable YURY MENARD Attending Unavailable TOBY, FERDDIE A Primary Care Unavailable TOBY, FREDDIE A Primary Care Unavailable BERNIE HORTA Attending Unavailable TBOY, FREDDIE A Primary Care Unavailable BARRIENTOS, VANDANA Referring Unavailable TOBY, FREDDIE A Primary Care Unavailable SELF Referring Unavailable VANDANA BARRIENTOS Attending Unavailable ALEXANDRO ALDRICH Attending Unavailable FREDDIE LUIS Primary Care Unavailable TED TAO Attending Unavailable FREDDIE LUIS Primary Care Unavailable TED TAO Referring Unavailable FREDDIE LUIS Primary Care Unavailable VANDANA BARRIENTOS Referring Unavailable FREDDIE LUIS Primary Care Unavailable FREDDIE LUIS Attending Unavailable FREDDIE LUIS Primary Care Unavailable VANDANA BARRIENTOS Attending Unavailable Allergies Allergy Classification Reported Allergen(s) Allergy Type Date of Onset Reaction(s) Facility (1 source) Seasonal allergy; Translations: [SEASONAL ALLERGIES] Propensity to adverse reactions (disorder) 7 [facility] Repository Medications Current Medications Medication Drug Class(es) Dates Sig (Normalized) Sig (Original) Blood-Glucose Meter monitoring kit (1 source) Start: 12-31-2021 End: 01-01-2022 Blood-Glucose Meter monitoring kit Glucose Meter of Choice - Kit - Dx: Type 2 DM - Uncontrolled E11.65 1 Each 0 12/31/2021 01/01/2022 Active Completed/Discontinued Medications Medication Drug Class(es) Dates Sig (Normalized) Sig (Original) amitriptyline hydrochloride 10 mg oral tablet (20 sources) Tricyclic Antidepressant Start: 04-10-2023 take 4 tablets by mouth once daily at bedtime amitriptyline (ELAVIL) 10 mg tablet Take 4 tablets by mouth daily at bedtime. Per [facility], Neurology 0 04/10/2023 Active Problems Active Problems Problem Classification Problem Date Documented Date Episodic/Chronic Acquired foot deformities (20 sources) Acquired hallux valgus; Translations: [Hallux valgus (acquired), unspecified foot] Onset: 02-17-2007 Chronic Acquired foot deformities (6 sources) Talipes planus; Translations: [Flat foot [pes planus] (acquired), right foot] Episodic Biliary tract disease (1 source) Gallstone; Translations: [Calculus of gallbladder without cholecystitis without obstruction] 11-26-2023 Episodic Diabetes mellitus with complications (20 sources) Ulcer of midfoot due to diabetes mellitus; Translations: [Type 2 diabetes mellitus with foot ulcer] Onset: 07-06-2020 Chronic Diabetes mellitus without complication (1 source) Diabetes mellitus type 2 without retinopathy; Translations: [Type 2 diabetes mellitus without complications] Chronic Disorders of lipid metabolism (20 sources) Mixed hyperlipidemia; Translations: [Mixed hyperlipidemia] Onset: 05-14-2022 05-14-2022 Chronic Esophageal disorders (20 sources) Gastroesophageal reflux disease without esophagitis; Translations: [Gastro-esophageal reflux disease without esophagitis] Onset: 06-03-2019 05-14-2020 Chronic Essential hypertension (20 sources) Essential hypertension; Translations: [Essential (primary) hypertension] Onset: 11-13-2021 11-13-2021 Chronic Headache; including migraine (20 sources) Refractory migraine without aura; Translations: [Migraine without aura, intractable, without status migrainosus] Onset: 10-14-2017 02-03-2021 Chronic Miscellaneous mental health disorders (20 sources) Chronic insomnia; Translations: [Psychophysiologic insomnia] Onset: 12-05-2019 02-03-2021 Chronic Mood disorders (20 sources) Recurrent major depression in remission; Translations: [Major depressive disorder, recurrent, in remission, unspecified] Onset: 06-02-2018 11-13-2021 Chronic Mycoses (6 sources) Onychomycosis; Translations: [Tinea unguium] Episodic Other connective tissue disease (1 source) Ganglion cyst; Translations: [Ganglion, unspecified site] Episodic Other connective tissue disease (2 sources) Dysfunction of posterior tibial tendon; Translations: [Posterior tibial tendinitis, unspecified leg] Episodic Other connective tissue disease (6 sources) Pain of toe of right foot; Translations: [Pain in right toe(s)] Episodic Other connective tissue disease (6 sources) Pain of toe of left foot; Translations: [Pain in left toe(s)] Episodic Other connective tissue disease (3 sources) Neuropathic pain; Translations: [Neuralgia and neuritis, unspecified] Episodic Other connective tissue disease (20 sources) Lateral epicondylitis of right humerus; Translations: [Lateral epicondylitis, right elbow] Onset: 11-05-2023 11-05-2023 Episodic Other connective tissue disease (1 source) Lateral epicondylitis, right elbow; Translations: [Lateral epicondylitis of right elbow] Onset: 11-05-2023 Episodic Other diseases of bladder and urethra (20 sources) Overactive bladder; Translations: [Overactive bladder] Onset: 2016 12-02-2018 Chronic Other endocrine disorders (20 sources) Hypoglycemia; Translations: [Hypoglycemia, unspecified] Onset: 10-09-2022 Chronic Other endocrine disorders (1 source) Hypoglycemia, unspecified; Translations: [Hypoglycemia] Onset: 10-09-2022 Chronic Other eye disorders (1 source) Tear film insufficiency; Translations: [Dry eye syndrome of bilateral lacrimal glands] Episodic Other injuries and conditions due to external causes (1 source) At risk for falls ; Translations: [History of falling] Episodic Other nutritional; endocrine; and metabolic disorders (20 sources) Severe obesity; Translations: [Morbid (severe) obesity due to excess calories] Onset: 11-14-2021 11-14-2021 Chronic Other nutritional; endocrine; and metabolic disorders (4 sources) Obesity; Translations: [Obesity, unspecified] Onset: 08-21-2022 Chronic Other nutritional; endocrine; and metabolic disorders (20 sources) Obese class I; Translations: [Obesity, unspecified] Onset: 10-09-2022 10-09-2022 Chronic Other nutritional; endocrine; and metabolic disorders (1 source) Obesity, unspecified; Translations: [Obesity, Class I, BMI 30-34.9] Onset: 10-09-2022 Chronic Other nutritional; endocrine; and metabolic disorders (2 sources) Overweight; Translations: [Overweight] Episodic Other skin disorders (1 source) Sebaceous cyst of skin; Translations: [Sebaceous cyst] 12-08-2023 Episodic Other skin disorders (1 source) Epidermoid cyst of skin; Translations: [Epidermal cyst] 12-11-2023 Episodic Other upper respiratory disease (20 sources) Allergic rhinitis due to pollen; Translations: [Allergic rhinitis due to pollen] Onset: 07-14-2017 01-12-2018 Chronic Other upper respiratory disease (20 sources) Chronic rhinitis; Translations: [Chronic rhinitis] Onset: 01-12-2018 12-02-2018 Chronic Residual codes; unclassified (1 source) At risk of transfer injury; Translations: [Other specified personal risk factors, not elsewhere classified] Episodic Spondylosis; intervertebral disc disorders; other back problems (8 sources) Arthritis of facet joint of lumbar spine; Translations: [Spondylosis without myelopathy or radiculopathy, lumbar region] Chronic Past or Other Problems Problem Classification Problem Date Documented Date Episodic/Chronic Malaise and fatigue (20 sources) Asthenia; Translations: [Other malaise] Onset: 07-27-2020 11-13-2021 Episodic Other aftercare (20 sources) Patient encounter status; Translations: [Other watermelon inspector (current) drug therapy] Onset: 05-26-2017 05-08-2021 Episodic Other aftercare (1 source) Other watermelon inspector (current) drug therapy; Translations: [Medication management] Onset: 05-08-2021 Episodic Other connective tissue disease (20 sources) Heel pain; Translations: [Pain in right foot] Onset: 12-02-2018 05-08-2021 Episodic Other connective tissue disease (20 sources) Metatarsalgia of left foot; Translations: [Metatarsalgia, left foot] Onset: 12-02-2018 05-08-2021 Episodic Other liver diseases (20 sources) Alkaline phosphatase raised; Translations: [Abnormal levels of other serum enzymes] Onset: 05-14-2022 Episodic Other liver diseases (1 source) Abnormal levels of other serum enzymes; Translations: [Elevated alkaline phosphatase level] Onset: 05-15-2022 Episodic Other screening for suspected conditions (not mental disorders or infectious disease) (1 source) Encounter for screening mammogram for malignant neoplasm of breast; Translations: [Encounter for screening mammogram for breast cancer] Onset: 12-17-2017 Episodic Spondylosis; intervertebral disc disorders; other back problems (20 sources) Lumbago with sciatica; Translations: [Lumbago with sciatica, unspecified side] Onset: 07-27-2020 05-08-2021 Episodic Results Test Name Value Interpretation Reference Range Facil ity Vital Signs Date Time Vital Sign Value Performing Clinician Soledad olivarez 12-08-2023 08:53-0500 Body temperature 97.59 [degF] Vandana Barrientos PA-C Work Phone: [facility] 12-08-2023 08:53-0500 Body weight 107.96 kg Vandana Barrientos PA-C Work Phone: [facility] 12-08-2023 08:53-0500 Diastolic blood pressure 86 mm[Hg] Vandana Barrientos PA-C Work Phone: [facility] 12-08-2023 08:53-0500 Heart rate 90 /min Vandana Barrientos PA-C Work Phone: [facility] 12-08-2023 08:53-0500 Respiratory rate 18 /min Vandana Barrientos PA-C Work Phone: [facility] 12-08-2023 08:53-0500 Systolic blood pressure 118 mm[Hg] Vandana Barrientos PA-C Work Phone: [facility] 06-18-2023 15:30-0400 Body height 175 cm [facility] [employer] CHIP TERRAZZO WORKER.OXYACETYLENE TORCH OPERATOR Work Phone: [facility] 06-18-2023 15:30-0400 Body weight 102.97 kg [facility] [employer] CH[employer] TERRAZZO WORKER.OXYACETYLENE TORCH OPERATOR Work Phone: [facility] 06-18-2023 15:30-0400 Diastolic blood pressure 82 mm[Hg] [facility] [employer] CHIP TERRAZZO WORKER.OXYACETYLENE TORCH OPERATOR Work Phone: [facility] 06-18-2023 15:30-0400 Heart rate 90 /min [facility] [employer] CHIP TERRAZZO WORKER.OXYACETYLENE TORCH OPERATOR Work Phone: [facility] 06-18-2023 15:30-0400 Respiratory rate 16 /min [facility] [employer] CH[employer] TERRAZZO WORKER.OXYACETYLENE TORCH OPERATOR Work Phone: [facility] 06-18-2023 15:30-0400 SaO2% (BldA) [Mass fraction] 99 % [facility] [employer] CH[employer] TERRAZZO WORKER.OXYACETYLENE TORCH OPERATOR Work Phone: [facility] 06-18-2023 15:30-0400 Systolic blood pressure 124 mm[Hg] [facility] [employer] CH[employer] TERRAZZO WORKER.OXYACETYLENE TORCH OPERATOR Work Phone: [facility] 02-24-2023 09:06-0400 Body height 175 cm Vandana SIMMONS-C Work Phone: [facility] 02-24-2023 09:06-0400 Body temperature 97.7 [degF] Vandana Barrientos PA-C Work Phone: [facility] 02-24-2023 09:06-0400 Body weight 101.61 kg Vandana SIMMONS-C Work Phone: [facility] 02-24-2023 09:06-0400 Diastolic blood pressure 68 mm[Hg] Vandana Barrientos PA-C Work Phone: [facility] 02-24-2023 09:06-0400 Heart rate 70 /min Vandana Barrientos PA-C Work Phone: [facility] 02-24-2023 09:06-0400 Respiratory rate 16 /min Vandana Barrientos PA-C Work Phone: [facility] 02-24-2023 09:06-0400 Systolic blood pressure 102 mm[Hg] Vandana Barrientos PA-C Work Phone: [facility] 02-02-2023 08:53-0400 Body height 176.5 cm Bernie Horta [facility] 02-02-2023 08:53-0400 Body weight 92.08 kg Bernielaurent Horta [facility] 12-01-2022 10:53-0500 Body height 176.5 cm Bernie Horta [facility] 12-01-2022 10:53-0500 Body weight 92.08 kg Bernie Horta [facility] 11-03-2022 11:03-0500 Body height 176.5 cm Benrie Horta [facility] 11-03-2022 11:03-0500 Body weight 101.15 kg Bernie Horta [facility] 08-21-2022 11:02-0500 Body height 176.5 cm Yury Kupiec [employer]X CH[employer] TERRAZZO WORKER.OXYACETYLENE TORCH OPERATOR Work Phone: [facility] 08-21-2022 11:02-0500 Body weight 108.68 kg Yury Kupiec [employer]YX CHIP TERRAZZO WORKER.OXYACETYLENE TORCH OPERATOR Work Phone: [facility] 08-21-2022 11:02-0500 Diastolic blood pressure 76 mm[Hg] Yury Kupiec [employer] CH[employer] TERRAZZO WORKER.OXYACETYLENE TORCH OPERATOR Work Phone: [facility] 08-21-2022 11:02-0500 Heart rate 91 /min Yury Kupiec [employer] CH[employer] TERRAZZO WORKER.OXYACETYLENE TORCH OPERATOR Work Phone: [facility] 08-21-2022 11:02-0500 Respiratory rate 18 /min Yury Kupjoya [employer] CHIP TERRAZZO WORKER.OXYACETYLENE TORCH OPERATOR Work Phone: [facility] 08-21-2022 11:02-0500 SaO2% (BldA) [Mass fraction] 96 % [facility] [employer] CHIP TERRAZZO WORKER.OXYACETYLENE TORCH OPERATOR Work Phone: [facility] 08-21-2022 11:02-0500 Systolic blood pressure 128 mm[Hg] [facility] [employer] CHIP TERRAZZO WORKER.OXYACETYLENE TORCH OPERATOR Work Phone: [facility] 07-14-2022 13:47-0400 Body height 175.[address] [facility] 07-14-2022 13:47-0400 Body weight 111.[address] [facility] 07-09-2022 09:56-0400 Body height 175.3 cm Lisha Brandon [employer]YX CH[employer] TERRAZZO WORKER.OXYACETYLENE TORCH OPERATOR Work Phone: [facility] 07-09-2022 09:56-0400 Body weight 111.58 kg Lisha Brandon [employer]X CHIP TERRAZZO WORKER.OXYACETYLENE TORCH OPERATOR Work Phone: [facility] 07-09-2022 09:56-0400 Heart rate 89 /min Lisha Brandon [employer]YX CH[employer] TERRAZZO WORKER.OXYACETYLENE TORCH OPERATOR Work Phone: [facility] 07-09-2022 09:56-0400 SaO2% (BldA) [Mass fraction] 97 % Lisha Brandon [employer] CH[employer] TERRAZZO WORKER.OXYACETYLENE TORCH OPERATOR Work Phone: [facility] 06-11-2022 10:59-0400 Diastolic blood pressure 76 mm[Hg] Mi Nurse Work Phone: [facility] 06-11-2022 10:59-0400 Heart rate 92 /min Mi Nurse Work Phone: [facility] 06-11-2022 10:59-0400 Systolic blood pressure 107 mm[Hg] Mi Nurse Work Phone: [facility] 05-22-2022 10:56-0400 Body weight 111.22 kg Lucretia Hoyos MD Work Phone: [facility] 05-22-2022 10:56-0400 Diastolic blood pressure 89 mm[Hg] Lucretia Hoyos MD Work Phone: [facility] 05-22-2022 10:56-0400 Heart rate 94 /min Lucretia Hoyos MD Work Phone: [facility] 05-22-2022 10:56-0400 SaO2% (BldA) [Mass fraction] 98 % Lucretia Hoyos MD Work Phone: [facility] 05-22-2022 10:56-0400 Systolic blood pressure 127 mm[Hg] Lucretia Hoyos MD Work Phone: [facility] 03-17-2022 15:00-0400 Body height 175.3 cm Bernie Horta [facility] 03-17-2022 15:00-0400 Body weight 110.45 kg Bernie Horta [facility] 02-18-2022 08:56-0400 Body height 175.3 cm Lucretia Hoyos MD Work Phone: [facility] 02-18-2022 08:56-0400 Body weight 108.86 kg Lucretia Hoyos MD Work Phone: [facility] 02-18-2022 08:56-0400 Diastolic blood pressure 79 mm[Hg] Lucretia Hoyos MD Work Phone: [facility] 02-18-2022 08:56-0400 Heart rate 111 /min Lucretia Hoyos MD Work Phone: [facility] 02-18-2022 08:56-0400 Respiratory rate 16 /min Lucretia Hoyos MD Work Phone: [facility] 02-18-2022 08:56-0400 SaO2% (BldA) [Mass fraction] 100 % Lucretia Hoyos MD Work Phone: [facility] 02-18-2022 08:56-0400 Systolic blood pressure 113 mm[Hg] Lucretia Hoyos MD Work Phone: [facility] 01-02-2022 11:00-0400 Diastolic blood pressure 90 mm[Hg] John Golias PT Work Phone: [facility] 01-02-2022 11:00-0400 Heart rate 118 /min John Golias PT Work Phone: [facility] 01-02-2022 11:00-0400 SaO2% (BldA) [Mass fraction] 98 % John Golias PT Work Phone: [facility] 01-02-2022 11:00-0400 Systolic blood pressure 130 mm[Hg] John Golias PT Work Phone: [facility] 12-31-2021 12:16-0400 Body temperature 98.49 [degF] Vandana SIMMONS-C Work Phone: [facility] 12-31-2021 12:16-0400 Body weight 108.86 kg Vandana PATTONC Work Phone: [facility] 12-31-2021 12:16-0400 Diastolic blood pressure 80 mm[Hg] Vandana SIMMONS-C Work Phone: [facility] 12-31-2021 12:16-0400 Heart rate 62 /min Vandana SIMMONS-C Work Phone: [facility] 12-31-2021 12:16-0400 Respiratory rate 16 /min Vandana SIMMONS-C Work Phone: [facility] 12-31-2021 12:16-0400 Systolic blood pressure 108 mm[Hg] Vandana SIMMONS-C Work Phone: [facility] Encounters Encounter Date Encounter Type Care Provider Facility Start: 12-11-2023 End: 12-11-2023 ambulatory ALEXANDRO ALDRICH Facility:[facility] Start: 12-11-2023 End: 12-11-2023 Patient encounter procedure Alexandro Aldrich PA-C Work Phone: Dermatology Procedures Date Procedure Procedure Detail Performing Clinician Start: 11-26-2023 Us abdominal real ti me w/image limited Vandana Barrientos PA-C Work Phone: Start: 06-18-2023 Hemoglobin A1c/Hemoglobin.total in Blood Yury Seamangreg [employer]RAZZO WORKER.OXYACETYLENE TORCH OPERATOR Work Phone: Start: 02-24-2023 [employer] COVI D-19 BIVALENT VACCINE, AGE 12+ YR Vandana Barrientos PA-C Work Phone: Start: 08-21-2022 Hemoglobin A1c/Hemoglobin.total in Blood Yury Singhmagalys [employer] CH[employer] TERRAZZO WORKER.OXYACETYLENE TORCH OPERATOR Work Phone: Start: 05-22-2022 Hemoglobin A1c/Hemoglobin.total in Blood Lucretia Hoyos MD Work Phone: Start: 02-18-2022 Hemoglobin A1c/Hemoglobin.total in Blood Lucretia Hoyos MD Work Phone: Start: 11-29-2021 Mammography Ted Pina Work Phone: Start: 08-04-2017 Colonoscopy Ted Pina Work Phone: Plan of Treatment Date Care Activity Detail Author Start: 08-04-2027 Colonoscopy COLONOSCOPY [facility] Start: 08-04-2027 COLORECTAL CANCER SCREENING COLORECTAL CANCER SCREENING [facility] Start: 08-04-2027 Screening for malignant neoplasm of colon [facility] Start: 01-07-2026 Urine microalbumin profile [facility] Start: 09-19-2025 HPV TESTING HPV TESTING [facility] Start: 09-19-2025 PAP TESTING PAP TESTING [facility] Start: 09-19-2025 Screening for malignant neoplasm of cervix [facility] Start: 12-07-2024 Annual PCP Team Chronic Disease Visit Annual PCP Team Chronic Disease Visit [facility] Start: 11-05-2024 Screening for malignant neoplasm of breast Mammogram Screening [facility] Start: 11-03-2024 Annual PCP Team Chronic Disease Visit Annual PCP Team Chronic Disease Visit [facility] Start: 11-03-2024 BP Controlled (<130/80) BP Controlled (<130/80) [facility] Start: 10-21-2024 Glaucoma screening Dilated Retinal Exam [facility] Start: 09-02-2024 Annual PCP Team Chronic Disease Visit Annual PCP Team Chronic Disease Visit [facility] Start: 03-20-2024 3 comp foot exam completed Diabetic Foot Exam [facility] Start: 03-20-2024 Diabetic foot examination Diabetic Foot Exam [facility] Start: 02-25-2024 ANNUAL PCP TEAM CHRONIC DISEASE VISIT ANNUAL PCP TEAM CHRONIC DISEASE VISIT [facility] Start: 02-25-2024 BP CONTROLLED (<130/80) BP CONTROLLED (<130/80) [facility] in Start: 02-25-2024 Hepatitis B surface antibody level LDL CHOLESTEROL [facility] Start: 12-17-2023 Hemoglobin A1c measurement HbA1C [facility] Start: 12-17-2023 Hemoglobin A1c/Hemoglobin.total in Blood HbA1C [facility] Start: 12-04-2023 3 comp foot exam completed DIABETIC FOOT EXAM [facility] Start: 11-05-2023 End: 02-04-2024 Gamma glutamyl transferase [Enzymatic activity/volume] in Serum or Plasma GGT BLD Lab Routine Elevated alkaline phosphatase level Expected: 11/05/2023, Expires: 02/04/2024 [facility] Work Phone: Immunizations Immunization Date Immunization Notes Care Provider Magalie [facility] 09-02-2023 COVID-19 vaccine, ag e 12+ yr, 2022- season (PFIZER-BIONTECH) Freddie Luis MD Work Phone: [facility] 09-02-2023 influenza, injectabl e, quadrivalent, contains preservative Freddie Luis MD Work Phone: [facility] 02-24-2023 COVID-19 vaccine, ag e 12+ yr, bivalent (PFIZER-BIONTECH) Vandana Barrientos PA-C Work Phone: [facility] 02-24-2023 pneumococcal (PCV20) vaccine, 20 valent (PREVNAR 20) Vandana Barrientos PA-C Work Phone: [facility] 02-24-2023 pneumococcal Conjuga te, unspecified formulation Vandana Barrientos PA-C Work Phone: [facility] Work Phone: 10-11-2021 influenza virus vaccine, unspecified formulation Freddie Luis MD Work Phone: [facility] 05-08-2021 pneumococcal conjuga te vaccine, 13 valent Ted Testnakul Work Phone: [facility] 01-30-2021 COVID-19 original vaccine, full dose, monovalent (MODERNA) Vandana Barrientos PA-C Work Phone: [facility] 01-02-2021 COVID-19 original vaccine, full dose, monovalent (MODERNA) Vandana Barrientos PA-C Work Phone: [facility] 09-06-2020 influenza, injectabl e, quadrivalent, contains preservative Tde Testrashweta Work Phone: [facility] 07-07-2019 influenza, injectabl e, quadrivalent, contains preservative Ted Testrake Work Phone: [facility] 10-18-2018 influenza, injectabl e, quadrivalent, contains preservative Ted Testrake Work Phone: [facility] 2016 tetanus toxoid, redu len diphtheria toxoid, and acellular pertussis vaccine, adsorbed Ted Testnakul Work Phone: [facility] Work Phone: Payers Date Payer Category Payer Medicaid [id number] 2016 Medicaid [place] [employer] [place] [employer] [id number] 2016-Present [phone] [place], [place] [id number] Medicaid [id number] 2016 Medicaid [id number] Social History Date Type Detail Facility Start: 05-14-2022 Tobacco smoking status NHIS Never smoked tobacco [facility] Start: 12-25-2021 End: 12-08-2023 Alcohol intake Current non-drinker of alcohol (finding) [facility] Start: 1965 Sex Assigned At Female [facility] Start: 12-15-2021 End: 08-21-2022 Exposure to SARS-CoV-2 (event) Not sure [facility] Start: 04-07-2022 End: 04-17-2022 Exposure to SARS-CoV-2 (event) Unable to assess [facility] Work Phone: Start: 05-14-2022 Tobacco use and exposure Smokeless tobacco non-user [facility] Start: 05-13-2022 End: 11-17-2022 History SDOH Alcohol Frequency 1 [facility] Start: 05-13-2022 End: 11-17-2022 History SDOH Alcohol Std Drinks 0 [facility] Start: 05-13-2022 End: 11-17-2022 History SDOH Social Connections Membership 2 [facility] Start: 05-13-2022 End: 11-17-2022 History SDOH Social Connections Living 7 [facility] Start: 05-13-2022 History SDOH Physical Activity DPW 6 [facility] Start: 05-13-2022 End: 11-17-2022 History SDOH Financial 4 [facility] Start: 11-17-2022 History SDOH Stress 3 [facility] Start: 11-17-2022 End: 10-21-2023 History of Social function [facility] Start: 11-17-2022 End: 10-21-2023 Social connection and isolation panel [facility] Do you belong to any clubs or organizations such as baptist groups, unions, fraternal or athletic groups, or school groups? No [facility] Are you now , , , , never or living with a partner? Never [facility] How often to you hav e a drink containing alcohol? Never [facility] How many standard dr inks containing alcohol do you have on a typical day? Patient does not drink [facility] How hard is it for y ou to pay for the very basics like food, housing, medical care, and heating Not very hard [facility] Do you feel stress - tense, restless, nervous, or anxious, or unable to sleep at night because your mind is troubled all the time - these days [OSQ] To some extent [facility] (I/We) worried wheth er (my/our) food would run out before (I/we) got money to buy more. Never true [facility] Start: 04-16-2021 Gender identity Identifies as female gender (finding) [facility] Start: 04-16-2021 Sexual orientation Heterosexual (finding) [facility] Medical Equipment Procedure Code Equipment Code Equipment Origin al Text Equipment Identifier Dates Start: 07-13-2020 Clinical Notes 05-09-2016 to 12-11-2023 Alexandro Aldrich PA-C - 12/11/2023 10:15 AM ESTTelephone Encounter - Tj Mendenhall LPN - 12/08/2023 9:31 AM ESTTelephone Encounter - Freddie Luis MD - 12/07/2023 10:56 PM EST Note Date & Type Note Facility 12-11-2023 Note HNO ID: [id number] Author: ALEXANDRO ALDRICH PA-C Service: ? Author Type: Physician Rn Transport Type: Progress Notes Filed: 12/11/2023 10:29 Note Text: NEW PATIENT Chief Complaint: Patient presents with: LESION, SKIN HPI: Alaina Cottrell is a 58 year old female who presents today for:Patient presents with: LESION, SKIN #1: cyst Location: mid forehead Duration: 8 weeks Symptoms: firm and raised Current Treatment: none Past Treatment: none Pertinent History: History of skin cancer or atypical nevi: No Family history of skin cancer: No Organ transplant or immunosuppression: No or : No Past Medical History is reviewed. Medication List is reviewed. ROS: Skin as above. Physical Exam: Marcano skin type: V The patient is a pleasant female in no apparent distress. Alert and oriented x 3. A skin exam performed of the face is significant for: Cystic Papule 5 mm mobile, cystic papule Assessment and Plan: Epidermal cyst Cystic Papule Benign Surgical excision explained and all questions answered Refer to Derm Surgery at [facility] Follow up as noted in plan or as needed. Intake: Ju Franco LPN I have reviewed and agree with the Chief Complaint, patient-reported HPI, ROS, and Past Histories independently gathered by the clinical sales support manager and the remaining scribed note accurately describes my personal service to the patient. Alexandro Aldrich, MS, VARINDER [facility] 12-11-2023 History of Presen t illness Narrative NEW PATIENT Chief Complaint: Patient presents with: LESION, SKIN HPI: Alaina Cottrell is a 58 year old female who presents today for:Patient presents with: LESION, SKIN #1: cyst Location: mid forehead Duration: 8 weeks Symptoms: firm and raised Current Treatment: none Past Treatment: none Pertinent History: History of skin cancer or atypical nevi: No Family history of skin cancer: No Organ transplant or immunosuppression: No or : No Past Medical History is reviewed. Medication List is reviewed. ROS: Skin as above. Physical Exam: Marcano skin type: V The patient is a pleasant female in no apparent distress. Alert and oriented x 3. A skin exam performed of the face is significant for: Cystic Papule 5 mm mobile, cystic papule Assessment and Plan: Epidermal cyst Cystic Papule Benign Surgical excision explained and all questions answered Refer to Derm Surgery at [facility] Follow up as noted in plan or as needed. Intake: Ju Franco LPN I have reviewed and agree with the Chief Complaint, patient-reported HPI, ROS, and Past Histories independently gathered by the clinical sales support manager and the remaining scribed note accurately describes my personal service to the patient. Alexandro Aldrich MS, PA-C documented in this encounter [facility] 12-08-2023 Note HNO ID: [id number] Author: VANDANA BARRIENTOS PA-C Service: ? Author Type: Physician Rn Transport Type: Progress Notes Filed: 12/08/2023 10:02 Note Text: Chief Complaint Patient presents with: Derm Problem: Lump in middle of forehead HPI Alaina Cottrell is a 58 year old female who presents here today for Above Complaints.. Patient reports lump on her head that comes and goes. No pain. Past medical history, appointments, medications, allergies reviewed. Previous Medical History PAST MEDICAL HISTORY Diagnosis Date Arthritis Chronic insomnia 12/05/[address] brown Chronic rhinitis 01/12/2018 Class 2 severe obesity with serious comorbidity and body mass index (BMI) of 35.0 to 35.9 in adult (HCC) 11/14/2021 Diabetes mellitus type 2 with ketoacidosis, uncontrolled (HCC) 07/06/2020 Diabetic polyneuropathy associated with type 2 diabetes mellitus (HCC) 02/03/2021 Seeing [facility] GERD without esophagitis 06/03/2019 Hallux valgus (acquired) 02/17/2007 Hyperlipidemia, mixed 05/14/2022 Hypertension, essential 11/13/2021 Intractable migraine without aura and without status migrainosus 2016 Neck pain 01/02/2022 Obesity, Class I, BMI 30-34.9 10/09/2022 Obesity, Class II, BMI 35-39.9 12/05/2019 Overactive bladder 2016 Physical debility 07/27/2020 Recurrent major depressive disorder, in remission (HCC) 06/02/2018 Seasonal allergic rhinitis due to pollen 07/14/2017 Previous Surgical History PAST SURGICAL HISTORY Procedure Laterality Date COLONOSCOPY FLX DX W/COLLJ SPEC WHEN PFRMD 08/04/2017 Normal colonoscopy-10 year follow-up COLPOSCOPY CERVIX UPPER/ADJACENT VAGINA Colposcopy CRYOTHERAPY/M24 1992 LIG/TRNSXJ FLP TUBE ABDL/VAG APPR UNI/BI Tubal ligation ORAL SURGERY PROCEDURE 3x PAST SURGICAL HISTORY OF 10/2013 right pinki tendon re-attatchment Family History FAMILY HISTORY Problem Relation Age of Onset Arthritis Mother Kidney Disease Sister Breast Cancer Maternal Grandmother Breast Cancer Maternal Aunt Diabetes Maternal Aunt Hypertension Maternal Aunt Hyperlipidemia Maternal Aunt Diabetes Maternal Aunt Hypertension Maternal Aunt Hyperlipidemia Maternal Aunt Patient Allergies ALLERGIES Allergen Reactions Seasonal Allergies Unknown Trees and ragweed verified by skin testing Current Medications Current Outpatient Medications on File Prior to Visit Medication Sig propranolol (INDERAL) 10 mg tablet Take 1 tablet by mouth once daily. spironolactone (ALDACTONE) 25 mg tablet Take 1 tablet by mouth once daily. baclofen 10 mg tablet Take 1 tablet by mouth three times a day as needed (muscle spasms). SUMAtriptan (IMITREX) 6 mg/0.5 mL vial Inject 0.5 mL subcutaneously as needed. May repeat dose after 1 hour if needed. Maximum daily dose is 12 mg per day. Per Neuro pantoprazole DR (PROTONIX) 40 mg tablet Take 1 tablet by mouth daily before breakfast. Take on empty stomach, 1/2 hr before meal. oxybutynin ER (DITROPAN XL) 10 mg 24 hr tablet Take 1 tablet by mouth once daily. amLODIPine (NORVASC) 10 mg tablet Take 1 tablet by mouth once daily. atorvastatin (LIPITOR) 10 mg tablet Take 1 tablet by mouth daily at bedtime. For cholesterol. flash glucose scanning reader (LigoCy[employer] PharmaceuticalsE 2 READER) Use continuously to monitor glucose, IDDM 11.42 flash glucose sensor (FREESTYLE ESVIN 2 SENSOR) kit Use one sensor every 14 days, IDDM, E 11.42 dulaglutide (TRULICITY) 3 mg/0.5 mL pen injector Inject 3 mg subcutaneously one time a week. metFORMIN ER (GLUCOPHAGE XR) 500 mg 24 hr tablet Take 1 tablet by mouth daily with breakfast. Per Endo, Dr. Hoyos amitriptyline (ELAVIL) 10 mg tablet Take 4 tablets by mouth daily at bedtime. Per [facility], Neurology [facility] ODT 75 mg disintegrating tablet Take 1 tablet by mouth every other day. Per Neuro blood sugar diagnostic (BLOOD GLUCOSE TEST) test strip Use as directed to monitor blood sugar. Dx: Type 2 DM - Uncontrolled E11.65 Insulin: Yes.Test blood sugar(s) four times daily pregabalin (LYRICA) 50 mg capsule Take 1 capsule by mouth twice daily for 30 days. Insulin [place], Disposable, (PEN NEEDLE) 32 gauge x 5/32 Inject 1 Each subcutaneously q 24 HR. Give with each insulin administration. Lancing Device [facility] Patient to UA BID. sertraline (ZOLOFT) 50 mg tablet Take 1 tablet by mouth once daily. [facility] [place]. lancets (FREESTYLE LANCETS) 28 gauge Test blood sugar(s) 3 times daily. Dx: Type 2 DM - Uncontrolled E11.10 Insulin: Yes loratadine (CLARITIN) 10 mg tablet Take 1 tablet by mouth once daily as needed (for itching, sneezing or runny nose). MEDICAL SUPPLY [facility] eval and treat. Patient has developed increase weakness and has fallen multiple times since discharge from their service in Mid May. MEDICAL SUPPLY RAISED TOILET SEAT. Dx: Z91.89, Z91.81 and R53.1 MEDICAL SUPPLY OVER THE TUB GRA (more content not included)... [facility] 12-08-2023 Miscellaneous Notes Pt notified of same with verbalized understanding. Tj Mendenhall LPN Please advise patient that we do not prescribe her sertraline. That comes from her provider [facility] the [facility]. The following approved medication requests have been transmitted electronically. Requested Prescriptions Signed Prescriptions Disp Refills propranolol (INDERAL) 10 mg tablet 30 tablet 5 Sig: Take 1 tablet by mouth once daily. Authorizing Provider: FREDDIE LUIS spironolactone (ALDACTONE) 25 mg tablet 30 tablet 5 Sig: Take 1 tablet by mouth once daily. Authorizing Provider: FREDDIE LUIS baclofen 10 mg tablet 20 tablet 0 Sig: Take 1 tablet by mouth three times a day as needed (muscle spasms). Authorizing Provider: FREDDIE LUIS MD [facility] 11/03/23 NOV 12/08/23 *Pt receives sertraline through psych ([facility] Kendall London LPN Patient has been identified by name and date of : Yes Last office visit in this department: Visit date not found RX INSTRUCTIONS: Patient aware RX will be sent to pharmacy. No need to notify patient. Patient phones requesting refills as follows: Patient states she is to have refills on most of these however pharmacy has not filled them Requested Prescriptions Pending Prescriptions Disp Refills propranolol (INDERAL) 10 mg tablet 30 tablet 5 Sig: Take 1 tablet by mouth once daily. spironolactone (ALDACTONE) 25 mg tablet 30 tablet 5 Sig: Take 1 tablet by mouth once daily. sertraline (ZOLOFT) 50 mg tablet Sig: Take 1 tablet by mouth once daily. Per [facility] [place]. baclofen 10 mg tablet 20 tablet 0 Sig: Take 1 tablet by mouth three times a day as needed (muscle spasms). Please review and advise. Claudette Noble documented in this encounter [facility] 12-08-2023 History of Presen t illness Narrative Chief Complaint Patient presents with: Derm Problem: Lump in middle of forehead HPI Alaina Cottrell is a 58 year old female who presents here today for Above Complaints.. Patient reports lump on her head that comes and goes. No pain. Past medical history, appointments, medications, allergies reviewed. Previous Medical History PAST MEDICAL HISTORY Diagnosis Date Arthritis Chronic insomnia 12/05/[address] brown Chronic rhinitis 01/12/2018 Class 2 severe obesity with serious comorbidity and body mass index (BMI) of 35.0 to 35.9 in adult ([facility]) 11/14/2021 Diabetes mellitus type 2 with ketoacidosis, uncontrolled ([facility]) 07/06/2020 Diabetic polyneuropathy associated with type 2 diabetes mellitus ([facility]) 02/03/2021 Seeing [facility] GERD without esophagitis 06/03/2019 Hallux valgus (acquired) 02/17/2007 Hyperlipidemia, mixed 05/14/2022 Hypertension, essential 11/13/2021 Intractable migraine without aura and without status migrainosus 2016 Neck pain 01/02/2022 Obesity, Class I, BMI 30-34.9 10/09/2022 Obesity, Class II, BMI 35-39.9 12/05/2019 Overactive bladder 2016 Physical debility 07/27/2020 Recurrent major depressive disorder, in remission ([facility]) 06/02/2018 Seasonal allergic rhinitis due to pollen 07/14/2017 Previous Surgical History PAST SURGICAL HISTORY Procedure Laterality Date COLONOSCOPY FLX DX W/COLLJ SPEC WHEN PFRMD 08/04/2017 Normal colonoscopy-10 year follow-up COLPOSCOPY CERVIX UPPER/ADJACENT VAGINA Colposcopy CRYOTHERAPY/M24 1992 LIG/TRNSXJ FLP TUBE ABDL/VAG APPR UNI/BI Tubal ligation ORAL SURGERY PROCEDURE 3x PAST SURGICAL HISTORY OF 10/2013 right pinki tendon re-attatchment Family History FAMILY HISTORY Problem Relation Age of Onset Arthritis Mother Kidney Disease Sister Breast Cancer Maternal Grandmother Breast Cancer Maternal Aunt Diabetes Maternal Aunt Hypertension Maternal Aunt Hyperlipidemia Maternal Aunt Diabetes Maternal Aunt Hypertension Maternal Aunt Hyperlipidemia Maternal Aunt Patient Allergies ALLERGIES Allergen Reactions Seasonal Allergies Unknown Trees and ragweed verified by skin testing Current Medications Current Outpatient Medications on File Prior to Visit Medication Sig propranolol (INDERAL) 10 mg tablet Take 1 tablet by mouth once daily. spironolactone (ALDACTONE) 25 mg tablet Take 1 tablet by mouth once daily. baclofen 10 mg tablet Take 1 tablet by mouth three times a day as needed (muscle spasms). SUMAtriptan (IMITREX) 6 mg/0.5 mL vial Inject 0.5 mL subcutaneously as needed. May repeat dose after 1 hour if needed. Maximum daily dose is 12 mg per day. Per Neuro pantoprazole DR (PROTONIX) 40 mg tablet Take 1 tablet by mouth daily before breakfast. Take on empty stomach, 1/2 hr before meal. oxybutynin ER (DITROPAN XL) 10 mg 24 hr tablet Take 1 tablet by mouth once daily. amLODIPine (NORVASC) 10 mg tablet Take 1 tablet by mouth once daily. atorvastatin (LIPITOR) 10 mg tablet Take 1 tablet by mouth daily at bedtime. For cholesterol. flash glucose scanning reader (Cogency SoftwareSTYLE ESVIN 2 READER) Use continuously to monitor glucose, IDDM 11.42 flash glucose sensor (FREESTYLE ESVIN 2 SENSOR) kit Use one sensor every 14 days, IDDM, E 11.42 dulaglutide (TRULICITY) 3 mg/0.5 mL pen injector Inject 3 mg subcutaneously one time a week. metFORMIN ER (GLUCOPHAGE XR) 500 mg 24 hr tablet Take 1 tablet by mouth daily with breakfast. Per EndoDr. Hoyos amitriptyline (ELAVIL) 10 mg tablet Take 4 tablets by mouth daily at bedtime. Per [facility], Neurology [facility] ODT 75 mg disintegrating tablet Take 1 tablet by mouth every other day. Per Neuro blood sugar diagnostic (BLOOD GLUCOSE TEST) test strip Use as directed to monitor blood sugar. Dx: Type 2 DM - Uncontrolled E11.65 Insulin: Yes.Test blood sugar(s) four times daily pregabalin (LYRICA) 50 mg capsule Take 1 capsule by mouth twice daily for 30 days. Insulin [place], Disposable, (PEN NEEDLE) 32 gauge x 5/32 Inject 1 Each subcutaneously q 24 HR. Give with each insulin administration. Lancing Device [facility] Patient to UAD BID. sertraline (ZOLOFT) 50 mg tablet Take 1 tablet by mouth once daily. Per Psych at the [facility]. lancets (FREESTYLE LANCETS) 28 gauge Test blood sugar(s) 3 times daily. Dx: Type 2 DM - Uncontrolled E11.10 Insulin: Yes loratadine (CLARITIN) 10 mg tablet Take 1 tablet by mouth once daily as needed (for itching, sneezing or runny nose). MEDICAL SUPPLY [facility] eval and treat. Patient has developed increase weakness and has fallen multiple times since discharge from their service in Mid May. MEDICAL SUPPLY RAISED TOILET SEAT. Dx: Z91.89, Z91.81 and R53.1 MEDICAL SUPPLY OVER THE TUB GRAB BAR Dx: Z91.89, Z91.81 and R53.1 MEDICAL SUPPLY SHOWER CHAIR WITH BACK REST, ARM RESTS WITH ADJUSTABLE HEIGHT. Dx: Z91.89, Z91.81 and R53.1 MEDICAL SUPPLY Shower chair, #: one, Dx: R53.1, Z91.81 and Z74.09 alcohol swabs (ALCOHOL PREP PADS) Apply 1 application to affected area three times daily. To check blood sugars. (Patient not taking: Reported on 11/03/2023) No current facility-administered medications on file prior to visit. Social History Social History Tobacco Use Smoking status: Never Smokeless tobacco: Never Vaping Use Vaping Use: Never used Substance Use Topics Alcohol use: No Drug use: No Review of Symptoms REVIEW OF SYSTEMS See hpi EXAM: BP 118/86 (BP Site: Left Arm, BP Position: Sitting, BP Cuff Size: Large Adult) Pulse 90 Temp 36.4 C (97.6 F) Resp 18 Wt 108 kg (238 lb) LMP 05/21/2021 (Approximate) BMI 35.25 kg/m General Appearance: Well appearing, alert, in no acute distress, well-hydrated, well nourished.. Skin: nontender cyst on mid forehead. No erythema. Health Maintenance List Hepatitis B Vaccine(1 of 3 - 3-dose series) Never done Shingrix Vaccine(1 of 2) Never done Urine Albumin:Creatinine Ratio due on 06/03/2022 HbA1C due on 12/17/2023 LDL Cholesterol due on 02/25/2024 Diabetic Foot Exam due on 03/20/2024 Dilated Retinal Exam due on 10/21/2024 Annual PCP Team Chronic Disease Visit due on 11/03/2024 BP Controlled (<130/80) due on 11/03/2024 Mammogram Screening due on 11/05/2024 Pap Testing due on 09/19/2025 HPV Testing due on 09/19/2025 DTaP,Tdap,Td Vaccine(2 - Td or Tdap) due on 01/07/2026 Colorectal Cancer Screening due on 08/04/2027 Influenza Vaccine Completed Hepatitis C Screening Completed Covid-19 Vaccine Completed Pneumococcal Vaccine Completed HIV Screening Discontinued Data reviewed ASSESSMENT/PLAN: 1. Sebaceous cyst - ICD9: 706.2, ICD10: L72.3 Will set up with derm for removal. - CONSULT TO DERMATOLOGY Vandana Barrientos PA-C documented in this encounter [facility] 12-02-2023 Note HNO ID: [id number] Author: JU VINES PT Service: ? Author Type: Physical Therapist Type: Progress Notes Filed: 12/02/2023 09:36 Note Text: Episode Visit Count: 5 Therapist That Will Accept/Oversee The Plan Of Care: Michael Thornton PT. Start of Care Date: 11/05/23 Onset Date: 09/24/23 Plan of Care Certification Date: 11/05/23 Next Certification Due Date: 12/10/23 [facility] PHYSICAL THERAPY DISCONTINUANCE OF CARE PLAN OF CARE UPDATE: Assessment: Alaina Cottrell is discontinued from Physical Therapy services due to maximal benefit. and Patient/Clinician mutual decision to discontinue current plan of care.. Patient was seen for 5 visits from Start of Care Date: 11/05/23 to 12/02/2023 and treatment included: Therapeutic exercise, Manual therapy, and Self-half-way management. Goals for Episode of Care: created on 11/05/23 through 12/10/23 Goals updated on 12/02/2023. [facility] in home exercise program. -- MET Patient will decrease pain rating by 2 points to meet minimal clinical important difference for numeric pain rating scale. -- NOT MET Perform household management activities without pain in 4-6 weeks to demonstrate improvement in function. -- MET Increased strength of Right distal upper extremity to 5/5 on MMT for increased ability to twist lids off medication bottles. -- MET Improve flexibility of Right distal upper extremity extensor musculature. -- MET, improves immediately upon completing exercises Decreased R Common Extensor Tendon and Extensor Muscle Tenderness -- MET SUBJECTIVE: Pt. reports that her RUE started hurting again thursday when she reached behind her seat in the car. Pt. is able to self manage her pain when she completes her exercises.. Functional Limitations: pulling, gripping (Reaching; Cooking and using utensils.) Pain: Pain Pain Level: 6 Pain Location: Elbow - Right Description: Tingling Post Treatment Pain Post Treatment Pain Level: Better Post Treatment Pain Location: Elbow - Right PROMIS Scales Higher is Better 11/05/2023 12/16/2022 05/16/2022 Phys Func - Score 39 (moderate dysfunction) 32 (moderate dysfunction) 35 (moderate dysfunction) Phys Func - Percentile 14% 4% 7% Self-Eff Symptom - Score 41 (Average) - - Self-Eff Symptom - Percentile 18% - - T-scores: mean of general population = 50. 5 points is clinically meaningfully difference Percentiles provide an indication of how the patient's score ranks in relation to the general population. Higher percentile rankings indicate better function/quality of life. 50th percentile is the average of the general population and indicates half of respondents had a worse score. OBJECTIVE MEASURES WITH LEVEL OF FUNCTION: UE Joint Mobility R Elbow joint mobility: WNL R Wrist joint mobility: WNL UE and Cervical Strength R Forearm Supination: 5/5 R Forearm Pronation: 5/5 R Wrist Extension: 5/5 R Wrist Flexion: 5/5 R Wrist Radial Deviation: 5/5 R Wrist Ulnar Deviation: 5/5 R Thumb Extension (C8): 5/5 R Finger Adduction/Interossei (T1): 5/5 TREATMENT: Therapeutic Exercise: 1: seated R wrist flexion stretch with elbow extended 3x30 sec (resolves pain) 2: seated R wrist flexion stretch with elbow extended 3x30 sec 3: seated R elbow pronation/supinatation 3x20 4: seated R wrist flexion/extension 20x, R elbow flexed 5: R hand gripping 2x10, 1 sec hold, elbow flexion 6: R wrist UD and RD elbow flexed 2x10 7: seated R wrist extension stretch with elbow extended 3x30 sec (slightly flexed elbow cues when pt. unable to tolerate full extension) 8: comprehensive HEP printed for pt.including added wrist flexion/extension stretch Skilled Intervention: Patient was educated in proper exercise technique and purpose for exercises. Reviewed and educated patient on additions/changes for home exercise program as above (*). Skilled judgment was used in selection of appropriate interventions. Provided written instruction for home exercise program to facilitate proper performance and compliance. Correct performance of therapeutic exercises was facilitated with verbal, visual, and tactile cuing. Educated patient on rationale for performing exercises in regards to decreasing fatigue , increase ease of ADL, and ROM and function . Patient education as noted. Billing Therapeutic Exercise Treatment Minutes: 30 Skilled Treatment Time Minutes (timed and untimed codes): 30 Total Session Time (minutes): 30 Session Start Time : 907 Session Stop Time : 937 Ju Vines PT [facility] 12-02-2023 History of Presen t illness Narrative Program_ID:[id number] Access Code: [email or web address] URL: [email or web address] Date: 12-02-2023 Prepared By: Michael Thornton Program Notes Exercises - Wrist Flexion Extension AROM - Palms Down - 2 x daily - 7 x weekly - 3 sets - 10 reps - Standing Wrist Flexion Stretch - 2 x daily - 5-7 x weekly - 3 sets - reps - Wrist Extension with Resistance - 2 x daily - 5-7 x weekly - 2 sets - 10 reps - Forearm Supination with Resistance - 2 x daily - 5-7 x weekly - 2 sets - 10 reps - Wrist Flexion with Resistance - 2 x daily - 5-7 x weekly - 2 sets - 10 reps - Forearm Pronation with Resistance - 2 x daily - 5-7 x weekly - 2 sets - 10 reps - Standing Single Arm Elbow Flexion with Resistance - 2 x daily - 5-7 x weekly - 2 sets - 10 reps - Seated Wrist Flexion Stretch - 2 x daily - 7 x weekly - 3 sets - 1 reps Episode Visit Count: 5 Therapist That Will Accept/Oversee The Plan Of Care: Michael Thornton PT. Start of Care Date: 11/05/23 Onset Date: 09/24/23 Plan of Care Certification Date: 11/05/23 Next Certification Due Date: 12/10/23 REHABILITATION AND SPORTS THERAPY PHYSICAL THERAPY DISCONTINUANCE OF CARE PLAN OF CARE UPDATE: Assessment: Alaina Cottrell is discontinued from Physical Therapy services due to maximal benefit. and Patient/Clinician mutual decision to discontinue current plan of care.. Patient was seen for 5 visits from Start of Care Date: 11/05/23 to 12/02/2023 and treatment included: Therapeutic exercise, Manual therapy, and Self-half-way management. Goals for Episode of Care: created on 11/05/23 through 12/10/23 Goals updated on 12/02/2023. Cassia in home exercise program. -- MET Patient will decrease pain rating by 2 points to meet minimal clinical important difference for numeric pain rating scale. -- NOT MET Perform household management activities without pain in 4-6 weeks to demonstrate improvement in function. -- MET Increased strength of Right distal upper extremity to 5/5 on MMT for increased ability to twist lids off medication bottles. -- MET Improve flexibility of Right distal upper extremity extensor musculature. -- MET, improves immediately upon completing exercises Decreased R Common Extensor Tendon and Extensor Muscle Tenderness -- MET SUBJECTIVE: Pt. reports that her RUE started hurting again thursday when she reached behind her seat in the car. Pt. is able to self manage her pain when she completes her exercises.. Functional Limitations: pulling, gripping (Reaching; Cooking and using utensils.) Pain: Pain Pain Level: 6 Pain Location: Elbow - Right Description: Tingling Post Treatment Pain Post Treatment Pain Level: Better Post Treatment Pain Location: Elbow - Right PROMIS Scales Higher is Better 11/05/2023 12/16/2022 05/16/2022 Phys Func - Score 39 (moderate dysfunction) 32 (moderate dysfunction) 35 (moderate dysfunction) Phys Func - Percentile 14% 4% 7% Self-Eff Symptom - Score 41 (Average) - - Self-Eff Symptom - Percentile 18% - - T-scores: mean of general population = 50. 5 points is clinically meaningfully difference Percentiles provide an indication of how the patient's score ranks in relation to the general population. Higher percentile rankings indicate better function/quality of life. 50th percentile is the average of the general population and indicates half of respondents had a worse score. OBJECTIVE MEASURES WITH LEVEL OF FUNCTION: UE Joint Mobility R Elbow joint mobility: WNL R Wrist joint mobility: WNL UE and Cervical Strength R Forearm Supination: 5/5 R Forearm Pronation: 5/5 R Wrist Extension: 5/5 R Wrist Flexion: 5/5 R Wrist Radial Deviation: 5/5 R Wrist Ulnar Deviation: 5/5 R Thumb Extension (C8): 5/5 R Finger Adduction/Interossei (T1): 5/5 TREATMENT: Therapeutic Exercise: 1: seated R wrist flexion stretch with elbow extended 3x30 sec (resolves pain) 2: seated R wrist flexion stretch with elbow extended 3x30 sec 3: seated R elbow pronation/supinatation 3x20 4: seated R wrist flexion/extension 20x, R elbow flexed 5: R hand gripping 2x10, 1 sec hold, elbow flexion 6: R wrist UD and RD elbow flexed 2x10 7: seated R wrist extension stretch with elbow extended 3x30 sec (slightly flexed elbow cues when pt. unable to tolerate full extension) 8: comprehensive HEP printed for pt.including added wrist flexion/extension stretch Skilled Intervention: Patient was educated in proper exercise technique and purpose for exercises. Reviewed and educated patient on additions/changes for home exercise program as above (*). Skilled judgment was used in selection of appropriate interventions. Provided written instruction for home exercise program to facilitate proper performance and compliance. Correct performance of therapeutic exercises was facilitated with verbal, visual, and tactile cuing. Educated patient on rationale for performing exercises in regards to decreasing fatigue , increase ease of ADL, and ROM and function . Patient education as noted. Billing Therapeutic Exercise Treatment Minutes: 30 Skilled Treatment Time Minutes (timed and untimed codes): 30 Total Session Time (minutes): 30 Session Start Time : 907 Session Stop Time : 937 Ju Vines PT documented in this encounter [facility] 11-26-2023 Miscellaneous Notes Pt notified of results and instructions. Pt verbalizes understanding. Pt will complete labs. Pt was assisted in transfer to set up appointment. Tj Mendenhall LPN Let patient know that her US shows multiple gallstones but otherwise is okay. I will place a consult to surgery. Remind her to do the additional labs. Vandana Barrientos PA-C documented in this encounter [facility] 11-26-2023 Note HNO ID: [id number] Author: MEGHNA BRANTLEY RDMS Service: ? Author Type: Health Informatics Instructor Type: Progress Notes Filed: 11/26/2023 08:12 Note Text: Radiology Service Progress Note PATIENT NAME: Alaina Cottrell DATE OF SERVICE: November 26, 2023 TIME: 8:12 AM PATIENT IDENTITY VERIFICATION COMPLETED USING TWO (2) IDENTIFIERS: Name and Date of confirmed by patient verbally. FALL SCREENING: Has the patient had 2 falls in the last year or 1 fall with injury or currently using an Ambulatory Assistive Device (Walker, Cane, Wheelchair, Crutches, etc.)? No PATIENT GENDER DATA: Female. status: : No status: NO. PATIENT RELEVANT IMPLANT DATA REVIEWED: Not Applicable PATIENT PRESENTS WITH AN IMPLANTABLE OR ATTACHED DRY HOUSE WORKER: No RADIOLOGY DEPARTMENT: Ultrasound PERIPHERAL IV DATA: Not applicable SIGNED BY: Meghna Brantley RDMS November 26, 2023 8:12 AM [facility] 11-26-2023 History of Presen t illness Narrative Radiology Service Progress Note PATIENT NAME: Alaina Cottrell DATE OF SERVICE: November 26, 2023 TIME: 8:12 AM PATIENT IDENTITY VERIFICATION COMPLETED USING TWO (2) IDENTIFIERS: Name and Date of confirmed by patient verbally. FALL SCREENING: Has the patient had 2 falls in the last year or 1 fall with injury or currently using an Ambulatory Assistive Device (Walker, Cane, Wheelchair, Crutches, etc.)? No PATIENT GENDER DATA: Female. status: : No status: NO. PATIENT RELEVANT IMPLANT DATA REVIEWED: Not Applicable PATIENT PRESENTS WITH AN IMPLANTABLE OR ATTACHED DRY HOUSE WORKER: No RADIOLOGY DEPARTMENT: Ultrasound PERIPHERAL IV DATA: Not applicable SIGNED BY: Meghna Brantley RDMS November 26, 2023 8:12 AM documented in this encounter [facility] 11-25-2023 Note HNO ID: [id number] Author: MICHAEL THORNTON PT Service: ? Author Type: Physical Therapist Type: Progress Notes Filed: 11/25/2023 12:08 Note Text: Episode Visit Count: 4 Therapist That Will Accept/Oversee The Plan Of Care: Michael Thornton PT. Start of Care Date: 11/05/23 Onset Date: 09/24/23 Plan of Care Certification Date: 11/05/23 Next Certification Due Date: 12/10/23 Patient Identified by Name and Date of : Yes REHABILITATION AND SPORTS THERAPY PHYSICAL THERAPY TREATMENT NOTE ASSESSMENT: Alaina Cottrell tolerated the session with expected muscle soreness. She demonstrated improvements in form during therapeutic exercises. The patient will continue to benefit from ongoing skilled physical therapy to progress toward set goals. PLAN FOR NEXT VISIT: Progress Check; Review exercises and assess form to see if additional interventions can be added to HEP for maintenance. SUBJECTIVE: Pt. states the RUE is doing better for her overall and notes progressions; states when she reaches forward and grasps with the hands/wrist is when the pain can come on. Pain: Pain Pain Level: 4 Pain Location: Elbow - Right Description: Aching Post Treatment Pain Post Treatment Pain Level: Better Post Treatment Pain Location: Elbow - Right OBJECTIVE MEASURES WITH LEVEL OF FUNCTION: Light tenderness to common extensor tendons and R distal extremity forearm musculature. Decreased tenderness from prior sessions. TREATMENT: Therapeutic Exercise: 1: Shoulder Rows: 3x10, GTB (Verbal/Tactile Cues for form with keeping 90deg angle at elbow.) 2: Shoulder Ext: 3x10. (Verbal Cue for straight arm.) 3: Wrist FLEX/EXT/RD/UD Iso: 1x10, 5 hold. (PT Assist due to patient difficulty completing iso) 4: Resistive Wrist Flexion: 1x15, GTB. 5: Resistive Wrist EXT: 1x15, GTB. 6: Resistive Wrist Supination: 1x15, GTB. Skilled Intervention: Patient was educated in proper exercise technique and purpose for exercises. Skilled judgment was used in selection of appropriate interventions. Correct performance of therapeutic exercises was facilitated with verbal, visual, and tactile cuing. Manual Therapy: 1: IaSTM to R Common Extensor Tendon and Musculature: Push to tolerance. Skilled Intervention: Manual skills to improve joint mobility, ROM, and decrease pain. Utilized anatomy knowledge of the therapist, and assessment of patient's response to intervention. Billing Therapeutic Exercise Treatment Minutes: 20 Manual TherapyTreatment Minutes: 10 Skilled Treatment Time Minutes (timed and untimed codes): 30 Total Session Time (minutes): 30 Session Start Time : 0954 Session Stop Time : 1024 Michael Thornton PT, DPT. [facility] 11-25-2023 History of Presen t illness Narrative Episode Visit Count: 4 Therapist That Will Accept/Oversee The Plan Of Care: Michael Thornton PT. Start of Care Date: 11/05/23 Onset Date: 09/24/23 Plan of Care Certification Date: 11/05/23 Next Certification Due Date: 12/10/23 Patient Identified by Name and Date of : Yes REHABILITATION AND SPORTS THERAPY PHYSICAL THERAPY TREATMENT NOTE ASSESSMENT: Alaina Cottrell tolerated the session with expected muscle soreness. She demonstrated improvements in form during therapeutic exercises. The patient will continue to benefit from ongoing skilled physical therapy to progress toward set goals. PLAN FOR NEXT VISIT: Progress Check; Review exercises and assess form to see if additional interventions can be added to HEP for maintenance. SUBJECTIVE: Pt. states the RUE is doing better for her overall and notes progressions; states when she reaches forward and grasps with the hands/wrist is when the pain can come on. Pain: Pain Pain Level: 4 Pain Location: Elbow - Right Description: Aching Post Treatment Pain Post Treatment Pain Level: Better Post Treatment Pain Location: Elbow - Right OBJECTIVE MEASURES WITH LEVEL OF FUNCTION: Light tenderness to common extensor tendons and R distal extremity forearm musculature. Decreased tenderness from prior sessions. TREATMENT: Therapeutic Exercise: 1: Shoulder Rows: 3x10, GTB (Verbal/Tactile Cues for form with keeping 90deg angle at elbow.) 2: Shoulder Ext: 3x10. (Verbal Cue for straight arm.) 3: Wrist FLEX/EXT/RD/UD Iso: 1x10, 5 hold. (PT Assist due to patient difficulty completing iso) 4: Resistive Wrist Flexion: 1x15, GTB. 5: Resistive Wrist EXT: 1x15, GTB. 6: Resistive Wrist Supination: 1x15, GTB. Skilled Intervention: Patient was educated in proper exercise technique and purpose for exercises. Skilled judgment was used in selection of appropriate interventions. Correct performance of therapeutic exercises was facilitated with verbal, visual, and tactile cuing. Manual Therapy: 1: IaSTM to R Common Extensor Tendon and Musculature: Push to tolerance. Skilled Intervention: Manual skills to improve joint mobility, ROM, and decrease pain. Utilized anatomy knowledge of the therapist, and assessment of patient's response to intervention. Billing Therapeutic Exercise Treatment Minutes: 20 Manual TherapyTreatment Minutes: 10 Skilled Treatment Time Minutes (timed and untimed codes): 30 Total Session Time (minutes): 30 Session Start Time : 0954 Session Stop Time : 1024 Michael Thornton PT, DPT. documented in this encounter [facility] 11-20-2023 Miscellaneous Notes The following approved medication requests have been transmitted electronically. Requested Prescriptions Signed Prescriptions Disp Refills baclofen 10 mg tablet 20 tablet 0 Sig: Take 1 tablet by mouth three times a day as needed (muscle spasms). Authorizing Provider: FREDDIE LUIS MD Patient has been identified by name and date of : Patient phones for refill(s): Requested Prescriptions Pending Prescriptions Disp Refills baclofen 10 mg tablet 20 tablet 0 Sig: Take 1 tablet by mouth three times a day as needed (muscle spasms). Date of last office visit in primary care: 11/03/2023 Date of next office visit in primary care: 03/03/2024 Please advise. Thank you. Yuki Knapp LPN. documented in this encounter [facility] 11-18-2023 Note HNO ID: [id number] Author: MICHAEL THORNTON PT Service: ? Author Type: Physical Therapist Type: Progress Notes Filed: 11/18/2023 10:34 Note Text: Episode Visit Count: 3 Therapist That Will Accept/Oversee The Plan Of Care: Michael Thornton PT. Start of Care Date: 11/05/23 Onset Date: 09/24/23 Plan of Care Certification Date: 11/05/23 Next Certification Due Date: 12/10/23 Patient Identified by Name and Date of : Yes REHABILITATION AND SPORTS THERAPY PHYSICAL THERAPY TREATMENT NOTE ASSESSMENT: Alaina Cottrell tolerated the session with expected muscle soreness. She required verbal cues for rest/recovery breaks during sets as opposed to completing all reps in one bout. Patient continues to struggle with consistency of form during interventions. Tenderness of involved soft tissues with improvement overall. The patient will continue to benefit from ongoing skilled physical therapy to progress toward set goals. PLAN FOR NEXT VISIT: Progress ther-ex as tolerated; continue stressing importance of form > sets/reps/# of exercises completed. SUBJECTIVE: Pt. states the R elbow really hurt on Thursday and Thursday, however not to bad today. Pain is less frequent lately. Pain: Pain Pain Level: 7 Pain Location: Elbow - Right Description: Aching Frequency: Intermittent, With movement Post Treatment Pain Post Treatment Pain Level: 6 Post Treatment Pain Location: Elbow - Right Post Treatment Pain Description: Sore OBJECTIVE MEASURES WITH LEVEL OF FUNCTION: Slight tenderness at lateral epicondyle and common extensor tendon. Less than previous sessions. Moderate repetition of verbal/visual/tactile cueing needed for proper form of exercises this session. TREATMENT: Therapeutic Exercise: 1: Flex Bar Twists: 2x10, RUE Reverse Motion/Wrist Ext. 2: Flex Bar Wrist RD/UD in standinx10 ea. (Verbal AND tactile cueing for no elbow flexion during RD.) 3: Flex Bar Pron/Supn AROM: 2x15 ea. (Elbow 90 deg angle.) 4: Flex Bar Wrist Flex/Ext: 2x10 ea. 5: Resistive Wrist Flexion: 3x10, GTB. 6: Resistive Wrist EXT: 3x10, GTB. 7: Resistive Wrist SUPN: 2x10, GTB. 8: Left Sidelying, R Horz. ABD: 3x10, 2#. 9: Left Sidelying,R 90/90 Press: 2x10, 2#. 10: Shoulder Rows: 3x10, GTB 11: Shoulder Ext: 2x10. 12: *Discussed importance of good form and execution of exercises for proper desired effects vs. re-injury/compensation to associated soft tissues with poor form. Skilled Intervention: Patient was educated in proper exercise technique and purpose for exercises. Skilled judgment was used in selection of appropriate interventions. Correct performance of therapeutic exercises was facilitated with verbal, visual, and tactile cuing. Patient education as noted. Billing Therapeutic Exercise Treatment Minutes: 40 Skilled Treatment Time Minutes (timed and untimed codes): 40 Total Session Time (minutes): 40 Session Start Time : 944 Session Stop Time : 1024 Michael Thornton, PT [facility] 11-18-2023 History of Presen t illness Narrative Episode Visit Count: 3 Therapist That Will Accept/Oversee The Plan Of Care: Michael Thornton PT. Start of Care Date: 11/05/23 Onset Date: 09/24/23 Plan of Care Certification Date: 11/05/23 Next Certification Due Date: 12/10/23 Patient Identified by Name and Date of : Yes REHABILITATION AND SPORTS THERAPY PHYSICAL THERAPY TREATMENT NOTE ASSESSMENT: Alaina Cottrell tolerated the session with expected muscle soreness. She required verbal cues for rest/recovery breaks during sets as opposed to completing all reps in one bout. Patient continues to struggle with consistency of form during interventions. Tenderness of involved soft tissues with improvement overall. The patient will continue to benefit from ongoing skilled physical therapy to progress toward set goals. PLAN FOR NEXT VISIT: Progress ther-ex as tolerated; continue stressing importance of form > sets/reps/# of exercises completed. SUBJECTIVE: Pt. states the R elbow really hurt on Thursday and Thursday, however not to bad today. Pain is less frequent lately. Pain: Pain Pain Level: 7 Pain Location: Elbow - Right Description: Aching Frequency: Intermittent, With movement Post Treatment Pain Post Treatment Pain Level: 6 Post Treatment Pain Location: Elbow - Right Post Treatment Pain Description: Sore OBJECTIVE MEASURES WITH LEVEL OF FUNCTION: Slight tenderness at lateral epicondyle and common extensor tendon. Less than previous sessions. Moderate repetition of verbal/visual/tactile cueing needed for proper form of exercises this session. TREATMENT: Therapeutic Exercise: 1: Flex Bar Twists: 2x10, RUE Reverse Motion/Wrist Ext. 2: Flex Bar Wrist RD/UD in standinx10 ea. (Verbal & tactile cueing for no elbow flexion during RD.) 3: Flex Bar Pron/Supn AROM: 2x15 ea. (Elbow 90 deg angle.) 4: Flex Bar Wrist Flex/Ext: 2x10 ea. 5: Resistive Wrist Flexion: 3x10, GTB. 6: Resistive Wrist EXT: 3x10, GTB. 7: Resistive Wrist SUPN: 2x10, GTB. 8: Left Sidelying, R Horz. ABD: 3x10, 2#. 9: Left Sidelying,R 90/90 Press: 2x10, 2#. 10: Shoulder Rows: 3x10, GTB 11: Shoulder Ext: 2x10. 12: *Discussed importance of good form and execution of exercises for proper desired effects vs. re-injury/compensation to associated soft tissues with poor form. Skilled Intervention: Patient was educated in proper exercise technique and purpose for exercises. Skilled judgment was used in selection of appropriate interventions. Correct performance of therapeutic exercises was facilitated with verbal, visual, and tactile cuing. Patient education as noted. Billing Therapeutic Exercise Treatment Minutes: 40 Skilled Treatment Time Minutes (timed and untimed codes): 40 Total Session Time (minutes): 40 Session Start Time : 944 Session Stop Time : 5 Michael Thornton PT documented in this encounter [facility] 11-11-2023 Note HNO ID: [id number] Author: MICHAEL THORNTON PT Service: ? Author Type: Physical Therapist Type: Progress Notes Filed: 11/11/2023 11:29 Note Text: Episode Visit Count: 2 Therapist That Will Accept/Oversee The Plan Of Care: Michael Thornton PT. Start of Care Date: 11/05/23 Onset Date: 09/24/23 Plan of Care Certification Date: 11/05/23 Next Certification Due Date: 12/10/23 Patient Identified by Name and Date of : Yes REHABILITATION AND SPORTS THERAPY PHYSICAL THERAPY TREATMENT NOTE ASSESSMENT: Alaina Cottrell tolerated the session with decreased symptoms and expected muscle soreness. She demonstrated difficulty with completing wrist isometrics on her own. The patient will continue to benefit from ongoing skilled physical therapy to progress toward set goals. PLAN FOR NEXT VISIT: Retrial Wrist Isometrics; scapular rows; progress exercises as tolerated. SUBJECTIVE: Patient reports pain this morning with reaching to put her purse in the back seat; pain has been consistent since 5 this morning. Notes the exercises have helped overall. Patient also states she completes exercises 4-5x a day. Pain: Pain Pain Level: 8 Pain Location: Elbow - Right Description: Aching Post Treatment Pain Post Treatment Pain Level: Better Post Treatment Pain Location: Elbow - Right OBJECTIVE MEASURES WITH LEVEL OF FUNCTION: TTP at lateral epicondyle and proximal ulna. TREATMENT: Therapeutic Exercise: 1: Wrist Flexion/Extension AROM: 1x15. 2: Wrist EXT Iso: 2x10, 5 hold. (PT Assist due to patient difficulty completing iso) 3: Wrist RD Iso: 2x10, 5 hold (PT Assist due to patient difficulty completing iso) 4: Wrist UD Iso: 2x10, 5 hold (PT Assist due to patient difficulty completing iso) 5: Flex Bar Twists: 1x12, RUE Reverse Motion/Wrist Ext. 6: Flex Bar Pron/Supn AROM: 2x15. 7: Flex Bar Wrist Flex/Ext: 1x15. 8: Flex Bar Wrist RD/UD in standinx15. 9: *Wrist GTB Pronation/Extension/Flexion/Supi nation: 1x10 each. 10: *Elbow GTB Flexion: 1x10. 11: Discussion regarding appropriate parameters to follow and optimal tissue loading; discussed proper recovery for soft tissues and how completing exercises more than prescribed may be over doing it. 12: Wrist isometrics discontinued on HEP currently due to inproper form during completion despite heavy verbal/visual/tactile cues. Skilled Intervention: Patient was educated in proper exercise technique and purpose for exercises. Reviewed and educated patient on additions/changes for home exercise program as above (*). Skilled judgment was used in selection of appropriate interventions. Provided written instruction for home exercise program to facilitate proper performance and compliance. Correct performance of therapeutic exercises was facilitated with verbal, visual, and tactile cuing. Billing Therapeutic Exercise Treatment Minutes: 39 Skilled Treatment Time Minutes (timed and untimed codes): 39 Total Session Time (minutes): 39 Session Start Time : 1033 Session Stop Time : 1112 Michael Thornton, PT [facility] 11-11-2023 History of Presen t illness Narrative Program_ID:[id number] Access Code: [email or web address] URL: [email or web address] Date: 11-11-2023 Prepared By: Michael Thornton Program Notes Exercises - Wrist Flexion Extension AROM - [place] - 2 x daily - 7 x weekly - 3 sets - 10 reps - Standing Wrist Flexion Stretch - 2 x daily - 5-7 x weekly - 3 sets - reps - Wrist Extension with Resistance - 2 x daily - 5-7 x weekly - 2 sets - 10 reps - Forearm Supination with Resistance - 2 x daily - 5-7 x weekly - 2 sets - 10 reps - Wrist Flexion with Resistance - 2 x daily - 5-7 x weekly - 2 sets - 10 reps - Forearm Pronation with Resistance - 2 x daily - 5-7 x weekly - 2 sets - 10 reps - Standing Single Arm Elbow Flexion with Resistance - 2 x daily - 5-7 x weekly - 2 sets - 10 reps Episode Visit Count: 2 Therapist That Will Accept/Oversee The Plan Of Care: Michael Thornton PT. Start of Care Date: 11/05/23 Onset Date: 09/24/23 Plan of Care Certification Date: 11/05/23 Next Certification Due Date: 12/10/23 Patient Identified by Name and Date of : Yes REHABILITATION AND SPORTS THERAPY PHYSICAL THERAPY TREATMENT NOTE ASSESSMENT: Alaina Cottrell tolerated the session with decreased symptoms and expected muscle soreness. She demonstrated difficulty with completing wrist isometrics on her own. The patient will continue to benefit from ongoing skilled physical therapy to progress toward set goals. PLAN FOR NEXT VISIT: Retrial Wrist Isometrics; scapular rows; progress exercises as tolerated. SUBJECTIVE: Patient reports pain this morning with reaching to put her purse in the back seat; pain has been consistent since 5 this morning. Notes the exercises have helped overall. Patient also states she completes exercises 4-5x a day. Pain: Pain Pain Level: 8 Pain Location: Elbow - Right Description: Aching Post Treatment Pain Post Treatment Pain Level: Better Post Treatment Pain Location: Elbow - Right OBJECTIVE MEASURES WITH LEVEL OF FUNCTION: TTP at lateral epicondyle and proximal ulna. TREATMENT: Therapeutic Exercise: 1: Wrist Flexion/Extension AROM: 1x15. 2: Wrist EXT Iso: 2x10, 5 hold. (PT Assist due to patient difficulty completing iso) 3: Wrist RD Iso: 2x10, 5 hold (PT Assist due to patient difficulty completing iso) 4: Wrist UD Iso: 2x10, 5 hold (PT Assist due to patient difficulty completing iso) 5: Flex Bar Twists: 1x12, RUE Reverse Motion/Wrist Ext. 6: Flex Bar Pron/Supn AROM: 2x15. 7: Flex Bar Wrist Flex/Ext: 1x15. 8: Flex Bar Wrist RD/UD in standinx15. 9: *Wrist GTB Pronation/Extension/Flexion/Supi nation: 1x10 each. 10: *Elbow GTB Flexion: 1x10. 11: Discussion regarding appropriate parameters to follow and optimal tissue loading; discussed proper recovery for soft tissues and how completing exercises more than prescribed may be over doing it. 12: Wrist isometrics discontinued on HEP currently due to inproper form during completion despite heavy verbal/visual/tactile cues. Skilled Intervention: Patient was educated in proper exercise technique and purpose for exercises. Reviewed and educated patient on additions/changes for home exercise program as above (*). Skilled judgment was used in selection of appropriate interventions. Provided written instruction for home exercise program to facilitate proper performance and compliance. Correct performance of therapeutic exercises was facilitated with verbal, visual, and tactile cuing. Billing Therapeutic Exercise Treatment Minutes: 39 Skilled Treatment Time Minutes (timed and untimed codes): 39 Total Session Time (minutes): 39 Session Start Time : 1033 Session Stop Time : 1112 Michael Thornton PT documented in this encounter [facility] 11-10-2023 Note HNO ID: [id number] Author: TJ MENDENHALL LPN Service: ? Author Type: LICENSED NURSE Type: Progress Notes Filed: 11/10/2023 07:46 Note Text: Scan on 11/09/2023 5:36 PM by ProviderAnthony PA-C: Consultation - Neurology [facility] 11-10-2023 History of Presen t illness Narrative Scan on 11/09/2023 5:36 PM by Provider, External, PA-C: Consultation - Neurology documented in this encounter [facility] 11-09-2023 Miscellaneous Notes Pt notified of same. Tj Mendenhall LPN Let patient know mammo was ok. documented in this encounter [facility] 11-06-2023 Miscellaneous Notes Pt notified of same. Tj Mendenhall LPN Xray of elbow is okay. Vandana Barrientos PA-C documented in this encounter [facility] 11-05-2023 Note HNO ID: [id number] Author: MICHAEL THORNTON PT Service: ? Author Type: Physical Therapist Type: Progress Notes Filed: 11/05/2023 16:45 Note Text: Episode Visit Count: 1 Therapist That Will Accept/Oversee The Plan Of Care: Michael Thornton PT. Start of Care Date: 11/05/23 Onset Date: 09/24/23 Plan of Care Certification Date: 11/05/23 Next Certification Due Date: 12/10/23 Patient Identified by Name and Date of : Yes REHABILITATION AND SPORTS THERAPY PHYSICAL THERAPY EVALUATION PLAN OF CARE: Assessment: Alaina Cottrell presents with diagnosis of R Lateral Epicondylitis that interferes with pulling, twisting, gripping (Reaching; Cooking and using utensils.) . She presents with impairments in ADL's, overall function, soft tissue healing, strength, symptom management, and tissue tenderness. PROMIS? (Patient-Reported Outcomes Measurement Information System) scores were reviewed and physical function domain and self efficacy domain identified as a rehabilitation concern. Prognosis for therapy is Good due to: current objective clinical presentation, acuteness of condition, within-session changes .She will benefit from skilled therapy services to meet the goals established for this plan of care as noted below. Goals for Episode of Care: created on 11/05/23 through 12/10/23 Cassia in home exercise program. Patient will decrease pain rating by 2 points to meet minimal clinical important difference for numeric pain rating scale. Perform household management activities without pain in 4-6 weeks to demonstrate improvement in function. Increased strength of Right distal upper extremity to 5/5 on MMT for increased ability to twist lids off medication bottles. Improve flexibility of Right distal upper extremity extensor musculature. Decreased R Common Extensor Tendon and Extensor Muscle Tenderness Planned Interventions, Frequency, and Duration: Current Frequency: 1x/week Duration: 4 weeks Total Number of Visits Planned: 4 Planned Treatment Interventions: Therapeutic exercise (55666), Neuromuscular re-education (90975), Manual therapy (94841), Therapeutic activities (01231), Self-half-way management (77533), Patient/Family/Caregiver Education PLAN FOR NEXT VISIT: Assess HEP; assess Isometric form, retrial eccentrics; possible BFR initiation. Patient demonstrates good understanding of plan of care and treatment. The above goals and plan of care were discussed and agreed upon by patient/family. SUBJECTIVE: Patient states she was opening a medicine bottle about 5-6 weeks ago and felt immediate pain (points to common extensor tendon); patient has had intermittent pain over the last multiple weeks until recently daughter picked her up another medicine and same YOUSUF occured which caused 3 straight days of pain prompted her to go see Vandana. Currently, pain is at a 3/10, prior was sitting around 7/10. Functional Limitations: pulling, twisting, gripping (Reaching; Cooking and using utensils.) Prior Level of Function: Independent without limitations Relevant History Past Relevant Medical Conditions: Diabetes Right or Left Handed: Right Employment: Medically Disabled Intake Information: Prescription present Falls Interview: No positive findings with falls interview Pain: Pain Pain Level: 3 Pain Location: Elbow - Right (Uncomfortable) Description: Aching Frequency: Intermittent, With movement Post Treatment Pain Post Treatment Pain Level: 2 Post Treatment Pain Location: Elbow - Right PROMIS Scales Higher is Better 11/05/2023 12/16/2022 05/16/2022 Phys Func - Score 39 (moderate dysfunction) 32 (moderate dysfunction) 35 (moderate dysfunction) Phys Func - Percentile 14% 4% 7% Self-Eff Symptom - Score 41 (Average) - - Self-Eff Symptom - Percentile 18% - - T-scores: mean of general population = 50. 5 points is clinically meaningfully difference Percentiles provide an indication of how the patient's score ranks in relation to the general population. Higher percentile rankings indicate better function/quality of life. 50th percentile is the average of the general population and indicates half of respondents had a worse score. OBJECTIVE MEASURES WITH LEVEL OF FUNCTION: Elbow Observations R Elbow/Wrist Palpation Tenderness: Lateral epicondyle, Extensor digitorum, Extensor carpi radialis longus, Comments Comments: Common Extensor Tendon. UE AROM R UE AROM: Grossly WNL L UE AROM: Grossly WNL UE and Cervical Strength Strength Tested: Distal UE R UE Strength: Light pain with deficits. L UE Strength: Grossly 5/5 R Forearm Supination: 4+/5 R Forearm Pronation: 4+/5 R Wrist Extension: 4+/5 R Wrist Flexion: 5/5 R Wrist Radial Deviation: 4+/5 R Wrist Ulnar Deviation: 4+/5 R Thumb Extension (C8): 5/5 R Finger Adduction/Interossei (T1): 5/5 Special Tests - Elbow/Wrist/Hand Elbow/Wrist/Hand Special Tests: Cozen's Test, Mill's Test, Maudsley's Test (more content not included)... [facility] 11-05-2023 Note HNO ID: [id number] Author: ASIA BOSE RT(R) Service: Radiology Author Type: Technologist Type: Progress Notes Filed: 11/05/2023 14:54 Note Text: Radiology Service Progress Note PATIENT NAME: Alaina Cottrell DATE OF SERVICE: November 05, 2023 TIME: 2:48 PM PATIENT IDENTITY VERIFICATION COMPLETED USING TWO (2) IDENTIFIERS: Name and Date of confirmed by patient verbally. FALL SCREENING: Has the patient had 2 falls in the last year or 1 fall with injury or currently using an Ambulatory Assistive Device (Walker, Cane, Wheelchair, Crutches, etc.)? No PATIENT GENDER DATA: Female. status: : No status: NO. PATIENT RELEVANT IMPLANT DATA REVIEWED: Not Applicable PATIENT PRESENTS WITH AN IMPLANTABLE OR ATTACHED DRY HOUSE WORKER: No RADIOLOGY DEPARTMENT: General X-ray: Exam(s) Completed: Upper Extremity X-Ray(s): Elbow, right PERIPHERAL IV DATA: Not applicable SIGNED BY: RT Gautam(R) November 05, 2023 2:54 PM [facility] 11-05-2023 Note HNO ID: [id number] Author: GAURAV CREWS Mammo Tech Service: ? Author Type: Health Informatics Instructor Type: Progress Notes Filed: 11/05/2023 14:49 Note Text: Radiology Service Progress Note PATIENT NAME: Alaina Cottrell DATE OF SERVICE: November 05, 2023 TIME: 2:25 PM PATIENT IDENTITY VERIFICATION COMPLETED USING TWO (2) IDENTIFIERS: Name and Date of confirmed by patient verbally. FALL SCREENING: Has the patient had 2 falls in the last year or 1 fall with injury or currently using an Ambulatory Assistive Device (Walker, Cane, Wheelchair, Crutches, etc.)? No PATIENT GENDER DATA: Female. status: : No status: NO. PATIENT RELEVANT IMPLANT DATA REVIEWED: Not Applicable PATIENT PRESENTS WITH AN IMPLANTABLE OR ATTACHED DRY HOUSE WORKER: No RADIOLOGY DEPARTMENT: Mammography PERIPHERAL IV DATA: Not applicable SIGNED BY: Gaurav Crews momondo November 05, 2023 2:25 PM [facility] 11-05-2023 History of Presen t illness Narrative Program_ID:[id number] Access Code: [email or web address] URL: [email or web address] Date: 11-05-2023 Prepared By: Michael Thornton Program Notes Exercises - Isometric Wrist Extension Pronated - 2 x daily - 5-7 x weekly - 2 sets - 10 reps - Seated Isometric Wrist Radial Deviation with Manual Resistance - 2 x daily - 5-7 x weekly - 2 sets - 10 reps - Standing Wrist Flexion Stretch - 2 x daily - 5-7 x weekly - 3 sets - reps - Wrist Extension with Resistance - 2 x daily - 5-7 x weekly - 2 sets - 10 reps - Forearm Supination with Resistance - 2 x daily - 5-7 x weekly - 2 sets - 10 reps - Wrist Flexion Extension AROM - Palms Down - 2 x daily - 7 x weekly - 3 sets - 10 reps Episode Visit Count: 1 Therapist That Will Accept/Oversee The Plan Of Care: Michael Thornton PT. Start of Care Date: 11/05/23 Onset Date: 09/24/23 Plan of Care Certification Date: 11/05/23 Next Certification Due Date: 12/10/23 Patient Identified by Name and Date of : Yes REHABILITATION AND SPORTS THERAPY PHYSICAL THERAPY EVALUATION PLAN OF CARE: Assessment: Alaina Cottrell presents with diagnosis of R Lateral Epicondylitis that interferes with pulling, twisting, gripping (Reaching; Cooking and using utensils.) . She presents with impairments in ADL's, overall function, soft tissue healing, strength, symptom management, and tissue tenderness. PROMIS (Patient-Reported Outcomes Measurement Information System) scores were reviewed and physical function domain and self efficacy domain identified as a rehabilitation concern. Prognosis for therapy is Good due to: current objective clinical presentation, acuteness of condition, within-session changes .She will benefit from skilled therapy services to meet the goals established for this plan of care as noted below. Goals for Episode of Care: created on 11/05/23 through 12/10/23 Cassia in home exercise program. Patient will decrease pain rating by 2 points to meet minimal clinical important difference for numeric pain rating scale. Perform household management activities without pain in 4-6 weeks to demonstrate improvement in function. Increased strength of Right distal upper extremity to 5/5 on MMT for increased ability to twist lids off medication bottles. Improve flexibility of Right distal upper extremity extensor musculature. Decreased R Common Extensor Tendon and Extensor Muscle Tenderness Planned Interventions, Frequency, and Duration: Current Frequency: 1x/week Duration: 4 weeks Total Number of Visits Planned: 4 Planned Treatment Interventions: Therapeutic exercise (03283), Neuromuscular re-education (90349), Manual therapy (04828), Therapeutic activities (41069), Self-half-way management (73602), Patient/Family/Caregiver Education PLAN FOR NEXT VISIT: Assess HEP; assess Isometric form, retrial eccentrics; possible BFR initiation. Patient demonstrates good understanding of plan of care and treatment. The above goals and plan of care were discussed and agreed upon by patient/family. SUBJECTIVE: Patient states she was opening a medicine bottle about 5-6 weeks ago and felt immediate pain (points to common extensor tendon); patient has had intermittent pain over the last multiple weeks until recently daughter picked her up another medicine and same YOUSUF occured which caused 3 straight days of pain prompted her to go see Vandana. Currently, pain is at a 3/10, prior was sitting around 7/10. Functional Limitations: pulling, twisting, gripping (Reaching; Cooking and using utensils.) Prior Level of Function: Independent without limitations Relevant History Past Relevant Medical Conditions: Diabetes Right or Left Handed: Right Employment: Medically Disabled Intake Information: Prescription present Falls Interview: No positive findings with falls interview Pain: Pain Pain Level: 3 Pain Location: Elbow - Right (Uncomfortable) Description: Aching Frequency: Intermittent, With movement Post Treatment Pain Post Treatment Pain Level: 2 Post Treatment Pain Location: Elbow - Right PROMIS Scales Higher is Better 11/05/2023 12/16/2022 05/16/2022 Phys Func - Score 39 (moderate dysfunction) 32 (moderate dysfunction) 35 (moderate dysfunction) Phys Func - Percentile 14% 4% 7% Self-Eff Symptom - Score 41 (Average) - - Self-Eff Symptom - Percentile 18% - - T-scores: mean of general population = 50. 5 points is clinically meaningfully difference Percentiles provide an indication of how the patient's score ranks in relation to the general population. Higher percentile rankings indicate better function/quality of life. 50th percentile is the average of the general population and indicates half of respondents had a worse score. OBJECTIVE MEASURES WITH LEVEL OF FUNCTION: Elbow Observations R Elbow/Wrist Palpation Tenderness: Lateral epicondyle, Extensor digitorum, Extensor carpi radialis longus, Comments Comments: Common Extensor Tendon. UE AROM R UE AROM: Grossly WNL L UE AROM: Grossly WNL UE and Cervical Strength Strength Tested: Distal UE R UE Strength: Light pain with deficits. L UE Strength: Grossly 5/5 R Forearm Supination: 4+/5 R Forearm Pronation: 4+/5 R Wrist Extension: 4+/5 R Wrist Flexion: 5/5 R Wrist Radial Deviation: 4+/5 R Wrist Ulnar Deviation: 4+/5 R Thumb Extension (C8): 5/5 R Finger Adduction/Interossei (T1): 5/5 Special Tests - Elbow/Wrist/Hand Elbow/Wrist/Hand Special Tests: Cozen's Test, Mill's Test, Maudsley's Test Cozen's Test: Right positive Mill's Test: Right positive Maudsley's Test: Right positive Education: Education Learning/educational needs: Home exercise program, Plan of Care TREATMENT: PT Treatment Interventions: Therapeutic Exercise, Manual Therapy, Self-Longterm Management Evaluation Therapeutic Exercise: 1: *Wrist Flexion/Extension AROM: 1x10. 2: *Wrist EXT Iso: 1x10, 5 hold. (Difficulty comprehending ISO) 3: *Wrist RD Iso: 1x10, 5 hold (Difficulty comprehending ISO) 4: *Wrist GTB Supination: 1x10. 5: *R FA Extensor Stretch: 1x30 . 6: *Wrist Ext 3#db: 1x10. 7: Wrist Ext Eccentric: 1x10, 3#db, 3-5 lower. (Difficulty comprehending eccentric - withheld from HEP currently.) 8: Discussed therapy goals, exercise purpose, HEP handout provided. Discussed exam findings. Skilled Intervention: Patient was educated in proper exercise technique and purpose for exercises. Reviewed and educated patient on additions/changes for home exercise program as above (*). Skilled judgment was used in selection of appropriate interventions. Provided written instruction for home exercise program to facilitate proper performance and compliance. Correct performance of therapeutic exercises was facilitated with verbal, visual, and tactile cuing. Manual Therapy: 1: IaSTM to R Common Extensor Tendon and Musculature: Push to tolerance. Skilled Intervention: Manual skills to improve joint mobility, ROM, and decrease pain. Utilized anatomy knowledge of the therapist, and assessment of patient's response to intervention. Self-Longterm Management: 1: *Discussed bracing for the R Elbow and parameters for if she decides to get brace based on provider recommendation. Skilled Intervention: Skilled judgment in the selection of proper modification for activity of daily living/home management based on clinical presentation, deficits, and needs. Reviewed patient specific diagnosis in relation to activities of daily living/home management. Activity progression based on professional judgement. Billing * Evaluation Low Complexity: 1 Unit Therapeutic Exercise Treatment Minutes: 15 Manual TherapyTreatment Minutes: 8 Self-Care/Home Management Treatment Minutes: 3 Skilled Treatment Time Minutes (timed and untimed codes): 43 Total Session Time (minutes): 43 Session Start Time : 1530 Session Stop Time : 1613 Michael Thornton PT documented in this encounter [facility] 11-05-2023 History of Presen t illness Narrative Radiology Service Progress Note PATIENT NAME: Alaina Cottrell DATE OF SERVICE: November 05, 2023 TIME: 2:48 PM PATIENT IDENTITY VERIFICATION COMPLETED USING TWO (2) IDENTIFIERS: Name and Date of confirmed by patient verbally. FALL SCREENING: Has the patient had 2 falls in the last year or 1 fall with injury or currently using an Ambulatory Assistive Device (Walker, Cane, Wheelchair, Crutches, etc.)? No PATIENT GENDER DATA: Female. status: : No status: NO. PATIENT RELEVANT IMPLANT DATA REVIEWED: Not Applicable PATIENT PRESENTS WITH AN IMPLANTABLE OR ATTACHED DRY HOUSE WORKER: No RADIOLOGY DEPARTMENT: General X-ray: Exam(s) Completed: Upper Extremity X-Ray(s): Elbow, right PERIPHERAL IV DATA: Not applicable SIGNED BY: RT Gautam(R) November 05, 2023 2:54 PM documented in this encounter [facility] 11-05-2023 History of Presen t illness Narrative Radiology Service Progress Note PATIENT NAME: Alaina Cottrell DATE OF SERVICE: November 05, 2023 TIME: 2:25 PM PATIENT IDENTITY VERIFICATION COMPLETED USING TWO (2) IDENTIFIERS: Name and Date of confirmed by patient verbally. FALL SCREENING: Has the patient had 2 falls in the last year or 1 fall with injury or currently using an Ambulatory Assistive Device (Walker, Cane, Wheelchair, Crutches, etc.)? No PATIENT GENDER DATA: Female. status: : No status: NO. PATIENT RELEVANT IMPLANT DATA REVIEWED: Not Applicable PATIENT PRESENTS WITH AN IMPLANTABLE OR ATTACHED DRY HOUSE WORKER: No RADIOLOGY DEPARTMENT: Mammography PERIPHERAL IV DATA: Not applicable SIGNED BY: [email or web address] Sravani November 05, 2023 2:25 PM documented in this encounter [facility] 11-05-2023 Miscellaneous Notes Pt called and is notified of providers results and instructions. Pt voices understanding. Transferred to scheduled to set up appt for a liver US. Marichuy Gunderson RN Let patient know that her alk phos is still high and the breakdown is showing it's coming from the liver. I will order additional labs and a liver US to further evaluate this elevation. Vandana Barrientos PA-C documented in this encounter [facility] 11-03-2023 Note HNO ID: [id number] Author: VANDANA BARRIENTOS PA-C Service: ? Author Type: Physician Rn Transport Type: Progress Notes Filed: 11/03/2023 11:45 Note Text: Chief Complaint Patient presents with: Pain: Right arm pain HPI Alaina Cottrell is a 58 year old female who presents here today for Above Complaints.. Patient reports that she attempting to open a child proof medicine bottle and she started feeling pain in her right elbow. This occurred about 6 weeks ago. Pain will improve some but then returns. No n/t. Past medical history, appointments, medications, allergies reviewed. Previous Medical History PAST MEDICAL HISTORY Diagnosis Date Arthritis Chronic insomnia 12/05/[address] brown Chronic rhinitis 01/12/2018 Class 2 severe obesity with serious comorbidity and body mass index (BMI) of 35.0 to 35.9 in adult (HCC) 11/14/2021 Diabetes mellitus type 2 with ketoacidosis, uncontrolled (HCC) 07/06/2020 Diabetic polyneuropathy associated with type 2 diabetes mellitus (HCC) 02/03/2021 Seeing [facility] GERD without esophagitis 06/03/2019 Hallux valgus (acquired) 02/17/2007 Hyperlipidemia, mixed 05/14/2022 Hypertension, essential 11/13/2021 Intractable migraine without aura and without status migrainosus 2016 Neck pain 01/02/2022 Obesity, Class I, BMI 30-34.9 10/09/2022 Obesity, Class II, BMI 35-39.9 12/05/2019 Overactive bladder 2016 Physical debility 07/27/2020 Recurrent major depressive disorder, in remission (HCC) 06/02/2018 Seasonal allergic rhinitis due to pollen 07/14/2017 Previous Surgical History PAST SURGICAL HISTORY Procedure Laterality Date COLONOSCOPY FLX DX W/COLLJ SPEC WHEN PFRMD 08/04/2017 Normal colonoscopy-10 year follow-up COLPOSCOPY CERVIX UPPER/ADJACENT VAGINA Colposcopy CRYOTHERAPY/M24 1992 LIG/TRNSXJ FLP TUBE ABDL/VAG APPR UNI/BI Tubal ligation ORAL SURGERY PROCEDURE 3x PAST SURGICAL HISTORY OF 10/2013 right pinki tendon re-attatchment Family History FAMILY HISTORY Problem Relation Age of Onset Arthritis Mother Kidney Disease Sister Breast Cancer Maternal Grandmother Breast Cancer Maternal Aunt Diabetes Maternal Aunt Hypertension Maternal Aunt Hyperlipidemia Maternal Aunt Diabetes Maternal Aunt Hypertension Maternal Aunt Hyperlipidemia Maternal Aunt Patient Allergies ALLERGIES Allergen Reactions Seasonal Allergies Unknown Trees and ragweed verified by skin testing Current Medications Current Outpatient Medications on File Prior to Visit Medication Sig baclofen 10 mg tablet Take 1 tablet by mouth three times a day as needed (muscle spasms). ibuprofen (MOTRIN) 600 mg tablet Take 1 tablet by mouth every 8 hours as needed for pain. FOR PAIN. pantoprazole DR (PROTONIX) 40 mg tablet Take 1 tablet by mouth daily before breakfast. Take on empty stomach, 1/2 hr before meal. propranolol (INDERAL) 10 mg tablet Take 1 tablet by mouth once daily. spironolactone (ALDACTONE) 25 mg tablet Take 1 tablet by mouth once daily. oxybutynin ER (DITROPAN XL) 10 mg 24 hr tablet Take 1 tablet by mouth once daily. amLODIPine (NORVASC) 10 mg tablet Take 1 tablet by mouth once daily. atorvastatin (LIPITOR) 10 mg tablet Take 1 tablet by mouth daily at bedtime. For cholesterol. flash glucose scanning reader (FREESTYLE ESVIN 2 READER) Use continuously to monitor glucose, IDDM 11.42 flash glucose sensor (FREESTYLE ESVIN 2 SENSOR) kit Use one sensor every 14 days, IDDM, E 11.42 dulaglutide (TRULICITY) 3 mg/0.5 mL pen injector Inject 3 mg subcutaneously one time a week. metFORMIN ER (GLUCOPHAGE XR) 500 mg 24 hr tablet Take 1 tablet by mouth daily with breakfast. Per Dr. Romain Haider amitriptyline (ELAVIL) 10 mg tablet Take 4 tablets by mouth daily at bedtime. Per [facility], Neurology blood sugar diagnostic (BLOOD GLUCOSE TEST) test strip Use as directed to monitor blood sugar. Dx: Type 2 DM - Uncontrolled E11.65 Insulin: Yes.Test blood sugar(s) four times daily pregabalin (LYRICA) 50 mg capsule Take 1 capsule by mouth twice daily for 30 days. Lancing Device [facility] [place] [place] Patient to UAD BID. sertraline (ZOLOFT) 50 mg tablet Take 1 tablet by mouth once daily. [facility]. lancets (FREESTYLE LANCETS) 28 gauge Test blood sugar(s) 3 times daily. Dx: Type 2 DM - Uncontrolled E11.10 Insulin: Yes loratadine (CLARITIN) 10 mg tablet Take 1 tablet by mouth once daily as needed (for itching, sneezing or runny nose). MEDICAL SUPPLY Consult to [facility] for PHYSICAL THERAPY eval and treat. Patient has developed increase weakness and has fallen multiple times since discharge from their service in Mid May. MEDICAL SUPPLY RAISED TOILET SEAT. Dx: Z91.89, Z91.81 and R53.1 MEDICAL SUPPLY OVER THE TUB GRAB BAR Dx: Z91.89, Z91.81 and R53.1 MEDICAL SUPPLY SHOWER CHAIR WITH BACK REST, ARM RESTS WITH ADJUSTABLE HEIGHT. Dx: Z91.89, Z91.81 and R53.1 MEDICAL SUPPLY Shower chair (more content not included)... [facility] 10-21-2023 Note HNO ID: [id number] Author: JAYLAN TEMPLETON MD Service: ? Author Type: Physician Type: Progress Notes Filed: 10/21/2023 11:05 Note Text: Assessment and Plan 1. Type 2 diabetes mellitus with ketoacidosis without coma, with long-term current use of insulin (HCC) -no diabetic retinopathy both eyes -mild fluctuation in vision which is expected to improve as diabetes control improves 2. Dry eye syndrome of both eyes -contributing to fluctuating vision Plan: -Continue blood sugar and blood pressure control -artificial tears twice a day both eyes -follow-up [address] Armstrong with dilated fundus exam both eyes, sooner as needed I have confirmed and edited as necessary the relevant ophthalmic history, ROS, and the neuro exam findings as obtained by others. I have seen and examined Alaina Cottrell. I have discussed the case and the management of this patient's care with the Resident/Fellow, if applicable. I also have reviewed and agree with the assessment and plan as stated above and agree with all of its relevant components. Jaylan Templeton MD [facility] 10-09-2023 Note HNO ID: [id number] Author: HAMBEL, SHERILL, TRADE RECRUITER Service: ? Author Type: LICENSED NURSE Type: Progress Notes Filed: 10/09/2023 18:54 Note Text: Scan on 10/08/2023 6:17 PM by Provider, VARINDER Cruz: Consultation - Emergency Medicine [facility] 09-09-2023 Miscellaneous Notes The following approved medication requests have been transmitted electronically. Requested Prescriptions Signed Prescriptions Disp Refills baclofen 10 mg tablet 20 tablet 0 Sig: Take 1 tablet by mouth three times a day as needed (muscle spasms). Authorizing Provider: FREDDIE LUIS MD Patient reports she discussed this medication with pcp at last appt, and thought he was going to order it. Patient has been identified by name and date of : Yes, Provider Toby Date 09-09-23 Time 4:41 pm Patient phones for refill(s): Requested Prescriptions Pending Prescriptions Disp Refills baclofen 10 mg tablet 20 tablet 0 Sig: Take 1 tablet by mouth three times a day as needed (muscle spasms). Date of last office visit in primary care: 09/02/2023 Date of next office visit in primary care: 03/03/2024 Last 2 Encounter Wt Readings: Date: Wt: 09/02/2023 108.9 kg (240 lb) 06/18/2023 103 kg (227 lb) Previous labs/tests for medication: Blood Pressure: BUN (mg/dL) Date Value 02/24/2023 16 10/29/2021 13 Sodium (mmol/L) Date Value 02/24/2023 141 10/29/2021 139 Last 1 Encounter BP Readings: Date: BP: 09/02/2023 122/84 Liver Function: ALT (U/L) Date Value 02/24/2023 10 11/13/2021 17 AST (U/L) Date Value 02/24/2023 17 11/13/2021 17 Please advise. Thank you. Denae Weber RN. documented in this encounter [facility] 09-02-2023 Note HNO ID: [id number] Author: Freddie Luis MD Service: ? Author Type: Physician Type: Progress Notes Filed: 09/03/2023 10:52 PM Note Text: Chief Complaint Patient presents with: F/U 6 months HPI Alaina Cottrell is a 58 year old female who presents here today for 6 month follow up. Patient with hx of DM2, hyperlipidemia, HTN, GERD, OAB, allergies, depression, elevated alk phos, obesity, chronic back pain, and those as below. Any other issues today? None, has been doing ok. Any ER/hospital visit? None Past medical history, appointments, medications, allergies reviewed. Previous Medical History PAST MEDICAL HISTORY Diagnosis Date Arthritis Chronic insomnia 12/05/[address] brown Chronic rhinitis 01/12/2018 Class 2 severe obesity with serious comorbidity and body mass index (BMI) of 35.0 to 35.9 in adult ([facility]) 11/14/2021 Diabetes mellitus type 2 with ketoacidosis, uncontrolled ([facility]) 07/06/2020 Diabetic polyneuropathy associated with type 2 diabetes mellitus ([facility]) 02/03/2021 Seeing [facility] GERD without esophagitis 06/03/2019 Hallux valgus (acquired) 02/17/2007 Hyperlipidemia, mixed 05/14/2022 Hypertension, essential 11/13/2021 Intractable migraine without aura and without status migrainosus 2016 Neck pain 01/02/2022 Obesity, Class II, BMI 35-39.9 12/05/2019 Overactive bladder 2016 Physical debility 07/27/2020 Recurrent major depressive disorder, in remission ([facility]) 06/02/2018 Seasonal allergic rhinitis due to pollen 07/14/2017 Previous Surgical History PAST SURGICAL HISTORY Procedure Laterality Date COLONOSCOPY FLX DX W/COLLJ SPEC WHEN PFRMD 08/04/2017 Normal colonoscopy-10 year follow-up COLPOSCOPY CERVIX UPPER/ADJACENT VAGINA Colposcopy CRYOTHERAPY/M24 1992 LIG/TRNSXJ FLP TUBE ABDL/VAG APPR UNI/BI Tubal ligation ORAL SURGERY PROCEDURE 3x PAST SURGICAL HISTORY OF 10/2013 right pinki tendon re-attatchment Family History FAMILY HISTORY Problem Relation Age of Onset Arthritis Mother Kidney Disease Sister Breast Cancer Maternal Grandmother Breast Cancer Maternal Aunt Diabetes Maternal Aunt Hypertension Maternal Aunt Hyperlipidemia Maternal Aunt Diabetes Maternal Aunt Hypertension Maternal Aunt Hyperlipidemia Maternal Aunt Patient Allergies ALLERGIES Allergen Reactions Seasonal Allergies Unknown Trees and ragweed verified by skin testing Current Medications Current Outpatient Medications on File Prior to Visit Medication Sig amLODIPine (NORVASC) 10 mg tablet Take 1 tablet by mouth once daily. atorvastatin (LIPITOR) 10 mg tablet Take 1 tablet by mouth daily at bedtime. For cholesterol. flash glucose scanning reader (FREESTYLE ESVIN 2 READER) Use continuously to monitor glucose, IDDM 11.42 flash glucose sensor (FREESTYLE ESVIN 2 SENSOR) kit Use one sensor every 14 days, IDDM, E 11.42 dulaglutide (TRULICITY) 3 mg/0.5 mL pen injector Inject 3 mg subcutaneously one time a week. metFORMIN ER (GLUCOPHAGE XR) 500 mg 24 hr tablet Take 1 tablet by mouth daily with breakfast. Per Dr. Romain Haider pantoprazole DR (PROTONIX) 40 mg tablet Take 1 tablet by mouth daily before breakfast. Take on empty stomach, 1/2 hr before meal. amitriptyline (ELAVIL) 10 mg tablet Take 4 tablets by mouth daily at bedtime. Per [facility], Neurology blood sugar diagnostic (BLOOD GLUCOSE TEST) test strip Use as directed to monitor blood sugar. Dx: Type 2 DM - Uncontrolled E11.65 Insulin: Yes.Test blood sugar(s) four times daily propranolol (INDERAL) 10 mg tablet Take 1 tablet by mouth once daily. spironolactone (ALDACTONE) 25 mg tablet Take 1 tablet by mouth once daily. oxybutynin ER (DITROPAN XL) 10 mg 24 hr tablet Take 1 tablet by mouth once daily. sertraline (ZOLOFT) 50 mg tablet Take 1 tablet by mouth once daily. [facility] [place] MEDICAL SUPPLY [facility] for [facility]ICAL [facility]ERAPY eval and treat. Patient has developed increase weakness and has fallen multiple times since discharge from their service in Mid May. MEDICAL SUPPLY RAISED TOILET SEAT. Dx: Z91.89, Z91.81 and R53.1 MEDICAL SUPPLY OVER THE TUB GRAB BAR Dx: Z91.89, Z91.81 and R53.1 MEDICAL SUPPLY SHOWER CHAIR WITH BACK REST, ARM RESTS WITH ADJUSTABLE HEIGHT. Dx: Z91.89, Z91.81 and R53.1 MEDICAL SUPPLY Shower chair, #: one, Dx: R53.1, Z91.81 and Z74.09 SUMAtriptan (IMITREX) 100 mg tablet Take one tab with onset of migraine, can repeat in 2 hrs if no relief. Max of 2 in 24 hrs NURTEC ODT 75 mg disintegrating tablet Take 1 tablet by mouth every other day. Per Neuro (Patient not taking: Reported on 09/02/2023) pregabalin (LYRICA) 50 mg capsule Take 1 capsule by mouth twice daily for 30 days. alcohol swabs (ALCOHOL PREP PADS) Apply 1 application to affected area three times daily. To check blood sugars. Insulin [place], Disposable, (PEN NEEDLE) 32 gauge x 5/32 Inject 1 Each subcutaneously q 24 (more content not included)... [facility] 08-20-2023 Miscellaneous Notes Patient has been identified by name and date of : Yes, Provider Date Time Patient phones for refill(s): Requested Prescriptions Pending Prescriptions Disp Refills amLODIPine (NORVASC) 10 mg tablet 90 tablet 1 Sig: Take 1 tablet by mouth once daily. atorvastatin (LIPITOR) 10 mg tablet 90 tablet 1 Sig: Take 1 tablet by mouth daily at bedtime. For cholesterol. Date of last office visit in primary care: 02/24/2023 Date of next office visit in primary care: 09/02/2023 Last 2 Encounter Wt Readings: Date: Wt: 06/18/2023 103 kg (227 lb) 03/24/2023 101.6 kg (224 lb) Previous labs/tests for medication: Cholesterol: HDL Cholesterol (mg/dL) Date Value 11/26/2017 43 HDL Cholesterol, Nonfasting (mg/dL) Date Value 02/24/2023 43 11/13/2021 44 LDL Cholesterol (mg/dL) Date Value 11/26/2017 89 LDL Cholesterol, Nonfasting (mg/dL) Date Value 02/24/2023 46 11/13/2021 135 ALT (U/L) Date Value 02/24/2023 10 11/13/2021 17 Non HDL Cholesterol, Nonfasting (mg/dL) Date Value 02/24/2023 59 11/13/2021 164 Blood Pressure: BUN (mg/dL) Date Value 02/24/2023 16 10/29/2021 13 Sodium (mmol/L) Date Value 02/24/2023 141 10/29/2021 139 Last 1 Encounter BP Readings: Date: BP: 06/18/2023 124/82 Please advise. Thank you. Magda Beasley RN. documented in this encounter [facility] 07-09-2023 Note HNO ID: [id number] Author: Tj Mendenhall LPN Service: ? Author Type: ? Type: Progress Notes Filed: 07/09/2023 10:54 PM Note Text: Scan on 07/09/2023 9:33 AM by ProviderAnthony PA-C: Consultation - Neurology [facility] 07-09-2023 History of Presen t illness Narrative Scan on 07/09/2023 9:33 AM by ProviderAnthony PA-C: Consultation - Neurology documented in this encounter [facility] 06-23-2023 Note HNO ID: [id number] Author: Ted Tao Service: ? Author Type: Physician Type: Progress Notes Filed: 06/23/2023 9:21 AM Note Text: Last saw Vandana Barrientos: 02/24/23 Subjective: Patient presents to clinic c/o painful toenails. They state that the nails are especially painful with shoe gear and pressure. Patient states that nails 1-5 b/l are painful. Patient admits to being diabetic. No other pedal complaints at this time. Patient states no change in medications or medical history since last visit. Objective: Patient presents to clinic ambulating in [facility] Vasc: DP and PT pulses are palpable bilateral. CFT is less than 5 seconds bilateral. Skin temperature is warm to cool proximal to distal bilateral. There is mild edema or varicosities noted. Neuro: Protective sensation is intact to the foot and toes when tested with the 5.07 SWM bilateral. Vibratory sensation is decreased at the hallux IPJ bilateral. The hallux is downgoing bilateral. Derm: Nails 1-5 b/l are painful, discolored-yellow, thick, crumbly, dystrophic and with subungal debris. Skin is of normal turgor, texture and hair growth is present bilateral. There are callus to b/l hallux and plantar medial arch. No ulcerations, scars, verruca or other lesions noted. Ortho: Muscle strength is 5/5 for all pedal groups tested. Ankle joint DF is decreased with the knee extended with no pain or crepitus noted. 1st MPJ ROM is decreased bilateral. Large bunion is noted b/l. Flatfoot is noted b/l. Assessment: (B35.1) Onychomycosis (primary encounter diagnosis) (M79.674) Pain in toe of right foot (M79.675) Pain in toe of left foot (E11.10, Z79.4) Type 2 diabetes mellitus with ketoacidosis without coma, with long-term current use of insulin (HCC) (M21.41, M21.42) Pes planus of both feet (M20.10) Acquired hallux valgus, unspecified laterality Plan: Patient was seen and evaluated. Nails 1-5 bilateral were debrided in length and thickness. Callus reduced with dremmel to b/l feet. Patient was instructed on the continued importance of diabetic foot care along with proper diet and keeping their blood sugar under control to prevent complications. Contineu with diabetic shoes for b/l bunion deformity. Patient is to RTC in 3-4 months. Ted Tao DPM [facility] 06-23-2023 Note HNO ID: [id number] Author: Marichuy Sevilla RN Service: ? Author Type: Registered Nurse Type: Progress Notes Filed: 06/23/2023 9:21 AM Note Text: Patient presents with: Left Foot - Established Patient, Follow Up, Diabetic Foot Care Right Foot - Established Patient, Follow Up, Diabetic Foot Care Patient presents for diabetic foot care. States that the only pain she has is a few of her nails are long. [facility] 06-23-2023 Instructions Ted Tao - 06/23/2023 9:11 AM EDT Diabetes Foot Care Instructions When you have diabetes, proper foot care is very important. Poor foot care may lead to amputation of a foot or leg. As a person with diabetes, you are more vulnerable to foot problems, because diabetes can damage your nerves and reduce blood flow to your feet. Here are some diabetes foot care tips to follow: Wash and Dry Your Feet Daily Use mild soaps Use warm water Pat your skin dry; do not rub. Thoroughly dry your feet. After washing, use lotion on your feet to prevent cracking. Do not put lotion between your toes. Examine Your Feet Each Day Check the tops and bottoms of your feet. Have someone else look at your feet if you cannot see them. Check for dry, cracked skin. Look for blisters, cuts, scratches, or other sores. Check for redness, increased warmth, or tenderness when touching any area of your feet. Check for ingrown toenails, corns, and calluses. If you get a blister or sore from your shoes, do not pop it. Apply a bandage and wear a different pair of shoes. Take Care of Your Toenails Cut toenails after bathing, when they are soft. Cut toenails straight across and smooth with a nail file. Avoid cutting into the corners of toes. Do not cut cuticles. If you have neuropathy (or decreased sensation in your feet) a mortgage or loan underwriter should always cut your toenails. Be Careful When Exercising Walk and exercise in comfortable shoes. Do not exercise when you have open sores on your feet. Protect Your Feet With Shoes and Socks Never go barefoot. Always protect your feet by wearing shoes or hard-soled slippers or footwear. Avoid shoes with high heels and pointed toes. Avoid shoes that expose your toes or heels (such as open-toed shoes or sandals). These types of shoes increase your risk for injury and potential infections. Try on new footwear with the type of socks you usually wear. Do not wear new shoes for more than an hour at a time. Change your socks daily. Look and feel inside your shoes before putting them on to make sure there are no foreign objects or rough areas. Avoid tight socks. Wear natural-fiber socks (cotton, wool, or a cotton-wool blend). Wear special shoes if your health care provider recommends them. Wear shoes/boots that will protect your feet from various weather conditions (cold, moisture, etc.). Make sure your shoes fit properly. If you have neuropathy (nerve damage), you may not notice that your shoes are too tight. Perform the footwear test described below. Footwear Test Use this simple test to see if your shoes fit correctly: Stand on a piece of paper. (Make sure you are standing and not sitting, because your foot changes shape when you stand.) Trace the outline of your foot. Trace the outline of your shoe. Compare the tracings: Is the shoe too narrow? Is your foot crammed into the shoe? The shoe should be at least 1/2 inch longer than your longest toe and as wide as your foot. Proper Shoe Choices The following types of shoes are best for people with diabetes Closed toes and heels Leather uppers without a seam inside At least 1/2 inch extra space at the end of your longest toe Inside of shoe should be soft with no rough areas Outer sole should be made of stiff material Shoes should be at least as wide as your feet Tips for Foot Care in Diabetes Don't wait to treat a minor foot problem if you have diabetes. Follow your health care provider's guidelines and first aid guidelines. Report foot injuries and infections to your health care provider immediately. Check water temperature with your elbow, not your foot. Do not use a heating pad on your feet. Do not cross your legs. Do not self-treat your corns, calluses, or other foot problems. Go to your health care provider or mortgage or loan underwriter to treat these conditions. documented in this encounter [facility] 06-23-2023 History of Presen t illness Narrative Last saw Vandana Barrientos: 02/24/23 Subjective: Patient presents to clinic c/o painful toenails. They state that the nails are especially painful with shoe gear and pressure. Patient states that nails 1-5 b/l are painful. Patient admits to being diabetic. No other pedal complaints at this time. Patient states no change in medications or medical history since last visit. Objective: Patient presents to clinic ambulating in [facility] Vasc: DP and PT pulses are palpable bilateral. CFT is less than 5 seconds bilateral. Skin temperature is warm to cool proximal to distal bilateral. There is mild edema or varicosities noted. Neuro: Protective sensation is intact to the foot and toes when tested with the 5.07 SWM bilateral. Vibratory sensation is decreased at the hallux IPJ bilateral. The hallux is downgoing bilateral. Derm: Nails 1-5 b/l are painful, discolored-yellow, thick, crumbly, dystrophic and with subungal debris. Skin is of normal turgor, texture and hair growth is present bilateral. There are callus to b/l hallux and plantar medial arch. No ulcerations, scars, verruca or other lesions noted. Ortho: Muscle strength is 5/5 for all pedal groups tested. Ankle joint DF is decreased with the knee extended with no pain or crepitus noted. 1st MPJ ROM is decreased bilateral. Large bunion is noted b/l. Flatfoot is noted b/l. Assessment: (B35.1) Onychomycosis (primary encounter diagnosis) (M79.674) Pain in toe of right foot (M79.675) Pain in toe of left foot (E11.10, Z79.4) Type 2 diabetes mellitus with ketoacidosis without coma, with long-term current use of insulin (HCC) (M21.41, M21.42) Pes planus of both feet (M20.10) Acquired hallux valgus, unspecified laterality Plan: Patient was seen and evaluated. Nails 1-5 bilateral were debrided in length and thickness. Callus reduced with dremmel to b/l feet. Patient was instructed on the continued importance of diabetic foot care along with proper diet and keeping their blood sugar under control to prevent complications. Contineu with diabetic shoes for b/l bunion deformity. Patient is to RTC in 3-4 months. Ted Tao DPM Patient presents with: Left Foot - Established Patient, Follow Up, Diabetic Foot Care Right Foot - Established Patient, Follow Up, Diabetic Foot Care Patient presents for diabetic foot care. States that the only pain she has is a few of her nails are long. documented in this encounter [facility] 06-18-2023 Note HNO ID: [id number] Author: Yury Menard APRN.OXYACETYLENE TORCH OPERATOR Service: ? Author Type: Nurse Practitioner Type: Progress Notes Filed: 06/18/2023 4:42 PM Note Text: Reason for Consultation: DM Type 2 Referring Physician: SELF HISTORY OF PRESENT ILLNESS Ms. Cottrell is a 58 year old female presenting here today for a follow up of DM Type 2. As I recall, she was initially diagnosed with diabetes 2019. Endo: Dr. Hoyos. LV 10/09/22 A1C today is 5.9 History of diabetes, hypertension, peripheral neuropathy, hypoglycemia, obesity, covid 19 infection She has been working with the last sawyer. She lost weight but gained some back. Current diabetes regimen is as follows: Metformin ER 500 mg daily--diarrhea with higher doses. Trulicity 1.5 mg weeky Lantus 12 units daily in AM Previous DM medications: Humalog Glimepiride Trulicity --hypoglycemia Lantus she is checking her blood glucose 3 times daily. she does not bring a log book today for review. LDE Blood Sugar Frequency: BG 21 to 285 FBS 130's Hypoglycemia frequency: occasionally; if meal skipped Hypoglycemia awareness: Yes Regarding symptoms of hypoglycemia, she is not experiencing any symptoms such as polyuria, polydipsia, nocturia or rapid weight loss or blurry vision, Overall, the patient has no acute complaints at this time. PAST MEDICAL HISTORY Diagnosis Date Arthritis Chronic insomnia 12/05/[address] brown Chronic rhinitis 01/12/2018 Class 2 severe obesity with serious comorbidity and body mass index (BMI) of 35.0 to 35.9 in adult (HCC) 11/14/2021 Diabetes mellitus type 2 with ketoacidosis, uncontrolled (HCC) 07/06/2020 Diabetic polyneuropathy associated with type 2 diabetes mellitus (HCC) 02/03/2021 Seeing [facility] GERD without esophagitis 06/03/2019 Hallux valgus (acquired) 02/17/2007 Hyperlipidemia, mixed 05/14/2022 Hypertension, essential 11/13/2021 Intractable migraine without aura and without status migrainosus 2016 Neck pain 01/02/2022 Obesity, Class II, BMI 35-39.9 12/05/2019 Overactive bladder 2016 Physical debility 07/27/2020 Recurrent major depressive disorder, in remission (HCC) 06/02/2018 Seasonal allergic rhinitis due to pollen 07/14/2017 PAST SURGICAL HISTORY Procedure Laterality Date COLONOSCOPY FLX DX W/COLLJ SPEC WHEN PFRMD 08/04/2017 Normal colonoscopy-10 year follow-up COLPOSCOPY CERVIX UPPER/ADJACENT VAGINA Colposcopy CRYOTHERAPY/M24 1992 LIG/TRNSXJ FLP TUBE ABDL/VAG APPR UNI/BI Tubal ligation ORAL SURGERY PROCEDURE 3x PAST SURGICAL HISTORY OF 10/2013 right pinki tendon re-attatchment FAMILY HISTORY Problem Relation Age of Onset Arthritis Mother Kidney Disease Sister Breast Cancer Maternal Grandmother Breast Cancer Maternal Aunt Diabetes Maternal Aunt Hypertension Maternal Aunt Hyperlipidemia Maternal Aunt Diabetes Maternal Aunt Hypertension Maternal Aunt Hyperlipidemia Maternal Aunt Social History Tobacco Use Smoking status: Never Smokeless tobacco: Never Vaping Use Vaping Use: Never used Substance Use Topics Alcohol use: No Drug use: No Allergies As of Date: 06/18/2023 Allergen Noted Reaction SEASONAL ALLERGIES 07/15/2017 Unknown Fully Assessed 06/18/2023 Current Outpatient Medications Medication Sig Dispense Refill metFORMIN ER (GLUCOPHAGE XR) 500 mg 24 hr tablet Take 1 tablet by mouth daily with breakfast. Per Dr. Romain Haider [address] (PROTONIX) 40 mg tablet Take 1 tablet by mouth daily before breakfast. Take on empty stomach, 1/2 hr before meal. 30 tablet 4 LANTUS SOLOSTAR U-100 INSULIN 100 unit/mL (3 mL) Inject 12 units subcutaneously daily in the morning 15 mL 3 amitriptyline (ELAVIL) 10 mg tablet Take 4 tablets by mouth daily at bedtime. Per [facility], Neurology [facility] ODT 75 mg disintegrating tablet Take 1 tablet by mouth every other day. Per Neuro blood sugar diagnostic (BLOOD GLUCOSE TEST) test strip Use as directed to monitor blood sugar. Dx: Type 2 DM - Uncontrolled E11.65 Insulin: Yes.Test blood sugar(s) four times daily 150 Strip 11 dulaglutide (TRULICITY) 1.5 mg/0.5 mL pen injector INJECT 1 PEN (1.5 MG) SUBCUTANEOUSLY ONCE PER WEEK 2 mL 5 propranolol (INDERAL) 10 mg tablet Take 1 tablet by mouth once daily. 30 tablet 5 spironolactone (ALDACTONE) 25 mg tablet Take 1 tablet by mouth once daily. 30 tablet 5 oxybutynin ER (DITROPAN XL) 10 mg 24 hr tablet Take 1 tablet by mouth once daily. 30 tablet 5 amLODIPine (NORVASC) 10 mg tablet Take 1 tablet by mouth once daily. 90 tablet 1 atorvastatin (LIPITOR) 10 mg tablet Take 1 tablet by mouth daily at bedtime. For cholesterol. 90 tablet 1 pregabalin (LYRICA) 50 mg capsule Take 1 capsule by mouth twice daily for 30 days. 60 capsule 0 alcohol swabs (ALCOHOL PREP PADS) Apply 1 application to affected area three times daily. To check blood sugars. 100 Each 5 Insulin [place], Disposable, (PEN NEEDLE) 32 gauge x 5/ (more content not included)... [facility] 06-18-2023 Instructions Yury Menard APRN.OXYACETYLENE TORCH OPERATOR - 06/18/2023 3:50 PM EDT Stop lantus Increase trulicity to 3 mg weekly Continue metformin daily. Follow up in 6 months Yury Menard, MSN, ONYX CHIP TERRAZZO WORKER, NOVELTY WORKER-C, CDE Endocrinology [facility] Office [facility]/[address], [facility] [address] [place] [id number] Fax: documented in this encounter [facility] 06-18-2023 History of Presen t illness Narrative Reason for Consultation: DM Type 2 Referring Physician: SELF HISTORY OF PRESENT ILLNESS Ms. Cottrell is a 58 year old female presenting here today for a follow up of DM Type 2. As I recall, she was initially diagnosed with diabetes 2019. Endo: Dr. Hoyos. LV 10/09/22 A1C today is 5.9 History of diabetes, hypertension, peripheral neuropathy, hypoglycemia, obesity, covid 19 infection She has been working with the last sawyer. She lost weight but gained some back. Current diabetes regimen is as follows: Metformin ER 500 mg daily--diarrhea with higher doses. Trulicity 1.5 mg weeky Lantus 12 units daily in AM Previous DM medications: Humalog Glimepiride Trulicity --hypoglycemia Lantus she is checking her blood glucose 3 times daily. she does not bring a log book today for review. LDE Blood Sugar Frequency: BG 21 to 285 FBS 130's Hypoglycemia frequency: occasionally; if meal skipped Hypoglycemia awareness: Yes Regarding symptoms of hypoglycemia, she is not experiencing any symptoms such as polyuria, polydipsia, nocturia or rapid weight loss or blurry vision, Overall, the patient has no acute complaints at this time. PAST MEDICAL HISTORY Diagnosis Date Arthritis Chronic insomnia 12/05/[address] brown Chronic rhinitis 01/12/2018 Class 2 severe obesity with serious comorbidity and body mass index (BMI) of 35.0 to 35.9 in adult ([facility]) 11/14/2021 Diabetes mellitus type 2 with ketoacidosis, uncontrolled ([facility]) 07/06/2020 Diabetic polyneuropathy associated with type 2 diabetes mellitus ([facility]) 02/03/2021 Seeing [facility] GERD without esophagitis 06/03/2019 Hallux valgus (acquired) 02/17/2007 Hyperlipidemia, mixed 05/14/2022 Hypertension, essential 11/13/2021 Intractable migraine without aura and without status migrainosus 2016 Neck pain 01/02/2022 Obesity, Class II, BMI 35-39.9 12/05/2019 Overactive bladder 2016 Physical debility 07/27/2020 Recurrent major depressive disorder, in remission ([facility]) 06/02/2018 Seasonal allergic rhinitis due to pollen 07/14/2017 PAST SURGICAL HISTORY Procedure Laterality Date COLONOSCOPY FLX DX W/COLLJ SPEC WHEN PFRMD 08/04/2017 Normal colonoscopy-10 year follow-up COLPOSCOPY CERVIX UPPER/ADJACENT VAGINA Colposcopy CRYOTHERAPY/M24 1992 LIG/TRNSXJ FLP TUBE ABDL/VAG APPR UNI/BI Tubal ligation ORAL SURGERY PROCEDURE 3x PAST SURGICAL HISTORY OF 10/2013 right pinki tendon re-attatchment FAMILY HISTORY Problem Relation Age of Onset Arthritis Mother Kidney Disease Sister Breast Cancer Maternal Grandmother Breast Cancer Maternal Aunt Diabetes Maternal Aunt Hypertension Maternal Aunt Hyperlipidemia Maternal Aunt Diabetes Maternal Aunt Hypertension Maternal Aunt Hyperlipidemia Maternal Aunt Social History Tobacco Use Smoking status: Never Smokeless tobacco: Never Vaping Use Vaping Use: Never used Substance Use Topics Alcohol use: No Drug use: No Allergies As of Date: 06/18/2023 Allergen Noted Reaction SEASONAL ALLERGIES 07/15/2017 Unknown Fully Assessed 06/18/2023 Current Outpatient Medications Medication Sig Dispense Refill metFORMIN ER (GLUCOPHAGE XR) 500 mg 24 hr tablet Take 1 tablet by mouth daily with breakfast. Per Dr. Romain Haider [address] (PROTONIX) 40 mg tablet Take 1 tablet by mouth daily before breakfast. Take on empty stomach, 1/2 hr before meal. 30 tablet 4 LANTUS SOLOSTAR U-100 INSULIN 100 unit/mL (3 mL) Inject 12 units subcutaneously daily in the morning 15 mL 3 amitriptyline (ELAVIL) 10 mg tablet Take 4 tablets by mouth daily at bedtime. Per [facility], Neurology NURTE ODT 75 mg disintegrating tablet Take 1 tablet by mouth every other day. Per Neuro blood sugar diagnostic (BLOOD GLUCOSE TEST) test strip Use as directed to monitor blood sugar. Dx: Type 2 DM - Uncontrolled E11.65 Insulin: Yes.Test blood sugar(s) four times daily 150 Strip 11 dulaglutide (TRULICITY) 1.5 mg/0.5 mL pen injector INJECT 1 PEN (1.5 MG) SUBCUTANEOUSLY ONCE PER WEEK 2 mL 5 propranolol (INDERAL) 10 mg tablet Take 1 tablet by mouth once daily. 30 tablet 5 spironolactone (ALDACTONE) 25 mg tablet Take 1 tablet by mouth once daily. 30 tablet 5 oxybutynin ER (DITROPAN XL) 10 mg 24 hr tablet Take 1 tablet by mouth once daily. 30 tablet 5 amLODIPine (NORVASC) 10 mg tablet Take 1 tablet by mouth once daily. 90 tablet 1 atorvastatin (LIPITOR) 10 mg tablet Take 1 tablet by mouth daily at bedtime. For cholesterol. 90 tablet 1 pregabalin (LYRICA) 50 mg capsule Take 1 capsule by mouth twice daily for 30 days. 60 capsule 0 alcohol swabs (ALCOHOL PREP PADS) Apply 1 application to affected area three times daily. To check blood sugars. 100 Each 5 Insulin [place], Disposable, (PEN NEEDLE) 32 gauge x 5/32 Inject 1 Each subcutaneously q 24 HR. Give with each insulin administration. 100 Each 3 baclofen (LIORESAL) 10 mg tablet Take 1 tablet by mouth three times daily as needed (muscle spasms). 20 tablet 0 Lancing Device misc Patient to UAD BID. 1 Each 0 sertraline (ZOLOFT) 50 mg tablet Take 1 tablet by mouth once daily. [facility] [place] loratadine (CLARITIN) 10 mg tablet Take 1 tablet by mouth once daily as needed (for itching, sneezing or runny nose). 30 tablet 11 MEDICAL SUPPLY [facility] eval and treat. Patient has developed increase weakness and has fallen multiple times since discharge from their service in Mid May. 1 Device 0 MEDICAL SUPPLY RAISED TOILET SEAT. Dx: Z91.89, Z91.81 and R53.1 1 Device 0 MEDICAL SUPPLY OVER THE TUB GRAB BAR Dx: Z91.89, Z91.81 and R53.1 1 Device 0 MEDICAL SUPPLY SHOWER CHAIR WITH BACK REST, ARM RESTS WITH ADJUSTABLE HEIGHT. Dx: Z91.89, Z91.81 and R53.1 1 Device 0 MEDICAL SUPPLY Shower chair, #: one, Dx: R53.1, Z91.81 and Z74.09 1 Device 0 SUMAtriptan (IMITREX) 100 mg tablet Take one tab with onset of migraine, can repeat in 2 hrs if no relief. Max of 2 in 24 hrs 9 tablet 5 lancets (FREESTYLE LANCETS) 28 gauge Test blood sugar(s) 3 times daily. Dx: Type 2 DM - Uncontrolled E11.10 Insulin: Yes 100 Each 11 Current Facility-Administered Medications Medication Dose Route Frequency Provider Last Rate Last Admin perflutren lipid microspheres 1.3 mL in NaCl (PF) 0.9% 10 mL injection (DEFINITY) INTRAVENOUS DIRECTED PRN Freddie Luis MD sodium chloride 0.9 % (flush) 10 mL (BD POSIFLUSH) 10 mL INTRAVENOUS DIRECTED PRN Freddie Luis MD REVIEW OF SYSTEMS Review of Systems Respiratory: Negative for difficulty breathing. Cardiovascular: Negative for chest pain. Gastrointestinal: Negative for nausea, vomiting, diarrhea and constipation. PHYSICAL EXAMINATION BP 124/82 Pulse 90 Resp 16 Ht 175 cm (5' 8.9 ) Wt 103 kg (227 lb) LMP 05/21/2021 (Approximate) SpO2 99% BMI 33.62 kg/m2 Physical Exam Constitutional: Appearance: Normal appearance. She is obese. Cardiovascular: Rate and Rhythm: Normal rate and regular rhythm. Pulmonary: Effort: Pulmonary effort is normal. Breath sounds: Normal breath sounds. Skin: General: Skin is warm and dry. Neurological: Mental Status: She is alert and oriented to person, place, and time. Psychiatric: Mood and Affect: Mood normal. Behavior: Behavior normal. DATA Creatinine Date Value Ref Range Status 02/24/2023 0.81 0.58 - 0.96 mg/dL Final Hemoglobin A1C (%) Date Value 02/24/2023 5.6 10/29/2021 11.8 Hemoglobin A1C (POCT) (%) Date Value 08/21/2022 9.8 ) No components found for: URINEALBUMIN Cholesterol, Total (mg/dL) Date Value 11/26/2017 150 Total Cholesterol, Nonfasting (mg/dL) Date Value 02/24/2023 102 11/13/2021 208 HDL Cholesterol (mg/dL) Date Value 11/26/2017 43 HDL Cholesterol, Nonfasting (mg/dL) Date Value 02/24/2023 43 11/13/2021 44 LDL Cholesterol (mg/dL) Date Value 11/26/2017 89 LDL Cholesterol, Nonfasting (mg/dL) Date Value 02/24/2023 46 11/13/2021 135 Triglyceride (mg/dL) Date Value 11/26/2017 90 Triglycerides, Nonfasting (mg/dL) Date Value 02/24/2023 65 11/13/2021 145 IMPRESSION: Ms. Cottrell is a 58 year old female here for evaluation of DM Type 2 complicated by hypertension, peripheral neuropathy, hypoglycemia, obesity RECOMMENDATIONS: (E11.42) Type 2 diabetes mellitus with diabetic polyneuropathy, without long-term current use of insulin (HCC) (primary encounter diagnosis) Comment: Glycemic control is overall stable per A1C but having more hypoglycemia. Medications adjusted. Plan: HEMOGLOBIN A1C (POC), flash glucose scanning reader (FREESTYLE ESVIN 2 READER), flash glucose sensor (FREESTYLE ESVIN 2 SENSOR) kit, dulaglutide (TRULICITY) 3 mg/0.5 mL pen injector Stop lantus Increase trulicity to 3 mg weekly Continue metformin daily. Follow up in 6 months (E16.2) Hypoglycemia Comment/Plan: flash glucose scanning reader (FREESTYLE ESVIN 2 READER), flash glucose sensor (FREESTYLE ESVIN 2 SENSOR) kit Recommend CGM (I10) Primary hypertension Comment/Plan: Managed per PCP (E66.9) Obesity, Class I, BMI 30-34.9 Comment: Body mass index is 33.62 kg/m . Weight has been up and down. Currently been gaining Plan: Encouraged increase dietary and exercise efforts as able Stopping insulin and increasing trulicity which is being done for glycemic benefits will likely also help weight efforts. Medical Decision Making: Level: 4 - Moderate Yury Menard, MSN, ONYX [employer]RAZZ[employer] WORKER, NOVELTY WORKER-C, CDE Endocrinology [facility] Medical Office [facility]/[address] [place], [place] [address] Fax: documented in this encounter [facility] 06-16-2023 Miscellaneous Notes WINSOME 02/24/23 with RR NOV 09/02/23 with VERONIKA *Pantoprazole 40mg was sent to pharmacy on 05/20 with refills- rx not due. *Metformin is through Endo. *See pt request regarding bedside commode. Kendall London LPN .Patient has been identified by name and date of : Yes Last office visit in this department: Visit date not found RX INSTRUCTIONS: Patient aware RX will be sent to pharmacy. No need to notify patient. Patient phones requesting refills as follows: Patient is also requesting a bed side toliet. Please advise as she was not sure where to send that script to. Requested Prescriptions Pending Prescriptions Disp Refills metFORMIN ER (GLUCOPHAGE XR) 500 mg 24 hr tablet 90 tablet 1 Sig: Take 1 tablet by mouth daily with breakfast. Per Dr. Romain Haider pantoprazole (PROTONIX) 40 mg tablet 30 tablet 4 Sig: Take 1 tablet by mouth daily before breakfast. Take on empty stomach, 1/2 hr before meal. Please review and advise. Claudette Noble documented in this encounter [facility] 05-13-2023 Miscellaneous Notes Patient phones requesting refills as follows: Insurance will no longer cover basaglar, proposed for lantus solostar as this is a preferred alternative Requested Prescriptions Pending Prescriptions Disp Refills LANTUS SOLOSTAR U-100 INSULIN 100 unit/mL (3 mL) 15 mL 3 Sig: Inject 12 units subcutaneously daily in the morning Please review and advise. Teena John MA documented in this encounter [facility] 05-13-2023 Miscellaneous Notes Requester: Pharmacy Last Visit in Endocrinology: Provider name: Yury Menard APRN, CNP, Date 10/09/2022 Next Scheduled Appt in Endo: 06/18/2023 Last Refill: 10/09/2022 Number of Refills given: 3 Please review for provider who is out of the office. Requested Prescriptions Pending Prescriptions Disp Refills insulin glargine (BASAGLAR KWIKPEN U-100 INSULIN) 100 unit/mL (3 mL) [Pharmacy Med Name: BASAGLAR 100 UNIT/ML KWIKPEN] 15 mL 3 Sig: INJECT 12 UNITS SUBCUTANEOUSLY DAILY IN THE MORNING Please review and advise. Ruth Catalan RN documented in this encounter [facility] 05-08-2023 Miscellaneous Notes PT is calling to confirm her upcoming endo appointment. documented in this encounter [facility] 04-10-2023 Note HNO ID: [id number] Author: Mili Branch Ma Service: ? Author Type: ? Type: Progress Notes Filed: 04/10/2023 12:32 PM Note Text: Scan on 04/10/2023 9:06 AM by External Provider, PA-C: Consultation - Neurology/Neurosurgery [facility] 04-10-2023 History of Presen t illness Narrative Scan on 04/10/2023 9:06 AM by External Provider, VARINDER: Consultation - Neurology/Neurosurgery documented in this encounter [facility] 03-24-2023 Note HNO ID: [id number] Author: Bernie Horta RD Service: ? Author Type: Registered Dietitian Type: Progress Notes Filed: 03/24/2023 9:37 AM Note Text: [facility] Nutrition Therapy: Virtual Consult - Re-assessment I have communicated my name and active licensure. The patient?s identity and physical location were verified at the time of this visit. Either the patient or their legal representative phlebotomy services has been informed of the risks and benefits of -- and alternatives to -- treatment through a remote evaluation and consents to proceed with the evaluation remotely. Nutrition Diagnosis: Overweight/obesity, related to, excess energy intake and physical inactivity, as evidenced by BMI above normative standard for age and gender RECOMMENDED MALNUTRITION DIAGNOSIS: NO MALNUTRITION IDENTIFIED NUTRITION CARE PLAN: Nutrition Intervention 03/24/2023: modify type and amount of food or beverage Add in 30 min walking most days No fried foods Choose grilled meats/chicken All beverages calorie free and sugar free, no reg soda or no juice Aim for three regular meals, no skipped meals Nutrition Monitoring AND Evaluation: labs in target range, weight loss Need for Follow up: 4-6 weeks PROGRESS: Patient driving during appointment Interval History: following as relates to diabetes and obese BMI Body mass index is 33.18 kg/m?. HTN, HLD, GERD. Weight appears to have increased from last visit. Last visit weight was reported over virtual format as opposed to recent office visit weight. Patient has been consuming mostly fast foods and meals out with recent move and disordered house. Has been consuming juice and reg soda, states stopped this last week. Works on house/yard for two hours daily, no additional exercise. Blood sugars generally in target range, last night post meal elevated as was not able to hop picker medication . Does anticipates being able to use kitchen tomorrow. Nutrition Intervention 02/02/23 Aim for three regular meals, include lean protein in each meal Avoid sweets, candy, desserts Add in regular exercise, aim for 30 min most days Actions to implement interventions: Active in house and yard Diet History: 70-80 Breakfast - left overs, [employer] Snack - apple Lunch - fast food of chicken or fish/FF; pizza, [place], fruit Snack - fruit Dinner - fast food of chicken or fish/FF; chicken strips; pizza, [place],fruit; salad 188 (need to hop picker Metformin) Snack - no Beverages - was drinking reg soda-stopped last week, water, milk Alcohol - no Vitamins/Supplements - no Fruit for snacks Activity: Activities of Daily Living: varies Additional Activity: Lightly active (Light exercise: planned physical activity 1-3 days/week) Getting house in order - 2 hours per day Yard work Anthropometrics: Height: Last 1 Encounter Ht Readings: Date: Ht: 03/24/2023 175 cm (5' 8.9 ) Weight: Last 1 Encounter Wt Readings: Date: Wt: 03/24/2023 101.6 kg (224 lb) Body mass index is 33.18 kg/m?. Resting Metabolic Rate: 1672 Malnutrition Screening Significant unintentional weight loss? No Eating less than 75% of usual intake for more than 2 weeks? No Potential Signs of Inflammation: no identifiable sources Nutritional status: Education Materials Provided: None this visit READINESS TO LEARN Cognitive ability: Alert and oriented Motivation to learn: Interested Family support: Unable to assess - Family not present Instruction provided to: Patient Patient learns best by: Individual Instruction Factors affecting learning: None Physical limitations affecting learning: None Likelihood of Adherence: Moderate Referred by: Toby DURANT Billing Type: Re-assess/15 min 2 units SIGNATURE: Bernie Horta RD PATIENT NAME: Alaina Cottrell DATE: 03/24/2023 TIME: 8:51 AM [facility] 03-20-2023 Note HNO ID: [id number] Author: Ted Tao Service: ? Author Type: Physician Type: Progress Notes Filed: 03/20/2023 2:08 PM Note Text: Last saw Vandana Barrientos: 02/24/23 Subjective: Patient presents to clinic c/o painful toenails. They state that the nails are especially painful with shoe gear and pressure. Patient states that nails 1-5 b/l are painful. Patient admits to being diabetic. No other pedal complaints at this time. Patient states no change in medications or medical history since last visit. Objective: Patient presents to clinic ambulating in [facility] Vasc: DP and PT pulses are palpable bilateral. CFT is less than 5 seconds bilateral. Skin temperature is warm to cool proximal to distal bilateral. There is mild edema or varicosities noted. Neuro: Protective sensation is intact to the foot and toes when tested with the 5.07 SWM bilateral. Vibratory sensation is decreased at the hallux IPJ bilateral. The hallux is downgoing bilateral. Derm: Nails 1-5 b/l are painful, discolored-yellow, thick, crumbly, dystrophic and with subungal debris. Skin is of normal turgor, texture and hair growth is present bilateral. There are no hyperkeratosis, ulcerations, scars, verruca or other lesions noted. Ortho: Muscle strength is 5/5 for all pedal groups tested. Ankle joint DF is decreased with the knee extended with no pain or crepitus noted. 1st MPJ ROM is decreased bilateral. Large bunion is present b/l. Assessment: (B35.1) Onychomycosis (primary encounter diagnosis) (M79.674) Pain in toe of right foot (M79.675) Pain in toe of left foot (E11.10, Z79.4) Type 2 diabetes mellitus with ketoacidosis without coma, with long-term current use of insulin ([facility]) Plan: Patient was seen and evaluated. Nails 1-5 bilateral were debrided in length and thickness. Patient was instructed on the continued importance of diabetic foot care along with proper diet and keeping their blood sugar under control to prevent complications. Continue with diabetic shoes for large bunion deformity. Patient is to RTC in 3-4 months. Ted Tao DPM [facility] 03-20-2023 Note HNO ID: [id number] Author: Radha Weir LPN Service: ? Author Type: LICENSED NURSE Type: Progress Notes Filed: 03/20/2023 2:08 PM Note Text: AMB ROOMING INTAKE FLOWSHEET DATA Patient presents with: Left Foot - Established Patient, Follow Up, Diabetic Foot Care Right Foot - Established Patient, Follow Up, Diabetic Foot Care Radha Weir LPN [facility] 03-20-2023 Miscellaneous Notes MyChart message sent to patient. Requester: Pharmacy Last Visit in Endocrinology: Provider name: Yury MenardANDREAS , Date 10/09/2022 Next Scheduled Appt in Endo: Visit date not found Last Refill: 10/09/2022 Number of Refills given: 5 PSS NOTE: Patient needs scheduled appointment. Due for 3 month f/u Requested Prescriptions Pending Prescriptions Disp Refills TRULICITY 1.5 mg/0.5 mL pen injector [Pharmacy Med Name: TRULICITY 1.5 MG/0.5 ML PEN] 2 mL 0 Sig: INJECT 1 PEN (1.5 MG) SUBCUTANEOUSLY ONCE PER WEEK Please review and advise. Haylie Anaya MA documented in this encounter [facility] 03-20-2023 History of Presen t illness Narrative Last saw Vandana Floyd: 02/24/23 Subjective: Patient presents to clinic c/o painful toenails. They state that the nails are especially painful with shoe gear and pressure. Patient states that nails 1-5 b/l are painful. Patient admits to being diabetic. No other pedal complaints at this time. Patient states no change in medications or medical history since last visit. Objective: Patient presents to clinic ambulating in [facility] Vasc: DP and PT pulses are palpable bilateral. CFT is less than 5 seconds bilateral. Skin temperature is warm to cool proximal to distal bilateral. There is mild edema or varicosities noted. Neuro: Protective sensation is intact to the foot and toes when tested with the 5.07 SWM bilateral. Vibratory sensation is decreased at the hallux IPJ bilateral. The hallux is downgoing bilateral. Derm: Nails 1-5 b/l are painful, discolored-yellow, thick, crumbly, dystrophic and with subungal debris. Skin is of normal turgor, texture and hair growth is present bilateral. There are no hyperkeratosis, ulcerations, scars, verruca or other lesions noted. Ortho: Muscle strength is 5/5 for all pedal groups tested. Ankle joint DF is decreased with the knee extended with no pain or crepitus noted. 1st MPJ ROM is decreased bilateral. Large bunion is present b/l. Assessment: (B35.1) Onychomycosis (primary encounter diagnosis) (M79.674) Pain in toe of right foot (M79.675) Pain in toe of left foot (E11.10, Z79.4) Type 2 diabetes mellitus with ketoacidosis without coma, with long-term current use of insulin ([facility]) Plan: Patient was seen and evaluated. Nails 1-5 bilateral were debrided in length and thickness. Patient was instructed on the continued importance of diabetic foot care along with proper diet and keeping their blood sugar under control to prevent complications. Continue with diabetic shoes for large bunion deformity. Patient is to RTC in 3-4 months. Ted Tao DPM AMB ROOMING INTAKE FLOWSHEET DATA Patient presents with: Left Foot - Established Patient, Follow Up, Diabetic Foot Care Right Foot - Established Patient, Follow Up, Diabetic Foot Care Radha Weir LPN documented in this encounter [facility] 03-20-2023 Instructions Ted Tao - 03/20/2023 1:57 PM EDT Diabetes Foot Care Instructions When you have diabetes, proper foot care is very important. Poor foot care may lead to amputation of a foot or leg. As a person with diabetes, you are more vulnerable to foot problems, because diabetes can damage your nerves and reduce blood flow to your feet. Here are some diabetes foot care tips to follow: Wash and Dry Your Feet Daily Use mild soaps Use warm water Pat your skin dry; do not rub. Thoroughly dry your feet. After washing, use lotion on your feet to prevent cracking. Do not put lotion between your toes. Examine Your Feet Each Day Check the tops and bottoms of your feet. Have someone else look at your feet if you cannot see them. Check for dry, cracked skin. Look for blisters, cuts, scratches, or other sores. Check for redness, increased warmth, or tenderness when touching any area of your feet. Check for ingrown toenails, corns, and calluses. If you get a blister or sore from your shoes, do not pop it. Apply a bandage and wear a different pair of shoes. Take Care of Your Toenails Cut toenails after bathing, when they are soft. Cut toenails straight across and smooth with a nail file. Avoid cutting into the corners of toes. Do not cut cuticles. If you have neuropathy (or decreased sensation in your feet) a mortgage or loan underwriter should always cut your toenails. Be Careful When Exercising Walk and exercise in comfortable shoes. Do not exercise when you have open sores on your feet. Protect Your Feet With Shoes and Socks Never go barefoot. Always protect your feet by wearing shoes or hard-soled slippers or footwear. Avoid shoes with high heels and pointed toes. Avoid shoes that expose your toes or heels (such as open-toed shoes or sandals). These types of shoes increase your risk for injury and potential infections. Try on new footwear with the type of socks you usually wear. Do not wear new shoes for more than an hour at a time. Change your socks daily. Look and feel inside your shoes before putting them on to make sure there are no foreign objects or rough areas. Avoid tight socks. Wear natural-fiber socks (cotton, wool, or a cotton-wool blend). Wear special shoes if your health care provider recommends them. Wear shoes/boots that will protect your feet from various weather conditions (cold, moisture, etc.). Make sure your shoes fit properly. If you have neuropathy (nerve damage), you may not notice that your shoes are too tight. Perform the footwear test described below. Footwear Test Use this simple test to see if your shoes fit correctly: Stand on a piece of paper. (Make sure you are standing and not sitting, because your foot changes shape when you stand.) Trace the outline of your foot. Trace the outline of your shoe. Compare the tracings: Is the shoe too narrow? Is your foot crammed into the shoe? The shoe should be at least 1/2 inch longer than your longest toe and as wide as your foot. Proper Shoe Choices The following types of shoes are best for people with diabetes Closed toes and heels Leather uppers without a seam inside At least 1/2 inch extra space at the end of your longest toe Inside of shoe should be soft with no rough areas Outer sole should be made of stiff material Shoes should be at least as wide as your feet Tips for Foot Care in Diabetes Don't wait to treat a minor foot problem if you have diabetes. Follow your health care provider's guidelines and first aid guidelines. Report foot injuries and infections to your health care provider immediately. Check water temperature with your elbow, not your foot. Do not use a heating pad on your feet. Do not cross your legs. Do not self-treat your corns, calluses, or other foot problems. Go to your health care provider or mortgage or loan underwriter to treat these conditions. documented in this encounter [facility] 03-09-2023 Miscellaneous Notes Patient has been identified by name and date of : Yes Requested Prescriptions Pending Prescriptions Disp Refills propranolol (INDERAL) 10 mg tablet 30 tablet 5 Sig: Take 1 tablet by mouth once daily. spironolactone (ALDACTONE) 25 mg tablet 30 tablet 5 Sig: Take 1 tablet by mouth once daily. oxybutynin ER (DITROPAN XL) 10 mg 24 hr tablet 30 tablet 5 Sig: Take 1 tablet by mouth once daily. RX INSTRUCTIONS: Patient aware RX will be sent to pharmacy. No need to notify patient. Rosemarie Li MA [facility] 08/2023 Nov 02/2023 Last refill: 06/2022 Pharmacy verified in Epic Patient has been identified by name and date of : Yes Patient aware RX will be sent to pharmacy. No need to notify patient. Pharmacy phones for refill(s): Requested Prescriptions Pending Prescriptions Disp Refills propranolol (INDERAL) 10 mg tablet 30 tablet 5 Sig: Take 1 tablet by mouth once daily. spironolactone (ALDACTONE) 25 mg tablet 30 tablet 5 Sig: Take 1 tablet by mouth once daily. oxybutynin ER (DITROPAN XL) 10 mg 24 hr tablet 30 tablet 5 Sig: Take 1 tablet by mouth once daily. Date of last office visit : 02/24/2023 Date of next office visit : 08/28/2023 Last 2 Encounter Wt Readings: Date: Wt: 02/24/2023 101.6 kg (224 lb) 02/02/2023 92.1 kg (203 lb) Please advise. Tiffany Motley Pss documented in this encounter [facility] 02-24-2023 Note HNO ID: [id number] Author: Vandana Barrientos PA-C Service: ? Author Type: Physician Rn Transport Type: Progress Notes Filed: 02/24/2023 12:33 PM Note Text: Chief Complaint Patient presents with: Yearly Exam HPI Alaina Cottrell is a 58 year old female who presents here today for physical. Patient with hx of DM2, hyperlipidemia, HTN, GERD, OAB, allergies, depression, elevated alk phos, obesity, chronic back pain, and those as below. Patient overall doing well. Denies concerns. Missed her last endo appointment and plans to get this rescheduled in the next few weeks. Past medical history, appointments, medications, allergies reviewed. Previous Medical History PAST MEDICAL HISTORY Diagnosis Date Arthritis Chronic insomnia 12/05/[address] brown Chronic rhinitis 01/12/2018 Class 2 severe obesity with serious comorbidity and body mass index (BMI) of 35.0 to 35.9 in adult ([facility]) 11/14/2021 Diabetes mellitus type 2 with ketoacidosis, uncontrolled ([facility]) 07/06/2020 Diabetic polyneuropathy associated with type 2 diabetes mellitus (HCC) 02/03/2021 Seeing [facility] GERD without esophagitis 06/03/2019 Hallux valgus (acquired) 02/17/2007 Hyperlipidemia, mixed 05/14/2022 Hypertension, essential 11/13/2021 Intractable migraine without aura and without status migrainosus 2016 Neck pain 01/02/2022 Obesity, Class II, BMI 35-39.9 12/05/2019 Overactive bladder 2016 Physical debility 07/27/2020 Recurrent major depressive disorder, in remission (HCC) 06/02/2018 Seasonal allergic rhinitis due to pollen 07/14/2017 Previous Surgical History PAST SURGICAL HISTORY Procedure Laterality Date COLONOSCOPY FLX DX W/COLLJ SPEC WHEN PFRMD 08/04/2017 Normal colonoscopy-10 year follow-up COLPOSCOPY CERVIX UPPER/ADJACENT VAGINA Colposcopy CRYOTHERAPY/M24 1992 LIG/TRNSXJ FLP TUBE ABDL/VAG APPR UNI/BI Tubal ligation ORAL SURGERY PROCEDURE 3x PAST SURGICAL HISTORY OF 10/2013 right pinki tendon re-attatchment Family History FAMILY HISTORY Problem Relation Age of Onset Arthritis Mother Kidney Disease Sister Breast Cancer Maternal Grandmother Breast Cancer Maternal Aunt Diabetes Maternal Aunt Hypertension Maternal Aunt Hyperlipidemia Maternal Aunt Diabetes Maternal Aunt Hypertension Maternal Aunt Hyperlipidemia Maternal Aunt Patient Allergies ALLERGIES Allergen Reactions Seasonal Allergies Unknown Trees and ragweed verified by skin testing Current Medications Current Outpatient Medications on File Prior to Visit Medication Sig amLODIPine (NORVASC) 10 mg tablet Take 1 tablet by mouth once daily. atorvastatin (LIPITOR) 10 mg tablet Take 1 tablet by mouth daily at bedtime. For cholesterol. pregabalin (LYRICA) 50 mg capsule Take 1 capsule by mouth twice daily for 30 days. dulaglutide (TRULICITY) 1.5 mg/0.5 mL pen injector Inject 1.5 mg subcutaneously one time a week. insulin glargine (BASAGLAR KWIKPEN U-100 INSULIN) 100 unit/mL (3 mL) Inject subcutaneously 12 units daily in AM alcohol swabs (ALCOHOL PREP PADS) Apply 1 application to affected area three times daily. To check blood sugars. metFORMIN ER (GLUCOPHAGE XR) 500 mg 24 hr tablet Take 1 tablet by mouth daily with breakfast. Per Dr. Romain Haider Insulin [place], Disposable, (PEN NEEDLE) 32 gauge x 5/32 Inject 1 Each subcutaneously q 24 HR. Give with each insulin administration. oxybutynin ER (DITROPAN XL) 10 mg 24 hr tablet Take 1 tablet by mouth once daily. pantoprazole DR (PROTONIX) 40 mg tablet Take 1 tablet by mouth daily before breakfast. Take on empty stomach, 1/2 hr before meal. spironolactone (ALDACTONE) 25 mg tablet Take 1 tablet by mouth once daily. propranolol (INDERAL) 10 mg tablet Take 1 tablet by mouth once daily. baclofen (LIORESAL) 10 mg tablet Take 1 tablet by mouth three times daily as needed (muscle spasms). Lancing Device [facility] Patient to [facility] BID. amitriptyline (ELAVIL) 10 mg tablet Take 3 tablets by mouth daily at bedtime. Per [facility], Neurology sertraline (ZOLOFT) 50 mg tablet Take 1 tablet by mouth once daily. Per Psych at the [facility]. lancets (FREESTYLE LANCETS) 28 gauge Test blood sugar(s) 3 times daily. Dx: Type 2 DM - Uncontrolled E11.10 Insulin: Yes loratadine (CLARITIN) 10 mg tablet Take 1 tablet by mouth once daily as needed (for itching, sneezing or runny nose). blood sugar diagnostic (BLOOD GLUCOSE TEST) test strip Use as directed to monitor blood sugar. Dx: Type 2 DM - Uncontrolled E11.65 Insulin: Yes.Test blood sugar(s) four times daily MEDICAL SUPPLY [facility] for PHYSICAL THERAPY eval and treat. Patient has developed increase weakness and has fallen multiple times since discharge from their service in Mid May. MEDICAL SUPPLY RAISED TOILET SEAT. Dx: Z91.89, Z91.81 and R53.1 MEDICAL SUPPLY OVER THE TUB GRAB BAR Dx: Z91.89, Z91.81 and R53.1 MEDICAL SUPPLY SHOWER CHAIR WITH BACK (more content not included)... [facility] 02-24-2023 Instructions Vandana Barrientos PA-C - 02/24/2023 9:18 AM EDT Check with insurance on coverage for Shingles vaccine and if can be done at [facility] Visit or pharmacy. documented in this encounter [facility] 02-24-2023 History of Presen t illness Narrative Chief Complaint Patient presents with: Yearly Exam HPI Alaina Cottrell is a 58 year old female who presents here today for physical. Patient with hx of DM2, hyperlipidemia, HTN, GERD, OAB, allergies, depression, elevated alk phos, obesity, chronic back pain, and those as below. Patient overall doing well. Denies concerns. Missed her last endo appointment and plans to get this rescheduled in the next few weeks. Past medical history, appointments, medications, allergies reviewed. Previous Medical History PAST MEDICAL HISTORY Diagnosis Date Arthritis Chronic insomnia 12/05/[address] brown Chronic rhinitis 01/12/2018 Class 2 severe obesity with serious comorbidity and body mass index (BMI) of 35.0 to 35.9 in adult ([facility]) 11/14/2021 Diabetes mellitus type 2 with ketoacidosis, uncontrolled ([facility]) 07/06/2020 Diabetic polyneuropathy associated with type 2 diabetes mellitus ([facility]) 02/03/2021 Seeing [facility] GERD without esophagitis 06/03/2019 Hallux valgus (acquired) 02/17/2007 Hyperlipidemia, mixed 05/14/2022 Hypertension, essential 11/13/2021 Intractable migraine without aura and without status migrainosus 2016 Neck pain 01/02/2022 Obesity, Class II, BMI 35-39.9 12/05/2019 Overactive bladder 2016 Physical debility 07/27/2020 Recurrent major depressive disorder, in remission ([facility]) 06/02/2018 Seasonal allergic rhinitis due to pollen 07/14/2017 Previous Surgical History PAST SURGICAL HISTORY Procedure Laterality Date COLONOSCOPY FLX DX W/COLLJ SPEC WHEN PFRMD 08/04/2017 Normal colonoscopy-10 year follow-up COLPOSCOPY CERVIX UPPER/ADJACENT VAGINA Colposcopy CRYOTHERAPY/M24 1992 LIG/TRNSXJ FLP TUBE ABDL/VAG APPR UNI/BI Tubal ligation ORAL SURGERY PROCEDURE 3x PAST SURGICAL HISTORY OF 10/2013 right pinki tendon re-attatchment Family History FAMILY HISTORY Problem Relation Age of Onset Arthritis Mother Kidney Disease Sister Breast Cancer Maternal Grandmother Breast Cancer Maternal Aunt Diabetes Maternal Aunt Hypertension Maternal Aunt Hyperlipidemia Maternal Aunt Diabetes Maternal Aunt Hypertension Maternal Aunt Hyperlipidemia Maternal Aunt Patient Allergies ALLERGIES Allergen Reactions Seasonal Allergies Unknown Trees and ragweed verified by skin testing Current Medications Current Outpatient Medications on File Prior to Visit Medication Sig amLODIPine (NORVASC) 10 mg tablet Take 1 tablet by mouth once daily. atorvastatin (LIPITOR) 10 mg tablet Take 1 tablet by mouth daily at bedtime. For cholesterol. pregabalin (LYRICA) 50 mg capsule Take 1 capsule by mouth twice daily for 30 days. dulaglutide (TRULICITY) 1.5 mg/0.5 mL pen injector Inject 1.5 mg subcutaneously one time a week. insulin glargine (BASAGLAR KWIKPEN U-100 INSULIN) 100 unit/mL (3 mL) Inject subcutaneously 12 units daily in AM alcohol swabs (ALCOHOL PREP PADS) Apply 1 application to affected area three times daily. To check blood sugars. metFORMIN ER (GLUCOPHAGE XR) 500 mg 24 hr tablet Take 1 tablet by mouth daily with breakfast. Per Dr. Romain Haider Insulin [place], Disposable, (PEN NEEDLE) 32 gauge x 5/32 Inject 1 Each subcutaneously q 24 HR. Give with each insulin administration. oxybutynin ER (DITROPAN XL) 10 mg 24 hr tablet Take 1 tablet by mouth once daily. pantoprazole DR (PROTONIX) 40 mg tablet Take 1 tablet by mouth daily before breakfast. Take on empty stomach, 1/2 hr before meal. spironolactone (ALDACTONE) 25 mg tablet Take 1 tablet by mouth once daily. propranolol (INDERAL) 10 mg tablet Take 1 tablet by mouth once daily. baclofen (LIORESAL) 10 mg tablet Take 1 tablet by mouth three times daily as needed (muscle spasms). Lancing Device [facility] Patient to [facility] BID. amitriptyline (ELAVIL) 10 mg tablet Take 3 tablets by mouth daily at bedtime. Per [facility], Neurology sertraline (ZOLOFT) 50 mg tablet Take 1 tablet by mouth once daily. [facility]. lancets (FREESTYLE LANCETS) 28 gauge Test blood sugar(s) 3 times daily. Dx: Type 2 DM - Uncontrolled E11.10 Insulin: Yes loratadine (CLARITIN) 10 mg tablet Take 1 tablet by mouth once daily as needed (for itching, sneezing or runny nose). blood sugar diagnostic (BLOOD GLUCOSE TEST) test strip Use as directed to monitor blood sugar. Dx: Type 2 DM - Uncontrolled E11.65 Insulin: Yes.Test blood sugar(s) four times daily MEDICAL SUPPLY Consult to [facility] home health care for PHYSICAL THERAPY eval and treat. Patient has developed increase weakness and has fallen multiple times since discharge from their service in Mid May. MEDICAL SUPPLY RAISED TOILET SEAT. Dx: Z91.89, Z91.81 and R53.1 MEDICAL SUPPLY OVER THE TUB GRAB BAR Dx: Z91.89, Z91.81 and R53.1 MEDICAL SUPPLY SHOWER CHAIR WITH BACK REST, ARM RESTS WITH ADJUSTABLE HEIGHT. Dx: Z91.89, Z91.81 and R53.1 MEDICAL SUPPLY Shower chair, #: one, Dx: R53.1, Z91.81 and Z74.09 SUMAtriptan (IMITREX) 100 mg tablet Take one tab with onset of migraine, can repeat in 2 hrs if no relief. Max of 2 in 24 hrs Current Facility-Administered Medications on File Prior to Visit Medication perflutren lipid microspheres 1.3 mL in NaCl (PF) 0.9% 10 mL injection (DEFINITY) sodium chloride 0.9 % (flush) 10 mL (BD POSIFLUSH) Social History Social History Tobacco Use Smoking status: Never Smokeless tobacco: Never Vaping Use Vaping Use: Never used Substance Use Topics Alcohol use: No Drug use: No Review of Symptoms REVIEW OF SYSTEMS GENERAL: No weight loss, malaise or fevers HEENT: No changes in hearing or vision, no nose bleeds or other nasal problems NECK: Negative for lumps, goiter, pain and significant neck swelling RESPIRATORY: Negative for cough, hemoptysis, wheezing, COPD, dyspnea or shortness of breath CARDIOVASCULAR: Negative for chest pain, leg swelling, CHF or palpitations GI: Negative for abdominal discomfort, blood in stools or black stools, change in bowel habit, heart burn, nausea, vomiting : No history of dysuria, frequency or incontinence 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 MUSCULOSKELETAL: Negative for joint pain or swelling, back pain or muscle pain SKIN: Negative for lesions, rash, and itching PSYCH: Negative for sleep disturbance, mood disorder and recent psychosocial stressors HEMATOLOGY/LYMPHOLOGY: Negative for prolonged bleeding, bruising easily or swollen nodes ENDOCRINE: Negative for cold or heat intolerance, polyuria, polydipsia and goiter NEURO: No history of headaches, syncope, paralysis, seizures or tremors EXAM: BP 102/68 (BP Site: Left Arm, BP Position: Sitting, BP Cuff Size: Large Adult) Pulse 70 Temp 36.5 C (97.7 F) Resp 16 Ht 175 cm (5' 8.9 ) Wt 101.6 kg (224 lb) LMP 05/21/2021 (Approximate) BMI 33.18 kg/m General Appearance: Well appearing, alert, in no acute distress, well-hydrated, well nourished. and Overweight. Skin: Skin color, texture, turgor normal, no suspicious rashes or lesions. Head: Normocephalic, no masses, lesions, tenderness or abnormalities. Eyes: Anicteric sclera. Pupils are equally round and reactive to light. Extraocular movements are intact. . Ears: External ears normal, canals clear, TMs pearly patrick. Nose/Sinuses: Nares normal, septum midline, mucosa normal, no drainage or sinus tenderness. Oropharynx: Lips, mucosa, and tongue normal, teeth and gums normal, oropharynx normal. Neck: Supple, no adenopathy; thyroid symmetric, normal size, no bruits. Lungs: Lungs clear to auscultation. No wheezing, rhonchi, rales.. Heart: RRR without murmur, gallop, or rubs. No ectopy. Abdomen: Normal abdominal exam, Abdomen soft, non-tender. Bowel sounds normal. No masses, organomegaly. Extremities: No deformities, edema, skin discoloration, clubbing or cyanosis. Good capillary refill. . Peripheral Pulses: Normal. Neurologic: Gait normal. Reflexes normal and symmetric. Sensation grossly intact.. Health Maintenance List HEPATITIS B(1 of 3 - 3-dose series) Never done BP CONTROLLED (<130/80) Never done SHINGRIX VACCINE(1 of 2) Never done COVID-19 VACCINE(3 - Booster for Moderna series) due on 03/27/2021 PNEUMOCOCCAL(2 - PPSV23 if available, else PCV20) due on 07/03/2021 URINE ALBUMIN:CREATININE RATIO due on 06/03/2022 HBA1C due on 11/21/2022 MAMMOGRAM due on 11/29/2022 LDL CHOLESTEROL due on 05/14/2023 ANNUAL PCP TEAM CHRONIC DISEASE VISIT due on 05/14/2023 INFLUENZA(Season Ended) due on 06/05/2023 DILATED RETINAL EXAM due on 10/30/2023 DIABETIC FOOT EXAM due on 12/04/2023 PAP TESTING due on 09/19/2025 HPV TESTING due on 09/19/2025 DTAP,TDAP,TD(2 - Td or Tdap) due on 01/07/2026 COLORECTAL CANCER SCREENING due on 08/04/2027 HEPATITIS C SCREENING Completed HIV SCREENING Discontinued Data reviewed N/a ASSESSMENT/PLAN: 1. Well adult exam - ICD9: V70.0, ICD10: Z00.00 (primary diagnosis) - Counseled on healthy diet and regular exercise - Calcium intake with supplements or by diet of 1000 mg/day for under 50, 7256-3472 mg/day for 50+ - Patient was counseled [id number] by myself (the billing provider) for the following immunizations and vaccine components, including side effects: COVID-19 and Pneumococcal . Patient consents for immunization and understands risks and benefits. A VIS sheet on each immunization was given to the patient. Patient to check with insurance for coverage on shingles vaccine. 2. Hypertension, essential - ICD9: 401.9, ICD10: I10 - good control - Continue current medication(s) - Recommended regular aerobic exercise. - Recommend home blood pressure monitoring, to bring results in on next visit - Goal of BP <130/80 - URINALYSIS, WITH MICROSCOPIC - COMP METABOLIC PANEL - CBC + DIFF 3. Hyperlipidemia, mixed - ICD9: 272.2, ICD10: E78.2 - to be determined upon return of lab results - Encouraged following a low carbohydrate, healthy oil intake diet. - Continue current therapy. - LIPID PANEL, NONFASTING 4. Type 2 diabetes mellitus with diabetic polyneuropathy, without long-term current use of insulin (HCC) - ICD9: 250.60, 357.2, ICD10: E11.42 Patient needs follow up with endo. Check labs today - HGB A1C - URINALYSIS, WITH MICROSCOPIC - ALBUMIN/CREAT RATIO RND UR - COMP METABOLIC PANEL - CBC + DIFF 5. GERD without esophagitis - ICD9: 530.81, ICD10: K21.9 stable 6. Recurrent major depressive disorder, in remission (HCC) - ICD9: 296.35, ICD10: F33.40 stable 7. Obesity, Class I, BMI 30-34.9 - ICD9: 278.00, ICD10: E66.9 Last 3 Encounter Wt Readings: Date: Wt: 02/24/2023 101.6 kg (224 lb) 02/02/2023 92.1 kg (203 lb) 12/01/2022 92.1 kg (203 lb) - Behavioral intervention 8. Seasonal allergic rhinitis due to pollen - ICD9: 477.0, ICD10: J30.1 stable 9. Overactive bladder - ICD9: 596.51, ICD10: N32.81 Chronic. 10. Medication management - ICD9: V58.69, ICD10: Z79.899 - MAGNESIUM BLD 11. Immunity status testing - ICD9: V72.61, ICD10: Z01.84 - HEP B SURF AB 12. Encounter for immunization - ICD9: V03.89, ICD10: Z23 - PFIZER-BIONTECH COVID-19 BIVALENT VACCINE, AGE 12+ YR - PNEUMOCOCCAL VACCINE (PREVNAR 20) Vandana Barrientos PA-C documented in this encounter [facility] 02-02-2023 Note HNO ID: [id number] Author: Bernie Horta RD Service: ? Author Type: Registered Dietitian Type: Progress Notes Filed: 02/02/2023 9:21 AM Note Text: [facility] Nutrition Therapy: Virtual Consult - Re-assessment I have communicated my name and active licensure. The patient?s identity and physical location were verified at the time of this visit. Either the patient or their legal representative phlebotomy services has been informed of the risks and benefits of -- and alternatives to -- treatment through a remote evaluation and consents to proceed with the evaluation remotely. Nutrition Diagnosis: Overweight/obesity, related to, excess energy intake and physical inactivity, as evidenced by BMI above normative standard for age and gender RECOMMENDED MALNUTRITION DIAGNOSIS: NO MALNUTRITION IDENTIFIED NUTRITION CARE PLAN: Nutrition Intervention 02/02/2023: modify type and amount of food or beverage Aim for three regular meals, include lean protein in each meal Avoid sweets, candy, desserts Add in regular exercise, aim for 30 min most days Nutrition Monitoring AND Evaluation: Weight loss and labs in target range Need for Follow up: 4-6 weeks PROGRESS: Interval History: Following as relates to diabetes and overweight BMI Body mass index is 29.56 kg/m?. Typically eating two meals, including frequent sweets to keep blood sugars up. No current weight. Has not been exercising but has been busy putting things away in house. 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 Resting Metabolic Rate: 1586 Malnutrition Screening Significant unintentional weight loss? No Eating less than 75% of usual intake for more than 2 weeks? No Potential Signs of Inflammation: no identifiable sources Nutritional status: Education Materials Provided: None this visit READINESS TO LEARN Cognitive ability: Alert and oriented Motivation to learn: Interested Family support: Unable to assess - Family not present Instruction provided to: Patient Patient learns best by: Individual Instruction Factors affecting learning: None Physical limitations affecting learning: None Likelihood of Adherence: Moderate Referred by: Toby DURANT Billing Type: Re-assess/15 min 2 units SIGNATURE: Bernie Horta RD PATIENT NAME: Alaina Cottrell DATE: 02/02/2023 TIME: 8:56 AM [facility] 02-02-[address] - 02/02/2023 9:21 AM EDT Aim for three regular meals, include lean protein in each meal Avoid sweets, candy, desserts Add in regular exercise, aim for 30 min most days documented in this encounter [facility] 02-02-2023 History of Presen t illness Narrative [facility] Nutrition Therapy: Virtual Consult - Re-assessment I have communicated my name and active licensure. The patient s identity and physical location were verified at the time of this visit. Either the patient or their legal representative phlebotomy services has been informed of the risks and benefits of -- and alternatives to -- treatment through a remote evaluation and consents to proceed with the evaluation remotely. Nutrition Diagnosis: Overweight/obesity, related to, excess energy intake and physical inactivity, as evidenced by BMI above normative standard for age and gender RECOMMENDED MALNUTRITION DIAGNOSIS: NO MALNUTRITION IDENTIFIED NUTRITION CARE PLAN: Nutrition Intervention 02/02/2023: modify type and amount of food or beverage Aim for three regular meals, include lean protein in each meal Avoid sweets, candy, desserts Add in regular exercise, aim for 30 min most days Nutrition Monitoring & Evaluation: Weight loss and labs in target range Need for Follow up: 4-6 weeks PROGRESS: Interval History: Following as relates to diabetes and overweight BMI Body mass index is 29.56 kg/m . Typically eating two meals, including frequent sweets to keep blood sugars up. No current weight. Has not been exercising but has been busy putting things away in house. 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 Resting Metabolic Rate: 1586 Malnutrition Screening Significant unintentional weight loss? No Eating less than 75% of usual intake for more than 2 weeks? No Potential Signs of Inflammation: no identifiable sources Nutritional status: Education Materials Provided: None this visit READINESS TO LEARN Cognitive ability: Alert and oriented Motivation to learn: Interested Family support: Unable to assess - Family not present Instruction provided to: Patient Patient learns best by: Individual Instruction Factors affecting learning: None Physical limitations affecting learning: None Likelihood of Adherence: Moderate Referred by: Toby DURANT Billing Type: Re-assess/15 min 2 units SIGNATURE: Bernie Horta RD PATIENT NAME: Alaina Cottrell DATE: 02/02/2023 TIME: 8:56 AM documented in this encounter [facility] 01-30-2023 Miscellaneous Notes Patient has been identified by name and date of : Yes, Provider Nieves Harden RN Date 01/30/2023 Time 4:15 pm Pharmacy phones for refill(s): Requested Prescriptions Pending Prescriptions Disp Refills baclofen (LIORESAL) 10 mg tablet 20 tablet 0 Sig: Take 1 tablet by mouth three times daily as needed (muscle spasms). amLODIPine (NORVASC) 10 mg tablet 30 tablet Sig: Take 1 tablet by mouth once daily. atorvastatin (LIPITOR) 10 mg tablet 90 tablet Sig: Take 1 tablet by mouth daily at bedtime. For cholesterol. Date of last office visit with pcp: 05/14/2022 Future appt: 02/24/2023 Rescheduled physical from November (no-show) Last 2 Encounter Wt Readings: Date: Wt: 12/01/2022 92.1 kg (203 lb) 11/03/2022 101.2 kg (223 lb) Previous labs/tests for medication: Cholesterol: HDL Cholesterol (mg/dL) Date Value 11/26/2017 43 HDL Cholesterol, Nonfasting (mg/dL) Date Value 05/14/2022 43 11/13/2021 44 LDL Cholesterol (mg/dL) Date Value 11/26/2017 89 LDL Cholesterol, Nonfasting (mg/dL) Date Value 05/14/2022 65 11/13/2021 135 ALT (U/L) Date Value 05/14/2022 15 11/13/2021 17 Non HDL Cholesterol, Nonfasting (mg/dL) Date Value 05/14/2022 88 11/13/2021 164 Blood Pressure: BUN (mg/dL) Date Value 05/14/2022 16 10/29/2021 13 Sodium (mmol/L) Date Value 05/14/2022 139 10/29/2021 139 Last 1 Encounter BP Readings: Date: BP: 10/09/2022 132/94 Liver Function: ALT (U/L) Date Value 05/14/2022 15 11/13/2021 17 AST (U/L) Date Value 05/14/2022 17 11/13/2021 17 Please advise. Thank you. Nieves Harden RN documented in this encounter [facility] 12-31-2022 Note Patient Outreach (IN [facility]) ALAINA COTTRELL ([id number]) 1965 F Date Time Provider Department 12/31/22 FREDDIE LUIS During your visit today, we recorded the following information about you: Allergies As of Date: 12/31/2022 Noted Allergy Reaction SEASONAL ALLERGIES 07/15/2017 16 - Unknown Comments: Trees and ragweed verified by skin testing Date Reviewed: 12/03/2022 Reviewed by: Marichuy Sevilla RN - Fully Assessed Visit Diagnosis:Encounter for screening mammogram for breast cancer [Z12.31] Order(s):[facility] SCREENING [[id number]] Order #: [id number] FUTURE Prescriptions as of 01/05/2023 - pregabalin (LYRICA) 50 mg capsule Take 1 capsule by mouth twice daily for 30 days. - dulaglutide (TRULICITY) 1.5 mg/0.5 mL pen injector Inject 1.5 mg subcutaneously one time a week. - insulin glargine (BASAGLAR KWIKPEN U-100 INSULIN) 100 unit/mL (3 mL) Inject subcutaneously 12 units daily in AM - alcohol swabs (ALCOHOL PREP PADS) Apply 1 application to affected area three times daily. To check blood sugars. - metFORMIN ER (GLUCOPHAGE XR) 500 mg 24 hr tablet Take 1 tablet by mouth daily with breakfast. Per Dr. Romain Haider - Insulin [place], Disposable, (PEN NEEDLE) 32 gauge x 5/32 Inject 1 Each subcutaneously q 24 HR. Give with each insulin administration. - oxybutynin ER (DITROPAN XL) 10 mg 24 hr tablet Take 1 tablet by mouth once daily. - pantoprazole DR (PROTONIX) 40 mg tablet Take 1 tablet by mouth daily before breakfast. Take on empty stomach, 1/2 hr before meal. - spironolactone (ALDACTONE) 25 mg tablet Take 1 tablet by mouth once daily. - propranolol (INDERAL) 10 mg tablet Take 1 tablet by mouth once daily. - atorvastatin (LIPITOR) 10 mg tablet Take 1 tablet by mouth daily at bedtime. For cholesterol. - amLODIPine (NORVASC) 10 mg tablet Take 1 tablet by mouth once daily. - baclofen (LIORESAL) 10 mg tablet Take 1 tablet by mouth three times daily as needed (muscle spasms). - Lancing Device misc Patient to UAD BID. - amitriptyline (ELAVIL) 10 mg tablet Take 3 tablets by mouth daily at bedtime. Per [facility] Neurology - sertraline (ZOLOFT) 50 mg tablet Take 1 tablet by mouth once daily. Per Psych at the [facility]. - lancets (FREESTYLE LANCETS) 28 gauge Test blood sugar(s) 3 times daily. Dx: Type 2 DM - Uncontrolled E11.10 Insulin: Yes - loratadine (CLARITIN) 10 mg tablet Take 1 tablet by mouth once daily as needed (for itching, sneezing or runny nose). - blood sugar diagnostic (BLOOD GLUCOSE TEST) test strip Use as directed to monitor blood sugar. Dx: Type 2 DM - Uncontrolled E11.65 Insulin: Yes.Test blood sugar(s) four times daily - MEDICAL SUPPLY Consult to [facility] for PHYSICAL THERAPY eval and treat. Patient has developed increase weakness and has fallen multiple times since discharge from their service in Mid May. - MEDICAL SUPPLY RAISED TOILET SEAT. Dx: Z91.89, Z91.81 and R53.1 - MEDICAL SUPPLY OVER THE TUB GRAB BAR Dx: Z91.89, Z91.81 and R53.1 - MEDICAL SUPPLY SHOWER CHAIR WITH BACK REST, ARM RESTS WITH ADJUSTABLE HEIGHT. Dx: Z91.89, Z91.81 and R53.1 - MEDICAL SUPPLY Shower chair, #: one, Dx: R53.1, Z91.81 and Z74.09 - SUMAtriptan (IMITREX) 100 mg tablet Take one tab with onset of migraine, can repeat in 2 hrs if no relief. Max of 2 in 24 hrs Facility-Administered Medications as of 01/05/2023 - perflutren lipid microspheres 1.3 mL in NaCl (PF) 0.9% 10 mL injection (DEFINITY) - sodium chloride 0.9 % (flush) 10 mL (BD POSIFLUSH) Problem List As Of Date 12/31/2022 Noted Resolved Hallux valgus (acquired) [M20.10] 02/17/2007 Encounter for gynecological examination without*2016 Overactive bladder [N32.81] 2016 Intractable migraine without aura and without s*2016 05/26/2017 Well adult exam [Z00.00] 2016 11/26/2016 Encounter for screening for diabetes mellitus [*05/09/2016 11/26/2016 Encounter for screening for cardiovascular diso*05/09/2016 11/26/2016 Well adult exam [Z00.00] 05/26/2017 Screening for colon cancer [Z12.11] 05/26/2017 Seasonal allergic rhinitis due to pollen [J30.1]07/14/2017 Intractable migraine without aura and without s*10/14/2017 Encounter for screening mammogram for breast ca*12/17/2017 Chronic rhinitis [J31.0] 01/12/2018 Recurrent major depressive disorder, in remissi*06/02/2018 Inflammatory heel pain, right [M79.671] 12/02/2018 Metatarsalgia of left foot [M77.42] 12/02/2018 GERD without esophagitis [K21.9] 06/03/2019 Chronic insomnia [F51.04] 12/05/2019 Type 2 diabetes mellitus with diabetic polyneur*07/06/2020 Bilateral low back pain with sciatica [M54.40] 07/27/2020 Physical debility [R53.81] 07/27/2020 Medication management [Z79.899] 05/08/2021 Hypertension, essential [I10] 11/13/2021 Neck pain [M54.2] 01/02/2022 Hyperlipidemia, mixed [E78.2] 05/14/2022 E (more content not included)... [facility] 12-31-2022 Miscellaneous Notes Received pt's 1st No Show letter back as return to sender, unable to forward. Spoke with pt and states mail was sent to [facility] instead of [facility]. Address is now correct in [facility]. Letter resent to pt. Tj Mendenhall LPN documented in this encounter [facility] 12-17-2022 Note HNO ID: [id number] Author: Lisha Brandon APRN.OXYACETYLENE TORCH OPERATOR Service: ? Author Type: Nurse Practitioner Type: Progress Notes Filed: 12/17/2022 4:26 PM Note Text: VIRTUAL VISIT PROGRESS NOTE This is a virtual visit using CohBar video visit. It required patient-provider interaction for the medical decision making as documented below. Alaina Cottrell is a 57 year old female seen for follow up. HISTORY REVIEWED (electronic chart updated): PAST MEDICAL HISTORY Diagnosis Date Arthritis Chronic insomnia 12/05/[address] brown Chronic rhinitis 01/12/2018 Class 2 severe obesity with serious comorbidity and body mass index (BMI) of 35.0 to 35.9 in adult ([facility]) 11/14/2021 Diabetes mellitus type 2 with ketoacidosis, uncontrolled ([facility]) 07/06/2020 Diabetic polyneuropathy associated with type 2 diabetes mellitus (HCC) 02/03/2021 Seeing [facility] GERD without esophagitis 06/03/2019 Hallux valgus (acquired) 02/17/2007 Hyperlipidemia, mixed 05/14/2022 Hypertension, essential 11/13/2021 Intractable migraine without aura and without status migrainosus 2016 Neck pain 01/02/2022 Obesity, Class II, BMI 35-39.9 12/05/2019 Overactive bladder 2016 Physical debility 07/27/2020 Recurrent major depressive disorder, in remission (HCC) 06/02/2018 Seasonal allergic rhinitis due to pollen 07/14/2017 PAST SURGICAL HISTORY Procedure Laterality Date COLONOSCOPY FLX DX W/COLLJ SPEC WHEN PFRMD 08/04/2017 Normal colonoscopy-10 year follow-up COLPOSCOPY CERVIX UPPER/ADJACENT VAGINA Colposcopy CRYOTHERAPY/M24 1992 LIG/TRNSXJ FLP TUBE ABDL/VAG APPR UNI/BI Tubal ligation ORAL SURGERY PROCEDURE 3x PAST SURGICAL HISTORY OF 10/2013 right pinki tendon re-attatchment FAMILY HISTORY Problem Relation Age of Onset Arthritis Mother Kidney Disease Sister Breast Cancer Maternal Grandmother Breast Cancer Maternal Aunt Diabetes Maternal Aunt Hypertension Maternal Aunt Hyperlipidemia Maternal Aunt Diabetes Maternal Aunt Hypertension Maternal Aunt Hyperlipidemia Maternal Aunt Social History Tobacco Use Smoking status: Never Smokeless tobacco: Never Vaping Use Vaping Use: Never used Substance Use Topics Alcohol use: No Drug use: No Current Outpatient Medications Medication Sig pregabalin (LYRICA) 50 mg capsule Take 1 capsule by mouth twice daily for 30 days. dulaglutide (TRULICITY) 1.5 mg/0.5 mL pen injector Inject 1.5 mg subcutaneously one time a week. insulin glargine (BASAGLAR KWIKPEN U-100 INSULIN) 100 unit/mL (3 mL) Inject subcutaneously 12 units daily in AM alcohol swabs (ALCOHOL PREP PADS) Apply 1 application to affected area three times daily. To check blood sugars. metFORMIN ER (GLUCOPHAGE XR) 500 mg 24 hr tablet Take 1 tablet by mouth daily with breakfast. Per Dr. Romain Haider Insulin [place], Disposable, (PEN NEEDLE) 32 gauge x 5/32 Inject 1 Each subcutaneously q 24 HR. Give with each insulin administration. oxybutynin ER (DITROPAN XL) 10 mg 24 hr tablet Take 1 tablet by mouth once daily. pantoprazole DR (PROTONIX) 40 mg tablet Take 1 tablet by mouth daily before breakfast. Take on empty stomach, 1/2 hr before meal. spironolactone (ALDACTONE) 25 mg tablet Take 1 tablet by mouth once daily. propranolol (INDERAL) 10 mg tablet Take 1 tablet by mouth once daily. atorvastatin (LIPITOR) 10 mg tablet Take 1 tablet by mouth daily at bedtime. For cholesterol. amLODIPine (NORVASC) 10 mg tablet Take 1 tablet by mouth once daily. baclofen (LIORESAL) 10 mg tablet Take 1 tablet by mouth three times daily as needed (muscle spasms). Lancing Device [facility] Patient to UAD BID. amitriptyline (ELAVIL) 10 mg tablet Take 3 tablets by mouth daily at bedtime. Per [facility] sertraline (ZOLOFT) 50 mg tablet Take 1 tablet by mouth once daily. [facility]. lancets (FREESTYLE LANCETS) 28 gauge Test blood sugar(s) 3 times daily. Dx: Type 2 DM - Uncontrolled E11.10 Insulin: Yes loratadine (CLARITIN) 10 mg tablet Take 1 tablet by mouth once daily as needed (for itching, sneezing or runny nose). blood sugar diagnostic (BLOOD GLUCOSE TEST) test strip Use as directed to monitor blood sugar. Dx: Type 2 DM - Uncontrolled E11.65 Insulin: Yes.Test blood sugar(s) four times daily MEDICAL SUPPLY [facility] for [facility]ICAL THERAPY eval and treat. Patient has developed increase weakness and has fallen multiple times since discharge from their service in Mid May. MEDICAL SUPPLY RAISED TOILET SEAT. Dx: Z91.89, Z91.81 and R53.1 MEDICAL SUPPLY OVER THE TUB GRAB BAR Dx: Z91.89, Z91.81 and R53.1 MEDICAL SUPPLY SHOWER CHAIR WITH BACK REST, ARM RESTS WITH ADJUSTABLE HEIGHT. Dx: Z91.89, Z91.81 and R53.1 MEDICAL SUPPLY Shower chair, #: one, Dx: R53.1, Z91.81 and Z74.09 SUMAtriptan (IMITREX) 100 mg tablet Take one tab with onset of migraine, can repeat in 2 hrs if no relief. Max of 2 in 24 hrs Current Facility-A (more content not included)... [facility] 12-17-2022 History of Presen t illness Narrative VIRTUAL VISIT PROGRESS NOTE This is a virtual visit using CohBar video visit. It required patient-provider interaction for the medical decision making as documented below. Alaina Cottrell is a 57 year old female seen for follow up. HISTORY REVIEWED (electronic chart updated): PAST MEDICAL HISTORY Diagnosis Date Arthritis Chronic insomnia 12/05/[address] brown Chronic rhinitis 01/12/2018 Class 2 severe obesity with serious comorbidity and body mass index (BMI) of 35.0 to 35.9 in adult ([facility]) 11/14/2021 Diabetes mellitus type 2 with ketoacidosis, uncontrolled ([facility]) 07/06/2020 Diabetic polyneuropathy associated with type 2 diabetes mellitus ([facility]) 02/03/2021 Seeing [facility] GERD without esophagitis 06/03/2019 Hallux valgus (acquired) 02/17/2007 Hyperlipidemia, mixed 05/14/2022 Hypertension, essential 11/13/2021 Intractable migraine without aura and without status migrainosus 2016 Neck pain 01/02/2022 Obesity, Class II, BMI 35-39.9 12/05/2019 Overactive bladder 2016 Physical debility 07/27/2020 Recurrent major depressive disorder, in remission ([facility]) 06/02/2018 Seasonal allergic rhinitis due to pollen 07/14/2017 PAST SURGICAL HISTORY Procedure Laterality Date COLONOSCOPY FLX DX W/COLLJ SPEC WHEN PFRMD 08/04/2017 Normal colonoscopy-10 year follow-up COLPOSCOPY CERVIX UPPER/ADJACENT VAGINA Colposcopy CRYOTHERAPY/M24 1992 LIG/TRNSXJ FLP TUBE ABDL/VAG APPR UNI/BI Tubal ligation ORAL SURGERY PROCEDURE 3x PAST SURGICAL HISTORY OF 10/2013 right pinki tendon re-attatchment FAMILY HISTORY Problem Relation Age of Onset Arthritis Mother Kidney Disease Sister Breast Cancer Maternal Grandmother Breast Cancer Maternal Aunt Diabetes Maternal Aunt Hypertension Maternal Aunt Hyperlipidemia Maternal Aunt Diabetes Maternal Aunt Hypertension Maternal Aunt Hyperlipidemia Maternal Aunt Social History Tobacco Use Smoking status: Never Smokeless tobacco: Never Vaping Use Vaping Use: Never used Substance Use Topics Alcohol use: No Drug use: No Current Outpatient Medications Medication Sig pregabalin (LYRICA) 50 mg capsule Take 1 capsule by mouth twice daily for 30 days. dulaglutide (TRULICITY) 1.5 mg/0.5 mL pen injector Inject 1.5 mg subcutaneously one time a week. insulin glargine (BASAGLAR KWIKPEN U-100 INSULIN) 100 unit/mL (3 mL) Inject subcutaneously 12 units daily in AM alcohol swabs (ALCOHOL PREP PADS) Apply 1 application to affected area three times daily. To check blood sugars. metFORMIN ER (GLUCOPHAGE XR) 500 mg 24 hr tablet Take 1 tablet by mouth daily with breakfast. Per Dr. Romain Haider Insulin [place], Disposable, (PEN NEEDLE) 32 gauge x 5/32 Inject 1 Each subcutaneously q 24 HR. Give with each insulin administration. oxybutynin ER (DITROPAN XL) 10 mg 24 hr tablet Take 1 tablet by mouth once daily. pantoprazole DR (PROTONIX) 40 mg tablet Take 1 tablet by mouth daily before breakfast. Take on empty stomach, 1/2 hr before meal. spironolactone (ALDACTONE) 25 mg tablet Take 1 tablet by mouth once daily. propranolol (INDERAL) 10 mg tablet Take 1 tablet by mouth once daily. atorvastatin (LIPITOR) 10 mg tablet Take 1 tablet by mouth daily at bedtime. For cholesterol. amLODIPine (NORVASC) 10 mg tablet Take 1 tablet by mouth once daily. baclofen (LIORESAL) 10 mg tablet Take 1 tablet by mouth three times daily as needed (muscle spasms). Lancing Device misc Patient to UAD BID. amitriptyline (ELAVIL) 10 mg tablet Take 3 tablets by mouth daily at bedtime. Per [facility] sertraline (ZOLOFT) 50 mg tablet Take 1 tablet by mouth once daily. Per Psych at the [facility]. lancets (FREESTYLE LANCETS) 28 gauge Test blood sugar(s) 3 times daily. Dx: Type 2 DM - Uncontrolled E11.10 Insulin: Yes loratadine (CLARITIN) 10 mg tablet Take 1 tablet by mouth once daily as needed (for itching, sneezing or runny nose). blood sugar diagnostic (BLOOD GLUCOSE TEST) test strip Use as directed to monitor blood sugar. Dx: Type 2 DM - Uncontrolled E11.65 Insulin: Yes.Test blood sugar(s) four times daily MEDICAL SUPPLY [facility] for [facility]ICAL THERAPY eval and treat. Patient has developed increase weakness and has fallen multiple times since discharge from their service in Mid May. MEDICAL SUPPLY RAISED TOILET SEAT. Dx: Z91.89, Z91.81 and R53.1 MEDICAL SUPPLY OVER THE TUB GRAB BAR Dx: Z91.89, Z91.81 and R53.1 MEDICAL SUPPLY SHOWER CHAIR WITH BACK REST, ARM RESTS WITH ADJUSTABLE HEIGHT. Dx: Z91.89, Z91.81 and R53.1 MEDICAL SUPPLY Shower chair, #: one, Dx: R53.1, Z91.81 and Z74.09 SUMAtriptan (IMITREX) 100 mg tablet Take one tab with onset of migraine, can repeat in 2 hrs if no relief. Max of 2 in 24 hrs Current Facility-Administered Medications Medication Dose Route Frequency perflutren lipid microspheres 1.3 mL in NaCl (PF) 0.9% 10 mL injection (DEFINITY) INTRAVENOUS DIRECTED PRN sodium chloride 0.9 % (flush) 10 mL (BD POSIFLUSH) 10 mL INTRAVENOUS DIRECTED PRN ALLERGIES Allergen Reactions Seasonal Allergies Unknown Trees and ragweed verified by skin testing REVIEW OF SYSTEMS: GENERAL: admits to fatigue PHYSICAL EXAMINATION: VIDEO EXAM: (if completed, performed via video enabled technology) GENERAL: alert and appropriate, in no distress ASSESSMENT: (M47.816) Facet arthritis of lumbar region (primary encounter diagnosis) (M79.2) Neuropathic pain (M47.816) Lumbar spondylosis Patient presents for follow-up visit via Zoom virtual visit Patient reports chronic low back pain that radiates intermittently down the bilateral lower extremities, but not at the same time Patient has numbness in her feet Patient reports that she has had some recent falls Patient reports that she is in the process of moving Patient reports she has been dealing with high blood sugars in the 600s and changes have been made to her insulin medications She is told to exercise 15 minutes daily Patient reports her pain is shooting and stabbing and a 7 out of 10 Patient reports she does have a treadmill but she has not really utilized it Patient reports that the to the left side of her shoes which has helped decrease the foot pain. And she is back to wearing braces Patient reports she has an appointment to sleep apnea. She reports she is not sleeping very well Patient was previously on gabapentin and then was stopped by her physician Discussed starting a trial of Lyrica 50 mg at bedtime then twice daily. Will titrate based on her response PLAN: The following approved medication requests have been transmitted electronically. Requested Prescriptions Signed Prescriptions Disp Refills pregabalin (LYRICA) 50 mg capsule 60 capsule 0 Sig: Take 1 capsule by mouth twice daily for 30 days. 2. Send a CohBar message in 3 weeks to let me know her response to the Lyrica There are no Patient Instructions on file for this visit. I spent a total of 20 minutes on the date of the service which included preparing to see the patient, [id number] patient care, completing clinical documentation, and ordering medications, tests, or procedures Lisha Brandon APRN.ANDREAS documented in this encounter [facility] 12-03-2022 History of Presen t illness Narrative Last saw Dr. Luis: 05/14/22 Subjective: Patient presents to clinic c/o painful toenails. They state that the nails are especially painful with shoe gear and pressure. Patient states that nails 1-5 b/l are painful. Patient admits to being diabetic. No other pedal complaints at this time. Patient states no change in medications or medical history since last visit. Objective: [facility] Vasc: DP and PT pulses are palpable bilateral. CFT is less than 5 seconds bilateral. Skin temperature is warm to cool proximal to distal bilateral. There is mild edema or varicosities noted. Neuro: Protective sensation is decreased to the foot and toes when tested with the 5.07 SWM bilateral. Vibratory sensation is absent at the hallux IPJ bilateral. The hallux is downgoing bilateral. Derm: Nails 1-5 b/l are paingul, discolored-yellow, thick, crumbly, dystrophic and with subungal debris. Skin is dry and hair growth is present bilateral. There are callus to b/l hallux. No ulcerations, scars, verruca or other lesions noted. Ortho: Muscle strength is 5/5 for all pedal groups tested. Ankle joint DF is decreased with the knee extended with no pain or crepitus noted. 1st MPJ ROM is decreased bilateral. Large bunion is noted b/l. Flatfoot is noted b/l. Large ganglion of left midfoot Assessment: (B35.1) Onychomycosis (primary encounter diagnosis) (M79.674) Pain in toe of right foot (M79.675) Pain in toe of left foot (M21.41, M21.42) Pes planus of both feet (E11.10, Z79.4) Type 2 diabetes mellitus with ketoacidosis without coma, with long-term current use of insulin ([facility]) Plan: Patient was seen and evaluated. Nails 1-5 bilateral were debrided in length and thickness. Callus rduced with dremmel Large ganglion is noted to left foot. Offered aspiration vs ultrasound aspiration. She declined. She is not candidate for surgery due to elevated a1c. Patient was instructed on the continued importance of diabetic foot care along with proper diet and keeping their blood sugar under control to prevent complications. Patient is to RTC in 3-4 months. Ted Tao DPM Patient presents with: Left Foot - Established Patient, Follow Up, Diabetic Foot Check Right Foot - Established Patient, Follow Up, Diabetic Foot Check Patient presents for 3 month diabetic foot check and nail care. documented in this encounter [facility] 12-03-2022 Instructions Ted Tao - 12/03/2022 9:32 AM EST Diabetes Foot Care Instructions When you have diabetes, proper foot care is very important. Poor foot care may lead to amputation of a foot or leg. As a person with diabetes, you are more vulnerable to foot problems, because diabetes can damage your nerves and reduce blood flow to your feet. Here are some diabetes foot care tips to follow: Wash and Dry Your Feet Daily Use mild soaps Use warm water Pat your skin dry; do not rub. Thoroughly dry your feet. After washing, use lotion on your feet to prevent cracking. Do not put lotion between your toes. Examine Your Feet Each Day Check the tops and bottoms of your feet. Have someone else look at your feet if you cannot see them. Check for dry, cracked skin. Look for blisters, cuts, scratches, or other sores. Check for redness, increased warmth, or tenderness when touching any area of your feet. Check for ingrown toenails, corns, and calluses. If you get a blister or sore from your shoes, do not pop it. Apply a bandage and wear a different pair of shoes. Take Care of Your Toenails Cut toenails after bathing, when they are soft. Cut toenails straight across and smooth with a nail file. Avoid cutting into the corners of toes. Do not cut cuticles. If you have neuropathy (or decreased sensation in your feet) a mortgage or loan underwriter should always cut your toenails. Be Careful When Exercising Walk and exercise in comfortable shoes. Do not exercise when you have open sores on your feet. Protect Your Feet With Shoes and Socks Never go barefoot. Always protect your feet by wearing shoes or hard-soled slippers or footwear. Avoid shoes with high heels and pointed toes. Avoid shoes that expose your toes or heels (such as open-toed shoes or sandals). These types of shoes increase your risk for injury and potential infections. Try on new footwear with the type of socks you usually wear. Do not wear new shoes for more than an hour at a time. Change your socks daily. Look and feel inside your shoes before putting them on to make sure there are no foreign objects or rough areas. Avoid tight socks. Wear natural-fiber socks (cotton, wool, or a cotton-wool blend). Wear special shoes if your health care provider recommends them. Wear shoes/boots that will protect your feet from various weather conditions (cold, moisture, etc.). Make sure your shoes fit properly. If you have neuropathy (nerve damage), you may not notice that your shoes are too tight. Perform the footwear test described below. Footwear Test Use this simple test to see if your shoes fit correctly: Stand on a piece of paper. (Make sure you are standing and not sitting, because your foot changes shape when you stand.) Trace the outline of your foot. Trace the outline of your shoe. Compare the tracings: Is the shoe too narrow? Is your foot crammed into the shoe? The shoe should be at least 1/2 inch longer than your longest toe and as wide as your foot. Proper Shoe Choices The following types of shoes are best for people with diabetes Closed toes and heels Leather uppers without a seam inside At least 1/2 inch extra space at the end of your longest toe Inside of shoe should be soft with no rough areas Outer sole should be made of stiff material Shoes should be at least as wide as your feet Tips for Foot Care in Diabetes Don't wait to treat a minor foot problem if you have diabetes. Follow your health care provider's guidelines and first aid guidelines. Report foot injuries and infections to your health care provider immediately. Check water temperature with your elbow, not your foot. Do not use a heating pad on your feet. Do not cross your legs. Do not self-treat your corns, calluses, or other foot problems. Go to your health care provider or mortgage or loan underwriter to treat these conditions. documented in this encounter [facility] 12-01-2022 History of Presen t illness Narrative The [facility] Nutrition Therapy: Telehealth Consult - Re-assessment This visit was performed via telephone due to the COVID-19 epidemic as an effort to protect patients and minimize exposure. Consent from patient received to conduct visit using telehealth. This Team Access Model visit is a telephone encounter. It required patient-provider interaction for the medical decision making as documented below. PROGRESS: Nutrition Intervention (date of last encounter 11/03/22): Include protein and fiber in each meal Work on adding in exercise, aim for 20 min to start most days Limit/avoid sweets/treats Beverages calorie free and sugar CHANGES IN TREATMENT: Patient met goal(s): Partially Actions to implement interventions: 50-60 Breakfast: fruit; pop and juice Sn: no Lunch; half sandwich, veggie straws Sn: fruit Dinner: bologne CLINICAL IMPRESSIONS: good Allergies: ALLERGIES Allergen Reactions Seasonal Allergies Unknown Trees and ragweed verified by skin testing Medications: Current Outpatient Medications Medication Sig Dispense Refill dulaglutide (TRULICITY) 1.5 mg/0.5 mL pen injector Inject 1.5 mg subcutaneously one time a week. 2 mL 5 insulin glargine (BASAGLAR KWIKPEN U-100 INSULIN) 100 unit/mL (3 mL) Inject subcutaneously 12 units daily in AM 15 mL 3 alcohol swabs (ALCOHOL PREP PADS) Apply 1 application to affected area three times daily. To check blood sugars. 100 Each 5 metFORMIN ER (GLUCOPHAGE XR) 500 mg 24 hr tablet Take 1 tablet by mouth daily with breakfast. Per Dr. Romain Haider 90 tablet 1 Insulin [place], Disposable, (PEN NEEDLE) 32 gauge x 5/32 Inject 1 Each subcutaneously q 24 HR. Give with each insulin administration. 100 Each 3 oxybutynin ER (DITROPAN XL) 10 mg 24 hr tablet Take 1 tablet by mouth once daily. [address] (PROTONIX) 40 mg tablet Take 1 tablet by mouth daily before breakfast. Take on empty stomach, 1/2 hr before meal. 30 tablet 4 spironolactone (ALDACTONE) 25 mg tablet Take 1 tablet by mouth once daily. 30 tablet 5 propranolol (INDERAL) 10 mg tablet Take 1 tablet by mouth once daily. 30 tablet 5 atorvastatin (LIPITOR) 10 mg tablet Take 1 tablet by mouth daily at bedtime. For cholesterol. 90 tablet 1 amLODIPine (NORVASC) 10 mg tablet Take 1 tablet by mouth once daily. 30 tablet 5 baclofen (LIORESAL) 10 mg tablet Take 1 tablet by mouth three times daily as needed (muscle spasms). 20 tablet 0 Lancing Device misc Patient to UAD BID. 1 Each 0 amitriptyline (ELAVIL) 10 mg tablet Take 3 tablets by mouth daily at bedtime. Per [facility], Neurology sertraline (ZOLOFT) 50 mg tablet Take 1 tablet by mouth once daily. Per Psych at the [facility]. lancets (FREESTYLE LANCETS) 28 gauge Test blood sugar(s) 3 times daily. Dx: Type 2 DM - Uncontrolled E11.10 Insulin: Yes 100 Each 11 loratadine (CLARITIN) 10 mg tablet Take 1 tablet by mouth once daily as needed (for itching, sneezing or runny nose). 30 tablet 11 blood sugar diagnostic (BLOOD GLUCOSE TEST) test strip Use as directed to monitor blood sugar. Dx: Type 2 DM - Uncontrolled E11.65 Insulin: Yes.Test blood sugar(s) four times daily 150 Strip 11 MEDICAL SUPPLY Consult to [facility] care for PHYSICAL THERAPY eval and treat. Patient has developed increase weakness and has fallen multiple times since discharge from their service in Mid May. 1 Device 0 MEDICAL SUPPLY RAISED TOILET SEAT. Dx: Z91.89, Z91.81 and R53.1 1 Device 0 MEDICAL SUPPLY OVER THE TUB GRAB BAR Dx: Z91.89, Z91.81 and R53.1 1 Device 0 MEDICAL SUPPLY SHOWER CHAIR WITH BACK REST, ARM RESTS WITH ADJUSTABLE HEIGHT. Dx: Z91.89, Z91.81 and R53.1 1 Device 0 MEDICAL SUPPLY Shower chair, #: one, Dx: R53.1, Z91.81 and Z74.09 1 Device 0 SUMAtriptan (IMITREX) 100 mg tablet Take one tab with onset of migraine, can repeat in 2 hrs if no relief. Max of 2 in 24 hrs 9 tablet 5 Current Facility-Administered Medications Medication Dose Route Frequency Provider Last Rate Last Admin perflutren lipid microspheres 1.3 mL in NaCl (PF) 0.9% 10 mL injection (DEFINITY) INTRAVENOUS DIRECTED PRN Freddie Luis MD sodium chloride 0.9 % (flush) 10 mL (BD POSIFLUSH) 10 mL INTRAVENOUS DIRECTED PRN Freddie Luis MD PAST MEDICAL HISTORY Diagnosis Date Arthritis Chronic insomnia 12/05/[address] brown Chronic rhinitis 01/12/2018 Class 2 severe obesity with serious comorbidity and body mass index (BMI) of 35.0 to 35.9 in adult ([facility]) 11/14/2021 Diabetes mellitus type 2 with ketoacidosis, uncontrolled ([facility]) 07/06/2020 Diabetic polyneuropathy associated with type 2 diabetes mellitus ([facility]) 02/03/2021 Seeing [facility] GERD without esophagitis 06/03/2019 Hallux valgus (acquired) 02/17/2007 Hyperlipidemia, mixed 05/14/2022 Hypertension, essential 11/13/2021 Intractable migraine without aura and without status migrainosus 2016 Neck pain 01/02/2022 Obesity, Class II, BMI 35-39.9 12/05/2019 Overactive bladder 2016 Physical debility 07/27/2020 Recurrent major depressive disorder, in remission ([facility]) 06/02/2018 Seasonal allergic rhinitis due to pollen 07/14/2017 PAST SURGICAL HISTORY Procedure Laterality Date COLONOSCOPY FLX DX W/COLLJ SPEC WHEN PFRMD 08/04/2017 Normal colonoscopy-10 year follow-up COLPOSCOPY CERVIX UPPER/ADJACENT VAGINA Colposcopy CRYOTHERAPY/M24 1992 LIG/TRNSXJ FLP TUBE ABDL/VAG APPR UNI/BI Tubal ligation ORAL SURGERY PROCEDURE 3x PAST SURGICAL HISTORY OF 10/2013 right pinki tendon re-attatchment ANTHROPOMETRICS Height per patient: 69.49 Weight per patient: 203# Most recent height and weight per EPIC Height: Last 1 Encounter Ht Readings: Date: Ht: 12/01/2022 176.5 cm (5' 9.49 ) Weight: Last 1 Encounter Wt Readings: Date: Wt: 12/01/2022 92.1 kg (203 lb) Body mass index is 29.56 kg/m . Educational materials provided: None this visit Was unable to conduct virtual appt, completed as telehealth Patient presents for follow up nutrition Telehealth Consult. Following as relates to diabetes and for weight loss. On Basaglar, Trulicity and Metformin for control. Has been having low blood sugars with recent move and high activity. Could not find scale after recent move, thinks lost 20 pounds. Nutrition Diagnosis: Overweight/obesity, related to, excess energy intake and physical inactivity, as evidenced by BMI above normative standard for age and gender. Nutrition Intervention 12/01/2022: Modify type and amount of food consumed for meals and snacks: Include protein and fiber in each meal If needed use beans and lentils for a healthy economical choice All beverages calorie free and sugar free Continue exercise and activity Nutrition Monitoring & Evaluation: weight loss and labs in target range Criteria: patient update Need for Follow up: 1 month Referred/Supervised by: Nadia Billed Time: 30 minutes Signed by: Bernie Horta RD documented in this encounter [facility] 11-03-2022 History of Presen t illness Narrative The [facility] Nutrition Therapy: Telehealth Consult - Re-assessment This visit was performed via telephone due to the COVID-19 epidemic as an effort to protect patients and minimize exposure. Consent from patient received to conduct visit using telehealth. This Team Access Model visit is a telephone encounter. It required patient-provider interaction for the medical decision making as documented below. PROGRESS: Nutrition Intervention (date of last encounter ): Include protein and fiber in each meal Work on adding in exercise, aim for 20 min to start most days Limit/avoid sweets/treats Beverages calorie free and sugar CHANGES IN TREATMENT: Patient met goal(s): Yes Actions to implement interventions: 129 this morning Breakfast: banana, veggie straws Lunch; veggie straws or candy Dinner: reg meal More veggies Low blood sugars yesterday. Active around the house, needs to move CLINICAL IMPRESSIONS: fair Allergies: ALLERGIES Allergen Reactions Seasonal Allergies Unknown Trees and ragweed verified by skin testing Medications: Current Outpatient Medications Medication Sig Dispense Refill dulaglutide (TRULICITY) 1.5 mg/0.5 mL pen injector Inject 1.5 mg subcutaneously one time a week. 2 mL 5 insulin glargine (BASAGLAR KWIKPEN U-100 INSULIN) 100 unit/mL (3 mL) Inject subcutaneously 12 units daily in AM 15 mL 3 alcohol swabs (ALCOHOL PREP PADS) Apply 1 application to affected area three times daily. To check blood sugars. 100 Each 5 metFORMIN ER (GLUCOPHAGE XR) 500 mg 24 hr tablet Take 1 tablet by mouth daily with breakfast. Per Dr. Romain Haider 90 tablet 1 Insulin [place], Disposable, (PEN NEEDLE) 32 gauge x 5/32 Inject 1 Each subcutaneously q 24 HR. Give with each insulin administration. 100 Each 3 oxybutynin ER (DITROPAN XL) 10 mg 24 hr tablet Take 1 tablet by mouth once daily. [address] (PROTONIX) 40 mg tablet Take 1 tablet by mouth daily before breakfast. Take on empty stomach, 1/2 hr before meal. 30 tablet 4 spironolactone (ALDACTONE) 25 mg tablet Take 1 tablet by mouth once daily. 30 tablet 5 propranolol (INDERAL) 10 mg tablet Take 1 tablet by mouth once daily. 30 tablet 5 atorvastatin (LIPITOR) 10 mg tablet Take 1 tablet by mouth daily at bedtime. For cholesterol. 90 tablet 1 amLODIPine (NORVASC) 10 mg tablet Take 1 tablet by mouth once daily. 30 tablet 5 baclofen (LIORESAL) 10 mg tablet Take 1 tablet by mouth three times daily as needed (muscle spasms). 20 tablet 0 Lancing Device [facility] Patient to [facility] BID. 1 Each 0 amitriptyline (ELAVIL) 10 mg tablet Take 3 tablets by mouth daily at bedtime. Per [facility], Neurology sertraline (ZOLOFT) 50 mg tablet Take 1 tablet by mouth once daily. Per Psych at the [facility]. lancets (FREESTYLE LANCETS) 28 gauge Test blood sugar(s) 3 times daily. Dx: Type 2 DM - Uncontrolled E11.10 Insulin: Yes 100 Each 11 loratadine (CLARITIN) 10 mg tablet Take 1 tablet by mouth once daily as needed (for itching, sneezing or runny nose). 30 tablet 11 blood sugar diagnostic (BLOOD GLUCOSE TEST) test strip Use as directed to monitor blood sugar. Dx: Type 2 DM - Uncontrolled E11.65 Insulin: Yes.Test blood sugar(s) four times daily 150 Strip 11 MEDICAL SUPPLY [facility] for [facility]ICAL THERAPY eval and treat. Patient has developed increase weakness and has fallen multiple times since discharge from their service in Mid May. 1 Device 0 MEDICAL SUPPLY RAISED TOILET SEAT. Dx: Z91.89, Z91.81 and R53.1 1 Device 0 MEDICAL SUPPLY OVER THE TUB GRAB BAR Dx: Z91.89, Z91.81 and R53.1 1 Device 0 MEDICAL SUPPLY SHOWER CHAIR WITH BACK REST, ARM RESTS WITH ADJUSTABLE HEIGHT. Dx: Z91.89, Z91.81 and R53.1 1 Device 0 MEDICAL SUPPLY Shower chair, #: one, Dx: R53.1, Z91.81 and Z74.09 1 Device 0 SUMAtriptan (IMITREX) 100 mg tablet Take one tab with onset of migraine, can repeat in 2 hrs if no relief. Max of 2 in 24 hrs 9 tablet 5 Current Facility-Administered Medications Medication Dose Route Frequency Provider Last Rate Last Admin perflutren lipid microspheres 1.3 mL in NaCl (PF) 0.9% 10 mL injection (DEFINITY) INTRAVENOUS DIRECTED PRN Freddie Luis MD sodium chloride 0.9 % (flush) 10 mL (BD POSIFLUSH) 10 mL INTRAVENOUS DIRECTED PRN Freddie Luis MD PAST MEDICAL HISTORY Diagnosis Date Arthritis Chronic insomnia 12/05/[address] brown Chronic rhinitis 01/12/2018 Class 2 severe obesity with serious comorbidity and body mass index (BMI) of 35.0 to 35.9 in adult ([facility]) 11/14/2021 Diabetes mellitus type 2 with ketoacidosis, uncontrolled ([facility]) 07/06/2020 Diabetic polyneuropathy associated with type 2 diabetes mellitus ([facility]) 02/03/2021 Seeing [facility] GERD without esophagitis 06/03/2019 Hallux valgus (acquired) 02/17/2007 Hyperlipidemia, mixed 05/14/2022 Hypertension, essential 11/13/2021 Intractable migraine without aura and without status migrainosus 2016 Neck pain 01/02/2022 Obesity, Class II, BMI 35-39.9 12/05/2019 Overactive bladder 2016 Physical debility 07/27/2020 Recurrent major depressive disorder, in remission ([facility]) 06/02/2018 Seasonal allergic rhinitis due to pollen 07/14/2017 PAST SURGICAL HISTORY Procedure Laterality Date COLONOSCOPY FLX DX W/COLLJ SPEC WHEN PFRMD 08/04/2017 Normal colonoscopy-10 year follow-up COLPOSCOPY CERVIX UPPER/ADJACENT VAGINA Colposcopy CRYOTHERAPY/M24 1992 LIG/TRNSXJ FLP TUBE ABDL/VAG APPR UNI/BI Tubal ligation ORAL SURGERY PROCEDURE 3x PAST SURGICAL HISTORY OF 10/2013 right pinki tendon re-attatchment ANTHROPOMETRICS Height per patient: 69.49 Weight per patient: 223# Most recent height and weight per EPIC Height: Last 1 Encounter Ht Readings: Date: Ht: 11/03/2022 176.5 cm (5' 9.49 ) Weight: Last 1 Encounter Wt Readings: Date: Wt: 11/03/2022 101.2 kg (223 lb) Body mass index is 32.47 kg/m . Educational materials provided: None this visit Patient presents for follow up nutrition Telehealth Consult. Following as relates to diabetes and for weight loss. Now on Basaglar, Trulicity and Metformin. Has not been feeling well last few days with Migraine, poor appetite, more active with pending move. Notes episodes of low blood sugars this past weekend. Lost 22 lbs since last visit over approx 4 months. Nutrition Diagnosis: Overweight/obesity, related to, excess energy intake and physical inactivity, as evidenced by BMI above normative standard for age and gender. Nutrition Intervention 11/03/2022: Modify type and amount of food consumed for meals and snacks: Include protein in each meal Aim for at least three regular meals with protein in each meal. Include protein and whole grain in meals Continue regular exercise Nutrition Monitoring & Evaluation: weight loss and labs in target range Criteria: patient update Need for Follow up: 1 month Referred/Supervised by: Debra Billed Time: 28 minutes Signed by: Bernie Horta RD documented in this encounter [facility] 10-30-2022 History of Presen t illness Narrative Assessment and Plan 1. Type 2 diabetes mellitus with ketoacidosis without coma, with long-term current use of insulin (HCC) -no diabetic retinopathy both eyes -mild fluctuation in vision which is expected to improve as diabetes control improves 2. Dry eye syndrome of both eyes -contributing to fluctuating vision Plan: -Continue blood sugar and blood pressure control -artificial tears twice a day both eyes -follow-up 1 year with dilated fundus exam both eyes, sooner as needed I have confirmed and edited as necessary the relevant ophthalmic history, ROS, and the neuro exam findings as obtained by others. I have seen and examined Alaina Cottrell. I have discussed the case and the management of this patient's care with the Resident/Fellow, if applicable. I also have reviewed and agree with the assessment and plan as stated above and agree with all of its relevant components. Jaylan Templeton MD documented in this encounter [facility] 10-07-2022 Miscellaneous Notes Patient notified. Verbalized understanding. Let patient know I do not do letters for emotional support animals. She can go on line to get a license for this designation. Also any letter for a mental health support issue would be best to come from her psych provider at the [facility]. Pt called in and reports when she was in the ER Dr Astorga had asked her if she had a communication analyst or therapy dog, because he thought she could benefit from one. She told him she had two small dogs at home. She is asking if provider would write her a letter stating that her dogs are communication analyst or therapy dogs and that she needs them, because she is moving. Please call and advise Pt. documented in this encounter [facility] 09-23-2022 Miscellaneous Notes Last refill 07/19/21 Qty: 100 with 5 refills WINSOME 05/14/22 NOV 11/17/22 Tj Mendenhall LPN Patient has been identified by name and date of : Yes Requested Prescriptions Pending Prescriptions Disp Refills alcohol swabs (ALCOHOL PREP PADS) 100 Each 5 Sig: Apply 1 application to affected area three times daily. To check blood sugars. RX INSTRUCTIONS: Pharmacy initiated this request. No need to notify patient. Chrissy Hansen Pss documented in this encounter [facility] 08-21-2022 Instructions Yury Menard APRN.OXYACETYLENE TORCH OPERATOR - 08/21/2022 11:15 AM EST Continue metformin 2. Start trulicity 0.75 mg ONCE WEEKLY 3. Start basaglar/lantus 10 units daily. Increase 2 units every 2 days until fasting glucose is about 120. Stop increasing and notify me if you have low sugars under 70. Do not exceed 40 units daily. If fasting glucose is at 120 when you receive trulicity you can stop the insulin otherwise continue at the present dose you are at. 4. Follow up in 6 wks and 3 months Call sooner with any change in symptoms. Yury Menard, MSN, ONYX CHIP TERRAZZO WORKER, NOVELTY WORKER-C, CDE Endocrinology [facility] Medical Office [facility]/[address], [address] [place] [address] Fax: documented in this encounter [facility] 08-21-2022 History of Presen t illness Narrative Reason for Consultation: DM Type 2 Referring Physician: SELF HISTORY OF PRESENT ILLNESS Ms. Cottrell is a 57 year old female presenting here today for a follow up of DM Type 2. As I recall, she was initially diagnosed with diabetes 2020. LV 05/22/[address] Hoyos. A1C 6.1 on 05/22/22 History includes: hypertension, peripheral neuropathy, hypoglycemia, obesity, covid 19 infection Reports BG has been higher over the last 10 days. No noteable reason per patient. Previously on lantus and trulicity but stopped due to improved glucose control. Current diabetes regimen is as follows: Metformin ER 500 mg daily--diarrhea with higher doses. Previous DM medications: Humalog Glimepiride Trulicity --hypoglycemia Lantus she is checking her blood glucose 2 times daily. she does not bring a log book today for review. LDE Blood Sugar Frequency: FBS 419 yesterday; usually under 80; 200-400 over the last 10 days 8pm: 219 last night Hypoglycemia frequency: occasionally Hypoglycemia awareness: Yes Regarding symptoms of hypoglycemia, she is not experiencing any symptoms such as polyuria, polydipsia, nocturia or rapid weight loss or blurry vision, Overall, the patient has no acute complaints at this time. PAST MEDICAL HISTORY Diagnosis Date Arthritis Chronic insomnia 12/05/[address] brown Chronic rhinitis 01/12/2018 Class 2 severe obesity with serious comorbidity and body mass index (BMI) of 35.0 to 35.9 in adult ([facility]) 11/14/2021 Diabetes mellitus type 2 with ketoacidosis, uncontrolled ([facility]) 07/06/2020 Diabetic polyneuropathy associated with type 2 diabetes mellitus ([facility]) 02/03/2021 Seeing [facility] GERD without esophagitis 06/03/2019 Hallux valgus (acquired) 02/17/2007 Hyperlipidemia, mixed 05/14/2022 Hypertension, essential 11/13/2021 Intractable migraine without aura and without status migrainosus 2016 Neck pain 01/02/2022 Obesity, Class II, BMI 35-39.9 12/05/2019 Overactive bladder 2016 Physical debility 07/27/2020 Recurrent major depressive disorder, in remission ([facility]) 06/02/2018 Seasonal allergic rhinitis due to pollen 07/14/2017 PAST SURGICAL HISTORY Procedure Laterality Date COLONOSCOPY FLX DX W/COLLJ SPEC WHEN PFRMD 08/04/2017 Normal colonoscopy-10 year follow-up COLPOSCOPY CERVIX UPPER/ADJACENT VAGINA Colposcopy CRYOTHERAPY/M24 1992 LIG/TRNSXJ FLP TUBE ABDL/VAG APPR UNI/BI Tubal ligation ORAL SURGERY PROCEDURE 3x PAST SURGICAL HISTORY OF 10/2013 right pinki tendon re-attatchment FAMILY HISTORY Problem Relation Age of Onset Arthritis Mother Kidney Disease Sister Breast Cancer Maternal Grandmother Breast Cancer Maternal Aunt Diabetes Maternal Aunt Hypertension Maternal Aunt Hyperlipidemia Maternal Aunt Diabetes Maternal Aunt Hypertension Maternal Aunt Hyperlipidemia Maternal Aunt Social History Tobacco Use Smoking status: Never Smokeless tobacco: Never Vaping Use Vaping Use: Never used Substance Use Topics Alcohol use: No Drug use: No Allergies As of Date: 08/21/2022 Allergen Noted Reaction SEASONAL ALLERGIES 07/15/2017 Unknown Fully Assessed 08/21/2022 Current Outpatient Medications Medication Sig Dispense Refill oxybutynin ER (DITROPAN XL) 10 mg 24 hr tablet Take 1 tablet by mouth once daily. [address] (PROTONIX) 40 mg tablet Take 1 tablet by mouth daily before breakfast. Take on empty stomach, 1/2 hr before meal. 30 tablet 4 spironolactone (ALDACTONE) 25 mg tablet Take 1 tablet by mouth once daily. 30 tablet 5 propranolol (INDERAL) 10 mg tablet Take 1 tablet by mouth once daily. 30 tablet 5 atorvastatin (LIPITOR) 10 mg tablet Take 1 tablet by mouth daily at bedtime. For cholesterol. 90 tablet 1 amLODIPine (NORVASC) 10 mg tablet Take 1 tablet by mouth once daily. 30 tablet 5 metFORMIN ER (GLUCOPHAGE XR) 500 mg 24 hr tablet Take 1 tablet by mouth daily with breakfast. Per Dr. Romain Haider 90 tablet 1 baclofen (LIORESAL) 10 mg tablet Take 1 tablet by mouth three times daily as needed (muscle spasms). 20 tablet 0 Lancing Device misc Patient to UAD BID. 1 Each 0 amitriptyline (ELAVIL) 10 mg tablet Take 3 tablets by mouth daily at bedtime. Per [facility], Neurology sertraline (ZOLOFT) 50 mg tablet Take 1 tablet by mouth once daily. Per Psych at the [facility]. lancets (FREESTYLE LANCETS) 28 gauge Test blood sugar(s) 3 times daily. Dx: Type 2 DM - Uncontrolled E11.10 Insulin: Yes 100 Each 11 alcohol swabs (ALCOHOL PREP PADS) Apply 1 application to affected area three times daily. To check blood sugars. 100 Each 5 loratadine (CLARITIN) 10 mg tablet Take 1 tablet by mouth once daily as needed (for itching, sneezing or runny nose). 30 tablet 11 blood sugar diagnostic (BLOOD GLUCOSE TEST) test strip Use as directed to monitor blood sugar. Dx: Type 2 DM - Uncontrolled E11.65 Insulin: Yes.Test blood sugar(s) four times daily 150 Strip 11 MEDICAL SUPPLY [facility] for [facility]ICAL [facility]ERAPY eval and treat. Patient has developed increase weakness and has fallen multiple times since discharge from their service in Mid May. 1 Device 0 MEDICAL SUPPLY RAISED TOILET SEAT. Dx: Z91.89, Z91.81 and R53.1 1 Device 0 MEDICAL SUPPLY OVER THE TUB GRAB BAR Dx: Z91.89, Z91.81 and R53.1 1 Device 0 MEDICAL SUPPLY SHOWER CHAIR WITH BACK REST, ARM RESTS WITH ADJUSTABLE HEIGHT. Dx: Z91.89, Z91.81 and R53.1 1 Device 0 MEDICAL SUPPLY Shower chair, #: one, Dx: R53.1, Z91.81 and Z74.09 1 Device 0 SUMAtriptan (IMITREX) 100 mg tablet Take one tab with onset of migraine, can repeat in 2 hrs if no relief. Max of 2 in 24 hrs 9 tablet 5 Current Facility-Administered Medications Medication Dose Route Frequency Provider Last Rate Last Admin perflutren lipid microspheres 1.3 mL in NaCl (PF) 0.9% 10 mL injection (DEFINITY) INTRAVENOUS DIRECTED PRN Freddie Luis MD sodium chloride 0.9 % (flush) 10 mL (BD POSIFLUSH) 10 mL INTRAVENOUS DIRECTED PRN Freddie Luis MD REVIEW OF SYSTEMS Review of Systems Respiratory: Negative for difficulty breathing. Cardiovascular: Negative for chest pain. Gastrointestinal: Positive for nausea. Negative for vomiting, abdominal pain, diarrhea and constipation. Genitourinary: Negative for frequent urination. Endo/Heme/Allergies: Positive for polydipsia. PHYSICAL EXAMINATION BP 128/76 Pulse 91 Resp 18 Ht 176.5 cm (5' 9.49 ) Wt 108.7 kg (239 lb 9.6 oz) LMP 05/21/2021 (Approximate) SpO2 96% BMI 34.89 kg/m2 Physical Exam Constitutional: Appearance: Normal appearance. She is obese. Cardiovascular: Rate and Rhythm: Normal rate and regular rhythm. Pulmonary: Effort: Pulmonary effort is normal. Breath sounds: Normal breath sounds. Skin: General: Skin is warm and dry. Neurological: Mental Status: She is alert and oriented to person, place, and time. Psychiatric: Mood and Affect: Mood normal. Behavior: Behavior normal. DATA Creatinine Date Value Ref Range Status 05/14/2022 0.75 0.58 - 0.96 mg/dL Final Hemoglobin A1C (%) Date Value 10/29/2021 11.8 Hemoglobin A1C (POCT) (%) Date Value 05/22/2022 6.1 ) No components found for: URINEALBUMIN Cholesterol, Total (mg/dL) Date Value 11/26/2017 150 Total Cholesterol, Nonfasting (mg/dL) Date Value 05/14/2022 131 11/13/2021 208 HDL Cholesterol (mg/dL) Date Value 11/26/2017 43 HDL Cholesterol, Nonfasting (mg/dL) Date Value 05/14/2022 43 11/13/2021 44 LDL Cholesterol (mg/dL) Date Value 11/26/2017 89 LDL Cholesterol, Nonfasting (mg/dL) Date Value 05/14/2022 65 11/13/2021 135 Triglyceride (mg/dL) Date Value 11/26/2017 90 Triglycerides, Nonfasting (mg/dL) Date Value 05/14/2022 115 11/13/2021 145 IMPRESSION: Ms. Cottrell is a 57 year old female here for evaluation of DM Type 2 complicated by hypertension, peripheral neuropathy, hypoglycemia, obesity RECOMMENDATIONS: (E11.42) Type 2 diabetes mellitus with diabetic polyneuropathy, without long-term current use of insulin (HCC) (primary encounter diagnosis) Comment: Glycemic control has deteriorated. My recommendation is to resume basal insulin. She is hesitant to do so and would prefer trulicity however this will require PA and will take 2-3 wks to see full effectiveness and BG is too high to wait for that. We have compromised on the plan below. Reviewed symptoms which warrant ED evaluation. Plan: metFORMIN ER (GLUCOPHAGE XR) 500 mg 24 hr tablet, HEMOGLOBIN A1C (POC), dulaglutide (TRULICITY) 0.75 mg/0.5 mL pen injector, insulin glargine (BASAGLAR KWIKPEN U-100 INSULIN) 100 unit/mL (3 mL), Insulin [place], Disposable, (PEN NEEDLE) 32 gauge x 32 Continue metformin Start trulicity 0.75 mg ONCE WEEKLY Start basaglar/lantus 10 units daily. Increase 2 units every 2 days until fasting glucose is about 120. Stop increasing and notify me if you have low sugars under 70. Do not exceed 40 units daily. If fasting glucose is at 120 when you receive trulicity you can stop the insulin otherwise continue at the present dose you are at. Follow up in 6 wks and 3 months Call sooner with any change in symptoms. (E16.2) Hypoglycemia Comment/Plan: continue to monitor. Primarily having hyperglycemia at this time. (I10) Primary hypertension Comment: BP stable Plan: Managed per PCP (E66.9, Z68.34) Class 1 obesity with serious comorbidity and body mass index (BMI) of 34.0 to 34.9 in adult, unspecified obesity type Comment:Body mass index is 34.89 kg/m . Plan: Encouraged increase dietary and exercise efforts as able Medical Decision Making: Level: 4 - Moderate Yury Menard, MSN, ONYX [employer]IP TERRAZZO WORKER, NOVELTY WORKER-C, CDE Endocrinology [facility]/[address] [place] [address] Fax: documented in this encounter [facility] 08-18-2022 Miscellaneous Notes The following approved medication requests have been transmitted electronically. Requested Prescriptions Signed Prescriptions Disp Refills oxybutynin ER (DITROPAN XL) 10 mg 24 hr tablet 30 tablet 5 Sig: Take 1 tablet by mouth once daily. Authorizing Provider: FREDDIE LUIS MD Last refill 07/25/21 Qty: 30 with 5 refills WINSOME 05/14/22 NOV 11/17/21 Tj Mendenhall LPN Patient has been identified by name and date of : Yes Requested Prescriptions Pending Prescriptions Disp Refills oxybutynin ER (DITROPAN XL) 10 mg 24 hr tablet 30 tablet 5 Sig: Take 1 tablet by mouth once daily. RX INSTRUCTIONS: Patient aware RX will be sent to pharmacy. No need to notify patient. Anitha Gerardo documented in this encounter [facility] 08-11-2022 Miscellaneous Notes Patient has been identified by name and date of : Yes Requested Prescriptions Pending Prescriptions Disp Refills pantoprazole DR (PROTONIX) 40 mg tablet 30 tablet 4 Sig: Take 1 tablet by mouth daily before breakfast. Take on empty stomach, 1/2 hr before meal. RX INSTRUCTIONS: Patient aware RX will be sent to pharmacy. No need to notify patient. Rosemarie Li MA Winsome: 05/2022 Nov: 11/2022 Last refill: 01/2022 Patient has been identified by name and date of : Yes Requested Prescriptions Pending Prescriptions Disp Refills pantoprazole DR (PROTONIX) 40 mg tablet 30 tablet 4 Sig: Take 1 tablet by mouth daily before breakfast. Take on empty stomach, 1/2 hr before meal. RX INSTRUCTIONS: Pharmacy initiated this request. No need to notify patient. Sandra Tom Pss documented in this encounter [facility] 08-08-2022 History of Presen t illness Narrative Last saw Dr. Luis 05/14/22 Subjective: Patient presents to clinic c/o painful toenails. They state that the nails are especially painful with shoe gear and pressure. Patient states that nails 1-5 b/l are painful. Patient admits to being diabetic. No other pedal complaints at this time. Patient states no change in medications or medical history since last visit. Objective: Patient presents to clinic ambulating in sandals Vasc: DP and PT pulses are palpable bilateral. CFT is less than 5 seconds bilateral. Skin temperature is warm to cool proximal to distal bilateral. There is mild edema or varicosities noted. Neuro: Protective sensation is intact to the foot and toes when tested with the 5.07 SWM bilateral. Vibratory sensation is decreased at the hallux IPJ bilateral. The hallux is downgoing bilateral. Derm: Nails 1-5 b/l are painful, discolored-yellow, thick, crumbly, dystrophic and with subungal debris. Skin is of normal turgor, texture and hair growth is present bilateral. There are no hyperkeratosis, ulcerations, scars, verruca or other lesions noted. Nonpainful ganglion of left foot Ortho: Muscle strength is 5/5 for all pedal groups tested. Ankle joint DF is full with the knee extended with no pain or crepitus noted. 1st MPJ ROM is full bilateral. Flatfoot b/l. 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 Nails 1-5 bilateral were debrided in length and thickness. Discussed large ganglion of left foot. Discussed aspiration but she declined. Could consider surgical removal but would make sure her a1c is under control. Continue with wider shoes for bunion. Patient was instructed on the continued importance of diabetic foot care along with proper diet and keeping their blood sugar under control to prevent complications. Patient is to RTC in 3-4 months. Ulceration remains healed to right foot Ted Tao DPM AMB ROOMING INTAKE FLOWSHEET DATA Risk Screening Do you have concerns about personal safety or safety in the home?: No Patient presents with: Left Foot - Established Patient, Diabetic Foot Care Right Foot - Established Patient, Diabetic Foot Care documented in this encounter [facility] 08-08-2022 Instructions Ted Tao - 08/08/2022 2:02 PM EDT Diabetes Foot Care Instructions When you have diabetes, proper foot care is very important. Poor foot care may lead to amputation of a foot or leg. As a person with diabetes, you are more vulnerable to foot problems, because diabetes can damage your nerves and reduce blood flow to your feet. Here are some diabetes foot care tips to follow: Wash and Dry Your Feet Daily Use mild soaps Use warm water Pat your skin dry; do not rub. Thoroughly dry your feet. After washing, use lotion on your feet to prevent cracking. Do not put lotion between your toes. Examine Your Feet Each Day Check the tops and bottoms of your feet. Have someone else look at your feet if you cannot see them. Check for dry, cracked skin. Look for blisters, cuts, scratches, or other sores. Check for redness, increased warmth, or tenderness when touching any area of your feet. Check for ingrown toenails, corns, and calluses. If you get a blister or sore from your shoes, do not pop it. Apply a bandage and wear a different pair of shoes. Take Care of Your Toenails Cut toenails after bathing, when they are soft. Cut toenails straight across and smooth with a nail file. Avoid cutting into the corners of toes. Do not cut cuticles. If you have neuropathy (or decreased sensation in your feet) a mortgage or loan underwriter should always cut your toenails. Be Careful When Exercising Walk and exercise in comfortable shoes. Do not exercise when you have open sores on your feet. Protect Your Feet With Shoes and Socks Never go barefoot. Always protect your feet by wearing shoes or hard-soled slippers or footwear. Avoid shoes with high heels and pointed toes. Avoid shoes that expose your toes or heels (such as open-toed shoes or sandals). These types of shoes increase your risk for injury and potential infections. Try on new footwear with the type of socks you usually wear. Do not wear new shoes for more than an hour at a time. Change your socks daily. Look and feel inside your shoes before putting them on to make sure there are no foreign objects or rough areas. Avoid tight socks. Wear natural-fiber socks (cotton, wool, or a cotton-wool blend). Wear special shoes if your health care provider recommends them. Wear shoes/boots that will protect your feet from various weather conditions (cold, moisture, etc.). Make sure your shoes fit properly. If you have neuropathy (nerve damage), you may not notice that your shoes are too tight. Perform the footwear test described below. Footwear Test Use this simple test to see if your shoes fit correctly: Stand on a piece of paper. (Make sure you are standing and not sitting, because your foot changes shape when you stand.) Trace the outline of your foot. Trace the outline of your shoe. Compare the tracings: Is the shoe too narrow? Is your foot crammed into the shoe? The shoe should be at least 1/2 inch longer than your longest toe and as wide as your foot. Proper Shoe Choices The following types of shoes are best for people with diabetes Closed toes and heels Leather uppers without a seam inside At least 1/2 inch extra space at the end of your longest toe Inside of shoe should be soft with no rough areas Outer sole should be made of stiff material Shoes should be at least as wide as your feet Tips for Foot Care in Diabetes Don't wait to treat a minor foot problem if you have diabetes. Follow your health care provider's guidelines and first aid guidelines. Report foot injuries and infections to your health care provider immediately. Check water temperature with your elbow, not your foot. Do not use a heating pad on your feet. Do not cross your legs. Do not self-treat your corns, calluses, or other foot problems. Go to your health care provider or mortgage or loan underwriter to treat these conditions. documented in this encounter [facility] 07-29-2022 Miscellaneous Notes Pt called and is notified of providers message. Reviewed medication list and PRN meds. Told Pt medications that she should no longer betaking, and she reports that cleared it up. She thinks it was the PRN meds that had her mixed up. Marichuy Gunderson RN Per patients [facility] note on 05/22 with Meliza, Trulicity was stopped due to pt experiencing hypoglycemia, however she is to continue with metformin 500 mg daily. TC to patient with no answer. Left message to return call to office. Please see providers message below if patient calls back. DEVORAH Leone Patient should no longer be on Doxy or Cefadroxil. Regarding the Trulcity, you will have to reach out to Endo either Dr. Hoyos or Yury Menard to see if patient is expected to still be on it. The others on the list she should be on. Unfortunately the patient is a poor historian and not always compliant with care. Current prescriptions for patient as of WINSOME on 05/14/2022. Medication Sig metFORMIN ER (GLUCOPHAGE XR) 500 mg 24 hr tablet Take 1 tablet by mouth daily with breakfast. Per Meliza, Dr. Hoyos dulaglutide (TRULICITY) 0.75 mg/0.5 mL pen injector Inject 0.75 mg subcutaneously one time a week. baclofen (LIORESAL) 10 mg tablet Take 1 tablet by mouth three times daily as needed (muscle spasms). pantoprazole DR (PROTONIX) 40 mg tablet Take 1 tablet by mouth daily before breakfast. Take on empty stomach, 1/2 hr before meal. Lancing Device [facility] Patient to D BID. doxycycline hyclate (VIBRAMYCIN) 100 mg capsule Take 1 capsule by mouth twice daily. atorvastatin (LIPITOR) 10 mg tablet Take 1 tablet by mouth daily at bedtime. For cholesterol. amitriptyline (ELAVIL) 10 mg tablet Take 3 tablets by mouth daily at bedtime. Per [facility], Neurology sertraline (ZOLOFT) 50 mg tablet Take 1 tablet by mouth once daily. Per Psych at [facility]. amLODIPine (NORVASC) 10 mg tablet Take 1 tablet by mouth one time only for 1 dose. cefADROxil (DURICEF) 500 mg capsule Take 1 capsule by mouth twice daily. lancets (FREESTYLE LANCETS) 28 gauge Test blood sugar(s) 3 times daily. Dx: Type 2 DM - Uncontrolled E11.10 Insulin: Yes spironolactone (ALDACTONE) 25 mg tablet Take 1 tablet by mouth once daily. propranolol (INDERAL) 10 mg tablet Take 1 tablet by mouth once daily. oxybutynin ER (DITROPAN XL) 10 mg 24 hr tablet Take 1 tablet by mouth once daily. alcohol swabs (ALCOHOL PREP PADS) Apply 1 application to affected area three times daily. To check blood sugars. loratadine (CLARITIN) 10 mg tablet Take 1 tablet by mouth once daily as needed (for itching, sneezing or runny nose). Please review and advise that these are the correct medications. Thank you. DEVORAH Leone Patient would like a return call to review what she should actively be taking on her med list. Please call her at [phone]. documented in this encounter [facility] 07-14-[address] - 07/14/2022 2:09 PM EDT Include protein and fiber in each meal Work on adding in exercise, aim for 20 min to start most days Limit/avoid sweets/treats Beverages calorie free and sugar documented in this encounter [facility] 07-14-2022 History of Presen t illness Narrative Nutritional Therapy Re-Assessment Nutrition Diagnosis: Overweight/obesity, related to, excess energy intake and physical inactivity, as evidenced by BMI above normative standard for age and gender RECOMMENDED MALNUTRITION DIAGNOSIS: NO MALNUTRITION IDENTIFIED NUTRITION CARE PLAN: Nutrition Intervention 07/14/2022: modify type and amount of food or beverage Include protein and fiber in each meal Work on adding in exercise, aim for 20 min to start most days Limit/avoid sweets/treats Beverages calorie free and sugar Nutrition Monitoring & Evaluation: Weightloss and labs in target range Need for Follow up: 4-6 weeks PROGRESS: Interval History: Following as relates to diabetes and for weight loss, Trulicity stopped, blood sugars more stable. States being more active last few weeks. Eating three meals, lately more sweets/treats with pumpkin treat season. Note 2 lbs gain from last visit. Nutrition Intervention 03/17/22 Have breakfast within an hour of waking Aim for regular meals, no skipped meals; include protein and fiber in each meal (follow appropriate guidelines for low blood sugars) Add exercise as able discuss low blood sugars with provider. 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 Resting Metabolic Rate: 1774 Malnutrition Screening Significant unintentional weight loss? No Eating less than 75% of usual intake for more than 2 weeks? No Potential Signs of Inflammation: no identifiable sources Nutritional status: Education Materials Provided: None this visit READINESS TO LEARN Cognitive ability: Alert and oriented Motivation to learn: Interested Family support: Unable to assess - Family not present Instruction provided to: Patient Patient learns best by: Individual Instruction Factors affecting learning: None Physical limitations affecting learning: None Likelihood of Adherence: Moderate Referred/Supervised by: Nadia DURANT Billing Type: Re-assess/15 min 2 units SIGNATURE: Bernie Horta RD PATIENT NAME: Alaina Cottrell DATE: July 14, 2022 TIME: 1:49 PM documented in this encounter [facility] 07-09-2022 History of Presen t illness Narrative SUBJECTIVE: Alaina Cottrell presents to [facility] for a follow up appointment . Since the last visit, Alaina Cottrell states the pain has been same. Current pain intensity is 7 on a scale of 0-10. Pain located in Back and hips area and does not radiate. Pain described as aching, dull, and stiff The patient Reports weakness, numbness, tingling, and morning stiffness. Symptoms interfere with physical activity, sleeping, bathing, driving, cooking, and household cleaning. Pain is exacerbated by getting up from sitting, lying down flat, and walking. Pain is mitigated by sitting and medications. She didn't have any injection on 06/26/22 The medications are partially effective. The patient states the last dose of . Ibuprofen was taken at 8am. REVIEW OF SYSTEMS: Constitutional: (+) Weight Gain (-) Weight Loss (+) Fatigue Cardiovascular: (-) hx heart surgery (-) Pacemaker Respiratory: (+) Shortness of Breath (+) Cough (+) Snoring Gastrointestinal: (-) Incontinence (+) Diarrhea (+) Constipation (+) Nausea/Vomiting Endocrine: (+) Thyroid Disorder (+) Diabetes Hematologic: (-) Prolonged Bleeding (+) Easy Bruising Genitourinary: (-) Incontinence (-) Frequency (+) Urinary Urgency Skin: (-) Open sores/wound Neurologic: (-) Headache (-) Double Vision Psychiatric: (+) Depression (-) Anxiety (-) Personal History of Alcohol or Substance Abuse (+) Family History of Alcohol or Substance Abuse CHIEF COMPLAINT:Patient presents with: Back Pain OBJECTIVE: Pulse 89 Ht 5' 9 (1.75m) Wt 246 lb (111.6kg) SpO2 97% LMP 05/21/2021 BMI 36.31 kg/(m^2). PHYSICAL EXAMINATION: General appearance: Well appearing, in no acute distress, alert and oriented x3 Skin: Skin color, texture, turgor normal, no rashes or lesions Neck: No pain to palpation over the cervical paraspinous muscles. No pain with neck flexion, extension, or lateral flexion Cardiovascular: Regular, rate and rhythm Lungs: Normal respiratory rate and rhythm, Lungs clear to auscultation Back: Intact range of motion without pain reproduction. Facet:positive bilateral lumbar facet loading Spine: Reports Tenderness on palpation: Lumbar- axial Extremities: No deformities, edema, or skin discoloration. Good capillary refill. Musculoskeletal: No Joint pain, no edema , no extremity tenderness Neuro: No loss of sensation is noted. Motor skills intact Station and Gait: Normal stance, normal gait. Motor: Exhibits full strength in all four extremities. Trigger points: lumbosacral spine muscles. ASSESSMENT: Assessment : Patient presents for follow-up Patient reports that she did not have the lumbar facet injections that were scheduled on 06-26-2022 due to not stopping her ibuprofen Patient has a history of chronic lower back pain, denies radicular symptoms She reports that she is in the process of moving which is caused an acute exacerbation of pain She reports standing increases her pain and laying on her back increases her pain Patient does not want to reschedule the injection at this time Encounter Diagnosis ICD-10-CM 1. Facet arthritis of lumbar region M47.816 2. Lumbar spondylosis M47.816 3. Spinal stenosis of lumbar region, unspecified whether neurogenic claudication present M48.061 4. Neuropathic pain M79.2 PDMP website checked and validated. All prescriptions have been APPROPRIATELY filled. No suspicious activity was identified. 07/09/2022 by Lisha Brandon APRN.OXYACETYLENE TORCH OPERATOR Narcotic Agreement reviewed and signed?: N/A on July 09, 2022 The pain panel was N/A Discussion: A discussion was entertained regarding multicomponent back pain source. Discussed conservative options and focus on improvement of function. Discussed the rationale behind interventional approach and how it can facilitate improvement of pain but also diagnostic information that procedures provide. manager intermediate use of any opioid pain medication is discouraged in chronic benign pain. PLAN: Injection history was reviewed. Medication use and compliance were reviewed. 1. Continue medication management through the Pain Management Center 2. No refills needed 3. Interventional procedure options discussed. None at this time 4. Encouraged regular home exercise program. 5) F/U in as needed I spent a total of 20 minutes on the date of the service which included preparing to see the patient, [id number] patient care, completing clinical documentation, performing a medically appropriate examination, and ordering medications, tests, or procedures. The above plan and management options were discussed at length with patient. Patient is in agreement with the above and verbalized understanding. Lisha Brandon APRN, ANDREAS July 09, 2022 documented in this encounter [facility] 06-19-2022 Miscellaneous Notes [facility] Pharm calling for refills: WINSOME: 05/14/22 NOV: 11/17/21 Last Refill: Atorvastatin: 11/17/21 #90 1 refill Spironolactone & Propanolol: #30 5 refills Pt has outstanding labs, I left message on pt's voice mail reminding her of this & to call the office to schedule a lab appt Samira Stewart LPN documented in this encounter [facility] 06-11-2022 History of Presen t illness Narrative Manual Readin/76 Pulse: 92 Reason for blood pressure check - Last BP elevated Patient is: Taking medication as prescribed Yes Took medication today Yes If no, date medication last taken N/A Experiencing side effects No BP was elevated at last appt 05/14/22. No BP medication changes were made at that time. Taking all medications as prescribed. Denies any further chest pain/shortness of breath since episode several weeks ago. Does have some intermittent dizziness. H/o migraines. Daily caffeine use. No personal history of tobacco use; no current exposure. Alert and oriented. Pt has been identified by name and birthdate: Yes Allergies reviewed: Yes Latex allergy: no. Medication - prescribed and OTC reviewed and updated: Yes Do you need any prescription refills prior to your next visit: No Health Maintenance: Reviewed and not up to date and provider notified Patient advised to continue with current medications and would be contacted if any further instructions after review by PCP. Echo Castro LPN documented in this encounter [facility] 05-26-2022 Miscellaneous Notes With just getting back from vacation and off last week I will not be able to complete peer to peer in time. I will wait on results of stress test first. Images from the original note were not included. Please see below regarding need for peer to peer for PA. Tj Mendenhall TRADE RECRUITER Confidential // Denial: Pt. Alaina Cottrell // Received: Yesterday Israel Pierce [facility]str [facility] Toby Hartley Cc: Alisa Centeno; Freddie Ernst; Gabriella Chavez; Freddie Luis MD Good morning, The below information is for a peer to peer/appeal for a service you have requested. Peer to Peer Information Is a Peer to Peer available?: Yes Does Peer to Peer need to be scheduled?: No Who can schedule?: N/A Who can complete the Peer to Peer?: Dr, PA, NOVELTY WORKER, LN Allowable Peer to Peer timeframe?: 5 business days starting from 05/20/22 Payer Information Insurance Name: [employer] Insurance P2P opt 2 (enter tracking#) / opt 1 Case # : [id number] Appeal Information Appeal Address: [facility]. Attn: Appeals Department [address] [place] [address] Appeal phone#: [phone] option 1 Appeal Fax#: [phone] Special Appeal Instructions: Send it attention to: Appeals department and attached any pertinent supporting documenation Allowable Timeframe for Appeal: 90 Calendar days from the denial date on Facility Information Location: [facility] Tax ID#: [id number] Patient Demographics Patient Last Name: Simba Patient First Name: Alaina Date of : 1965 Clinical/Denial Information Ordering Provider: Freddie Luis MD Approved Services: N/A Denied Services: [id number]/WOM-MODE COMPL SPEC&COLR D (ECHO) Alternative Recommendation : N/A Date of Service (DOS): 05/15/22 (Scheduled) Denial Reason: The notes sent do not meet [employer]'s Transthoracic Echocardiogram guidelines. Thus, the procedure is not shown to be medically needed. A physician reviewer made this decision based on a review of the following notes that were sent: atypical chest pain. Prior to an approval, the following doctor's notes should be sent: result of planned a heart test where you walk (Exercise Stress Test) without sound wave pictures. [facility] Clinical Guideline 067 for Transthoracic Echocardiogram was used to make this decision. These guidelines were developed from practice experience, literature reviews, specialty criteria sets, and observed data. Clinical Documentation Provided: OFFICE NOTES: 05/14/22- TOBY IMAGIN05/14/22- ECG 09/03/2020- EKG For questions, please contact Amy Madden ([email or web address]) Thanks, Israel Mcdonald [place] [facility] Audit Date/Time Action Taken By 05/21/2022 11:07 AM Display Tj Mendenhall LPN (Pool) 05/21/2022 11:02 AM Display Tj Mendenhall LPN (Pool) 05/21/2022 10:57 AM Display Tj Mendenhall LPN (Pool) 05/20/2022 11:07 AM Display Gabriella Chavez documented in this encounter [facility] 05-22-2022 History of Presen t illness Narrative SUBJECTIVE: Alaina Cottrell presents to [facility] for a follow up appointment for back pain. Since the last visit, Alaina Cottrell states the pain has been worse. Current pain intensity is 7.5 on a scale of 0-10. Pain located in the lower back pain that radiates down the anterior/lateral/posterior bilateral lower extremities to the feet. Pain described as sharp, soreness, and tingling The patient Reports numbness and tingling. Symptoms interfere with physical activity, walking, sleeping, cooking, household cleaning, lifting, and social activities. Pain is exacerbated by lying down. Pain is mitigated by medications - ibuprofen. The medications are effective. The patient states the last dose of . OTC NSAIDs was taken in the AM. REVIEW OF SYSTEMS: Constitutional: (+) Weight Gain (-) Weight Loss (-) Fatigue Cardiovascular: (-) hx heart surgery (-) Pacemaker Respiratory: (+) Shortness of Breath (+) Cough (-) Snoring Gastrointestinal: (-) Incontinence (+) Diarrhea (-) Constipation (-) Nausea/Vomiting Endocrine: (-) Thyroid Disorder (+) Diabetes Hematologic: (+) Prolonged Bleeding (+) Easy Bruising Genitourinary: (-) Incontinence (-) Frequency (+) Urinary Urgency Skin: (-) Open sores/wound Neurologic: (+) Headache (-) Double Vision Psychiatric: (-) Depression (-) Anxiety (-) Personal History of Alcohol or Substance Abuse (-) Family History of Alcohol or Substance Abuse CHIEF COMPLAINT:Patient presents with: Back Pain OBJECTIVE: LMP 05/21/2021 PHYSICAL EXAMINATION: General appearance: Well appearing, in no acute distress, alert and oriented x3 Skin: Skin color, texture, turgor normal, no rashes or lesions Neck: No pain to palpation over the cervical paraspinous muscles. No pain with neck flexion, extension, or lateral flexion Cardiovascular: Regular, rate and rhythm Lungs: Normal respiratory rate and rhythm, Lungs clear to auscultation Back: Intact range of motion with pain reproduction. Facet:bilateral lumbar facet loading Spine: Reports Tenderness on palpation: Lumbar-axial and paraspinals Extremities: No deformities, edema, or skin discoloration. Good capillary refill. Musculoskeletal: No Joint pain, no edema , no extremity tenderness Neuro: No loss of sensation is noted. Motor skills intact Station and Gait: Normal stance, normal gait. Motor: Exhibits full strength in all four extremities. Trigger points: lumbosacral spine muscles. ASSESSMENT: Assessment : Patient presents for a follow up visit She has low back pain with intermittent radicular sxs down the bilateral LEs, right side is worse She reports her back pain is worse than leg pain Previously recommended Bilateral L4,5,S1 facet injection. Patient would like to schedule She takes ibuprofen Pcp prescribes baclofen Encounter Diagnosis ICD-10-CM 1. Facet arthritis of lumbar region M47.816 NJX DX/THER AGT PVRT FACET JT LMBR/SAC 1 LEVEL NJX DX/THER AGT PVRT FACET JT LMBR/SAC 2ND LEVEL 2. Lumbar spondylosis M47.816 NJX DX/THER AGT PVRT FACET JT LMBR/SAC 1 LEVEL NJX DX/THER AGT PVRT FACET JT LMBR/SAC 2ND LEVEL 3. Spinal stenosis of lumbar region, unspecified whether neurogenic claudication present M48.061 4. Neuropathic pain M79.2 PDMP website checked and validated. All prescriptions have been APPROPRIATELY filled. No suspicious activity was identified. 05/22/2022 by Lisha Brandon APRN.ANDREAS Narcotic Agreement reviewed and signed?: N/A on May 22, 2022 The pain panel was N/A Discussion: A discussion was entertained regarding multicomponent back pain source. Discussed conservative options and focus on improvement of function. Discussed the rationale behind interventional approach and how it can facilitate improvement of pain but also diagnostic information that procedures provide. manager intermediate use of any opioid pain medication is discouraged in chronic benign pain. PLAN: Injection history was reviewed. Medication use and compliance were reviewed. 1. Continue medication management through the [facility] 2. Requested Prescriptions Signed Prescriptions Disp Refills ibuprofen (MOTRIN) 600 mg tablet 90 tablet 1 Sig: Take 1 tablet by mouth every 8 hours as needed for pain. FOR PAIN. 3. Interventional procedure options discussed. Ordered and scheduled bilateral L4,5,S1 facet injection 4. Encouraged regular home exercise program. 5) F/U in 3 months I spent a total of 20 minutes on the date of the service which included preparing to see the patient, itia-xo-malh patient care, completing clinical documentation, performing a medically appropriate examination, and ordering medications, tests, or procedures. The above plan and management options were discussed at length with patient. Patient is in agreement with the above and verbalized understanding. Lisha Brandon APRN, ANDREAS May 22, 2022 documented in this encounter [facility] 05-22-2022 Instructions Lucretia Hoyos MD - 05/22/2022 11:17 AM EDT Stop Trulicity Please notify me if you continue to have low sugars If not, then follow up in 6 months documented in this encounter [facility] 05-22-2022 History of Presen t illness Narrative SUBJECTIVE: Alaina Cottrell is a 57 year old female presents for type 2 Diabetes follow up The initial diagnosis of diabetes was made in 2019. Diabetes complications include: peripheral neuropathy. Interval history: Started Trulicity in Nov 2021 Dose was reduced at her last visit given GI symptoms Today, patient reports hypoglycemic events during the last 3 weeks Previous weight loss of 10 lbs since starting Trulicity Recent weight gain since she has been eating candy to treat hypoglycemic events Current diabetes treatment regimen: Metformin ER 500 mg daily with breakfast Trulicity 0.75 mg weekly on thursday Past diabetes treatments: Metformin 500 mg BID- diarrhea Amaryl 1 mg daily in the morning Blood glucose times and ranges (mg/dl): Currently checks sugars 1 times daily She didn't bring her BG readings to the appt today Hypoglycemic episodes:see above She admits to hypoglycemia awareness Meal planning and timing: no particular trend Immunization History Administered Date(s) Administered COVID-19 vaccine, full dose (MODERNA) 01/02/2021 01/30/2021 Influenza Seasonal Inj Quad Age 6 Mo - 64 Yrs 10/18/2018 07/07/2019 09/06/2020 Pneumococcal-13 Vac Conjugate 05/08/2021 Tdap (Age 7+) 2016 Hemoglobin A1C Date Value Ref Range Status 10/29/2021 11.8 (H) 4.3 - 5.6 % Final Comment: [place] [employer] guidelines indicate that patients with HgbA1c in the range 5.7-6.4% are at increased risk for development of diabetes, and intervention by lifestyle modification may be beneficial. HgbA1c greater or equal to 6.5% is considered diagnostic of diabetes. 06/03/2021 6.8 (H) 4.3 - 5.6 % Final Comment: [place] [employer] guidelines indicate that patients with HgbA1c in the range 5.7-6.4% are at increased risk for development of diabetes, and intervention by lifestyle modification may be beneficial. HgbA1c greater or equal to 6.5% is considered diagnostic of diabetes. 10/25/2020 5.7 Final Hemoglobin A1C (POCT) Date Value Ref Range Status 05/22/2022 6.1 4.2 - 5.6 % Final Comment: Location:[address] [place], [address] Point of care (POC) Hemoglobin A1c (HGBA1C) testing is intended to assess glucose control and provide a management tool for patients known to have diabetes and their healthcare providers. Target HGBA1C levels may depend on specific clinical circumstances. POC HGBA1C is not intended for use as a diagnostic or screening test; laboratory-based testing should be used for diagnostic purposes. The following information is supplemental and may not be applicable to specific diabetes management situations: The POC device alley worker provides a normal range of 4.2% to 6.5% for the HGBA1C POC test. However, the [place] Diabetes [employer] guidelines indicate that patients with HGBA1C in the range of 5.7% to 6.4% are at increased risk for development of diabetes and that intervention by lifestyle modification may be beneficial. A HGBA1C level greater than or equal to 6.5% is considered diagnostic of diabetes, pending confirmatory testing. Use of HGBA1C testing to evaluate glucose control may not be appropriate for patients with hemoglobin variants or other conditions (e.g. anemia) that alter red blood cell lifespan. 02/18/2022 6.1 4.2 - 5.6 % Final Comment: Location:[facility], [address] [place], [address] Point of care (POC) Hemoglobin A1c (HGBA1C) testing is intended to assess glucose control and provide a management tool for patients known to have diabetes and their healthcare providers. Target HGBA1C levels may depend on specific clinical circumstances. POC HGBA1C is not intended for use as a diagnostic or screening test; laboratory-based testing should be used for diagnostic purposes. The following information is supplemental and may not be applicable to specific diabetes management situations: The POC device alley worker provides a normal range of 4.2% to 6.5% for the HGBA1C POC test. However, the [place] [employer] guidelines indicate that patients with HGBA1C in the range of 5.7% to 6.4% are at increased risk for development of diabetes and that intervention by lifestyle modification may be beneficial. A HGBA1C level greater than or equal to 6.5% is considered diagnostic of diabetes, pending confirmatory testing. Use of HGBA1C testing to evaluate glucose control may not be appropriate for patients with hemoglobin variants or other conditions (e.g. anemia) that alter red blood cell lifespan. Cardiovascular risk factors: diabetes mellitus REVIEW OF SYSTEMS: GENERAL: + weight gain, No malaise or fevers NECK:Negative for lumps, goiter, pain and significant neck swelling CARDIOVASCULAR: Negative for chest pain, leg swelling or palpitations GASTROINTESTINAL: No nausea, vomiting, or persistent diarrhea NEUROLOGIC: + numbness/tingling, no Paresthesias, no headaches SKIN:Negative for lesions, rash, and itching PSYCHIATRIC: negative for mood disorder and recent psychosocial stressors. ENDOCRINE: Negative for cold or heat intolerance or goiter Current Outpatient Medications on File Prior to Visit Medication Sig amLODIPine (NORVASC) 10 mg tablet Take 1 tablet by mouth once daily. metFORMIN ER (GLUCOPHAGE XR) 500 mg 24 hr tablet Take 1 tablet by mouth daily with breakfast. Per EndoDr. Hoyos baclofen (LIORESAL) 10 mg tablet Take 1 tablet by mouth three times daily as needed (muscle spasms). pantoprazole DR (PROTONIX) 40 mg tablet Take 1 tablet by mouth daily before breakfast. Take on empty stomach, 1/2 hr before meal. Lancing Device [facility] Patient to UAD BID. atorvastatin (LIPITOR) 10 mg tablet Take 1 tablet by mouth daily at bedtime. For cholesterol. amitriptyline (ELAVIL) 10 mg tablet Take 3 tablets by mouth daily at bedtime. Per [facility], Neurology sertraline (ZOLOFT) 50 mg tablet Take 1 tablet by mouth once daily. Per Psych [facility]. lancets (FREESTYLE LANCETS) 28 gauge Test blood sugar(s) 3 times daily. Dx: Type 2 DM - Uncontrolled E11.10 Insulin: Yes spironolactone (ALDACTONE) 25 mg tablet Take 1 tablet by mouth once daily. propranolol (INDERAL) 10 mg tablet Take 1 tablet by mouth once daily. oxybutynin ER (DITROPAN XL) 10 mg 24 hr tablet Take 1 tablet by mouth once daily. alcohol swabs (ALCOHOL PREP PADS) Apply 1 application to affected area three times daily. To check blood sugars. loratadine (CLARITIN) 10 mg tablet Take 1 tablet by mouth once daily as needed (for itching, sneezing or runny nose). blood sugar diagnostic (BLOOD GLUCOSE TEST) test strip Use as directed to monitor blood sugar. Dx: Type 2 DM - Uncontrolled E11.65 Insulin: Yes.Test blood sugar(s) four times daily MEDICAL SUPPLY [facility] for [facility]YSICAL THERAPY eval and treat. Patient has developed increase weakness and has fallen multiple times since discharge from their service in Mid May. MEDICAL SUPPLY RAISED TOILET SEAT. Dx: Z91.89, Z91.81 and R53.1 MEDICAL SUPPLY OVER THE TUB GRAB BAR Dx: Z91.89, Z91.81 and R53.1 MEDICAL SUPPLY SHOWER CHAIR WITH BACK REST, ARM RESTS WITH ADJUSTABLE HEIGHT. Dx: Z91.89, Z91.81 and R53.1 MEDICAL SUPPLY Shower chair, #: one, Dx: R53.1, Z91.81 and Z74.09 SUMAtriptan (IMITREX) 100 mg tablet Take one tab with onset of migraine, can repeat in 2 hrs if no relief. Max of 2 in 24 hrs Current Facility-Administered Medications on File Prior to Visit Medication perflutren lipid microspheres 1.3 mL in NaCl (PF) 0.9% 10 mL injection (DEFINITY) sodium chloride 0.9 % (flush) 10 mL (BD POSIFLUSH) ALLERGIES Allergen Reactions Seasonal Allergies Unknown Trees and ragweed verified by skin testing PAST MEDICAL HISTORY Diagnosis Date Arthritis Chronic insomnia 12/05/[address] brown Chronic rhinitis 01/12/2018 Class 2 severe obesity with serious comorbidity and body mass index (BMI) of 35.0 to 35.9 in adult ([facility]) 11/14/2021 Diabetes mellitus type 2 with ketoacidosis, uncontrolled ([facility]) 07/06/2020 Diabetic polyneuropathy associated with type 2 diabetes mellitus (HCC) 02/03/2021 Seeing [facility] GERD without esophagitis 06/03/2019 Hallux valgus (acquired) 02/17/2007 Hyperlipidemia, mixed 05/14/2022 Hypertension, essential 11/13/2021 Intractable migraine without aura and without status migrainosus 2016 Neck pain 01/02/2022 Obesity, Class II, BMI 35-39.9 12/05/2019 Overactive bladder 2016 Physical debility 07/27/2020 Recurrent major depressive disorder, in remission (HCC) 06/02/2018 Seasonal allergic rhinitis due to pollen 07/14/2017 PHYSICAL EXAM: BP 113/79 Pulse 111 Resp 16 Ht 175.3 cm (5' 9 ) Wt 108.9 kg (240 lb) LMP 05/21/2021 (Approximate) SpO2 100% BMI 35.44 kg/m General:alert and oriented X 3, no acute distress Eyes:anicteric sclera, Extraocular motions intact Neck supple, no cervical lymphadenopathy Chest: Breathing unlabored, Lungs clear to auscultation. No wheezing CV:normal, Regular rate and rhythm, no murmurs, clicks, or gallops. Abdomen: Normal abdominal sounds, non tender to palpation Neuro: Gait normal. Sensation grossly intact. No focal findings Musculoskeletal: Muscular strength intact, No joint swelling Extremities without edema, no deformities Skin: no rashes/erythema, dry skin noted LAB: Hemoglobin A1C Date Value Ref Range Status 10/29/2021 11.8 (H) 4.3 - 5.6 % Final Comment: [place] Diabetes [employer] guidelines indicate that patients with HgbA1c in the range 5.7-6.4% are at increased risk for development of diabetes, and intervention by lifestyle modification may be beneficial. HgbA1c greater or equal to 6.5% is considered diagnostic of diabetes. 06/03/2021 6.8 (H) 4.3 - 5.6 % Final Comment: [place] [employer] guidelines indicate that patients with HgbA1c in the range 5.7-6.4% are at increased risk for development of diabetes, and intervention by lifestyle modification may be beneficial. HgbA1c greater or equal to 6.5% is considered diagnostic of diabetes. 10/25/2020 5.7 Final Hemoglobin A1C (POCT) Date Value Ref Range Status 05/22/2022 6.1 4.2 - 5.6 % Final Comment: Location:[facility], [address] [place], [address] Point of care (POC) Hemoglobin A1c (HGBA1C) testing is intended to assess glucose control and provide a management tool for patients known to have diabetes and their healthcare providers. Target HGBA1C levels may depend on specific clinical circumstances. POC HGBA1C is not intended for use as a diagnostic or screening test; laboratory-based testing should be used for diagnostic purposes. The following information is supplemental and may not be applicable to specific diabetes management situations: The POC device alley worker provides a normal range of 4.2% to 6.5% for the HGBA1C POC test. However, the [place] Diabetes [employer] guidelines indicate that patients with HGBA1C in the range of 5.7% to 6.4% are at increased risk for development of diabetes and that intervention by lifestyle modification may be beneficial. A HGBA1C level greater than or equal to 6.5% is considered diagnostic of diabetes, pending confirmatory testing. Use of HGBA1C testing to evaluate glucose control may not be appropriate for patients with hemoglobin variants or other conditions (e.g. anemia) that alter red blood cell lifespan. 02/18/2022 6.1 4.2 - 5.6 % Final Comment: Location:[facility], [address] [place], [address] Point of care (POC) Hemoglobin A1c (HGBA1C) testing is intended to assess glucose control and provide a management tool for patients known to have diabetes and their healthcare providers. Target HGBA1C levels may depend on specific clinical circumstances. POC HGBA1C is not intended for use as a diagnostic or screening test; laboratory-based testing should be used for diagnostic purposes. The following information is supplemental and may not be applicable to specific diabetes management situations: The POC device alley worker provides a normal range of 4.2% to 6.5% for the HGBA1C POC test. However, the [place] Diabetes [employer] guidelines indicate that patients with HGBA1C in the range of 5.7% to 6.4% are at increased risk for development of diabetes and that intervention by lifestyle modification may be beneficial. A HGBA1C level greater than or equal to 6.5% is considered diagnostic of diabetes, pending confirmatory testing. Use of HGBA1C testing to evaluate glucose control may not be appropriate for patients with hemoglobin variants or other conditions (e.g. anemia) that alter red blood cell lifespan. Glucose (mg/dL) Date Value 05/14/2022 115 10/29/2021 93 Potassium (mmol/L) Date Value 05/14/2022 4.5 10/29/2021 4.1 Sodium (mmol/L) Date Value 05/14/2022 139 10/29/2021 139 Chloride (mmol/L) Date Value 05/14/2022 101 10/29/2021 102 CO2 (mmol/L) Date Value 05/14/2022 27 10/29/2021 26 Creatinine (mg/dL) Date Value 05/14/2022 0.75 10/29/2021 0.72 BUN (mg/dL) Date Value 05/14/2022 16 10/29/2021 13 Anion Gap (mmol/L) Date Value 05/14/2022 11 10/29/2021 11 Calcium (mg/dL) Date Value 10/29/2021 9.5 Calcium, Total (mg/dL) Date Value 05/14/2022 9.2 TSH Date Value Ref Range Status 06/03/2021 0.716 0.270 - 4.200 uU/mL Final No results found for: UALBCR No results found for: VITD25] ASSESSMENT/PLAN: Type 2 Diabetes well controlled with complication Hypoglycemia Hypertension Glycemic Control :A1c is unchanged (6.1) Stop Trulicity since she is experiencing hypoglycemia Continue metformin 500 mg daily Patient is instructed to test sugars 1 times daily Hypertension: BP is within goal Cholesterol: reviewed and discussed the recent lipid panel LDL and CHOL are within goal Complications: neuropathy- on neurontin Check urine microalbumin/Cr I will send patient a message in my chart once the lab result become available Follow up in 6 months, sooner if she continue to have hypoglycemia Lucretia Hoyos MD 05/22/22 documented in this encounter [facility] 05-19-2022 Miscellaneous Notes Patient notified of results. Patient denies any UTI SX. Anna Brock MA Left message for patient to contact office. Rosemarie Li MA See if having any symptoms of a UTI. If so will need treated. Lipid panel was ok. CMP showed elevated Alk Phos otherwise ok. Want to check some other labs for this. Orders placed. documented in this encounter [facility] 05-05-2022 History of Presen t illness Narrative Last saw Dr. Luis: 11/13/21 Subjective: Patient presents to clinic c/o painful toenails. They state that the nails are especially painful with shoe gear and pressure. Patient states that nails 1-5 b/l are painful. Patient admits to being diabetic. No other pedal complaints at this time. Patient states no change in medications or medical history since last visit. Objective: Patient presents to clinic ambulating in sandals Vasc: DP and PT pulses are palpable bilateral. CFT is less than 5 seconds bilateral. Skin temperature is warm to cool proximal to distal bilateral. There is no edema or varicosities noted. Neuro: Protective sensation is intact to the foot and toes when tested with the 5.07 SWM bilateral. Vibratory sensation is decreased at the hallux IPJ bilateral. The hallux is downgoing bilateral. Derm: Nails 1-5 b/l are painful, discolored-yellow, thick, crumbly, dystrophic and with subungal debris. Skin is of normal turgor, texture and hair growth is present bilateral. There are no hyperkeratosis, ulcerations, scars, verruca or other lesions noted. Ortho: Muscle strength is 5/5 for all pedal groups tested. Ankle joint DF is decreased with the knee extended with no pain or crepitus noted. 1st MPJ ROM is decreased bilateral. Large bunion is present b/l. Flatfoot is noted b/l. Assessment: (B35.1) Onychomycosis (primary encounter diagnosis) (M79.674) Pain in toe of right foot (M79.675) Pain in toe of left foot (E11.621, L97.422) Diabetic ulcer of left midfoot associated with type 2 diabetes mellitus, with fat layer exposed (HCC) (M21.41, M21.42) Pes planus of both feet Plan: Patient was seen and evaluated. Nails 1-5 bilateral were debrided in length and thickness. Patient was instructed on the continued importance of diabetic foot care along with proper diet and keeping their blood sugar under control to prevent complications. Patient is to RTC in 3-4 months. Ted Tao DPM AMB ROOMING INTAKE FLOWSHEET DATA Risk Screening Do you have concerns about personal safety or safety in the home?: No Patient presents with: Left Foot - Established Patient, Follow Up, nail care Right Foot - Established Patient, Follow Up, nail care Radha Weir LPN documented in this encounter [facility] 05-05-2022 Instructions Ted Tao - 05/05/2022 10:46 AM EDT Diabetes Foot Care Instructions When you have diabetes, proper foot care is very important. Poor foot care may lead to amputation of a foot or leg. As a person with diabetes, you are more vulnerable to foot problems, because diabetes can damage your nerves and reduce blood flow to your feet. Here are some diabetes foot care tips to follow: Wash and Dry Your Feet Daily Use mild soaps Use warm water Pat your skin dry; do not rub. Thoroughly dry your feet. After washing, use lotion on your feet to prevent cracking. Do not put lotion between your toes. Examine Your Feet Each Day Check the tops and bottoms of your feet. Have someone else look at your feet if you cannot see them. Check for dry, cracked skin. Look for blisters, cuts, scratches, or other sores. Check for redness, increased warmth, or tenderness when touching any area of your feet. Check for ingrown toenails, corns, and calluses. If you get a blister or sore from your shoes, do not pop it. Apply a bandage and wear a different pair of shoes. Take Care of Your Toenails Cut toenails after bathing, when they are soft. Cut toenails straight across and smooth with a nail file. Avoid cutting into the corners of toes. Do not cut cuticles. If you have neuropathy (or decreased sensation in your feet) a mortgage or loan underwriter should always cut your toenails. Be Careful When Exercising Walk and exercise in comfortable shoes. Do not exercise when you have open sores on your feet. Protect Your Feet With Shoes and Socks Never go barefoot. Always protect your feet by wearing shoes or hard-soled slippers or footwear. Avoid shoes with high heels and pointed toes. Avoid shoes that expose your toes or heels (such as open-toed shoes or sandals). These types of shoes increase your risk for injury and potential infections. Try on new footwear with the type of socks you usually wear. Do not wear new shoes for more than an hour at a time. Change your socks daily. Look and feel inside your shoes before putting them on to make sure there are no foreign objects or rough areas. Avoid tight socks. Wear natural-fiber socks (cotton, wool, or a cotton-wool blend). Wear special shoes if your health care provider recommends them. Wear shoes/boots that will protect your feet from various weather conditions (cold, moisture, etc.). Make sure your shoes fit properly. If you have neuropathy (nerve damage), you may not notice that your shoes are too tight. Perform the footwear test described below. Footwear Test Use this simple test to see if your shoes fit correctly: Stand on a piece of paper. (Make sure you are standing and not sitting, because your foot changes shape when you stand.) Trace the outline of your foot. Trace the outline of your shoe. Compare the tracings: Is the shoe too narrow? Is your foot crammed into the shoe? The shoe should be at least 1/2 inch longer than your longest toe and as wide as your foot. Proper Shoe Choices The following types of shoes are best for people with diabetes Closed toes and heels Leather uppers without a seam inside At least 1/2 inch extra space at the end of your longest toe Inside of shoe should be soft with no rough areas Outer sole should be made of stiff material Shoes should be at least as wide as your feet Tips for Foot Care in Diabetes Don't wait to treat a minor foot problem if you have diabetes. Follow your health care provider's guidelines and first aid guidelines. Report foot injuries and infections to your health care provider immediately. Check water temperature with your elbow, not your foot. Do not use a heating pad on your feet. Do not cross your legs. Do not self-treat your corns, calluses, or other foot problems. Go to your health care provider or mortgage or loan underwriter to treat these conditions. documented in this encounter [facility] 04-22-2022 Miscellaneous Notes Patient sees Meliza for DM management will forward metformin request to correct provider. Left detailed message advising Amitiptyline comes from neurology an dispensed report shows being filled by provider outside pcp office. Advised need to call neurology for refill. Patient last visit with PCP 12/31/21 Follow up appointment scheduled 05/14/22 Mili Branch Ma Patient has been identified by name and date of : Yes Last office visit in this department: 12/31/2021 Next visit: 05/14/22 RX INSTRUCTIONS: Patient aware RX will be sent to pharmacy. No need to notify patient. Patient phones requesting refills as follows: Pending Prescriptions Disp Refills AMITRIPTYLINE 10 MG TABLET Sig: Take 3 tablets by mouth daily at bedtime. Per [facility], Neurology JUMANA: No METFORMIN ER 500 MG TABLET,EXTENDED RELEASE 24 HR 90 tablet 1 Sig: Take 1 tablet by mouth daily with breakfast. Per Dr. Romain Haider JUMANA: No Please review and advise. Nehal Arriaga Pss documented in this encounter [facility] 04-22-2022 Miscellaneous Notes Order faxed to [facility]. Pt. notified. Jessica Mcconnell, RN Order for afo made Pt. called in stating she went to [facility] to get braces. States they told her rx was and she needs a new one sent in. Jessica Mcconnell, RN documented in this encounter [facility] 04-08-2022 Miscellaneous Notes Patient last visit with PCP 12/31/21 Follow up appointment scheduled 05/14/22 Mili Branch Ma Patient has been identified by name and date of : Yes Pending Prescriptions Disp Refills IBUPROFEN 600 MG TABLET 90 tablet 0 Sig: Take 1 tablet by mouth every 8 hours as needed for pain. FOR PAIN. JUMANA: No RX INSTRUCTIONS: Patient aware RX will be sent to pharmacy. No need to notify patient. Anitha Gerardo documented in this encounter [facility] 03-18-2022 Miscellaneous Notes Patient returned call and given provider's message below and patient verbalized understanding. Jose Horton RN Left message for pt to contact office. Tj Mendenhall LPN Advise patient refill request for baclofen was denied. As per discussion with her on 02/06/2022 it would only be filled one more time at that time. Last refill 02/06/22 Qty: 20 with 0 refills WINSOME 12/31/21 NOV 05/14/22 Tj Mendenhall LPN Patient has been identified by name and date of : Yes Pending Prescriptions Disp Refills BACLOFEN 10 MG TABLET 20 tablet 0 Sig: Take 1 tablet by mouth three times daily as needed (muscle spasms). JUMANA: No RX INSTRUCTIONS: Patient aware RX will be sent to pharmacy. No need to notify patient. Anitha Gerardo documented in this encounter [facility] 03-17-[address] - 03/17/2022 3:20 PM EDT Have breakfast within an hour of waking Aim for regular meals, no skipped meals; include protein and fiber in each meal (follow appropriate guidelines for low blood sugars) Add exercise as able discuss low blood sugars with provider. documented in this encounter [facility] 03-17-2022 History of Presen t illness Narrative Nutritional Therapy Re-Assessment Nutrition Diagnosis: Overweight/obesity, related to, excess energy intake and physical inactivity, as evidenced by BMI above normative standard for age and gender RECOMMENDED MALNUTRITION DIAGNOSIS: NO MALNUTRITION IDENTIFIED NUTRITION CARE PLAN: Nutrition Intervention 03/17/2022: modify type and amount of food or beverage Have breakfast within an hour of waking Aim for regular meals, no skipped meals; include protein and fiber in each meal (follow appropriate guidelines for low blood sugars) Add exercise as able discuss low blood sugars with provider. Nutrition Monitoring & Evaluation: Weight loss and labs in target range Need for Follow up: 4-6 weeks PROGRESS: Interval History: following for diabetes and for weight loss, has struggled with weight loss. States recent medication, having frequent low blood sugars related to skipped meals and long period between meals, and difficulty getting blood sugars above 70. Notes less hunger and taking smaller portions. Was able to lose 3 lbs since visit . Nutrition Intervention 12/09/21 Continue three regular meals; include protein each meal When able get back to regular exercise -4-5 hours between meals - eat 3 meals/day - add a protein with your carb at snacks - whole grain, high fiber in meals - all beverage calorie and sugar-free - check B.S., if BS is low treat as low Add in seated exercises as available on Youtube Actions to implement interventions: Skipping meals Active around the house Diet History: wake around 8 As low as 23,may be 53 Breakfast - 11:00 -egg bagel; half cup cereal (fruity todd lately)/1-2% Snack - no Lunch - trying to eat around 2-fruit , egg, small portion Snack - no Dinner - pizza, cottage cheese and strawberries; tuna or chicken salad Snack - no Beverages - SF beverages, water, coffee Alcohol - no Vitamins/Supplements - MVI Smaller portions Activity: Activities of Daily Living: varies Additional Activity: Sedentary (Little or no exercise: <1x/week) Anthropometrics: Height: Last 1 Encounter Ht Readings: Date: Ht: 03/17/2022 175.3 cm (5' 9 ) Current weight: Last 1 Encounter Wt Readings: Date: Wt: 03/17/2022 110.5 kg (243 lb 8 oz) Body mass index is 35.96 kg/m . Resting Metabolic Rate: 1767 Malnutrition Screening Significant unintentional weight loss? No Eating less than 75% of usual intake for more than 2 weeks? No Potential Signs of Inflammation: no identifiable sources Nutritional status: Education Materials Provided: None this visit READINESS TO LEARN Cognitive ability: Alert and oriented Motivation to learn: Interested Family support: Unable to assess - Family not present Instruction provided to: Patient Patient learns best by: Individual Instruction Factors affecting learning: None Physical limitations affecting learning: None Likelihood of Adherence: Moderate Referred/Supervised by: Nadia DURANT Billing Type: Re-assess/15 min 2 units SIGNATURE: Bernie Horta RD PATIENT NAME: Alaina Cottrell DATE: March 17, 2022 TIME: 3:01 PM documented in this encounter [facility] 02-18-2022 Instructions Lucretia Hoyos MD - 02/18/2022 9:07 AM EDT Reduce trulicity to 0.75 mg weekly documented in this encounter [facility] 02-18-2022 History of Presen t illness Narrative SUBJECTIVE: Alaina Cottrell is a 57 year old female presents for type 2 Diabetes follow up The initial diagnosis of diabetes was made in 2019. Diabetes complications include: peripheral neuropathy. Interval history: Started Trulicity in Nov 2021 She is experiencing belching and intermittent cramping Weight loss of 10 lbs since starting Trulicity Current diabetes treatment regimen: Metformin ER 500 mg daily with breakfast Trulicity 1.5 mg weekly on thursday Past diabetes treatments: Metformin 500 mg BID- diarrhea Amaryl 1 mg daily in the morning She used lantus for couple months Blood glucose times and ranges (mg/dl): Currently checks sugars 1 times daily She didn't bring her BG readings to the appt today Breakfast 104 Bedtime 109 Hypoglycemic episodes:No She admits to hypoglycemia awareness Meal planning and timing: no particular trend Immunization History Administered Date(s) Administered COVID-19 vaccine, full dose (MODERNA) 01/02/2021 01/30/2021 Influenza Seasonal Inj Quad Age 6 Mo - 64 Yrs 10/18/2018 07/07/2019 09/06/2020 Pneumococcal-13 Vac Conjugate 05/08/2021 Tdap (Age 7+) 2016 Hemoglobin A1C Date Value Ref Range Status 10/29/2021 11.8 (H) 4.3 - 5.6 % Final Comment: [place] [employer] guidelines indicate that patients with HgbA1c in the range 5.7-6.4% are at increased risk for development of diabetes, and intervention by lifestyle modification may be beneficial. HgbA1c greater or equal to 6.5% is considered diagnostic of diabetes. 06/03/2021 6.8 (H) 4.3 - 5.6 % Final Comment: [place] [employer] guidelines indicate that patients with HgbA1c in the range 5.7-6.4% are at increased risk for development of diabetes, and intervention by lifestyle modification may be beneficial. HgbA1c greater or equal to 6.5% is considered diagnostic of diabetes. 10/25/2020 5.7 Final 12/05/2019 6.6 (H) 4.3 - 5.6 % Final Comment: [place] [employer] guidelines indicate that patients with HgbA1c in the range 5.7-6.4% are at increased risk for development of diabetes, and intervention by lifestyle modification may be beneficial. HgbA1c greater or equal to 6.5% is considered diagnostic of diabetes. 06/03/2019 5.8 (H) 4.3 - 5.6 % Final Comment: [place] [employer] guidelines indicate that patients with HgbA1c in the range 5.7-6.4% are at increased risk for development of diabetes, and intervention by lifestyle modification may be beneficial. HgbA1c greater or equal to 6.5% is considered diagnostic of diabetes. Cardiovascular risk factors: diabetes mellitus REVIEW OF SYSTEMS: GENERAL: + weight loss, No malaise or fevers NECK:Negative for lumps, goiter, pain and significant neck swelling CARDIOVASCULAR: Negative for chest pain, leg swelling or palpitations GASTROINTESTINAL: No nausea, vomiting, or persistent diarrhea NEUROLOGIC: + numbness/tingling, no Paresthesias, no headaches SKIN:Negative for lesions, rash, and itching PSYCHIATRIC: negative for mood disorder and recent psychosocial stressors. ENDOCRINE: Negative for cold or heat intolerance or goiter Current Outpatient Medications on File Prior to Visit Medication Sig pantoprazole DR (PROTONIX) 40 mg tablet Take 1 tablet by mouth daily before breakfast. Take on empty stomach, 1/2 hr before meal. Lancing Device misc Patient to UAD BID. dulaglutide (TRULICITY) 1.5 mg/0.5 mL pen injector Inject 1.5 mg subcutaneously one time a week. atorvastatin (LIPITOR) 10 mg tablet Take 1 tablet by mouth daily at bedtime. For cholesterol. amitriptyline (ELAVIL) 10 mg tablet Take 3 tablets by mouth daily at bedtime. Per [facility], Neurology metFORMIN ER (GLUCOPHAGE XR) 500 mg 24 hr tablet Take 1 tablet by mouth daily with breakfast. Per EndoDr. Hoyos sertraline (ZOLOFT) 50 mg tablet Take 1 tablet by mouth once daily. Per [facility] at [facility]. amLODIPine (NORVASC) 10 mg tablet Take 1 tablet by mouth one time only for 1 dose. spironolactone (ALDACTONE) 25 mg tablet Take 1 tablet by mouth once daily. propranolol (INDERAL) 10 mg tablet Take 1 tablet by mouth once daily. oxybutynin ER (DITROPAN XL) 10 mg 24 hr tablet Take 1 tablet by mouth once daily. alcohol swabs (ALCOHOL PREP PADS) Apply 1 application to affected area three times daily. To check blood sugars. loratadine (CLARITIN) 10 mg tablet Take 1 tablet by mouth once daily as needed (for itching, sneezing or runny nose). blood sugar diagnostic (BLOOD GLUCOSE TEST) test strip Use as directed to monitor blood sugar. Dx: Type 2 DM - Uncontrolled E11.65 Insulin: Yes.Test blood sugar(s) four times daily MEDICAL SUPPLY [facility] for [facility]ICAL THERAPY eval and treat. Patient has developed increase weakness and has fallen multiple times since discharge from their service in Mid May. MEDICAL SUPPLY RAISED TOILET SEAT. Dx: Z91.89, Z91.81 and R53.1 MEDICAL SUPPLY OVER THE TUB GRAB BAR Dx: Z91.89, Z91.81 and R53.1 MEDICAL SUPPLY SHOWER CHAIR WITH BACK REST, ARM RESTS WITH ADJUSTABLE HEIGHT. Dx: Z91.89, Z91.81 and R53.1 MEDICAL SUPPLY Shower chair, #: one, Dx: R53.1, Z91.81 and Z74.09 SUMAtriptan (IMITREX) 100 mg tablet Take one tab with onset of migraine, can repeat in 2 hrs if no relief. Max of 2 in 24 hrs baclofen (LIORESAL) 10 mg tablet Take 1 tablet by mouth three times daily as needed (muscle spasms). doxycycline hyclate (VIBRAMYCIN) 100 mg capsule Take 1 capsule by mouth twice daily. cefADROxil (DURICEF) 500 mg capsule Take 1 capsule by mouth twice daily. lancets (FREESTYLE LANCETS) 28 gauge Test blood sugar(s) 3 times daily. Dx: Type 2 DM - Uncontrolled E11.10 Insulin: Yes No current facility-administered medications on file prior to visit. ALLERGIES Allergen Reactions Seasonal Allergies Unknown Trees and ragweed verified by skin testing PAST MEDICAL HISTORY Diagnosis Date Arthritis Chronic insomnia 12/05/[address] brown Chronic rhinitis 01/12/2018 Diabetes mellitus type 2 with ketoacidosis, uncontrolled (HCC) 07/06/2020 Diabetic polyneuropathy associated with type 2 diabetes mellitus (HCC) 02/03/2021 Seeing [facility] GERD without esophagitis 06/03/2019 Hallux valgus (acquired) 02/17/2007 Hypertension, essential 11/13/2021 Intractable migraine without aura and without status migrainosus 2016 Obesity, Class II, BMI 35-39.9 12/05/2019 Overactive bladder 2016 Physical debility 07/27/2020 Recurrent major depressive disorder, in remission (HCC) 06/02/2018 Seasonal allergic rhinitis due to pollen 07/14/2017 PHYSICAL EXAM: BP 113/79 Pulse 111 Resp 16 Ht 175.3 cm (5' 9 ) Wt 108.9 kg (240 lb) LMP 05/21/2021 (Approximate) SpO2 100% BMI 35.44 kg/m General:alert and oriented X 3, no acute distress Eyes:anicteric sclera, Extraocular motions intact Neck supple, no cervical lymphadenopathy Chest: Breathing unlabored, Lungs clear to auscultation. No wheezing, rhonchi, rales CV:normal, Regular rate and rhythm, no murmurs, clicks, or gallops. Abdomen: Normal abdominal sounds, non tender to palpation Neuro: Gait normal. Sensation grossly intact. No focal findings Musculoskeletal: Muscular strength intact, No joint swelling, deformity, or tenderness Extremities without edema, no deformities Skin: no rashes/erythema LAB: Hemoglobin A1C Date Value Ref Range Status 10/29/2021 11.8 (H) 4.3 - 5.6 % Final Comment: [place] [employer] guidelines indicate that patients with HgbA1c in the range 5.7-6.4% are at increased risk for development of diabetes, and intervention by lifestyle modification may be beneficial. HgbA1c greater or equal to 6.5% is considered diagnostic of diabetes. 06/03/2021 6.8 (H) 4.3 - 5.6 % Final Comment: [place] [employer] guidelines indicate that patients with HgbA1c in the range 5.7-6.4% are at increased risk for development of diabetes, and intervention by lifestyle modification may be beneficial. HgbA1c greater or equal to 6.5% is considered diagnostic of diabetes. 10/25/2020 5.7 Final 12/05/2019 6.6 (H) 4.3 - 5.6 % Final Comment: [place] [employer] guidelines indicate that patients with HgbA1c in the range 5.7-6.4% are at increased risk for development of diabetes, and intervention by lifestyle modification may be beneficial. HgbA1c greater or equal to 6.5% is considered diagnostic of diabetes. 06/03/2019 5.8 (H) 4.3 - 5.6 % Final Comment: [place] [employer] guidelines indicate that patients with HgbA1c in the range 5.7-6.4% are at increased risk for development of diabetes, and intervention by lifestyle modification may be beneficial. HgbA1c greater or equal to 6.5% is considered diagnostic of diabetes. Glucose (mg/dL) Date Value 10/29/2021 93 Potassium (mmol/L) Date Value 10/29/2021 4.1 Sodium (mmol/L) Date Value 10/29/2021 139 Chloride (mmol/L) Date Value 10/29/2021 102 CO2 (mmol/L) Date Value 10/29/2021 26 Creatinine (mg/dL) Date Value 10/29/2021 0.72 BUN (mg/dL) Date Value 10/29/2021 13 Anion Gap (mmol/L) Date Value 10/29/2021 11 Calcium (mg/dL) Date Value 10/29/2021 9.5 TSH Date Value Ref Range Status 06/03/2021 0.716 0.270 - 4.200 uU/mL Final No results found for: UALBCR No results found for: VITD25] ASSESSMENT/PLAN: Type 2 Diabetes well controlled with complication Hypertension Glycemic Control :A1c has decreased to 6.1 Reduce Trulicity 0.7 mcg weekly Continue metformin 500 mg daily Patient is instructed to test sugars 1 times daily Hypertension: BP is within goal Cholesterol: LDL was above goal in oct 2021 check a lipid panel at follow up Complications: neuropathy- on neurontin Check urine microalbumin/Cr at follow up Follow up in 6 months Lucretia Hoyos MD 02/18/22 documented in this encounter [facility] 02-06-2022 Miscellaneous Notes Patient notified and voiced understanding. Rosemarie Li MA Let patient know the baclofen was refilled for just one more time only. The following approved medication requests have been transmitted electronically. Signed Prescriptions Disp Refills baclofen (LIORESAL) 10 mg tablet 20 tablet 0 Sig: Take 1 tablet by mouth three times daily as needed (muscle spasms). JUMANA: No Authorizing Provider: FREDDIE LUIS MD Patient has been identified by name and date of : Yes Pending Prescriptions Disp Refills BACLOFEN 10 MG TABLET 20 tablet 0 Sig: Take 1 tablet by mouth three times daily as needed (muscle spasms). JUMANA: No WINSOME-12/31/21 Labs-11/13/21 NOV-05/14/22 med filled 12/31/21 RX INSTRUCTIONS: Pharmacy initiated this request. No need to notify patient. Sandra Tom Pss documented in this encounter [facility] 01-27-2022 Miscellaneous Notes Patient has been identified by name and date of : Yes Pending Prescriptions Disp Refills PANTOPRAZOLE 40 MG TABLET,DELAYED RELEASE 30 tablet 4 Sig: Take 1 tablet by mouth daily before breakfast. Take on empty stomach, 1/2 hr before meal. JUMANA: No RX INSTRUCTIONS: Patient aware RX will be sent to pharmacy. No need to notify patient. Rosemarie Li MA Winsome: 12/2021 Nov: 05/2022 Last refill: 07/2021 30 tablets 5 refills Patient has been identified by name and date of : Yes Pending Prescriptions Disp Refills PANTOPRAZOLE 40 MG TABLET,DELAYED RELEASE 30 tablet 4 Sig: Take 1 tablet by mouth daily before breakfast. Take on empty stomach, 1/2 hr before meal. JUMANA: No RX INSTRUCTIONS: Pharmacy initiated this request. No need to notify patient. Salina Sol Pss documented in this encounter [facility] 01-23-2022 History of Presen t illness Narrative Last saw pcp: 12/31/21 Subjective: Patient presents to clinic c/o painful toenails. They state that the nails are especially painful with shoe gear and pressure. Patient states that nails 1-5 b/l are painful. Patient admits to being diabetic. No other pedal complaints at this time. Patient states no change in medications or medical history since last visit. Objective: Patient presents to clinic ambulating in diabetic shoes Vasc: DP and PT pulses are palpable bilateral. CFT is less than 5 seconds bilateral. Skin temperature is warm to cool proximal to distal bilateral. There is mild edema or varicosities noted. Neuro: Protective sensation is intact to the foot and toes when tested with the 5.07 SWM bilateral. Vibratory sensation is decreased at the hallux IPJ bilateral. The hallux is downgoing bilateral. Derm: Nails 1-5 b/l are painful, discolored-yellow, thick, crumbly, dystrophic and with subungal debris. Skin is of normal turgor, texture and hair growth is present bilateral. There are no hyperkeratosis, ulcerations, scars, verruca or other lesions noted. Ortho: Muscle strength is 5/5 for all pedal groups tested. Ankle joint DF is decreased with the knee extended with no pain or crepitus noted. 1st MPJ ROM is decreased bilateral. Large bunion is noted b/l. Ganglion present to left foot Assessment: (B35.1) Onychomycosis (primary encounter diagnosis) (M79.674) Pain in toe of right foot (M79.675) Pain in toe of left foot Plan: Patient was seen and evaluated. Nails 1-5 bilateral were debrided in length and thickness. Patient was instructed on the continued importance of diabetic foot care along with proper diet and keeping their blood sugar under control to prevent complications. Patient is to RTC in 3-4 months. Ulceration of left foot remains healed. Continue with diabetic shoes Ted Tao DPM documented in this encounter [facility] 01-23-2022 Instructions Ted Tao - 01/23/2022 9:45 AM EDT Diabetes Foot Care Instructions When you have diabetes, proper foot care is very important. Poor foot care may lead to amputation of a foot or leg. As a person with diabetes, you are more vulnerable to foot problems, because diabetes can damage your nerves and reduce blood flow to your feet. Here are some diabetes foot care tips to follow: Wash and Dry Your Feet Daily Use mild soaps Use warm water Pat your skin dry; do not rub. Thoroughly dry your feet. After washing, use lotion on your feet to prevent cracking. Do not put lotion between your toes. Examine Your Feet Each Day Check the tops and bottoms of your feet. Have someone else look at your feet if you cannot see them. Check for dry, cracked skin. Look for blisters, cuts, scratches, or other sores. Check for redness, increased warmth, or tenderness when touching any area of your feet. Check for ingrown toenails, corns, and calluses. If you get a blister or sore from your shoes, do not pop it. Apply a bandage and wear a different pair of shoes. Take Care of Your Toenails Cut toenails after bathing, when they are soft. Cut toenails straight across and smooth with a nail file. Avoid cutting into the corners of toes. Do not cut cuticles. If you have neuropathy (or decreased sensation in your feet) a mortgage or loan underwriter should always cut your toenails. Be Careful When Exercising Walk and exercise in comfortable shoes. Do not exercise when you have open sores on your feet. Protect Your Feet With Shoes and Socks Never go barefoot. Always protect your feet by wearing shoes or hard-soled slippers or footwear. Avoid shoes with high heels and pointed toes. Avoid shoes that expose your toes or heels (such as open-toed shoes or sandals). These types of shoes increase your risk for injury and potential infections. Try on new footwear with the type of socks you usually wear. Do not wear new shoes for more than an hour at a time. Change your socks daily. Look and feel inside your shoes before putting them on to make sure there are no foreign objects or rough areas. Avoid tight socks. Wear natural-fiber socks (cotton, wool, or a cotton-wool blend). Wear special shoes if your health care provider recommends them. Wear shoes/boots that will protect your feet from various weather conditions (cold, moisture, etc.). Make sure your shoes fit properly. If you have neuropathy (nerve damage), you may not notice that your shoes are too tight. Perform the footwear test described below. Footwear Test Use this simple test to see if your shoes fit correctly: Stand on a piece of paper. (Make sure you are standing and not sitting, because your foot changes shape when you stand.) Trace the outline of your foot. Trace the outline of your shoe. Compare the tracings: Is the shoe too narrow? Is your foot crammed into the shoe? The shoe should be at least 1/2 inch longer than your longest toe and as wide as your foot. Proper Shoe Choices The following types of shoes are best for people with diabetes Closed toes and heels Leather uppers without a seam inside At least 1/2 inch extra space at the end of your longest toe Inside of shoe should be soft with no rough areas Outer sole should be made of stiff material Shoes should be at least as wide as your feet Tips for Foot Care in Diabetes Don't wait to treat a minor foot problem if you have diabetes. Follow your health care provider's guidelines and first aid guidelines. Report foot injuries and infections to your health care provider immediately. Check water temperature with your elbow, not your foot. Do not use a heating pad on your feet. Do not cross your legs. Do not self-treat your corns, calluses, or other foot problems. Go to your health care provider or mortgage or loan underwriter to treat these conditions. documented in this encounter [facility] 01-21-2022 History of Presen t illness Narrative Episode Visit Count: 6 Therapist That Will Oversee The Plan Of Care: John Vergara PT Start of Care Date: 01/02/22 Onset Date: 11/10/21 Plan of Care Certification Date: 01/02/22 Next Certification Due Date: 02/13/22 Patient Identified by Name and Date of : Yes REHABILITATION AND SPORTS THERAPY PHYSICAL THERAPY TREATMENT NOTE ASSESSMENT: Alaina Simba tolerated the session with no issues. She demonstrated improvements in neck pain and exercise tolerance. The patient will continue to benefit from ongoing skilled physical therapy to progress toward set goals. PLAN FOR NEXT VISIT: Review, correct and progress HEP to tolerance. Continue with postural stretching and strengthening program. Consider continuatoin of manual therapy prn pending pt response to treatment today. SUBJECTIVE: Patient Reason for Visit: Pt reports that overall she has been feeling better and currently has less neck pain. She feels that PT has been beneficial. She reports compliance with HEP 2-3x day. Pain: Pain Pain Level: 0 Pain Location: Neck - Right;Neck - Left Description: (no pain to start today) Frequency: Intermittent Post Treatment Pain Post Treatment Pain Level: 0 Post Treatment Pain Location: Neck - Right;Neck - Left Post Treatment Pain Description: (no increase in pain) Post Treatment Symptoms: Pt denied any change in neck pain today OBJECTIVE MEASURES WITH LEVEL OF FUNCTION: Posture / Alignment Posture: Forward head;Increased thoracic kyphosis;Rounded shoulders;Poor;Slump TREATMENT: Therapeutic Exercise: 1: SciFit StepOne seat #14 x5 minutes (Subjective data collected and pt provided an update on her condition.) 2: seated B UT stretch 3x30 seconds with emphasis on proper intensity. 3: seated B levator scapulae stretch 3x30 seconds with emphasis on proper intensity. 4: seated cervical spine AROM for rotation in pain-free range 2x10 5: seated rope and jewell for B shoulder flexion 3x10 6: seated scapular retraction at Hoist with 2 plates 3x12 with emphasis on technique avoiding shrug 7: orange t-band scapular retraction with GH ER with elbows flexed 90 degrees 3x12 in front of mirror. 8: corner pectoral stretch 3x30 seconds 9: cervical retraction in pain-free range 3x12 in front of mirror Skilled Intervention: Patient was educated in proper exercise technique and purpose for exercises. Skilled judgment was provided in selection of appropriate interventions. Correct performance of therapeutic exercises was facilitated with verbal, visual and tactile cuing. Patient education as noted. Manual Therapy: 1: After therex, HEP correction and completion, manual therapy done x10 minutes with pt supine. Soft tissue mobilization done to B UT muscles, paraspinals and levator scapulae muscles. General massage, gentle trigger point release, muscle bending and sub occipital release, all to patient tolerance. Skilled Intervention: Manual skills to improve joint mobility, ROM, and decrease pain. Utilized anatomy knowledge of the therapist, and assessment of patient's response to intervention. Billing Therapeutic Exercise Treatment Minutes: 30 Manual TherapyTreatment Minutes: 10 Total Treatment Time Minutes (timed/untimed): 40 John Vergara PT documented in this encounter [facility] 01-20-2022 Miscellaneous Notes Patient notified. Taken to medical records. Rosemarie Li MA Letter ready for hop picker in med rec. Patient calls in to request a Handicap Placard for back pain. She said the pain is becoming greater and she is having increased difficulty with getting around. Patient reports she needs back surgery but it isn't scheduled yet. Patient will pick letter up in medical records if provider agrees. Order pended. Nieves Harden RN documented in this encounter [facility] 01-16-2022 History of Presen t illness Narrative Episode Visit Count: 5 Therapist That Will Oversee The Plan Of Care: John Vergara PT Start of Care Date: 01/02/22 Onset Date: 11/10/21 Plan of Care Certification Date: 01/02/22 Next Certification Due Date: 02/13/22 Patient Identified by Name and Date of : Yes REHABILITATION AND SPORTS THERAPY PHYSICAL THERAPY TREATMENT NOTE ASSESSMENT: Alaina Cottrell tolerated the session with no issues. She demonstrated improvements in pain and HEP compliance. The patient will continue to benefit from ongoing skilled physical therapy to progress toward set goals. PLAN FOR NEXT VISIT: Review, correct and progress HEP to tolerance. Continue with postural stretching and strengthening program. Consider continuatoin of manual therapy prn pending pt response to treatment today. SUBJECTIVE: Patient Reason for Visit: Pt reports that overall she is better and she attributes the improvements to improved compliance with HEP 3x day. She denies any pain in her neck to start today. Pain: Pain Pain Level: 0 Pain Location: Neck - Right;Neck - Left Description: (no neck pain to start today) Frequency: Intermittent Post Treatment Pain Post Treatment Pain Level: No Change Post Treatment Pain Location: Neck - Right;Neck - Left Post Treatment Symptoms: Pt reported fatigue but denied any increase in pain. OBJECTIVE MEASURES WITH LEVEL OF FUNCTION: Posture / Alignment Posture: Forward head;Increased thoracic kyphosis;Rounded shoulders;Slump;Poor TREATMENT: Therapeutic Exercise: 1: SciFit StepOne seat #14 x5 minutes (Subjective data collected and pt provided an update on her condition.) 2: seated B UT stretch 3x30 seconds with emphasis on proper intensity. 3: seated B levator scapulae stretch 3x30 seconds with emphasis on proper intensity. 4: seated cervical spine AROM for rotation in pain-free range 2x10 5: seated scapular retraction with blue t-band 2x10 6: seated scapular retraction at Hoist with 2 plates 3x10 with emphasis on technique avoiding shrug 7: orange t-band scapular retraction with GH ER with elbows flexed 90 degrees 2x10 in front of mirror. 8: corner pectoral stretch 3x30 seconds 9: cervical retraction in pain-free range 3x10 in front of mirror Skilled Intervention: Patient was educated in proper exercise technique and purpose for exercises. Skilled judgment was provided in selection of appropriate interventions. Correct performance of therapeutic exercises was facilitated with verbal, visual and tactile cuing. Patient education as noted. Manual Therapy: 1: After therex, HEP correction and completion, manual therapy done x10 minutes with pt supine. Soft tissue mobilization done to B UT muscles, paraspinals and levator scapulae muscles. General massage, gentle trigger point release, muscle bending and sub occipital release, all to patient tolerance. Skilled Intervention: Manual skills to improve joint mobility, ROM, and decrease pain. Utilized anatomy knowledge of the therapist, and assessment of patient's response to intervention. Billing Therapeutic Exercise Treatment Minutes: 35 Manual TherapyTreatment Minutes: 10 Total Treatment Time Minutes (timed/untimed): 45 John Vergara PT documented in this encounter [facility] 01-15-2022 Instructions Ted Tao - 01/15/2022 11:25 AM EDT Your ulceration is healed Continue with diabetic shoes Continue with lotion Make an appointment to get fitted for afo documented in this encounter [facility] 01-15-2022 History of Presen t illness Narrative Follow up podiatric office visit for: Chief Complaint: This 57 year old who presents for follow up:left foot ulceration. Patient presents to clinic for follow-up left foot ulceration. Patient states the ulceration is still healed but she still has slight tenderness in the foot. She states most of her pain is located in her back. She is here for follow-up left foot ulceration. PAIN EVALUATION No data found in the last 1 encounters. Hemoglobin A1C Date Value Ref Range Status 10/29/2021 11.8 (H) 4.3 - 5.6 % Final Comment: [place] [employer] guidelines indicate that patients with HgbA1c in the range 5.7-6.4% are at increased risk for development of diabetes, and intervention by lifestyle modification may be beneficial. HgbA1c greater or equal to 6.5% is considered diagnostic of diabetes. PCP: Freddie Luis MD PAST MEDICAL HISTORY Diagnosis Date Arthritis Chronic insomnia 12/05/[address] brown Chronic rhinitis 01/12/2018 Diabetes mellitus type 2 with ketoacidosis, uncontrolled (HCC) 07/06/2020 Diabetic polyneuropathy associated with type 2 diabetes mellitus (HCC) 02/03/2021 Seeing [facility] GERD without esophagitis 06/03/2019 Hallux valgus (acquired) 02/17/2007 Hypertension, essential 11/13/2021 Intractable migraine without aura and without status migrainosus 2016 Obesity, Class II, BMI 35-39.9 12/05/2019 Overactive bladder 2016 Physical debility 07/27/2020 Recurrent major depressive disorder, in remission (HCC) 06/02/2018 Seasonal allergic rhinitis due to pollen 07/14/2017 Current Outpatient Medications Medication Sig ibuprofen (MOTRIN) 600 mg tablet Take 1 tablet by mouth every 8 hours as needed for pain. FOR PAIN. Lancing Device misc Patient to UAD BID. baclofen (LIORESAL) 10 mg tablet Take 1 tablet by mouth three times daily as needed (muscle spasms). dulaglutide (TRULICITY) 1.5 mg/0.5 mL pen injector Inject 1.5 mg subcutaneously one time a week. atorvastatin (LIPITOR) 10 mg tablet Take 1 tablet by mouth daily at bedtime. For cholesterol. amitriptyline (ELAVIL) 10 mg tablet Take 3 tablets by mouth daily at bedtime. Per [facility], Neurology metFORMIN ER (GLUCOPHAGE XR) 500 mg 24 hr tablet Take 1 tablet by mouth daily with breakfast. Per [facility] [place] sertraline (ZOLOFT) 50 mg tablet Take 1 tablet by mouth once daily. Per Psych at [facility]. lancets (FREESTYLE LANCETS) 28 gauge Test blood sugar(s) 3 times daily. Dx: Type 2 DM - Uncontrolled E11.10 Insulin: Yes spironolactone (ALDACTONE) 25 mg tablet Take 1 tablet by mouth once daily. propranolol (INDERAL) 10 mg tablet Take 1 tablet by mouth once daily. oxybutynin ER (DITROPAN XL) 10 mg 24 hr tablet Take 1 tablet by mouth once daily. pantoprazole DR (PROTONIX) 40 mg tablet Take 1 tablet by mouth daily before breakfast. Take on empty stomach, 1/2 hr before meal. alcohol swabs (ALCOHOL PREP PADS) Apply 1 application to affected area three times daily. To check blood sugars. loratadine (CLARITIN) 10 mg tablet Take 1 tablet by mouth once daily as needed (for itching, sneezing or runny nose). blood sugar diagnostic (BLOOD GLUCOSE TEST) test strip Use as directed to monitor blood sugar. Dx: Type 2 DM - Uncontrolled E11.65 Insulin: Yes.Test blood sugar(s) four times daily MEDICAL SUPPLY Consult [facility] for PHYSICAL THERAPY eval and treat. Patient has developed increase weakness and has fallen multiple times since discharge from their service in Mid May. MEDICAL SUPPLY RAISED TOILET SEAT. Dx: Z91.89, Z91.81 and R53.1 MEDICAL SUPPLY OVER THE TUB GRAB BAR Dx: Z.89, Z91.81 and R53.1 MEDICAL SUPPLY SHOWER CHAIR WITH BACK REST, ARM RESTS WITH ADJUSTABLE HEIGHT. Dx: Z.89, Z91.81 and R53.1 MEDICAL SUPPLY Shower chair, #: one, Dx: R53.1, Z91.81 and Z74.09 SUMAtriptan (IMITREX) 100 mg tablet Take one tab with onset of migraine, can repeat in 2 hrs if no relief. Max of 2 in 24 hrs doxycycline hyclate (VIBRAMYCIN) 100 mg capsule Take 1 capsule by mouth twice daily. (Patient not taking: Reported on 12/10/2021 ) amLODIPine (NORVASC) 10 mg tablet Take 1 tablet by mouth one time only for 1 dose. cefADROxil (DURICEF) 500 mg capsule Take 1 capsule by mouth twice daily. (Patient not taking: Reported on 12/10/2021 ) No current facility-administered medications for this visit. ALLERGIES Allergen Reactions Seasonal Allergies Unknown Trees and ragweed verified by skin testing PAST SURGICAL HISTORY Procedure Laterality Date COLONOSCOPY FLX DX W/COLLJ SPEC WHEN PFRMD 08/04/2017 Normal colonoscopy-10 year follow-up COLPOSCOPY CERVIX UPPER/ADJACENT VAGINA Colposcopy CRYOTHERAPY/M24 1992 LIG/TRNSXJ FLP TUBE ABDL/VAG APPR UNI/BI Tubal ligation ORAL SURGERY PROCEDURE 3x PAST SURGICAL HISTORY OF 10/2013 right pinki tendon re-attatchment Physical Exam: Constitutional: Pt is a well developed 57 year old female who is alert, oriented, cooperative and in no apparent distress. OBJECTIVE: NVSI unchanged from previous visit. Dermatological: Nails 1-5 b/l are normal. Webspaces clean and dry 1-4 b/l. Skin appears dry. Past ulceration remains healed. No signs of infection are present. Musculoskeletal/Orthopaedic: Patient has no pain to palpation of b/l feet Severe flatfoot is noted b/l. Severe bunion is noted b/l. Small cyst of left midfoot without pain ASSESSMENT: (M76.829) Posterior tibial tendon dysfunction (primary encounter diagnosis) (M21.41, M21.42) Pes planus of both feet (E11.621, L97.422) Diabetic ulcer of left midfoot associated with type 2 diabetes mellitus, with fat layer exposed (HCC) PLAN: Discussed ulceration of left foot. It remains healed. Continue with lotion to feet Discussed flatfoot. Recommend afo b/l. Surgical correction is possible but she needs to get her sugars below 8 Discussed ganglion of left foot. Offered aspiration but patient declined. Surgical removal is possible but she needs to get her a1c below 8 Ted Tao DPM Patient presents with: Left Foot - Follow Up, Ulcer Patient denies foot pain but is having back pain. documented in this encounter [facility] 01-09-2022 History of Presen t illness Narrative Episode Visit Count: 3 Therapist That Will Oversee The Plan Of Care: John Vergara PT Start of Care Date: 01/02/22 Onset Date: 11/10/21 Plan of Care Certification Date: 01/02/22 Next Certification Due Date: 02/13/22 Patient Identified by Name and Date of : Yes REHABILITATION AND SPORTS THERAPY PHYSICAL THERAPY TREATMENT NOTE ASSESSMENT: Alaina Cottrell tolerated the session with decreased pain and no issues. She demonstrated improvements in exercise tolerance and pain. The patient will continue to benefit from ongoing skilled physical therapy to progress toward set goals. PLAN FOR NEXT VISIT: Review, correct and progress HEP to tolerance. Continue with postural stretching and strengthening program. Consider continuatoin of manual therapy prn pending pt response to treatment today. SUBJECTIVE: Patient Reason for Visit: Pt reports that overall she is better. She reports that she is not having pain but instead, fatigue. She feels that manual therapy last session was helpful. She reports compliance with HEP 3x day. She reports stiffness with therex last session but no increase in pain. Pain: Pain Pain Level: 0 Pain Location: Neck - Right;Neck - Left Description: (no pain to start today) Frequency: Intermittent Post Treatment Pain Post Treatment Pain Level: Better Post Treatment Pain Location: Neck - Right;Neck - Left Post Treatment Pain Description: (less stiffness/tension) Post Treatment Symptoms: After session today, pt reported feeling better and denied any pain. OBJECTIVE MEASURES WITH LEVEL OF FUNCTION: TREATMENT: Therapeutic Exercise: 1: [employer] StepOne seat #14 x5 minutes (Subjective data collected and pt provided an update on her condition. Plan of care reviewed.) 2: seated B UT stretch 3x30 seconds with emphasis on proper intensity. 3: seated B levator scapulae stretch 3x30 seconds with emphasis on proper intensity. 4: seated cervical spine AROM for rotation in pain-free range 2x10 5: seated scapular retraction in front of mirror 2x10 being sure to avoid shrugging 6: seated scapular retraction at Hoist 2 plates 2x10 with emphasis on technique avoiding shrug 7: orange t-band scapular retraction with GH ER with elbows flexed 90 degrees 2x10 in front of mirror. 8: corner pectoral stretch 3x30 seconds 9: cervical retraction in pain-free range 3x10 in front of mirror Skilled Intervention: Patient was educated in proper exercise technique and purpose for exercises. Skilled judgment was provided in selection of appropriate interventions. Correct performance of therapeutic exercises was facilitated with verbal, visual and tactile cuing. Patient education as noted. Manual Therapy: 1: After therex, HEP correction and completion, manual therapy done x15 minutes with pt supine. Soft tissue mobilization done to B UT muscles, paraspinals and levator scapulae muscles. General massage, gentle trigger point release, muscle bending and sub occipital release, all to patient tolerance. Skilled Intervention: Manual skills to improve joint mobility, ROM, and decrease pain. Utilized anatomy knowledge of the therapist, and assessment of patient's response to intervention. Billing Therapeutic Exercise Treatment Minutes: 40 Manual TherapyTreatment Minutes: 15 Total Treatment Time Minutes (timed and untimed codes) : 55 John Vergara PT documented in this encounter [facility] 01-07-2022 History of Presen t illness Narrative Episode Visit Count: 2 Therapist That Will Oversee The Plan Of Care: Jonh Vergara PT Start of Care Date: 01/02/22 Onset Date: 11/10/21 Plan of Care Certification Date: 01/02/22 Next Certification Due Date: 02/13/22 Patient Identified by Name and Date of : Yes REHABILITATION AND SPORTS THERAPY PHYSICAL THERAPY TREATMENT NOTE ASSESSMENT: Alaina Cottrell tolerated the session with decreased pain. She demonstrated improvements in pain, muscle tension and HEP independence. The patient will continue to benefit from ongoing skilled physical therapy to progress toward set goals. PLAN FOR NEXT VISIT: Review, correct and progress HEP to tolerance. Continue with postural stretching and strengthening program. Consider continuatoin of manual therapy prn pending pt response to treatment today. SUBJECTIVE: Patient Reason for Visit: Pt reports compliance with HEP 3x day and that her pain does not change significantly. Overall she feels approximately the same today as at evaluation. Pain: Pain Pain Level: 7 Pain Location: Neck - Right;Neck - Left (UT regions) Description: ( sluggish kind of feeling and a heavy weight feeling ) Frequency: Intermittent;With movement Post Treatment Pain Post Treatment Pain Level: 6 Post Treatment Pain Location: Neck - Right;Neck - Left Post Treatment Pain Description: (better) Post Treatment Symptoms: After treatment today she reported less tension in neck muscles and less pain overall. She was pleased with the progress OBJECTIVE MEASURES WITH LEVEL OF FUNCTION: Posture / Alignment Posture: Forward head;Increased thoracic kyphosis;Rounded shoulders Sitting Posture: Poor;Slump TREATMENT: Therapeutic Exercise: 1: HEP was reviewed, corrected and proper completion encouraged. Pt was encouraged to reference her handouts. 2: seated B UT stretch 3x30 seconds with emphasis on proper intensity. 3: seated B levator scapulae stretch 3x30 seconds with emphasis on proper intensity. 4: *seated cervical spine AROM for rotation in pain-free range 2x10 5: *seated scapular retraction in front of mirror 2x10 being sure to avoid shrugging Skilled Intervention: Patient was educated in proper exercise technique and purpose for exercises. Reviewed and educated patient on additions/changes for home exercise program as above (*). Skilled judgment was provided in selection of appropriate interventions. Provided written instruction for home exercise program to facilitate proper performance and compliance. Correct performance of therapeutic exercises was facilitated with verbal, visual and tactile cuing. Patient education as noted. Manual Therapy: 1: After therex review, correction and completion, manual therapy done x10 minuts with pt supine. Soft tissue mobilization done to B UT muscles, paraspinals and levator scapulae muscles. General massage, gentle trigger point release, muscle bending and sub occipital release, all to patient tolerance. Skilled Intervention: Manual skills to improve joint mobility, ROM, and decrease pain. Utilized anatomy knowledge of the therapist, and assessment of patient's response to intervention. Billing Therapeutic Exercise Treatment Minutes: 35 Manual TherapyTreatment Minutes: 10 Total Treatment Time Minutes (timed and untimed codes) : 45 John Vergara PT documented in this encounter 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 She presents with impairments in independence in exercise, overall function, range of motion, strength and tissue tenderness. PROMIS (Patient-Reported Outcomes Measurement Information System) scores were reviewed and physical function domain identified as a rehabilitation concern. Prognosis for therapy is Good due to: current objective clinical presentation;positive past response to therapy;within-session changes;Prognosis may be limited due to;acuteness of condition coping skills;limited support system. She will benefit from skilled therapy services to meet the goals established for this plan of care as noted below. Goals for Episode of Care: created on 01/02/22 through 02/13/22 Independent in a Home Exercise Program. Patient will decrease pain rating by 2 points to meet minimal clinical important difference for numeric pain rating scale. Restore pain free cervical ROM to WFL to allow for improved tolerance for sponge packer like making the bed. Maintain proper sitting posture throughout the session to allow for improved postural maintenance. Patient will increase strength of postural muscles to WFL to allow for improve ability to maintain proper posture, improve mechanics and decrease pain. Patient will be able to tolerate sponge packer and reaching and lifting without increased symptoms. Patient Goals: decrease pain Planned Interventions, Frequency, and Duration: Current Frequency: 2x/week Duration: 6 weeks Total Number of Visits Planned: 12 Planned Treatment Interventions: Therapeutic exercise (52352);Manual therapy (87929);Therapeutic activities (24763);Self-half-way management (32066);Patient/Family/Caregiver Education;Body Mechanics Training;General Conditioning PLAN FOR NEXT VISIT: Review, correct and progress HEP to tolerance. Continue with postural stretching and strengthening program. Review postural correction. Consider manual therapy prn using patient tolerance as a guide. Patient demonstrates good understanding of plan of care and treatment. The above goals and plan of care were discussed and agreed upon by patient/family. SUBJECTIVE: Alaina Cottrell is a 56 year old female seen today for intermittent pain in B UT regions that is aggravated by movement of her head and neck. She reports that pain is deep but not in the bone. She denies the sensation of a pulled muscle. 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 Infection Clinical Reasoning: No identified risk factors. Cervical Arterial Dysfunction Clinical Reasoning: No identified risk factors [place] - Cervical Cancer Clinical Reasoning: No identified risk factors. Infection Clinical Reasoning: No identified risk factors. Cervical Arterial Dysfunction Clinical Reasoning: No identified risk factors Spine History Symptoms Location at Onset: Neck (L first then started on R) Symptoms Since Onset: Worsening Pain is Worse Always: On the Move Pain is Better Sometimes: Rest Previous Episodes: No Sleeping Position: Side lying left Sleep Affected by Pain: Pain awakens Pain: Pain Pain Level: 8 Pain Location: Neck - Right;Neck - Left (B UT) Description: ( stinging ) Frequency: Intermittent;With movement Detailed Pain Score: Yes Worst Pain Level: 8 Average Pain Level: 6 Best Pain Level: 0 Post Treatment Pain Post Treatment Pain Level: No Change Post Treatment Pain Location: Neck - Right;Neck - Left Post Treatment Pain Description: (no significant changes) Post Treatment Symptoms: After session she reported that she could tell that she had been evaluated and also started new exercises but did not report a significant change in her pain rating. PROMIS Scales Higher is Better 12/31/2021 Phys Func - Score 35 (moderate dysfunction) Phys Func - Percentile 7 % T-scores: mean of general population = 50. 5 points is clinically meaningfully difference Percentiles provide an indication of how the patient's score ranks in relation to the general population. Higher percentile rankings indicate better function/quality of life. 50th percentile is the average of the general population and indicates half of respondents had a worse score. T-scores: mean of general population = 50. 5 points is clinically meaningfully difference Percentiles provide an indication of how the patient's score ranks in relation to the general population. Higher percentile rankings indicate better function/quality of life. 50th percentile is the average of the general population and indicates half of respondents had a worse score. OBJECTIVE MEASURES WITH LEVEL OF FUNCTION: Posture / Alignment Posture: Forward head;Increased thoracic kyphosis;Rounded shoulders;Poor;Slump Sitting Posture: Poor;Slump Spine Observations R Cervical Spine Palpation Tenderness: Upper trapezius;Levator scapulae L Cervical Spine Palpation Tenderness: Upper trapezius;Levator scapulae Sensation - Cervical Spine Cervical Spine Sensation: (inconclusive since patient varying patterns of sensation disturbance) Cervical Spine ROM Cervical ROM : Measurement AROM Cervical Flexion AROM (degrees) : 40 Degrees (painful) Cervical Extension AROM (degrees) : 72 Degrees (painful) Cervical Side-Bend Right AROM (degrees): 42 Degrees Cervical Side-Bend Left AROM (degrees) : 34 Degrees Cervical Rotation Right AROM (degrees) : 76 Degrees Cervical Rotation Left AROM (degrees) : 84 Degrees UE and Cervical Strength Strength Tested: Cervical Cervical Strength: Pt's postural deficits, reported functional difficulties and reported degenerative changes are indications that she will benefit from increased core and postural strength. Education: Education Learning Preferences: Demonstration;Explanation;Perfor may;Printed Materials Barriers: None Learning/educational needs: Plan of Care;Home exercise program;Posture;Body Mechanics Education Provided: Yes, see treatment interventions for education provided Education Provided To: Patient Education Mode/Type: Explanation/Discussion;Literatur e/Printed Materials;Demonstration;Performa nce Response to Education/Teach Back: States/Identifies;Return Demonstration;Requires Review/Additional Education TREATMENT: PT Treatment Interventions: Therapeutic Exercise Evaluation Therapeutic Exercise: 1: Pt was educated extensively on anatomy of symptomatic area, the likely source of symptoms and the rationale for proposed treatment plan. Pictures were used to clarify all education, especially anatomy. She was advised to back off and/or stop any exercise that causes increased pain. Postural correction instruction provided and emphasized. A handout provided on postural correction. 2: *seated B UT stretch 3x30 seconds with emphasis on proper intensity. (Pt was advised not to involve UEs) 3: *seated B levator scapulae stretch 3x30 seconds with emphasis on proper intensity. (Pt was advised not to involve UEs) Skilled Intervention: Patient was educated in proper exercise technique and purpose for exercises. Reviewed and educated patient on additions/changes for home exercise program as above (*). Skilled judgment was provided in selection of appropriate interventions. Provided written instruction for home exercise program to facilitate proper performance and compliance. Correct performance of therapeutic exercises was facilitated with verbal, visual and tactile cuing. Patient education as noted. Billing * Evaluation Moderate Complexity: 1 Unit Therapeutic Exercise Treatment Minutes: 20 Total Treatment Time Minutes (timed and untimed codes) : 50 John Vergara PT documented in this encounter [facility] 12-31-2021 History of Presen t illness Narrative 12/31/2021 Patient presents with: Neck Pain SUBJECTIVE: This is a 56 year old that is here today for Above Complaints.. Patient reports neck pain for about a month. No injury. Pain is worse with head twisting. Denies n/t. She was seeing pain specialist for back pain but has not gotten a follow up with them yet. PAST MEDICAL HISTORY Diagnosis Date Arthritis Chronic insomnia 12/05/[address] brown Chronic rhinitis 01/12/2018 Diabetes mellitus type 2 with ketoacidosis, uncontrolled (HCC) 07/06/2020 Diabetic polyneuropathy associated with type 2 diabetes mellitus (HCC) 02/03/2021 Seeing [facility] GERD without esophagitis 06/03/2019 Hallux valgus (acquired) 02/17/2007 Hypertension, essential 11/13/2021 Intractable migraine without aura and without status migrainosus 2016 Obesity, Class II, BMI 35-39.9 12/05/2019 Overactive bladder 2016 Physical debility 07/27/2020 Recurrent major depressive disorder, in remission (HCC) 06/02/2018 Seasonal allergic rhinitis due to pollen 07/14/2017 ALLERGIES Seasonal Allergies MEDICATIONS Current Outpatient Medications Medication Sig dulaglutide (TRULICITY) 1.5 mg/0.5 mL pen injector Inject 1.5 mg subcutaneously one time a week. atorvastatin (LIPITOR) 10 mg tablet Take 1 tablet by mouth daily at bedtime. For cholesterol. amitriptyline (ELAVIL) 10 mg tablet Take 3 tablets by mouth daily at bedtime. Per [facility], Neurology metFORMIN ER (GLUCOPHAGE XR) 500 mg 24 hr tablet Take 1 tablet by mouth daily with breakfast. Per Endo, Dr. Hasan sertraline (ZOLOFT) 50 mg tablet Take 1 tablet by mouth once daily. [facility] amLODIPine (NORVASC) 10 mg tablet Take 1 tablet by mouth one time only for 1 dose. lancets (FREESTYLE LANCETS) 28 gauge Test blood sugar(s) 3 times daily. Dx: Type 2 DM - Uncontrolled E11.10 Insulin: Yes spironolactone (ALDACTONE) 25 mg tablet Take 1 tablet by mouth once daily. propranolol (INDERAL) 10 mg tablet Take 1 tablet by mouth once daily. oxybutynin ER (DITROPAN XL) 10 mg 24 hr tablet Take 1 tablet by mouth once daily. pantoprazole DR (PROTONIX) 40 mg tablet Take 1 tablet by mouth daily before breakfast. Take on empty stomach, 1/2 hr before meal. alcohol swabs (ALCOHOL PREP PADS) Apply 1 application to affected area three times daily. To check blood sugars. loratadine (CLARITIN) 10 mg tablet Take 1 tablet by mouth once daily as needed (for itching, sneezing or runny nose). blood sugar diagnostic (BLOOD GLUCOSE TEST) test strip Use as directed to monitor blood sugar. Dx: Type 2 DM - Uncontrolled E11.65 Insulin: Yes.Test blood sugar(s) four times daily MEDICAL SUPPLY RAISED TOILET SEAT. Dx: Z91.89, Z91.81 and R53.1 MEDICAL SUPPLY OVER THE TUB GRAB BAR Dx: Z91.89, Z91.81 and R53.1 MEDICAL SUPPLY SHOWER CHAIR WITH BACK REST, ARM RESTS WITH ADJUSTABLE HEIGHT. Dx: Z91.89, Z91.81 and R53.1 MEDICAL SUPPLY Shower chair, #: one, Dx: R53.1, Z91.81 and Z74.09 SUMAtriptan (IMITREX) 100 mg tablet Take one tab with onset of migraine, can repeat in 2 hrs if no relief. Max of 2 in 24 hrs doxycycline hyclate (VIBRAMYCIN) 100 mg capsule Take 1 capsule by mouth twice daily. (Patient not taking: Reported on 12/10/2021 ) IBUPROFEN ORAL Take by mouth. cefADROxil (DURICEF) 500 mg capsule Take 1 capsule by mouth twice daily. (Patient not taking: Reported on 12/10/2021 ) MEDICAL SUPPLY [facility] for [facility]ICAL THER[facility]Y eval and treat. Patient has developed increase weakness and has fallen multiple times since discharge from their service in Mid May. No current facility-administered medications for this visit. SOCIAL HISTORY Social History Tobacco Use Smoking status: Never Smoker Smokeless tobacco: Never Used Vaping Use Vaping Use: Never used Substance Use Topics Alcohol use: No Drug use: No REVIEW OF SYSTEMS All other reviewed and negative other than HPI. OBJECTIVE: BP 108/80 (BP Site: Left Arm, BP Position: Sitting, BP Cuff Size: Large Adult) Pulse 62 Temp 36.9 C (98.5 F) Resp 16 Wt 108.9 kg (240 lb) LMP 05/21/2021 (Approximate) BMI 35.44 kg/m APPEARANCE Well appearing, alert, in no acute distress, well-hydrated, well nourished. NEURO Cranial nerves II-XII grossly intact, Reflexes symmetrical, Normal gait and No involuntary motions. MSK: FROM with pain of neck. No pain to cspine to palp. Pain to palp of trapezious muscles. NVI ASSESSMENT/PLAN: 1. Neck pain - ICD9: 723.1, ICD10: M54.2 (primary diagnosis) Start Physical Therapy Ibuprofen and baclofen prn - CONSULT TO PHYSICAL THERAPY 2. Type 2 diabetes mellitus with diabetic polyneuropathy, without long-term current use of insulin ([facility]) - ICD9: 250.60, 357.2, ICD10: E11.42 - LANCING DEVICE Vandana Barrientos PA-C documented in this encounter [facility] 12-25-2021 Instructions Ted Tao - 12/25/2021 9:38 AM EDT Your ulceration is now healed. Ok to resume diabetic shoe with insert Follow-up in 3-4 weeks or sooner if problems arise Apply lotion to feet daily documented in this encounter [facility] 12-25-2021 History of Presen t illness Narrative Follow up podiatric office visit for: Chief Complaint: This 56 year old who presents for follow up:ulceration of left foot Patient presents to clinic for follow-up ulceration of left foot. Patient ulceration remains healed. She is using boot. She denies any pain but does report slight tenderness. PAIN EVALUATION No data found in the last 1 encounters. Hemoglobin A1C Date Value Ref Range Status 10/29/2021 11.8 (H) 4.3 - 5.6 % Final Comment: [place] [employer] guidelines indicate that patients with HgbA1c in the range 5.7-6.4% are at increased risk for development of diabetes, and intervention by lifestyle modification may be beneficial. HgbA1c greater or equal to 6.5% is considered diagnostic of diabetes. PCP: Freddie Luis MD PAST MEDICAL HISTORY Diagnosis Date Arthritis Chronic insomnia 12/05/[address] brown Chronic rhinitis 01/12/2018 Diabetes mellitus type 2 with ketoacidosis, uncontrolled (HCC) 07/06/2020 Diabetic polyneuropathy associated with type 2 diabetes mellitus (HCC) 02/03/2021 Seeing [facility] GERD without esophagitis 06/03/2019 Hallux valgus (acquired) 02/17/2007 Hypertension, essential 11/13/2021 Intractable migraine without aura and without status migrainosus 2016 Obesity, Class II, BMI 35-39.9 12/05/2019 Overactive bladder 2016 Physical debility 07/27/2020 Recurrent major depressive disorder, in remission ([facility]) 06/02/2018 Seasonal allergic rhinitis due to pollen 07/14/2017 Current Outpatient Medications Medication Sig dulaglutide (TRULICITY) 1.5 mg/0.5 mL pen injector Inject 1.5 mg subcutaneously one time a week. IBUPROFEN ORAL Take by mouth. atorvastatin (LIPITOR) 10 mg tablet Take 1 tablet by mouth daily at bedtime. For cholesterol. amitriptyline (ELAVIL) 10 mg tablet Take 3 tablets by mouth daily at bedtime. Per [facility], Neurology metFORMIN ER (GLUCOPHAGE XR) 500 mg 24 hr tablet Take 1 tablet by mouth daily with breakfast. Per Dr. Romain Haider sertraline (ZOLOFT) 50 mg tablet Take 1 tablet by mouth once daily. Per Psych at the [facility]. amLODIPine (NORVASC) 10 mg tablet Take 1 tablet by mouth one time only for 1 dose. lancets (FREESTYLE LANCETS) 28 gauge Test blood sugar(s) 3 times daily. Dx: Type 2 DM - Uncontrolled E11.10 Insulin: Yes spironolactone (ALDACTONE) 25 mg tablet Take 1 tablet by mouth once daily. propranolol (INDERAL) 10 mg tablet Take 1 tablet by mouth once daily. oxybutynin ER (DITROPAN XL) 10 mg 24 hr tablet Take 1 tablet by mouth once daily. pantoprazole DR (PROTONIX) 40 mg tablet Take 1 tablet by mouth daily before breakfast. Take on empty stomach, 1/2 hr before meal. alcohol swabs (ALCOHOL PREP PADS) Apply 1 application to affected area three times daily. To check blood sugars. loratadine (CLARITIN) 10 mg tablet Take 1 tablet by mouth once daily as needed (for itching, sneezing or runny nose). blood sugar diagnostic (BLOOD GLUCOSE TEST) test strip Use as directed to monitor blood sugar. Dx: Type 2 DM - Uncontrolled E11.65 Insulin: Yes.Test blood sugar(s) four times daily MEDICAL SUPPLY [facility] for [facility]ICAL TH[facility]APY eval and treat. Patient has developed increase weakness and has fallen multiple times since discharge from their service in Mid May. MEDICAL SUPPLY RAISED TOILET SEAT. Dx: Z91.89, Z91.81 and R53.1 MEDICAL SUPPLY OVER THE TUB GRAB BAR Dx: Z91.89, Z91.81 and R53.1 MEDICAL SUPPLY SHOWER CHAIR WITH BACK REST, ARM RESTS WITH ADJUSTABLE HEIGHT. Dx: Z91.89, Z91.81 and R53.1 MEDICAL SUPPLY Shower chair, #: one, Dx: R53.1, Z91.81 and Z74.09 SUMAtriptan (IMITREX) 100 mg tablet Take one tab with onset of migraine, can repeat in 2 hrs if no relief. Max of 2 in 24 hrs doxycycline hyclate (VIBRAMYCIN) 100 mg capsule Take 1 capsule by mouth twice daily. (Patient not taking: Reported on 12/10/2021 ) cefADROxil (DURICEF) 500 mg capsule Take 1 capsule by mouth twice daily. (Patient not taking: Reported on 12/10/2021 ) No current facility-administered medications for this visit. ALLERGIES Allergen Reactions Seasonal Allergies Unknown Trees and ragweed verified by skin testing PAST SURGICAL HISTORY Procedure Laterality Date COLONOSCOPY FLX DX W/COLLJ SPEC WHEN PFRMD 08/04/2017 Normal colonoscopy-10 year follow-up COLPOSCOPY CERVIX UPPER/ADJACENT VAGINA Colposcopy CRYOTHERAPY/M24 1992 LIG/TRNSXJ FLP TUBE ABDL/VAG APPR UNI/BI Tubal ligation ORAL SURGERY PROCEDURE 3x PAST SURGICAL HISTORY OF 10/2013 right pinki tendon re-attatchment Physical Exam: Constitutional: Pt is a well developed 56 year old female who is alert, oriented, cooperative and in no apparent distress. OBJECTIVE: NVSI unchanged from previous visit. Dermatological: Ulceration and callus are now healed to left foot. No open wounds present. No signs of infection. Musculoskeletal/Orthopaedic: Patient has mild pain to palpation left midfoot Severe flatfoot is noted of left foot Large bunion prsent to left foot Nonpainful cyst of left midfoot Mri reviewed. No evidence of osteomyelitis. ASSESSMENT: (E11.621, L97.422) Diabetic ulcer of left midfoot associated with type 2 diabetes mellitus, with fat layer exposed (HCC) (primary encounter diagnosis) (M20.10) Acquired hallux valgus, unspecified laterality (M67.40) Ganglion cyst PLAN: Diabetic ulceration and callus are both resolved. Ok to resume diabetic shoe. If callus returns, she is to make follow-up Discussed bunion and flatfoot. Surgical correction could be done once patient a1c better controlled. Continue with diabetic shoe Discussed ganglion confirmed on mri. Offered aspiration. She declined F/u in 3-4 weeks Ted Tao DPM Patient presents with: Left Foot - Follow Up, Ulcer Patient denies pain but states is tender. documented in this encounter [facility] documented as of this encounter (statuses as of 12/25/2021) [facility]08-[facility]2016 History of Past illness Narrative* Problem Noted Date Resolved Date Encounter for screening for diabetes mellitus 11/26/2016 Encounter for screening for cardiovascular disor ders 05/09/2016 11/26/2016 Intractable migraine without aura and without status migrainosus 2016 05/26/2017 Well adult exam 2016 11/26/2016 Overview: Last done: 2016 documented as of this encounter (statuses as of 12/31/2021) [facility] History of Past illness Narrative* Problem Noted Date Resolved Date Encounter for screening for diabetes mellitus 11/26/2016 Encounter for screening for cardiovascular disor ders 05/09/2016 11/26/2016 Intractable migraine without aura and without status migrainosus 2016 05/26/2017 Well adult exam 2016 11/26/2016 Overview: Last done: 2016 documented as of this encounter (statuses as of 01/02/2022) [facility] History of Past illness Narrative* Problem Noted Date Resolved Date Encounter for screening for diabetes mellitus 11/26/2016 Encounter for screening for cardiovascular disor ders 05/09/2016 11/26/2016 Intractable migraine without aura and without status migrainosus 2016 05/26/2017 Well adult exam 2016 11/26/2016 Overview: Last done: 2016 documented as of this encounter (statuses as of 01/07/2022) [facility] History of Past illness Narrative* Problem Noted Date Resolved Date Encounter for screening for diabetes mellitus 11/26/2016 Encounter for screening for cardiovascular disor ders 05/09/2016 11/26/2016 Intractable migraine without aura and without status migrainosus 2016 05/26/2017 Well adult exam 2016 11/26/2016 Overview: Last done: 2016 documented as of this encounter (statuses as of 01/09/2022) [facility] History of Past illness Narrative* Problem Noted Date Resolved Date Encounter for screening for diabetes mellitus 11/26/2016 Encounter for screening for cardiovascular disor ders 05/09/2016 11/26/2016 Intractable migraine without aura and without status migrainosus 2016 05/26/2017 Well adult exam 2016 11/26/2016 Overview: Last done: 2016 documented as of this encounter (statuses as of 01/15/2022) [facility] History of Past illness Narrative* Problem Noted Date Resolved Date Encounter for screening for diabetes mellitus 11/26/2016 Encounter for screening for cardiovascular disor ders 05/09/2016 11/26/2016 Intractable migraine without aura and without status migrainosus 2016 05/26/2017 Well adult exam 2016 11/26/2016 Overview: Last done: 2016 documented as of this encounter (statuses as of 01/16/2022) [facility] History of Past illness Narrative* Problem Noted Date Resolved Date Encounter for screening for diabetes mellitus 11/26/2016 Encounter for screening for cardiovascular disor ders 05/09/2016 11/26/2016 Intractable migraine without aura and without status migrainosus 2016 05/26/2017 Well adult exam 2016 11/26/2016 Overview: Last done: 2016 documented as of this encounter (statuses as of 01/20/2022) [facility] History of Past illness Narrative* Problem Noted Date Resolved Date Encounter for screening for diabetes mellitus 11/26/2016 Encounter for screening for cardiovascular disor ders 05/09/2016 11/26/2016 Intractable migraine without aura and without status migrainosus 2016 05/26/2017 Well adult exam 2016 11/26/2016 Overview: Last done: 2016 documented as of this encounter (statuses as of 01/22/2022) [facility] History of Past illness Narrative* Problem Noted Date Resolved Date Encounter for screening for diabetes mellitus 11/26/2016 Encounter for screening for cardiovascular disor ders 05/09/2016 11/26/2016 Intractable migraine without aura and without status migrainosus 2016 05/26/2017 Well adult exam 2016 11/26/2016 Overview: Last done: 2016 documented as of this encounter (statuses as of 01/23/2022) [facility] History of Past illness Narrative* Problem Noted Date Resolved Date Encounter for screening for diabetes mellitus 11/26/2016 Encounter for screening for cardiovascular disor ders 05/09/2016 11/26/2016 Intractable migraine without aura and without status migrainosus 2016 05/26/2017 Well adult exam 2016 11/26/2016 Overview: Last done: 2016 documented as of this encounter (statuses as of 01/27/2022) [facility] History of Past illness Narrative* Problem Noted Date Resolved Date Encounter for screening for diabetes mellitus 11/26/2016 Encounter for screening for cardiovascular disor ders 05/09/2016 11/26/2016 Intractable migraine without aura and without status migrainosus 2016 05/26/2017 Well adult exam 2016 11/26/2016 Overview: Last done: 2016 documented as of this encounter (statuses as of 02/06/2022) [facility]2016 History of Past illness Narrative* Problem Noted Date Resolved Date Encounter for screening for diabetes mellitus 11/26/2016 Encounter for screening for cardiovascular disor ders 05/09/2016 11/26/2016 Intractable migraine without aura and without status migrainosus 2016 05/26/2017 Well adult exam 2016 11/26/2016 Overview: Last done: 2016 documented as of this encounter (statuses as of 02/18/2022) [facility]2016 History of Past illness Narrative* Problem Noted Date Resolved Date Encounter for screening for diabetes mellitus 11/26/2016 Encounter for screening for cardiovascular disor ders 05/09/2016 11/26/2016 Intractable migraine without aura and without status migrainosus 2016 05/26/2017 Well adult exam 2016 11/26/2016 Overview: Last done: 2016 documented as of this encounter (statuses as of 03/17/2022) [facility]2016 History of Past illness Narrative* Problem Noted Date Resolved Date Encounter for screening for diabetes mellitus 11/26/2016 Encounter for screening for cardiovascular disor ders 05/09/2016 11/26/2016 Intractable migraine without aura and without status migrainosus 2016 05/26/2017 Well adult exam 2016 11/26/2016 Overview: Last done: 2016 documented as of this encounter (statuses as of 03/18/2022) [facility]2016 History of Past illness Narrative* Problem Noted Date Resolved Date Encounter for screening for diabetes mellitus 11/26/2016 Encounter for screening for cardiovascular disor ders 05/09/2016 11/26/2016 Intractable migraine without aura and without status migrainosus 2016 05/26/2017 Well adult exam 2016 11/26/2016 Overview: Last done: 2016 documented as of this encounter (statuses as of 04/08/2022) [facility]2016 History of Past illness Narrative* Problem Noted Date Resolved Date Encounter for screening for diabetes mellitus 11/26/2016 Encounter for screening for cardiovascular disor ders 05/09/2016 11/26/2016 Intractable migraine without aura and without status migrainosus 2016 05/26/2017 Well adult exam 2016 11/26/2016 Overview: Last done: 2016 documented as of this encounter (statuses as of 04/22/2022) [facility]2016 History of Past illness Narrative* Problem Noted Date Resolved Date Encounter for screening for diabetes mellitus 11/26/2016 Encounter for screening for cardiovascular disor ders 05/09/2016 11/26/2016 Intractable migraine without aura and without status migrainosus 2016 05/26/2017 Well adult exam 2016 11/26/2016 Overview: Last done: 2016 documented as of this encounter (statuses as of 04/23/2022) [facility] History of Past illness Narrative* Problem Noted Date Resolved Date Encounter for screening for diabetes mellitus 11/26/2016 Encounter for screening for cardiovascular disor ders 05/09/2016 11/26/2016 Intractable migraine without aura and without status migrainosus 2016 05/26/2017 Well adult exam 2016 11/26/2016 Overview: Last done: 2016 documented as of this encounter (statuses as of 05/05/2022) [facility]2016 History of Past illness Narrative* Problem Noted Date Resolved Date Encounter for screening for diabetes mellitus 11/26/2016 Encounter for screening for cardiovascular disor ders 05/09/2016 11/26/2016 Intractable migraine without aura and without status migrainosus 2016 05/26/2017 Well adult exam 2016 11/26/2016 Overview: Last done: 2016 documented as of this encounter (statuses as of 05/19/2022) [facility]2016 History of Past illness Narrative* Problem Noted Date Resolved Date Encounter for screening for diabetes mellitus 11/26/2016 Encounter for screening for cardiovascular disor ders 05/09/2016 11/26/2016 Intractable migraine without aura and without status migrainosus 2016 05/26/2017 Well adult exam 2016 11/26/2016 Overview: Last done: 2016 documented as of this encounter (statuses as of 05/22/2022) [facility] History of Past illness Narrative* Problem Noted Date Resolved Date Encounter for screening for diabetes mellitus 11/26/2016 Encounter for screening for cardiovascular disor ders 05/09/2016 11/26/2016 Intractable migraine without aura and without status migrainosus 2016 05/26/2017 Well adult exam 2016 11/26/2016 Overview: Last done: 2016 documented as of this encounter (statuses as of 05/24/2022) [facility] History of Past illness Narrative* Problem Noted Date Resolved Date Encounter for screening for diabetes mellitus 11/26/2016 Encounter for screening for cardiovascular disor ders 05/09/2016 11/26/2016 Intractable migraine without aura and without status migrainosus 2016 05/26/2017 Well adult exam 2016 11/26/2016 Overview: Last done: 2016 documented as of this encounter (statuses as of 05/26/2022) [facility] History of Past illness Narrative* Problem Noted Date Resolved Date Encounter for screening for diabetes mellitus 11/26/2016 Encounter for screening for cardiovascular disor ders 05/09/2016 11/26/2016 Intractable migraine without aura and without status migrainosus 2016 05/26/2017 Well adult exam 2016 11/26/2016 Overview: Last done: 2016 documented as of this encounter (statuses as of 06/02/2022) [facility]2016 History of Past illness Narrative* Problem Noted Date Resolved Date Encounter for screening for diabetes mellitus 11/26/2016 Encounter for screening for cardiovascular disor ders 05/09/2016 11/26/2016 Intractable migraine without aura and without status migrainosus 2016 05/26/2017 Well adult exam 2016 11/26/2016 Overview: Last done: 2016 documented as of this encounter (statuses as of 06/11/2022) [facility]2016 History of Past illness Narrative* Problem Noted Date Resolved Date Encounter for screening for diabetes mellitus 11/26/2016 Encounter for screening for cardiovascular disor ders 05/09/2016 11/26/2016 Intractable migraine without aura and without status migrainosus 2016 05/26/2017 Well adult exam 2016 11/26/2016 Overview: Last done: 2016 documented as of this encounter (statuses as of 06/19/2022) [facility] History of Past illness Narrative* Problem Noted Date Resolved Date Encounter for screening for diabetes mellitus 11/26/2016 Encounter for screening for cardiovascular disor ders 05/09/2016 11/26/2016 Intractable migraine without aura and without status migrainosus 2016 05/26/2017 Well adult exam 2016 11/26/2016 Overview: Last done: 2016 documented as of this encounter (statuses as of 07/11/2022) [facility]2016 History of Past illness Narrative* Problem Noted Date Resolved Date Encounter for screening for diabetes mellitus 11/26/2016 Encounter for screening for cardiovascular disor ders 05/09/2016 11/26/2016 Intractable migraine without aura and without status migrainosus 2016 05/26/2017 Well adult exam 2016 11/26/2016 Overview: Last done: 2016 documented as of this encounter (statuses as of 07/14/2022) [facility] History of Past illness Narrative* Problem Noted Date Resolved Date Encounter for screening for diabetes mellitus 11/26/2016 Encounter for screening for cardiovascular disor ders 05/09/2016 11/26/2016 Intractable migraine without aura and without status migrainosus 2016 05/26/2017 Well adult exam 2016 11/26/2016 Overview: Last done: 2016 documented as of this encounter (statuses as of 07/29/2022) [facility]2016 History of Past illness Narrative* Problem Noted Date Resolved Date Encounter for screening for diabetes mellitus 11/26/2016 Encounter for screening for cardiovascular disor ders 05/09/2016 11/26/2016 Intractable migraine without aura and without status migrainosus 2016 05/26/2017 Well adult exam 2016 11/26/2016 Overview: Last done: 2016 documented as of this encounter (statuses as of 08/11/2022) [facility] History of Past illness Narrative* Problem Noted Date Resolved Date Encounter for screening for diabetes mellitus 11/26/2016 Encounter for screening for cardiovascular disor ders 05/09/2016 11/26/2016 Intractable migraine without aura and without status migrainosus 2016 05/26/2017 Well adult exam 2016 11/26/2016 Overview: Last done: 2016 documented as of this encounter (statuses as of 08/11/2022) [facility] History of Past illness Narrative* Problem Noted Date Resolved Date Encounter for screening for diabetes mellitus 11/26/2016 Encounter for screening for cardiovascular disor ders 05/09/2016 11/26/2016 Intractable migraine without aura and without status migrainosus 2016 05/26/2017 Well adult exam 2016 11/26/2016 Overview: Last done: 2016 documented as of this encounter (statuses as of 08/18/2022) [facility] History of Past illness Narrative* Problem Noted Date Resolved Date Encounter for screening for diabetes mellitus 11/26/2016 Encounter for screening for cardiovascular disor ders 05/09/2016 11/26/2016 Intractable migraine without aura and without status migrainosus 2016 05/26/2017 Well adult exam 2016 11/26/2016 Overview: Last done: 2016 documented as of this encounter (statuses as of 08/21/2022) [facility] History of Past illness Narrative* Problem Noted Date Resolved Date Encounter for screening for diabetes mellitus 11/26/2016 Encounter for screening for cardiovascular disor ders 05/09/2016 11/26/2016 Intractable migraine without aura and without status migrainosus 2016 05/26/2017 Well adult exam 2016 11/26/2016 Overview: Last done: 2016 documented as of this encounter (statuses as of 09/23/2022) [facility] History of Past illness Narrative* Problem Noted Date Resolved Date Encounter for screening for diabetes mellitus 11/26/2016 Encounter for screening for cardiovascular disor ders 05/09/2016 11/26/2016 Intractable migraine without aura and without status migrainosus 2016 05/26/2017 Well adult exam 2016 11/26/2016 Overview: Last done: 2016 documented as of this encounter (statuses as of 10/09/2022) [facility] History of Past illness Narrative* Problem Noted Date Resolved Date Encounter for screening for diabetes mellitus 11/26/2016 Encounter for screening for cardiovascular disor ders 05/09/2016 11/26/2016 Intractable migraine without aura and without status migrainosus 2016 05/26/2017 Well adult exam 2016 11/26/2016 Overview: Last done: 2016 documented as of this encounter (statuses as of 10/30/2022) [facility] History of Past illness Narrative* Problem Noted Date Resolved Date Encounter for screening for diabetes mellitus 11/26/2016 Encounter for screening for cardiovascular disor ders 05/09/2016 11/26/2016 Intractable migraine without aura and without status migrainosus 2016 05/26/2017 Well adult exam 2016 11/26/2016 Overview: Last done: 2016 documented as of this encounter (statuses as of 11/03/2022) [facility] History of Past illness Narrative* Problem Noted Date Resolved Date Encounter for screening for diabetes mellitus 11/26/2016 Encounter for screening for cardiovascular disor ders 05/09/2016 11/26/2016 Intractable migraine without aura and without status migrainosus 2016 05/26/2017 Well adult exam 2016 11/26/2016 Overview: Last done: 2016 documented as of this encounter (statuses as of 12/01/2022) [facility] History of Past illness Narrative* Problem Noted Date Resolved Date Encounter for screening for diabetes mellitus 11/26/2016 Encounter for screening for cardiovascular disor ders 05/09/2016 11/26/2016 Intractable migraine without aura and without status migrainosus 2016 05/26/2017 Well adult exam 2016 11/26/2016 Overview: Last done: 2016 documented as of this encounter (statuses as of 12/03/2022) [facility]2016 History of Past illness Narrative* Problem Noted Date Resolved Date Encounter for screening for diabetes mellitus 11/26/2016 Encounter for screening for cardiovascular disor ders 05/09/2016 11/26/2016 Intractable migraine without aura and without status migrainosus 2016 05/26/2017 Well adult exam 2016 11/26/2016 Overview: Last done: 2016 documented as of this encounter (statuses as of 12/17/2022) [facility]2016 History of Past illness Narrative* Problem Noted Date Resolved Date Encounter for screening for diabetes mellitus 11/26/2016 Encounter for screening for cardiovascular disor ders 05/09/2016 11/26/2016 Intractable migraine without aura and without status migrainosus 2016 05/26/2017 Well adult exam 2016 11/26/2016 Overview: Last done: 2016 documented as of this encounter (statuses as of 12/31/2022) [facility]2016 History of Past illness Narrative* Problem Noted Date Resolved Date Encounter for screening for diabetes mellitus 11/26/2016 Encounter for screening for cardiovascular disor ders 05/09/2016 11/26/2016 Intractable migraine without aura and without status migrainosus 2016 05/26/2017 Well adult exam 2016 11/26/2016 Overview: Last done: 2016 documented as of this encounter (statuses as of 01/05/2023) [facility] History of Past illness Narrative* Problem Noted Date Resolved Date Encounter for screening for diabetes mellitus 11/26/2016 Encounter for screening for cardiovascular disor ders 05/09/2016 11/26/2016 Intractable migraine without aura and without status migrainosus 2016 05/26/2017 Well adult exam 2016 11/26/2016 Overview: Last done: 2016 documented as of this encounter (statuses as of 02/02/2023) [facility] History of Past illness Narrative* Problem Noted Date Resolved Date Encounter for screening for diabetes mellitus 11/26/2016 Encounter for screening for cardiovascular disor ders 05/09/2016 11/26/2016 Intractable migraine without aura and without status migrainosus 2016 05/26/2017 Well adult exam 2016 11/26/2016 Overview: Last done: 2016 documented as of this encounter (statuses as of 02/02/2023) [facility] History of Past illness Narrative* Problem Noted Date Resolved Date Encounter for screening for diabetes mellitus 11/26/2016 Encounter for screening for cardiovascular disor ders 05/09/2016 11/26/2016 Intractable migraine without aura and without status migrainosus 2016 05/26/2017 Well adult exam 2016 11/26/2016 Overview: Last done: 2016 documented as of this encounter (statuses as of 02/24/2023) [facility] History of Past illness Narrative* Problem Noted Date Resolved Date Encounter for screening for diabetes mellitus 11/26/2016 Encounter for screening for cardiovascular disor ders 05/09/2016 11/26/2016 Intractable migraine without aura and without status migrainosus 2016 05/26/2017 Well adult exam 2016 11/26/2016 Overview: Last done: 2016 documented as of this encounter (statuses as of 03/09/2023) [facility]2016 History of Past illness Narrative* Problem Noted Date Resolved Date Encounter for screening for diabetes mellitus 11/26/2016 Encounter for screening for cardiovascular disor ders 05/09/2016 11/26/2016 Intractable migraine without aura and without status migrainosus 2016 05/26/2017 Well adult exam 2016 11/26/2016 Overview: Last done: 2016 documented as of this encounter (statuses as of 03/20/2023) [facility] History of Past illness Narrative* Problem Noted Date Resolved Date Encounter for screening for diabetes mellitus 11/26/2016 Encounter for screening for cardiovascular disor ders 05/09/2016 11/26/2016 Intractable migraine without aura and without status migrainosus 2016 05/26/2017 Well adult exam 2016 11/26/2016 Overview: Last done: 2016 documented as of this encounter (statuses as of 03/20/2023) [facility]2016 History of Past illness Narrative* Problem Noted Date Resolved Date Encounter for screening for diabetes mellitus 11/26/2016 Encounter for screening for cardiovascular disor ders 05/09/2016 11/26/2016 Intractable migraine without aura and without status migrainosus 2016 05/26/2017 Well adult exam 2016 11/26/2016 Overview: Last done: 2016 documented as of this encounter (statuses as of 04/10/2023) [facility]2016 History of Past illness Narrative* Problem Noted Date Diagnosed Date Resolved Date Encounter for screening for diabetes mellitus 05/09/2011/26/2016 Encounter for screening for cardiovascular disorders 05/09/2016 11/26/2016 Intractable migraine without aura and without status migrainosus 2016 05/26/2017 Well adult exam 2016 11/26/2016 Overview: Last done: 2016 documented as of this encounter (statuses as of 05/08/2023) [facility] History of Past illness Narrative* Problem Noted Date Diagnosed Date Resolved Date Encounter for screening for diabetes mellitus 05/09/20 16 11/26/2016 Encounter for screening for cardiovascular disorders 05/09/2016 11/26/2016 Intractable migraine without aura and without status migrainosus 2016 05/26/2017 Well adult exam 2016 11/26/2016 Overview: Last done: 2016 documented as of this encounter (statuses as of 05/13/2023) [facility] History of Past illness Narrative* Problem Noted Date Diagnosed Date Resolved Date Encounter for screening for diabetes mellitus 05/09/20 16 11/26/2016 Encounter for screening for cardiovascular disorders 05/09/2016 11/26/2016 Intractable migraine without aura and without status migrainosus 2016 05/26/2017 Well adult exam 2016 11/26/2016 Overview: Last done: 2016 documented as of this encounter (statuses as of 05/14/2023) [facility] History of Past illness Narrative* Problem Noted Date Diagnosed Date Resolved Date Encounter for screening for diabetes mellitus 05/09/20 16 11/26/2016 Encounter for screening for cardiovascular disorders 05/09/2016 11/26/2016 Intractable migraine without aura and without status migrainosus 2016 05/26/2017 Well adult exam 2016 11/26/2016 Overview: Last done: 2016 documented as of this encounter (statuses as of 06/16/2023) [facility] History of Past illness Narrative* Problem Noted Date Diagnosed Date Resolved Date Encounter for screening for diabetes mellitus 05/09/2011/26/2016 Encounter for screening for cardiovascular disorders 05/09/2016 11/26/2016 Intractable migraine without aura and without status migrainosus 2016 05/26/2017 Well adult exam 2016 11/26/2016 Overview: Last done: 2016 documented as of this encounter (statuses as of 06/19/2023) [facility] History of Past illness Narrative* Problem Noted Date Diagnosed Date Resolved Date Encounter for screening for diabetes mellitus 05/09/20 16 11/26/2016 Encounter for screening for cardiovascular disorders 05/09/2016 11/26/2016 Intractable migraine without aura and without status migrainosus 2016 05/26/2017 Well adult exam 2016 11/26/2016 Overview: Last done: 2016 documented as of this encounter (statuses as of 06/23/2023) [facility] History of Past illness Narrative* Problem Noted Date Diagnosed Date Resolved Date Encounter for screening for diabetes mellitus 05/09/20 16 11/26/2016 Encounter for screening for cardiovascular disorders 05/09/2016 11/26/2016 Intractable migraine without aura and without status migrainosus 2016 05/26/2017 Well adult exam 2016 11/26/2016 Overview: Last done: 2016 documented as of this encounter (statuses as of 07/11/2023) [facility] History of Past illness Narrative* Problem Noted Date Diagnosed Date Resolved Date Encounter for screening for diabetes mellitus 05/09/20 16 11/26/2016 Encounter for screening for cardiovascular disorders 05/09/2016 11/26/2016 Intractable migraine without aura and without status migrainosus 2016 05/26/2017 Well adult exam 2016 11/26/2016 Overview: Last done: 2016 documented as of this encounter (statuses as of 08/13/2023) [facility] History of Past illness Narrative* Problem Noted Date Diagnosed Date Resolved Date Encounter for screening for diabetes mellitus 05/09/2011/26/2016 Encounter for screening for cardiovascular disorders 05/09/2016 11/26/2016 Intractable migraine without aura and without status migrainosus 2016 05/26/2017 Well adult exam 2016 11/26/2016 Overview: Last done: 2016 documented as of this encounter (statuses as of 08/20/2023) [facility] History of Past illness Narrative* Problem Noted Date Diagnosed Date Resolved Date Encounter for screening for diabetes mellitus 05/09/20 16 11/26/2016 Encounter for screening for cardiovascular disorders 05/09/2016 11/26/2016 Intractable migraine without aura and without status migrainosus 2016 05/26/2017 Well adult exam 2016 11/26/2016 Overview: Last done: 2016 documented as of this encounter (statuses as of 09/10/2023) [facility] History of Past illness Narrative* Problem Noted Date Diagnosed Date Resolved Date Encounter for screening for diabetes mellitus 05/09/20 16 11/26/2016 Encounter for screening for cardiovascular disorders 05/09/2016 11/26/2016 Intractable migraine without aura and without status migrainosus 2016 05/26/2017 Well adult exam 2016 11/26/2016 Overview: Last done: 2016 documented as of this encounter (statuses as of 11/05/2023) [facility] History of Past illness Narrative* Problem Noted Date Diagnosed Date Resolved Date Encounter for screening for diabetes mellitus 05/09/2011/26/2016 Encounter for screening for cardiovascular disorders 05/09/2016 11/26/2016 Intractable migraine without aura and without status migrainosus 2016 05/26/2017 Well adult exam 2016 11/26/2016 Overview: Last done: 2016 documented as of this encounter (statuses as of 11/06/2023) [facility] History of Past illness Narrative* Problem Noted Date Diagnosed Date Resolved Date Encounter for screening for diabetes mellitus 05/09/20 16 11/26/2016 Encounter for screening for cardiovascular disorders 05/09/2016 11/26/2016 Intractable migraine without aura and without status migrainosus 2016 05/26/2017 Well adult exam 2016 11/26/2016 Overview: Last done: 2016 documented as of this encounter (statuses as of 11/06/2023) [facility] History of Past illness Narrative* Problem Noted Date Diagnosed Date Resolved Date Encounter for screening for diabetes mellitus 05/09/20 16 11/26/2016 Encounter for screening for cardiovascular disorders 05/09/2016 11/26/2016 Intractable migraine without aura and without status migrainosus 2016 05/26/2017 Well adult exam 2016 11/26/2016 Overview: Last done: 2016 documented as of this encounter (statuses as of 11/06/2023) [facility] History of Past illness Narrative* Problem Noted Date Diagnosed Date Resolved Date Encounter for screening for diabetes mellitus 05/09/20 16 11/26/2016 Encounter for screening for cardiovascular disorders 05/09/2016 11/26/2016 Intractable migraine without aura and without status migrainosus 2016 05/26/2017 Well adult exam 2016 11/26/2016 Overview: Last done: 2016 documented as of this encounter (statuses as of 11/09/2023) [facility] History of Past illness Narrative* Problem Noted Date Diagnosed Date Resolved Date Encounter for screening for diabetes mellitus 05/09/20 16 11/26/2016 Encounter for screening for cardiovascular disorders 05/09/2016 11/26/2016 Intractable migraine without aura and without status migrainosus 2016 05/26/2017 Well adult exam 2016 11/26/2016 Overview: Last done: 2016 documented as of this encounter (statuses as of 11/10/2023) [facility] History of Past illness Narrative* Problem Noted Date Diagnosed Date Resolved Date Encounter for screening for diabetes mellitus 05/09/20 16 11/26/2016 Encounter for screening for cardiovascular disorders 05/09/2016 11/26/2016 Intractable migraine without aura and without status migrainosus 2016 05/26/2017 Well adult exam 2016 11/26/2016 Overview: Last done: 2016 documented as of this encounter (statuses as of 11/11/2023) [facility] History of Past illness Narrative* Problem Noted Date Diagnosed Date Resolved Date Encounter for screening for diabetes mellitus 05/09/20 16 11/26/2016 Encounter for screening for cardiovascular disorders 05/09/2016 11/26/2016 Intractable migraine without aura and without status migrainosus 2016 05/26/2017 Well adult exam 2016 11/26/2016 Overview: Last done: 2016 documented as of this encounter (statuses as of 11/18/2023) [facility] History of Past illness Narrative* Problem Noted Date Diagnosed Date Resolved Date Encounter for screening for diabetes mellitus 05/09/20 16 11/26/2016 Encounter for screening for cardiovascular disorders 05/09/2016 11/26/2016 Intractable migraine without aura and without status migrainosus 2016 05/26/2017 Well adult exam 2016 11/26/2016 Overview: Last done: 2016 documented as of this encounter (statuses as of 11/18/2023) [facility] History of Past illness Narrative* Problem Noted Date Diagnosed Date Resolved Date Encounter for screening for diabetes mellitus 05/09/20 16 11/26/2016 Encounter for screening for cardiovascular disorders 05/09/2016 11/26/2016 Intractable migraine without aura and without status migrainosus 2016 05/26/2017 Well adult exam 2016 11/26/2016 Overview: Last done: 2016 documented as of this encounter (statuses as of 11/20/2023) [facility] History of Past illness Narrative* Problem Noted Date Diagnosed Date Resolved Date Encounter for screening for diabetes mellitus 05/09/2011/26/2016 Encounter for screening for cardiovascular disorders 05/09/2016 11/26/2016 Intractable migraine without aura and without status migrainosus 2016 05/26/2017 Well adult exam 2016 11/26/2016 Overview: Last done: 2016 documented as of this encounter (statuses as of 11/25/2023) [facility] History of Past illness Narrative* Problem Noted Date Diagnosed Date Resolved Date Encounter for screening for diabetes mellitus 05/09/20 16 11/26/2016 Encounter for screening for cardiovascular disorders 05/09/2016 11/26/2016 Intractable migraine without aura and without status migrainosus 2016 05/26/2017 Well adult exam 2016 11/26/2016 Overview: Last done: 2016 documented as of this encounter (statuses as of 11/26/2023) [facility] History of Past illness Narrative* Problem Noted Date Diagnosed Date Resolved Date Encounter for screening for diabetes mellitus 05/09/2011/26/2016 Encounter for screening for cardiovascular disorders 05/09/2016 11/26/2016 Intractable migraine without aura and without status migrainosus 2016 05/26/2017 Well adult exam 2016 11/26/2016 Overview: Last done: 2016 documented as of this encounter (statuses as of 11/27/2023) [facility] History of Past illness Narrative* Problem Noted Date Diagnosed Date Resolved Date Encounter for screening for diabetes mellitus 05/09/20 16 11/26/2016 Encounter for screening for cardiovascular disorders 05/09/2016 11/26/2016 Intractable migraine without aura and without status migrainosus 2016 05/26/2017 Well adult exam 2016 11/26/2016 Overview: Last done: 2016 documented as of this encounter (statuses as of 12/02/2023) [facility] History of Past illness Narrative* Problem Noted Date Diagnosed Date Resolved Date Encounter for screening for diabetes mellitus 05/09/2011/26/2016 Encounter for screening for cardiovascular disorders 05/09/2016 11/26/2016 Intractable migraine without aura and without status migrainosus 2016 05/26/2017 Well adult exam 2016 11/26/2016 Overview: Last done: 2016 documented as of this encounter (statuses as of 12/08/2023) [facility] History of Past illness Narrative* Problem Noted Date Diagnosed Date Resolved Date Encounter for screening for diabetes mellitus 05/09/20 16 11/26/2016 Encounter for screening for cardiovascular disorders 05/09/2016 11/26/2016 Intractable migraine without aura and without status migrainosus 2016 05/26/2017 Well adult exam 2016 11/26/2016 Overview: Last done: 2016 documented as of this encounter (statuses as of 12/08/2023) [facility] History of Past illness Narrative* Problem Noted Date Diagnosed Date Resolved Date Encounter for screening for diabetes mellitus 05/09/20 16 11/26/2016 Encounter for screening for cardiovascular disorders 05/09/2016 11/26/2016 Intractable migraine without aura and without status migrainosus 2016 05/26/2017 Well adult exam 2016 11/26/2016 Overview: Last done: 2016 documented as of this encounter (statuses as of 12/11/2023) [facility] Diagnosis Diabetic ulcer of left midfoot associated with type 2 diabetes mellitus, with fat layer exposed (HCC)- Primary Acquired hallux valgus, unspecified laterality Ganglion cyst Ganglion, unspecified [facility] Neck pain- Primary Cervicalgia Type 2 diabetes mellitus with diabetic polyneuropathy, without long-term current use of insulin (HCC) [facility] Diagnosis Neck pain Cervicalgia [facility] Diagnosis Neck pain- Primary Cervicalgia [facility] Diagnosis Neck pain- Primary Cervicalgia [facility] Diagnosis Posterior tibial tendon dysfunction- Primary Other disorders of synovium, tendon, and bursa Pes planus of both feet Diabetic ulcer of left midfoot associated with type 2 diabetes mellitus, with fat layer exposed (HCC) [facility] Diagnosis Neck pain- Primary Cervicalgia [facility] Diagnosis Neck pain- Primary Cervicalgia [facility] Diagnosis Onychomycosis- Primary Dermatophytosis of nail Pain in toe of right foot Pain in limb Pain in toe of left foot Pain in limb [facility] Diagnosis Type 2 diabetes mellitus with diabetic polyneuropathy, without long-term current use of insulin (HCC)- Primary Primary hypertension Unspecified essential hypertension [facility] Diagnosis Type 2 diabetes mellitus with diabetic polyneuropathy, without long-term current use of insulin (HCC)- Primary Class 2 severe obesity due to excess calories with serious comorbidity in adult, unspecified BMI (HCC) Dietary counseling Dietary surveillance and counseling [facility] Diagnosis Posterior tibial tendon dysfunction- Primary Other disorders of synovium, tendon, and bursa Pes planus of both feet 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 Diagnosis Elevated alkaline phosphatase level- Primary Other nonspecific abnormal serum enzyme levels [facility] Diagnosis Type 2 diabetes mellitus with diabetic polyneuropathy, without long-term current use of insulin (HCC)- Primary Hypoglycemia Hypoglycemia, unspecified Primary hypertension Unspecified essential hypertension [facility] Diagnosis Facet arthritis of lumbar region- Primary Lumbosacral spondylosis without myelopathy Lumbar spondylosis Lumbosacral spondylosis without myelopathy Spinal stenosis of lumbar region, unspecified whether neurogenic claudication present Neuropathic pain Neuralgia, neuritis, and radiculitis, unspecified [facility] Diagnosis Facet arthritis of lumbar region- Primary Lumbosacral spondylosis without myelopathy Lumbar spondylosis Lumbosacral spondylosis without myelopathy [facility] Diagnosis Hypertension, essential- Primary Unspecified essential hypertension Facet arthritis of lumbar region Lumbosacral spondylosis without myelopathy Lumbar spondylosis Lumbosacral spondylosis without myelopathy [facility] Diagnosis Intractable migraine without aura and without status migrainosus Migraine without aura, with intractable migraine, so stated, without mention of status migrainosus Facet arthritis of lumbar region Lumbosacral spondylosis without myelopathy Lumbar spondylosis Lumbosacral spondylosis without myelopathy [facility] Diagnosis Facet arthritis of lumbar region- Primary Lumbosacral spondylosis without myelopathy Lumbar spondylosis Lumbosacral spondylosis without myelopathy Spinal stenosis of lumbar region, unspecified whether neurogenic claudication present Neuropathic pain Neuralgia, neuritis, and radiculitis, unspecified [facility] Type 2 diabetes mellitus with diabetic polyneuropathy, without long-term current use of insulin (HCC)- Primary Class 2 severe obesity due to excess calories with serious comorbidity in adult, unspecified BMI ([facility]) Dietary counseling Dietary surveillance and counseling [facility] Diagnosis Onychomycosis- Primary Dermatophytosis of nail Pain in toe of right foot Pain in limb Pain in toe of left foot Pain in limb Diabetic ulcer of left midfoot associated with type 2 diabetes mellitus, with fat layer exposed (HCC) Pes planus of both feet [facility] Diagnosis Type 2 diabetes mellitus with diabetic polyneuropathy, without long-term current use of insulin (HCC)- Primary Hypoglycemia Hypoglycemia, unspecified Primary hypertension Unspecified essential hypertension Class 1 obesity with serious comorbidity and body mass index (BMI) of 34.0 to 34.9 in adult, unspecified obesity type [facility] this encounter [facility] Diagnosis Type 2 diabetes mellitus with ketoacidosis without coma, with long-term current use of insulin ([facility]) [facility] Diagnosis Type 2 diabetes mellitus without retinopathy (HCC)- Primary Type II or unspecified type diabetes mellitus without mention of complication, not stated as uncontrolled Type 2 diabetes mellitus with ketoacidosis without coma, with long-term current use of insulin (HCC) Dry eye syndrome of both eyes [facility] Diagnosis Type 2 diabetes mellitus with diabetic polyneuropathy, without long-term current use of insulin (HCC)- Primary Class 2 severe obesity due to excess calories with serious comorbidity in adult, unspecified BMI ([facility]) Dietary counseling Dietary surveillance and counseling [facility] Diagnosis Type 2 diabetes mellitus with diabetic polyneuropathy, without long-term current use of insulin (HCC)- Primary Overweight Dietary counseling Dietary surveillance and counseling [facility] Diagnosis Onychomycosis- Primary Dermatophytosis of nail Pain in toe of right foot Pain in limb Pain in toe of left foot Pain in limb Pes planus of both feet Type 2 diabetes mellitus with ketoacidosis without coma, with long-term current use of insulin ([facility]) [facility] Diagnosis Facet arthritis of lumbar region- Primary Lumbosacral spondylosis without myelopathy Neuropathic pain Neuralgia, neuritis, and radiculitis, unspecified Lumbar spondylosis Lumbosacral spondylosis without myelopathy [facility] this [facility] Diagnosis Encounter for screening mammogram for breast cancer documented [facility] Diagnosis Type 2 diabetes mellitus with diabetic polyneuropathy, without long-term current use of insulin ([facility])- Primary Overweight Dietary counseling Dietary surveillance and counseling [facility] Diagnosis Well adult exam- Primary Routine general medical examination at a health care facility Hypertension, essential Unspecified essential hypertension Hyperlipidemia, mixed Mixed hyperlipidemia Type 2 diabetes mellitus with diabetic polyneuropathy, without long-term current use of insulin (HCC) GERD without esophagitis Esophageal reflux Recurrent major depressive disorder, in remission ([facility]) Obesity, Class I, BMI 30-34.9 Obesity, unspecified Seasonal allergic rhinitis due to pollen Overactive bladder Hypertonicity of bladder Medication management Encounter for long-term (current) use of other medications Immunity status testing Antibody response examination Encounter for immunization Need for other specified prophylactic vaccination against single bacterial disease [facility] Diagnosis Intractable migraine without aura and without status migrainosus Migraine without aura, with intractable migraine, so stated, without mention of status migrainosus [facility] Diagnosis Type 2 diabetes mellitus with diabetic polyneuropathy, without long-term current use of insulin (HCC) [facility] Diagnosis Onychomycosis- Primary Dermatophytosis of nail Pain in toe of right foot Pain in limb Pain in toe of left foot Pain in limb Type 2 diabetes mellitus with ketoacidosis without coma, with long-term current use of insulin (HCC) [facility] Diagnosis At risk for injury due to transfer At risk for falls Personal history of fall Weakness generalized Other malaise and fatigue [facility] Diagnosis Type 2 diabetes mellitus with diabetic polyneuropathy, without long-term current use of insulin (HCC) [facility] Diagnosis Type 2 diabetes mellitus with diabetic polyneuropathy, without long-term current use of insulin (HCC) [facility] Diagnosis Type 2 diabetes mellitus with diabetic polyneuropathy, without long-term current use of insulin (HCC)- Primary Hypoglycemia Hypoglycemia, unspecified Primary hypertension Unspecified essential hypertension Obesity, Class I, BMI 30-34.9 Obesity, unspecified [facility] Diagnosis Onychomycosis- Primary Dermatophytosis of nail Pain in toe of right foot Pain in limb Pain in toe of left foot Pain in limb Type 2 diabetes mellitus with ketoacidosis without coma, with long-term current use of insulin (HCC) Pes planus of both feet Acquired hallux valgus, unspecified laterality [facility] Diagnosis Type 2 diabetes mellitus with diabetic polyneuropathy, without long-term current use of insulin (HCC) Hypoglycemia Hypoglycemia, unspecified [facility] Diagnosis Elevated alkaline phosphatase level- Primary Other nonspecific abnormal serum enzyme levels [facility] Diagnosis Lateral epicondylitis of right elbow- Primary Lateral epicondylitis of elbow documented in this encounter [facility]* Diagnosis Lateral epicondylitis of right elbow Lateral epicondylitis of elbow documented in this encounter [facility] note* Diagnosis Encounter for screening mammogram for breast cancer documented in this encounter [facility] note* Diagnosis Lateral epicondylitis of right elbow- Primary Lateral epicondylitis of elbow documented in this encounter [facility] note* Diagnosis Elevated alkaline phosphatase level Other nonspecific abnormal serum enzyme levels documented in this encounter [facility] note* Diagnosis Lateral epicondylitis of right elbow- Primary Lateral epicondylitis of elbow documented in this encounter [facility] note* Diagnosis Lateral epicondylitis of right elbow- Primary Lateral epicondylitis of elbow documented in this encounter [facility] note* Diagnosis Gallstones- Primary Calculus of gallbladder without mention of cholecystitis or obstruction Elevated alkaline phosphatase level Other nonspecific abnormal serum enzyme levels documented in this encounter [facility] note* Diagnosis Sebaceous cyst- Primary documented in this encounter [facility] note* Diagnosis Epidermal cyst- Primary Sebaceous cyst documented in this encounter [facility] for referral (narrative)* Diagnostic Procedure Only (Routine) - Pending Review Specialty Diagnoses / Procedures Referred By Hermelindo holt Referred To Contact [facility] Diagnoses Encounter for screening mammogram for breast cancer Procedures LIUDMILA SCREENING SCREENING MAMMOGRAPHY BI 2-VIEW BREAST INC CAD Freddie Luis MD [address] [place] [address] [facility] [place] [address] Referral ID Status Reason Start Date Expiration Date Visits Requested Visits Authorized [id number] Pending Review Auto-Generat ed Referral 12/31/2022 01/30/2024 1 1 [facility] for referral (narrative)* Diagnostic Procedure Only (Routine) - Authorized Specialty Diagnoses / Procedures Referred By Hermelindo holt Referred To Contact [facility] IM[facility] Diagnoses Elevated alkaline phosphatase level Procedures US ABD RIGHT UPPER QUADRANT US ABDOMINAL REAL TIME W/IMAGE LIMITED Vandana Barrientos PA-C [address] [place] [address] [place] [address] Referral ID Status Reason Start Date Expiration Date Visits Requested Visits Authorized [id number] Authorized Auto-Generat ed Referral 11/05/2023 12/04/2024 1 1 [facility] for visit Narrative* Diagnostic Procedure Only (Routine) - Closed Specialty Diagnoses / Procedures Referred By Contac t Referred To Contact XR IMAGING Diagnoses Lateral epicondylitis of right elbow Procedures XR ELBOW GENERAL 2V AP/LAT RIGHT RADEX ELBOW 2 VIEWS Vandana Barrientos PA-C [address] [place] [address] [place] [address] Referral ID Status Reason Start Date Expiration Date V isits Requested Visits Authorized [id number] Closed Auto-Generate d Referral 11/03/2023 12/02/2024 1 1 [facility] for visit Narrative* Diagnostic Procedure Only (Routine) - Closed Specialty Diagnoses / Procedures Referred By Contac t Referred To Contact [facility] Diagnoses Encounter for screening mammogram for breast cancer Procedures LIUDMILA SCREENING SCREENING MAMMOGRAPHY BI 2-VIEW BREAST INC CAD Freddie Luis MD [address] [place] [address] [facility] [address] [place] [address] Referral ID Status Reason Start Date Expiration Date V isits Requested Visits Authorized [id number] Closed Auto-Generate d Referral 12/31/2022 01/30/2024 1 1 [facility] for visit Narrative* Diagnostic Procedure Only (Routine) - Authorized Specialty Diagnoses / Procedures Referred By Contac t Referred To Contact [facility] Diagnoses Elevated alkaline phosphatase level Procedures US ABD RIGHT UPPER QUADRANT US ABDOMINAL REAL TIME W/IMAGE LIMITED Vandana Barrientos PA-C [address] [place] [address] [place] [address] Referral ID Status Reason Start Date Expiration Date Visits Requested Visits Authorized [id number] Authorized Auto-Generat ed Referral 11/05/2023 12/04/2024 1 1 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 Vandana Barrientos PA-C [address] [place] [address] [facility] [address] [place] [address] Referral ID Status Reason Start Date Expiration Date Visits Requested Visits Authorized [id number] Authorized Auto-Generat ed Referral 11/05/2021 10/04/2022 30 30 Specialty Diagnoses / Procedures Referred By Contac t Referred To Contact Diagnoses Type 2 diabetes mellitus with diabetic polyneuropathy, without long-term current use of insulin (HCC) Yury Menard, [employer] [address] [address] Referral ID Status Reason Start Date Expiration Date Visits Re quested Visits Authorized [id number] Closed 1 1 Referral ID Status Reason Start Date Expiration Date V isits Requested Visits Authorized [id number] Pending Review 1 1 Specialty Diagnoses / Procedures Referred By Contac t Referred To Contact General Surgery Diagnoses Gallstones Elevated alkaline phosphatase level Procedures CONSULT TO GENERAL SURGERY OFFICE/OUTPATIENT [facility] MDM 60 MINUTES Vandana Barrientos PA-C [address] [place] [address] Referral ID Status Reason Start Date Expiration Date Visits Requested Visits Authorized [id number] Authorized PCP Requested Referral 11/26/2023 11/25/2024 1 1 Specialty Diagnoses / Procedures Referred By Contac t Referred To Contact Dermatology Diagnoses Sebaceous cyst Procedures CONSULT TO DERMATOLOGY Vandana Barrientos PA-C [address] [place] [address] Referral ID Status Reason Start Date Expiration Date Visits Requested Visits Authorized [id number] Ref Not Required PCP Requested Referral 12/08/2023 12/07/2024 1 1 Medications Administered Section Active Administered Medications - up to 3 most recent administrations Medication Order MAR Action Action Date Dose Rate Site PHENYLephrine 2.5 % 1 Drop (AK-DILATE, HELEN-SYNEPHRINE) 1 Drop, BOTH EYES, DIRECTED, Starting on [place] 10/30/22 at 1000, Until [place] 10/30/22 at 2159, Administer for dilation PROTECT FROM LIGHT Given 10/30/2022 10:00 AM EST 1 Drop proparacaine 0.5 % 1 Drop (ALCAINE) 1 Drop, BOTH EYES, DIRECTED, Starting on [place] 10/30/22 at 1000, Until [place] 10/30/22 at 2159, Administer for pneumo tonometry, tonopen tonometry, or pachymetry. In the event of a proparacaine shortage, administer tetracaine 0.5% ophthalmic drops 1 drop in the left eye as directed for pneumo tonometry, tonopen tonometry, or pachymetry Given 10/30/2022 10:00 AM EST 1 Drop tropicamide 1 % 1 Drop (MYDRIACYL) 1 Drop, BOTH EYES, DIRECTED, Starting on [place]ul[place] 10/30/22 at 1000, Until E[place] 10/30/22 at 2159, Administer for dilation Given 10/30/2022 10:00 AM EST 1 Drop Summary Purpose Family History No Family History Records Found Additional Source Comments Source Comments (unrecognize d section and content) In the event this informatio n is protected by the Federal Confidentiality of Alcohol and Drug Abuse Patient Records regulations: The Federal rules restrict any use of the information to criminally investigate or prosecute any alcohol or drug abuse patient.[facility] the event this information is protected by the Federal Confidentiality of Alcohol and Drug Abuse Patient Records regulations: The Federal rules restrict any use of the information to criminally investigate or prosecute any alcohol or drug abuse patient.[facility]In the event this information is protected by the Federal Confidentiality of Alcohol and Drug Abuse Patient Records regulations: The Federal rules restrict any use of the information to criminally investigate or prosecute any alcohol or drug abuse patient.[facility] HospitalIn the event this information is protected by the Federal Confidentiality of Alcohol and Drug Abuse Patient Records regulations: The Federal rules restrict any use of the information to criminally investigate or prosecute any alcohol or drug abuse patient.[facility] HospitalIn the event this information is protected by the Federal Confidentiality of Alcohol and Drug Abuse Patient Records regulations: The Federal rules restrict any use of the information to criminally investigate or prosecute any alcohol or drug abuse patient.[facility] HospitalIn the event this information is protected by the Federal Confidentiality of Alcohol and Drug Abuse Patient Records regulations: The Federal rules restrict any use of the information to criminally investigate or prosecute any alcohol or drug abuse patient.[facility] HospitalIn the event this information is protected by the Federal Confidentiality of Alcohol and Drug Abuse Patient Records regulations: The Federal rules restrict any use of the information to criminally investigate or prosecute any alcohol or drug abuse patient.[facility] HospitalIn the event this information is protected by the Federal Confidentiality of Alcohol and Drug Abuse Patient Records regulations: The Federal rules restrict any use of the information to criminally investigate or prosecute any alcohol or drug abuse patient.[facility] HospitalIn the event this information is protected by the Federal Confidentiality of Alcohol and Drug Abuse Patient Records regulations: The Federal rules restrict any use of the information to criminally investigate or prosecute any alcohol or drug abuse patient.[facility] HospitalIn the event this information is protected by the Federal Confidentiality of Alcohol and Drug Abuse Patient Records regulations: The Federal rules restrict any use of the information to criminally investigate or prosecute any alcohol or drug abuse patient.[facility] HospitalIn the event this information is protected by the Federal Confidentiality of Alcohol and Drug Abuse Patient Records regulations: The Federal rules restrict any use of the information to criminally investigate or prosecute any alcohol or drug abuse patient.[facility] HospitalIn the event this information is protected by the Federal Confidentiality of Alcohol and Drug Abuse Patient Records regulations: The Federal rules restrict any use of the information to criminally investigate or prosecute any alcohol or drug abuse patient.[facility] HospitalIn the event this information is protected by the Federal Confidentiality of Alcohol and Drug Abuse Patient Records regulations: The Federal rules restrict any use of the information to criminally investigate or prosecute any alcohol or drug abuse patient.[facility] HospitalIn the event this information is protected by the Federal Confidentiality of Alcohol and Drug Abuse Patient Records regulations: The Federal rules restrict any use of the information to criminally investigate or prosecute any alcohol or drug abuse patient.[facility] HospitalIn the event this information is protected by the Federal Confidentiality of Alcohol and Drug Abuse Patient Records regulations: The Federal rules restrict any use of the information to criminally investigate or prosecute any alcohol or drug abuse patient.[facility] HospitalIn the event this information is protected by the Federal Confidentiality of Alcohol and Drug Abuse Patient Records regulations: The Federal rules restrict any use of the information to criminally investigate or prosecute any alcohol or drug abuse patient.[facility] HospitalIn the event this information is protected by the Federal Confidentiality of Alcohol and Drug Abuse Patient Records regulations: The Federal rules restrict any use of the information to criminally investigate or prosecute any alcohol or drug abuse patient.[facility] HospitalIn the event this information is protected by the Federal Confidentiality of Alcohol and Drug Abuse Patient Records regulations: The Federal rules restrict any use of the information to criminally investigate or prosecute any alcohol or drug abuse patient.[facility] HospitalIn the event this information is protected by the Federal Confidentiality of Alcohol and Drug Abuse Patient Records regulations: The Federal rules restrict any use of the information to criminally investigate or prosecute any alcohol or drug abuse patient.[facility] HospitalIn the event this information is protected by the Federal Confidentiality of Alcohol and Drug Abuse Patient Records regulations: The Federal rules restrict any use of the information to criminally investigate or prosecute any alcohol or drug abuse patient.[facility] HospitalIn the event this information is protected by the Federal Confidentiality of Alcohol and Drug Abuse Patient Records regulations: The Federal rules restrict any use of the information to criminally investigate or prosecute any alcohol or drug abuse patient.[facility] the event this information is protected by the Federal Confidentiality of Alcohol and Drug Abuse Patient Records regulations: The Federal rules restrict any use of the information to criminally investigate or prosecute any alcohol or drug abuse patient.[facility] HospitalIn the event this information is protected by the Federal Confidentiality of Alcohol and Drug Abuse Patient Records regulations: The Federal rules restrict any use of the information to criminally investigate or prosecute any alcohol or drug abuse patient.[facility] HospitalIn the event this information is protected by the Federal Confidentiality of Alcohol and Drug Abuse Patient Records regulations: The Federal rules restrict any use of the information to criminally investigate or prosecute any alcohol or drug abuse patient.[facility] HospitalIn the event this information is protected by the Federal Confidentiality of Alcohol and Drug Abuse Patient Records regulations: The Federal rules restrict any use of the information to criminally investigate or prosecute any alcohol or drug abuse patient.[facility] HospitalIn the event this information is protected by the Federal Confidentiality of Alcohol and Drug Abuse Patient Records regulations: The Federal rules restrict any use of the information to criminally investigate or prosecute any alcohol or drug abuse patient.[facility] HospitalIn the event this information is protected by the Federal Confidentiality of Alcohol and Drug Abuse Patient Records regulations: The Federal rules restrict any use of the information to criminally investigate or prosecute any alcohol or drug abuse patient.[facility] HospitalIn the event this information is protected by the Federal Confidentiality of Alcohol and Drug Abuse Patient Records regulations: The Federal rules restrict any use of the information to criminally investigate or prosecute any alcohol or drug abuse patient.[facility] HospitalIn the event this information is protected by the Federal Confidentiality of Alcohol and Drug Abuse Patient Records regulations: The Federal rules restrict any use of the information to criminally investigate or prosecute any alcohol or drug abuse patient.[facility] HospitalIn the event this information is protected by the Federal Confidentiality of Alcohol and Drug Abuse Patient Records regulations: The Federal rules restrict any use of the information to criminally investigate or prosecute any alcohol or drug abuse patient.[facility] HospitalIn the event this information is protected by the Federal Confidentiality of Alcohol and Drug Abuse Patient Records regulations: The Federal rules restrict any use of the information to criminally investigate or prosecute any alcohol or drug abuse patient.[facility] HospitalIn the event this information is protected by the Federal Confidentiality of Alcohol and Drug Abuse Patient Records regulations: The Federal rules restrict any use of the information to criminally investigate or prosecute any alcohol or drug abuse patient.[facility] HospitalIn the event this information is protected by the Federal Confidentiality of Alcohol and Drug Abuse Patient Records regulations: The Federal rules restrict any use of the information to criminally investigate or prosecute any alcohol or drug abuse patient.[facility] HospitalIn the event this information is protected by the Federal Confidentiality of Alcohol and Drug Abuse Patient Records regulations: The Federal rules restrict any use of the information to criminally investigate or prosecute any alcohol or drug abuse patient.[facility] HospitalIn the event this information is protected by the Federal Confidentiality of Alcohol and Drug Abuse Patient Records regulations: The Federal rules restrict any use of the information to criminally investigate or prosecute any alcohol or drug abuse patient.[facility] HospitalIn the event this information is protected by the Federal Confidentiality of Alcohol and Drug Abuse Patient Records regulations: The Federal rules restrict any use of the information to criminally investigate or prosecute any alcohol or drug abuse patient.[facility] HospitalIn the event this information is protected by the Federal Confidentiality of Alcohol and Drug Abuse Patient Records regulations: The Federal rules restrict any use of the information to criminally investigate or prosecute any alcohol or drug abuse patient.[facility] HospitalIn the event this information is protected by the Federal Confidentiality of Alcohol and Drug Abuse Patient Records regulations: The Federal rules restrict any use of the information to criminally investigate or prosecute any alcohol or drug abuse patient.[facility] HospitalIn the event this information is protected by the Federal Confidentiality of Alcohol and Drug Abuse Patient Records regulations: The Federal rules restrict any use of the information to criminally investigate or prosecute any alcohol or drug abuse patient.[facility] HospitalIn the event this information is protected by the Federal Confidentiality of Alcohol and Drug Abuse Patient Records regulations: The Federal rules restrict any use of the information to criminally investigate or prosecute any alcohol or drug abuse patient.[facility] HospitalIn the event this information is protected by the Federal Confidentiality of Alcohol and Drug Abuse Patient Records regulations: The Federal rules restrict any use of the information to criminally investigate or prosecute any alcohol or drug abuse patient.[facility] HospitalIn the event this information is protected by the Federal Confidentiality of Alcohol and Drug Abuse Patient Records regulations: The Federal rules restrict any use of the information to criminally investigate or prosecute any alcohol or drug abuse patient.[facility] HospitalIn the event this information is protected by the Federal Confidentiality of Alcohol and Drug Abuse Patient Records regulations: The Federal rules restrict any use of the information to criminally investigate or prosecute any alcohol or drug abuse patient.[facility] HospitalIn the event this information is protected by the Federal Confidentiality of Alcohol and Drug Abuse Patient Records regulations: The Federal rules restrict any use of the information to criminally investigate or prosecute any alcohol or drug abuse patient.[facility] HospitalIn the event this information is protected by the Federal Confidentiality of Alcohol and Drug Abuse Patient Records regulations: The Federal rules restrict any use of the information to criminally investigate or prosecute any alcohol or drug abuse patient.[facility] HospitalIn the event this information is protected by the Federal Confidentiality of Alcohol and Drug Abuse Patient Records regulations: The Federal rules restrict any use of the information to criminally investigate or prosecute any alcohol or drug abuse patient.[facility] HospitalIn the event this information is protected by the Federal Confidentiality of Alcohol and Drug Abuse Patient Records regulations: The Federal rules restrict any use of the information to criminally investigate or prosecute any alcohol or drug abuse patient.[facility] HospitalIn the event this information is protected by the Federal Confidentiality of Alcohol and Drug Abuse Patient Records regulations: The Federal rules restrict any use of the information to criminally investigate or prosecute any alcohol or drug abuse patient.[facility] HospitalIn the event this information is protected by the Federal Confidentiality of Alcohol and Drug Abuse Patient Records regulations: The Federal rules restrict any use of the information to criminally investigate or prosecute any alcohol or drug abuse patient.[facility] HospitalIn the event this information is protected by the Federal Confidentiality of Alcohol and Drug Abuse Patient Records regulations: The Federal rules restrict any use of the information to criminally investigate or prosecute any alcohol or drug abuse patient.[facility] HospitalIn the event this information is protected by the Federal Confidentiality of Alcohol and Drug Abuse Patient Records regulations: The Federal rules restrict any use of the information to criminally investigate or prosecute any alcohol or drug abuse patient.[facility] HospitalIn the event this information is protected by the Federal Confidentiality of Alcohol and Drug Abuse Patient Records regulations: The Federal rules restrict any use of the information to criminally investigate or prosecute any alcohol or drug abuse patient.[facility] HospitalIn the event this information is protected by the Federal Confidentiality of Alcohol and Drug Abuse Patient Records regulations: The Federal rules restrict any use of the information to criminally investigate or prosecute any alcohol or drug abuse patient.[facility] HospitalIn the event this information is protected by the Federal Confidentiality of Alcohol and Drug Abuse Patient Records regulations: The Federal rules restrict any use of the information to criminally investigate or prosecute any alcohol or drug abuse patient.[facility] HospitalIn the event this information is protected by the Federal Confidentiality of Alcohol and Drug Abuse Patient Records regulations: The Federal rules restrict any use of the information to criminally investigate or prosecute any alcohol or drug abuse patient.[facility] HospitalIn the event this information is protected by the Federal Confidentiality of Alcohol and Drug Abuse Patient Records regulations: The Federal rules restrict any use of the information to criminally investigate or prosecute any alcohol or drug abuse patient.[facility] HospitalIn the event this information is protected by the Federal Confidentiality of Alcohol and Drug Abuse Patient Records regulations: The Federal rules restrict any use of the information to criminally investigate or prosecute any alcohol or drug abuse patient.[facility] HospitalIn the event this information is protected by the Federal Confidentiality of Alcohol and Drug Abuse Patient Records regulations: The Federal rules restrict any use of the information to criminally investigate or prosecute any alcohol or drug abuse patient.[facility] HospitalIn the event this information is protected by the Federal Confidentiality of Alcohol and Drug Abuse Patient Records regulations: The Federal rules restrict any use of the information to criminally investigate or prosecute any alcohol or drug abuse patient.[facility] HospitalIn the event this information is protected by the Federal Confidentiality of Alcohol and Drug Abuse Patient Records regulations: The Federal rules restrict any use of the information to criminally investigate or prosecute any alcohol or drug abuse patient.[facility] HospitalIn the event this information is protected by the Federal Confidentiality of Alcohol and Drug Abuse Patient Records regulations: The Federal rules restrict any use of the information to criminally investigate or prosecute any alcohol or drug abuse patient.[facility] HospitalIn the event this information is protected by the Federal Confidentiality of Alcohol and Drug Abuse Patient Records regulations: The Federal rules restrict any use of the information to criminally investigate or prosecute any alcohol or drug abuse patient.[facility] HospitalIn the event this information is protected by the Federal Confidentiality of Alcohol and Drug Abuse Patient Records regulations: The Federal rules restrict any use of the information to criminally investigate or prosecute any alcohol or drug abuse patient.[facility] HospitalIn the event this information is protected by the Federal Confidentiality of Alcohol and Drug Abuse Patient Records regulations: The Federal rules restrict any use of the information to criminally investigate or prosecute any alcohol or drug abuse patient.[facility] HospitalIn the event this information is protected by the Federal Confidentiality of Alcohol and Drug Abuse Patient Records regulations: The Federal rules restrict any use of the information to criminally investigate or prosecute any alcohol or drug abuse patient.[facility] HospitalIn the event this information is protected by the Federal Confidentiality of Alcohol and Drug Abuse Patient Records regulations: The Federal rules restrict any use of the information to criminally investigate or prosecute any alcohol or drug abuse patient.[facility] HospitalIn the event this information is protected by the Federal Confidentiality of Alcohol and Drug Abuse Patient Records regulations: The Federal rules restrict any use of the information to criminally investigate or prosecute any alcohol or drug abuse patient.[facility] HospitalIn the event this information is protected by the Federal Confidentiality of Alcohol and Drug Abuse Patient Records regulations: The Federal rules restrict any use of the information to criminally investigate or prosecute any alcohol or drug abuse patient.[facility] HospitalIn the event this information is protected by the Federal Confidentiality of Alcohol and Drug Abuse Patient Records regulations: The Federal rules restrict any use of the information to criminally investigate or prosecute any alcohol or drug abuse patient.[facility] HospitalIn the event this information is protected by the Federal Confidentiality of Alcohol and Drug Abuse Patient Records regulations: The Federal rules restrict any use of the information to criminally investigate or prosecute any alcohol or drug abuse patient.[facility] HospitalIn the event this information is protected by the Federal Confidentiality of Alcohol and Drug Abuse Patient Records regulations: The Federal rules restrict any use of the information to criminally investigate or prosecute any alcohol or drug abuse patient.[facility] the event this information is protected by the Federal Confidentiality of Alcohol and Drug Abuse Patient Records regulations: The Federal rules restrict any use of the information to criminally investigate or prosecute any alcohol or drug abuse patient.[facility] HospitalIn the event this information is protected by the Federal Confidentiality of Alcohol and Drug Abuse Patient Records regulations: The Federal rules restrict any use of the information to criminally investigate or prosecute any alcohol or drug abuse patient.[facility] HospitalIn the event this information is protected by the Federal Confidentiality of Alcohol and Drug Abuse Patient Records regulations: The Federal rules restrict any use of the information to criminally investigate or prosecute any alcohol or drug abuse patient.[facility] HospitalIn the event this information is protected by the Federal Confidentiality of Alcohol and Drug Abuse Patient Records regulations: The Federal rules restrict any use of the information to criminally investigate or prosecute any alcohol or drug abuse patient.[facility] HospitalIn the event this information is protected by the Federal Confidentiality of Alcohol and Drug Abuse Patient Records regulations: The Federal rules restrict any use of the information to criminally investigate or prosecute any alcohol or drug abuse patient.[facility] HospitalIn the event this information is protected by the Federal Confidentiality of Alcohol and Drug Abuse Patient Records regulations: The Federal rules restrict any use of the information to criminally investigate or prosecute any alcohol or drug abuse patient.[facility] HospitalIn the event this information is protected by the Federal Confidentiality of Alcohol and Drug Abuse Patient Records regulations: The Federal rules restrict any use of the information to criminally investigate or prosecute any alcohol or drug abuse patient.[facility] Reason for Visit (unrecogniz ed section and content) Specialty Diagnoses / Procedures Referred By Hermelindo holt Referred To Contact [facility] Diagnoses Lateral epicondylitis of right elbow Procedures CONSULT TO PHYSICAL THERAPY PHYSICAL THERAPY EVALUATION HIGH COMPLEX 45 MINS Vandana Barrientos PA-C [address] [place] [address] [facility] [address] [address] Referral ID Status Reason Start Date Expiration Date Visits Requested Visits Authorized [id number] Authorized Auto-Generat ed Referral 10/05/2023 10/04/2024 30 30 Reason Comments PT Eval Reason Comments Physical Therapy Specialty Diagnoses / Procedures Referred By Hermelindo holt Referred To Contact [facility] Diagnoses Neck pain Procedures CONSULT TO PHYSICAL THERAPY PHYSICAL THERAPY EVALUATION HIGH COMPLEX 45 MINS THERAPEUTIC EXERCISES RE, EA 15 MIN. Vandana Barrientos PA-C [address] [place] [address] [facility] [address] [address] Referral ID Status Reason Start Date Expiration Date Visits Requested Visits Authorized [id number] Authorized Auto-Generat ed Referral 11/05/2021 10/04/2022 30 30 Reason Comments Follow Up Ulcer Reason Comments Neck Pain Reason Comments Handicap Placard Reason Comments [facility]Care Reason Onset Date Comments Refill Request 01/27/2022 Reason Onset Date Comments Refill Request 02/06/2022 Reason Comments Established Patient Follow Up Reason Comments Patient Education Reassessment Reason Onset Date Comments Refill Request 03/18/2022 Reason Onset Date Comments Refill Request 04/08/2022 Reason Comments Prosthetic Other Reason Onset Date Comments Refill Request 04/22/2022 Reason Comments Established Patient Follow Up nail care Reason Comments Results Reason Comments Follow Up Reason Comments Back Pain Reason Comments peer to peer for PA Reason Comments Blood Pressure Check Reason Onset Date Comments Refill Request 06/19/2022 Reason Comments Reassessment Patient Education Reason Comments Med list review Reason Comments Established Patient Diabetic Foot Care Reason Onset Date Comments Refill Request 08/11/2022 Reason Onset Date Comments Refill Request 08/18/2022 Reason Comments Non-insulin Dependent Diabetes Mellitus Reason Onset Date Comments Refill Request 09/23/2022 Reason Comments Letter for Therapy Dogs Reason Comments Diabetes Dry Eye(s) Both Eyes Reason Comments Established Patient Follow Up Diabetic Foot Check Reason Comments Pain Reason Comments Returned mail Reason Comments Prescription Refills Reason Comments Yearly Exam Reason Onset Date Comments Refill Request 03/09/2023 Reason Comments Refill Request Reason Comments Established Patient Follow Up Diabetic Foot Care Reason Comments Appointment Confirmation Reason Onset Date Comments Refill Request 05/13/2023 Reason Onset Date Comments Refill Request 06/15/2023 Reason Comments Insulin Dependent Diabetes Mellitus Reason Comments Outside Neurology Reason Onset Date Comments Refill Request 08/20/2023 Reason Onset Date Comments Refill Request 09/09/2023 Reason Comments Results Reason Onset Date Comments Refill Request 11/20/2023 Reason Comments Radiology US Specialty Diagnoses / Procedures Referred By Hermelindo holt Referred To Contact US IMAGING Diagnoses Elevated alkaline phosphatase level Procedures US ABD RIGHT UPPER QUADRANT US ABDOMINAL REAL TIME W/IMAGE LIMITED Vandana Barrientos PA-C [id number] [place] [id number] [place] [address] Referral ID Status Reason Start Date Expiration Date V isits Requested Visits Authorized [id number] Closed Auto-Generate d Referral 11/05/2023 12/04/2024 1 1 Reason Onset Date Comments Refill Request 12/07/2023 Reason Comments Derm Problem Lump in middle of fo rehead Reason Comments LESION, SKIN Care Teams (unrecognized sec tion and content) Cereal Chemist Relationship Specialty Start Date End Date Freddie Luis MD [address] [place] [address] [id number] PCP - General Family Practice 01/08/16 Cereal Chemist Relationship Specialty Start Date End Date Freddie Luis MD [address] [place] [address] [phone] PCP - General Family Practice 01/08/16 Cereal Chemist Relationship Specialty Start Date End Date Freddie Luis MD [address] [place] [address] [id number] PCP - General Family Practice 01/08/16 Cereal Chemist Relationship Specialty Start Date End Date Freddie Luis MD [address] [place] [address] PCP - General Family Practice 01/08/16 Cereal Chemist Relationship Specialty Start Date End Date Freddie Luis MD [facility] [place] [address] PCP - General Family Practice 01/08/16 Cereal Chemist Relationship Specialty Start Date End Date Freddie Luis MD [address] [place] [address], [place] [address] PCP - General Family Practice 01/08/16 Cereal Chemist Relationship Specialty Start Date End Date Freddie Luis MD [address] [place] [address] [place] [address] PCP - General Family Practice 01/08/16 Cereal Chemist Relationship Specialty Start Date End Date Freddie Luis MD [address] [place] [address] [place] [address] PCP - General Family Practice 01/08/16 Cereal Chemist Relationship Specialty Start Date End Date Freddie Luis MD [address] [place] [address] [place] [address] PCP - General Family Practice 01/08/16 Cereal Chemist Relationship Specialty Start Date End Date Freddie Luis MD [address] [place] [address] [place] [address] PCP - General Family Practice 01/08/16 Cereal Chemist Relationship Specialty Start Date End Date Freddie Luis MD [address] [place] [address] [place] [address] PCP - General Family Practice 01/08/16 Cereal Chemist Relationship Specialty Start Date End Date Freddie Luis MD [address] [place] [address] [place] [address] PCP - General Family Practice 01/08/16 Cereal Chemist Relationship Specialty Start Date End Date Freddie Luis MD [address] [place] [address] PCP - General Family Medicine 01/08/16 Cereal Chemist Relationship Specialty Start Date End Date Freddie Luis MD [address] [place] [address] PCP - General Family Medicine 01/08/16 Cereal Chemist Relationship Specialty Start Date End Date Freddie Luis MD [address] [place] [address] PCP - General Family Medicine 01/08/16 Cereal Chemist Relationship Specialty Start Date End Date Freddie Luis MD [facility] [place] [address] PCP - General Family Medicine 01/08/16 Cereal Chemist Relationship Specialty Start Date End Date Freddie Luis MD [facility] [place] [address] PCP - General Family Medicine 01/08/16 Cereal Chemist Relationship Specialty Start Date End Date Freddie Luis MD [facility] [place] [address] PCP - General Family Medicine 01/08/16 Cereal Chemist Relationship Specialty Start Date End Date Freddie Luis MD [facility] [place] [address] PCP - General Family Medicine 01/08/16 Cereal Chemist Relationship Specialty Start Date End Date Freddie Luis MD [facility] [place] [address] PCP - General Family Medicine 01/08/16 Cereal Chemist Relationship Specialty Start Date End Date Freddie Luis MD [facility] [place] [address] PCP - General Family Medicine 01/08/16 Cereal Chemist Relationship Specialty Start Date End Date Freddie Luis MD [address] [place] [address] PCP - General Family Medicine 01/08/16 Cereal Chemist Relationship Specialty Start Date End Date Freddie Luis MD [address] [place] [address] PCP - General Family Medicine 01/08/16 Cereal Chemist Relationship Specialty Start Date End Date Freddie Luis MD [facility] [place] [address] PCP - General Family Medicine 01/08/16 Cereal Chemist Relationship Specialty Start Date End Date Freddie Luis MD [facility] [place] [address] PCP - General Family Medicine 01/08/16 Cereal Chemist Relationship Specialty Start Date End Date Freddie Luis MD [facility] [place] [address] PCP - General Family Medicine 01/08/16 Cereal Chemist Relationship Specialty Start Date End Date Freddie Luis MD [facility] [place] [address] PCP - General Family Medicine 01/08/16 Cereal Chemist Relationship Specialty Start Date End Date Freddie Luis MD [facility] [place] [address] PCP - General Family Medicine 01/08/16 Cereal Chemist Relationship Specialty Start Date End Date Freddie Luis MD [facility] [place] [address] PCP - General Family Medicine 01/08/16 Cereal Chemist Relationship Specialty Start Date End Date Freddie Luis MD [facility] [place] [address] PCP - General Family Medicine 01/08/16 Cereal Chemist Relationship Specialty Start Date End Date Freddie Luis MD [address] [place] [address] PCP - General Family Medicine 01/08/16 Cereal Chemist Relationship Specialty Start Date End Date Freddie Luis MD [address] [place] [address] PCP - General Family Medicine 01/08/16 Cereal Chemist Relationship Specialty Start Date End Date Freddie Luis MD [address] [place] [address] PCP - General Family Medicine 01/08/16 Cereal Chemist Relationship Specialty Start Date End Date Freddie Luis MD [address] [place] [address] PCP - General Family Medicine 01/08/16 Cereal Chemist Relationship Specialty Start Date End Date Freddie Luis MD [address] [place] [address] PCP - General Family Medicine 01/08/16 Cereal Chemist Relationship Specialty Start Date End Date Freddie Luis MD [address] [place] [address] PCP - General Family Medicine 01/08/16 Cereal Chemist Relationship Specialty Start Date End Date Freddie Lusi MD [address] [place] [address] PCP - General Family Medicine 01/08/16 Cereal Chemist Relationship Specialty Start Date End Date Freddie Luis MD [address] [place] [address] PCP - General Family Medicine 01/08/16 Cereal Chemist Relationship Specialty Start Date End Date Freddie Luis MD [address] [place] [address] PCP - General Family Medicine 01/08/16 Cereal Chemist Relationship Specialty Start Date End Date Freddie uLis MD [address] [place] [address] PCP - General Family Medicine 01/08/16 Cereal Chemist Relationship Specialty Start Date End Date Freddie Luis MD [address] [place] [address] PCP - General Family Medicine 01/08/16 Cereal Chemist Relationship Specialty Start Date End Date Freddie Luis MD [address] [place] [address] PCP - General Family Medicine 01/08/16 Cereal Chemist Relationship Specialty Start Date End Date Freddie Luis MD [address] [place] [address] PCP - General Family Medicine 01/08/16 Cereal Chemist Relationship Specialty Start Date End Date Freddie Luis MD [address] [place] [address] PCP - General Family Medicine 01/08/16 Cereal Chemist Relationship Specialty Start Date End Date Freddie Luis MD [address] [place] [address] PCP - General Family Medicine 01/08/16 Cereal Chemist Relationship Specialty Start Date End Date Freddie Luis MD [address] [place] [address] PCP - General Family Medicine 01/08/16 Cereal Chemist Relationship Specialty Start Date End Date Freddie Luis MD [address] [place] [address] PCP - General Family [facility] 01/08/16 Cereal Chemist Relationship Specialty Start Date End Date Freddie Luis MD [address] [place], [place] [id number] PCP - General Family Medicine 01/08/16 INFORMATION SOURCE (unrecogn ized section and content) FOR RECORDS PERTAINING TO PATIENTS WHO ARE OR HAVE BEEN ENROLLED IN A CHEMICAL DEPENDENCY/SUBSTANCEABUSE PROGRAM, SOME INFORMATION MAY BE OMITTED. This clinical summary was aggregated from multiple sources. Caution should be exercised in using it in the provision of clinical care. This summary normalizes information from multiple sources, and as a consequence, information in this document may materially change the coding, format and clinical context of patient data. In addition, data may be omitted in some cases. CLINICAL DECISIONS SHOULD BE BASED ON THE PRIMARY CLINICAL RECORDS. [facility]. provides no warranty or guarantee of the accuracy or completeness of information in this document.
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
[2023-12-13] MEDS: Ketorolac 30 MG/ML Syringe IM (10:12)
[2023-12-13 10:15] VITALS: BP 130/90; PULSE 79; RESP 16; TEMP 36.7; O2SAT 97
== END 2023-12-13 10:32 | disposition home or self-care (01) ==
PROVIDERS: Emergency Provider Emergency Medicine; PCP Family Medicine; Visit Provider Emergency Medicine
DX: S39.012A Strain of muscle, fascia and tendon of lower back, initial encounter (principal); E11.9 Type 2 diabetes mellitus without complications; Z79.4 Long term (current) use of insulin; Y92.410 Unspecified street and highway as the place of occurrence of the external cause; V43.52XA Car driver injured in collision with other type car in traffic accident, initial encounter; S16.1XXA Strain of muscle, fascia and tendon at neck level, initial encounter; I10 Essential (primary) hypertension; K21.9 Gastro-esophageal reflux disease without esophagitis; Z79.899 Other long term (current) drug therapy; Z79.84 Long term (current) use of oral hypoglycemic drugs
CPT/HCPCS: 96372; 99282